=== PATIENT | male | born 1960 | race Caucasian/White ===

== ENCOUNTER → 2016-05-26 | Outpatient (CLI) | payer OTHER ==
[2016-02-05 08:12] VITALS: BP 156/89
[~2016-05-26] MED LIST: ASCO500T3 PO; AZAT50TA PO; CHOL20003 PO; FAMO20TA5 PO; FERR-26 PO; MESA800T2 PO; MULT-246 PO; OMEP20CA9 PO; PROT420P PO
== END | disposition home or self-care (01) ==
LOC: PMGWOUND 09:27
PROVIDERS: ATTEND Emergency Medicine Undersea and Hyperbaric Medicine
DX: L89.153 Pressure ulcer of sacral region, stage 3 (principal); L98.8 Other specified disorders of the skin and subcutaneous tissue; M19.90 Unspecified osteoarthritis, unspecified site; Z87.891 Personal history of nicotine dependence
CPT/HCPCS: 99214

== ENCOUNTER → 2017-09-09 | Outpatient (CLI) | payer OTHER | END | disposition home or self-care (01) | LOC: PMGWOUND 09:08 | DX: T81.31XD Disruption of external operation (surgical) wound, not elsewhere classified, subsequent encounter (principal); M19.90 Unspecified osteoarthritis, unspecified site; Z87.891 Personal history of nicotine dependence; Z85.048 Personal history of other malignant neoplasm of rectum, rectosigmoid junction, and anus; Y83.8 Other surgical procedures as the cause of abnormal reaction of the patient, or of later complication, without mention of misadventure at the time of the procedure | CPT/HCPCS: 99213 ==

== ENCOUNTER → 2017-09-16 | Outpatient (CLI) | payer OTHER ==
[2016-02-05 08:12] VITALS: BP 156/89
[~2017-09-16] MED LIST changes: -CHOL20003 PO; +CHOL20009 PO; -FERR-26 PO; +FERR325T14 PO; +GADOBUTROL 10 MMOL/10 ML VIAL IV ONE
--- NOTE | 2017-09-16 12:25 | RAD ---
Examination: MRI of the pelvis without and with IV contrast HISTORY: History of sacral pain, history of osteomyelitis, history of open ulcer, history of bowel resection COMPARISON: None available TECHNIQUE: Multiplanar, sequence MR imaging of the pelvis were performed without and with IV contrast. IV contrast used was 10 mL of gadavist FINDINGS: There is a sacral decubitus ulcer in the lower back distal to the sacrum best visualized on series 10 image #15 with focal fluid collection measuring 2.2 x 1.3 cm could be secondary to decubitus ulcer with probable abscess or phlegmon or fluid in the fistulous tract. The tract appears to extend into the posterior perineum along the right medial buttock possibly to the anal region, however examination is limited due to significant motion artifact. The ulcer extends appears to extend inferior to the distal sacral coccygeal region however the distal portion the coccygeus demonstrates a decreased T1 and T2 signal could be osteomyelitis or due to prior surgical changes. IMPRESSION: 1. Sacral ulcer identified in the low back with 2.2 cm fluid collection could be abscess or phlegmon or fluid in the fistulous tract. The tract from the ulcer extends into the posterior peritoneum along the right medial buttock possibly to the anal region suggesting possible fistula. 2. There is decreased T1, T2 signal identified in the distal coccygeal region could be osteomyelitis or prior surgical changes. Recommend clinical correlation. Also consider bone scan and bony CT pelvis for further evaluation. Electronically signed by: Rad Sawyer MD (09/16/2017 12:21 PM) [facility]
[2017-09-17 10:09] LABS: CALCIUM 9.8 mg/dL (8.5-10.1); CREATININE 1.3 mg/dL (0.7-1.3); GFR 56.5; POTASSIUM 3.9 mmol/L (3.5-5.1)
[2017-09-17 10:10] LABS: PHOSPHORUS 2.9 mg/dL (2.6-4.7)
[2017-09-17 10:11] LABS: BASO % 1 % (0-3); EOS % 1 % (0-3); HEMATOCRIT 48.4 % (39.0-53.0); HEMOGLOBIN 16.9 g/dL (13.0-17.5); LYMPH % 21 % (24-48); MEAN CORPUSCULAR HEMOGLOBIN 33 pg (25-35); MEAN CORPUSCULAR HGB CONC 35 g/dL (31-37); MEAN CORPUSCULAR VOLUME 95 fL (79-100); MONO % 10 % (0-9); NEUT % 68 % (31-73); PLATELET COUNT 197 x10^3/uL (140-400); RED BLOOD COUNT 5.11 x10^6/uL (4.30-5.70); RED CELL DISTRIBUTION WIDTH 13.7 % (11.5-14.5); WHITE BLOOD COUNT 9.1 x10^3/uL (4.0-11.0)
[2017-09-17 10:12] LABS: EOS # 0.1 x10^3/uL (0.0-0.7); LYMPH # 1.9 x10^3/uL (1.0-4.8); MONO # 0.9 x10^3/uL (0.0-1.1); NEUT # 6.1 x10^3uL (1.8-7.7)
== END | disposition home or self-care (01) ==
LOC: MRI 08:57
PROVIDERS: ATTEND Emergency Medicine Undersea and Hyperbaric Medicine
DX: T81.31XD Disruption of external operation (surgical) wound, not elsewhere classified, subsequent encounter (principal); L89.159 Pressure ulcer of sacral region, unspecified stage; Z85.048 Personal history of other malignant neoplasm of rectum, rectosigmoid junction, and anus; Z87.891 Personal history of nicotine dependence
CPT/HCPCS: 36415; 72197; 80069; 85025; 85651; A9585

== ENCOUNTER → 2017-09-30 | Outpatient (CLI) | payer OTHER ==
[2016-02-05 08:12] VITALS: BP 156/89
[~2017-09-30] MED LIST changes: -GADOBUTROL 10 MMOL/10 ML VIAL IV ONE
== END | disposition home or self-care (01) ==
LOC: PMGWOUND 08:56
PROVIDERS: ATTEND Emergency Medicine Undersea and Hyperbaric Medicine
DX: T81.31XS Disruption of external operation (surgical) wound, not elsewhere classified, sequela (principal); M46.28 Osteomyelitis of vertebra, sacral and sacrococcygeal region; M19.90 Unspecified osteoarthritis, unspecified site; Z87.891 Personal history of nicotine dependence; Z85.048 Personal history of other malignant neoplasm of rectum, rectosigmoid junction, and anus; Y83.8 Other surgical procedures as the cause of abnormal reaction of the patient, or of later complication, without mention of misadventure at the time of the procedure
CPT/HCPCS: 36415; 80069; 85025; 85651; 99213

== ENCOUNTER 2017-10-19 06:23 | Observation (INO) | payer OTHER ==
[~2017-10-19] VITALS: Ht 170.2 cm; Wt 99.8 kg
[~2017-10-19 06:23] MED LIST changes: +ASCO-78 PO; +ERGO500027 PO
[2017-10-19] MEDS ORDERED: HYDROmorphone 2 MG/ML VIAL IV PRN (07:00)
[2017-10-19] MEDS ORDERED: fentaNYL PF VIAL 100 MCG/2 ML VIAL IV PRN ×2 (07:00)
[2017-10-19] MEDS ORDERED: MORPHINE SULFATE 2 MG/ML VIAL. IV PRN (07:00)
[2017-10-19] MEDS ORDERED: LIDOCAINE 1% PF 2 ML VIAL. ID PRN (07:00)
[2017-10-19] MEDS ORDERED: ONDANSETRON PF 4 MG/2 ML VIAL. IV PRN ×2 (07:00→09:15)
[2017-10-19] MEDS ORDERED: PROCHLORPERAZINE 10 MG/2 ML VIAL. IV PRN (07:00)
[2017-10-19] MEDS: IV RINGERS,LACTATED 1000ML 1,000 ML IV SCH ×4 (07:05→19:05)
[2017-10-19] MEDS ORDERED: ONDANSETRON PF 4 MG/2 ML VIAL. ONE (07:44)
[2017-10-19] MEDS ORDERED: ROCURONIUM 50 MG/5 ML VIAL. ONE (07:44)
[2017-10-19] MEDS ORDERED: PROPOFOL 20 ML IV ONE (07:44)
[2017-10-19] MEDS ORDERED: DEXAMETHASONE SOD PHOS 20 MG/5 ML VIAL. ONE (07:44)
[2017-10-19] MEDS ORDERED: MIDAZOLAM HCL/PF 2 MG/2 ML VIAL. ONE (07:45)
[2017-10-19] MEDS ORDERED: MINERAL OIL/PETROLATUM,WHITE OPHTH OINT 3.5GM TUBE. ONE (07:45)
[2017-10-19] MEDS ORDERED: fentaNYL PF VIAL 100 MCG/2 ML VIAL ONE (07:45)
--- NOTE | 2017-10-19 08:03 | PDOC ---
SURGICAL PROGRESS NOTE Subjective 57 yo M with perineal ulcers TO OR for debridement, possible closure R/R/B/A d/w pt. Risks, including, but not limited to: bleeding, infection, damage to surrounding structures, risk of anesthesia, may need wound vac Pt appears to understand, his questions are answered and he elects to proceed. Office note H&P reviewed and unchanged. Pt reexamined. Vital Signs Vital Signs Date Time Temp Pulse Resp B/P (MAP) Pulse Ox O2 Delivery O2 Flow Rate FiO2 10/19/17 06:59 97.3 82 154/83 94 97.3 10/19/17 06:53 20 CLINTON AMIN MD Oct 19, 2017 08:03
[2017-10-19] MEDS ORDERED: DESFLURANE 31 TO 60 MINUTES IH ONE (08:20)
[2017-10-19] MEDS ORDERED: NEOSTIGMINE METHYLSULFATE 5 MG/5 ML SYRINGE. ONE (08:47)
[2017-10-19] MEDS ORDERED: GLYCOPYRROLATE 1 MG/5 ML VIAL. ONE (08:48)
[2017-10-19] MEDS ORDERED: SEVOFLURANE UP TO 15 MINUTES. IH ONE ×2 (08:52)
[2017-10-19] MEDS ORDERED: 0.9 % SODIUM CHLORIDE 10 ML DISP.SYRIN. IV PRN (09:15)
--- NOTE | 2017-10-19 09:19 | PDOC4 ---
OPERATIVE NOTE Date: Date: Oct 19, 2017 Pre-Op Diagnosis: Perineal ulcer Post-Op Diagnosis: same Procedure Performed: Excisional debridement of skin, subcutaneous tissue and muscle, no bony involvement Surgeon: Jose Amin Anesthesia Type: GETA Blood Loss: 50 Specimans Obtained: abscess cavity Findings: Abscess cavity involving skin, subcutaneous tissue and muscle, at the level of the coccyx, but infection not involving bone Complications: none Operative Note: After obtaining informed consent, patient was taken to OR, induced under GETA and prepped over the perineal area. Abscess cavity over coccyx excised in an ellitical fashion using cautery. Dissection continued down through skin, subcutaneous tissue and some muscle. Abscess cavity appeared to extend down inferiorly to the coccyx. Did not appear to involve bone. Necrotic tissue excised and sent to pathology for evaluation. Hemostasis obtained with cautery. Areas of granulation tissue inferiorly ablated with cautery. Wound packed with iodoform gauze. Sterile dressing placed. Given size of wound and depth of infection, favor wound care over layered closure. Patient tolerated procedure well and sent to PACU in stable condition. All counts correct. Wound class 4, dirty. CLINTON AMIN MD Oct 19, 2017 09:19
[2017-10-19 11:00] VITALS: BP 129/74
--- NOTE | 2017-10-19 13:02 | PDOC ---
Infectious Disease Note Vital Sign Vital Signs Vital Signs Date Time Temp Pulse Resp B/P (MAP) Pulse Ox O2 Delivery O2 Flow Rate FiO2 10/19/17 10:18 98.1 78 20 138/75 93 Room Air 98.1 10/19/17 09:33 10 Objective Assessment Sacrococcygeal wound, ? fistula ? sacral osteomyelitis, op report noted, as well my exam does not indicate wound to bone Crohns disease Plan Plan of Care get ct sacrum sed rate DIANA CAVANAUGH MD Oct 19, 2017 13:02
[2017-10-19 15:00] VITALS: BP 91/41
--- NOTE | 2017-10-19 15:02 | PDOC2 ---
CONSULT Date of Consult Date of Consult DATE: 10/19/17 TIME: 14:43 Reason for Consult Reason for Consult: Negative pressure wound therapy placement and concern for chronic refractory osteomyelitis of the sacrum Referring Physician Referring Physician: Dr. Gonzalez Identification/Chief Complaint Chief Complaint Nonhealing sacral wound with concern for tracking to infectious site Source Source: Chart review, Patient History of Present Illness Reason for Visit: This is a very pleasant 57-year-old patient known to the wound care center for nonhealing perineal wound sits site of perineal resection. Concern has been raised on MRI for chronic sacral osteomyelitis. Patient has a remote history of sacral osteomyelitis and it is believed he underwent appropriate prolonged IV antibiotic therapy. Today Dr. Gonzalez performed debridement on the wound to identify any infectious tracking. At surgery bony involvement was not apparent. He is examined today for placement negative pressure wound therapy and follow- up of MRI sacral osteomyelitis concern. Patient is examined in the bed. He is comfortable with postsurgical dressing in place. Patient has had multiple surgical procedures including ileostomy and history of total colectomy and proctectomy. Past Medical History Past Medical History Negative except as reported below GI: GERD, Other (past medical history of Crohn's) Psych: Depression Endocrine: Other (chronic nonhealing wounds that site of perineal resection.) Past Surgical History Past Surgical History: Colon Resection, Other (proctectomy) Social History No ALCOHOL: none Lives: Alone Domestic Violence: Neg Current Problem List Problem List Nonhealing sacral wound Current Medications Current Medications Current Medications Ondansetron HCl (Zofran) 4 mg PRN Q6HRS PRN IV NAUSEA/VOMITING; Start 10/19/17 at 07:00; Stop 10/20/17 at 06:59 Fentanyl Citrate (Fentanyl 2ml Vial) 25 mcg PRN Q5MIN PRN IV MILD PAIN; Start 10/19/17 at 07:00; Stop 10/20/17 at 06:59 Fentanyl Citrate (Fentanyl 2ml Vial) 50 mcg PRN Q5MIN PRN IV MODERATE TO SEVERE PAIN; Start 10/19/17 at 07:00; Stop 10/20/17 at 06:59 Morphine Sulfate (Morphine Sulfate) 1 mg PRN Q10MIN PRN IV SEVERE PAIN; Start 10/19/17 at 07:00; Stop 10/20/17 at 06:59 Ringer's Solution 1,000 ml @ 30 mls/hr Q24H IV Last administered on 10/19/17at 09:32; Start 10/19/17 at 07:00; Stop 10/19/17 at 18:59 Lidocaine HCl (Xylocaine-Mpf 1% 2ml Vial) 2 ml PRN 1X PRN ID PRIOR TO IV START ; Start 10/19/17 at 07:00; Stop 10/20/17 at 06:59 Hydromorphone HCl (Dilaudid) 0.5 mg PRN Q10MIN PRN IV SEV PAIN, Second choice; Start 10/19/17 at 07:00; Stop 10/20/17 at 06:59 Prochlorperazine Edisylate (Compazine) 5 mg PACU PRN PRN IV NAUSEA, MRX1; Start 10/19/17 at 07:00; Stop 10/20/17 at 06:59 Propofol 20 ml @ As Directed STK-MED ONCE IV ; Start 10/19/17 at 07:44; Stop 12/26 at 07:45; Status DC Dexamethasone Sodium Phosphate (Decadron) 20 mg STK-MED ONCE .ROUTE ; Start 12/26 at 07:44; Stop 10/19/17 at 07:45; Status DC Ondansetron HCl (Zofran) 4 mg STK-MED ONCE .ROUTE ; Start 10/19/17 at 07:44; Stop 10/19/17 at 07:45; Status DC Rocuronium Locke (Zemuron) 50 mg STK-MED ONCE .ROUTE ; Start 10/19/17 at 07:44 ; Stop 10/19/17 at 07:45; Status DC Fentanyl Citrate (Fentanyl 2ml Vial) 100 mcg STK-MED ONCE .ROUTE ; Start at 07:45; Stop 10/19/17 at 07:46; Status DC Midazolam HCl (Versed) 2 mg STK-MED ONCE .ROUTE ; Start 10/19/17 at 07:45; Stop 10/19/17 at 07:46; Status DC Multi-Ingred Cream/Lotion/Oil/ Oint (Artificial Tears Eye Ointment) 7 louis STK- MED ONCE .ROUTE ; Start 10/19/17 at 07:45; Stop 10/19/17 at 07:46; Status DC Cefazolin Sodium/ Dextrose 50 ml @ 100 mls/hr 1X ONCE IV Last administered on 10/19/17at 08:05; Start 10/19/17 at 08:00; Stop 10/19/17 at 08:29; Status DC Desflurane (Suprane) 30 ml STK-MED ONCE IH ; Start 10/19/17 at 08:20; Stop 10/19 at 08:21; Status DC Neostigmine Methylsulfate (Neostigmine Methylsulfate) 5 mg STK-MED ONCE .ROUTE ; Start 10/19/17 at 08:47; Stop 10/19/17 at 08:48; Status DC Glycopyrrolate (Robinul) 1 mg STK-MED ONCE .ROUTE ; Start 10/19/17 at 08:48; Stop 10/19/17 at 08:49; Status DC Sevoflurane (Ultane) 8 ml STK-MED ONCE IH ; Start 10/19/17 at 08:52; Stop at 08:53; Status DC Sevoflurane (Ultane) 8 ml STK-MED ONCE IH ; Start 10/19/17 at 08:52; Stop at 08:53; Status DC Enoxaparin Sodium (Lovenox 40mg Syringe) 40 mg Q24H SQ ; Start 10/19/17 at 21:00 Sodium Chloride (Normal Saline Flush) 3 ml QSHIFT PRN IV AFTER MEDS AND BLOOD DRAWS; Start 10/19/17 at 09:15 Ringer's Solution 1,000 ml @ 100 mls/hr Q10H IV ; Start 10/19/17 at 09:11 Acetaminophen/ Hydrocodone Bitart (Lortab 5/325) 1 tab PRN Q4HRS PRN PO MILD PAIN; Start 10/19/17 at 09:15 Docusate Sodium (Colace) 100 mg BID PO ; Start 10/19/17 at 21:00 Ondansetron HCl (Zofran) 4 mg PRN Q6HRS PRN IV NAUESA, 1ST CHOICE; Start at 09:15 Active Scripts Active Reported Vitamin D2 (Ergocalciferol (Vitamin D2)) 50,000 Unit Capsule 1 Cap PO QMONTH Vitamin C (Ascorbate Calcium) 500 Mg Tablet 500 Mg PO BID Nutritional Drink Mix (Protein Supplement) 420 Gm Powder 420 Gm PO DAILY Multi-Vitamin Daily (Multivitamin) 1 Each Tablet 1 Each PO Famotidine 20 Mg Tablet 20 Mg PO HS Asacol Hd (Mesalamine) 800 Mg Tablet. 1,600 Mg PO TID Allergies Allergies: Coded Allergies: No Known Drug Allergies (Unverified , 10/19/17) ROS Review of System Negative except as reported below Gastrointestinal: Yes Other (ileostomy) Skin: Yes Other (nonhealing sacral wounds with history of prior sacral osteomyelitis.) Physical Exam General: Alert, Oriented X3, Cooperative, No acute distress HEENT: Atraumatic, PERRLA, EOMI Lungs: Clear to auscultation, Normal air movement Heart: Regular rate Abdomen: Soft, No tenderness Extremities: No clubbing, No cyanosis Skin: Other (large sacral area postoperative wound.) Neuro: Normal gait, Normal speech Psych/Mental Status: Mental status NL, Mood NL MUSCULOSKELETAL: Not examined Vitals VITALS Vital Signs Date Time Temp Pulse Resp B/P (MAP) Pulse Ox O2 Delivery O2 Flow Rate FiO2 10/19/17 12:49 Room Air 10/19/17 10:18 98.1 78 20 138/75 93 98.1 10/19/17 09:33 10 Images Images There is decreased T1, T2 signal identified in the distal coccygeal region could be osteomyelitis or prior surgical changes. Recommend clinical correlation. Also consider bone scan and bony CT pelvis for further evaluation. MRI 09/16/17 Assessment/Plan Assessment/Plan Stage IV pressure ulcer now status post wide surgical debridement with no evidence of abscess formation. We'll ask infectious disease to consult regarding any persisting concern for sacral osteomyelitis. Efforts to place wound VAC today when successful due to postsurgical tissue friability and tendency to bleed. We'll reassess tomorrow with likely placement at that time. Appreciate surgical debridement efforts of general surgery. LYDIA BONILLA DO Oct 19, 2017 15:02
[2017-10-19] MEDS: HYDROcodone/APAP 5/325MG 1 TAB TABLET PO PRN (16:40)
--- NOTE | 2017-10-19 17:03 | RAD ---
PQRS Compliance statement: One or more of the following individualized dose reduction techniques were utilized for this examination: 1. Automated exposure control. 2. Adjustment of the mA and/or kV according to patient size. 3. Use of iterative reconstruction technique. INDICATION: Sacral ulcer. Evaluate for Sacral osteomyelitis. TECHNIQUE: Noncontrast CT pelvis with multiplanar reformats COMPARISON: MRI of the pelvis from 09/16/2017 FINDINGS: Limited exam due to lack of IV contrast. Deep posterior ulcer is seen inferior to the sacrum. Coccyx is absent there is no extension of the ulcer into the presacral space. This extends to the inferior sacral spine. There is thickening of the sacral pelvic fascia. Presacral inflammatory changes are seen. No free pelvic fluid. No loculated fluid collection to suggest abscess. Right lower quadrant ostomy with herniation of the small bowel loops. Fat-containing left lateral abdominal wall hernia with neck measuring 4.7 cm and hernia sac measuring 7.1 x 3.6 cm. The urinary bladder demonstrates no radiopaque stones. Prostate and seminal vesicles show no obvious mass lesion. No inguinal, pelvic or retroperitoneal adenopathy. No periosteal reaction or cortical erosion seen. Mild bilateral hip joint osteoarthritis. No suspicious bony lesion. Status post total colectomy. IMPRESSION: Limited exam due to lack of IV contrast. 1. Deep soft tissue ulcer at the level of coccyx extending to the inferior aspect of the sacrum with no obvious extension into the presacral fat. No fluid collection to suggest abscess. No cortical erosion of the inferior sacral vertebrae or periosteal reaction to suggest advanced acute osteomyelitis. However, it is not entirely ruled out given the proximity of the ulcer to the inferior sacral spine. 2. Right lower quadrant ostomy with parastomal herniation of the small bowel loops. 3. Presacral soft tissue inflammatory changes. Electronically signed by: John Johns DO (10/19/2017 5:00 PM) [facility]
[2017-10-19 19:00] VITALS: BP 115/64
[2017-10-19] MEDS: DOCUSATE SODIUM 100 MG CAPSULE. PO SCH (20:54)
[2017-10-19] MEDS: ENOXAPARIN 40 MG/0.4 ML SYRINGE. SQ SCH (20:55)
--- NOTE | 2017-10-19 21:46 | CONS ---
DATE OF CONSULTATION: 10/19/2017 REQUESTING PHYSICIAN: Dr. Gonzalez. REASON FOR CONSULTATION: Questionable sacral osteomyelitis. HISTORY OF PRESENT ILLNESS: This is a 57-year-old gentleman with Crohn's disease who has had fistula and problem with the wounds in the perianal area for a long time. The patient was evaluated by wound care. The patient has had MRI done on 09/16/2017 which showed a sacral ulcer with 2.2 cm fluid collection, which was abscess versus phlegmon or fluid in the fistulous tract. Tract from the ulcer extends into the posterior peritoneum along the right medial buttock, possibly into the anal region. There was also decreased T1-T2 signal identified in the distal coccygeal region, could be osteomyelitis or prior surgical changes. The patient was taken to the OR by Dr. Gonzalez and had I and D done, which included excisional debridement of the skin, subcutaneous tissue and muscle. No bone involvement clearly documented by Dr. Gonzalez, because of this MRI consult has been requested. The patient denies any fever, chills, nausea, vomiting, diarrhea. The patient unfortunately says this wound has been off and on for years and he has been told that he has had fistula, that it would get better and then get worse, etc. PAST MEDICAL HISTORY: Positive for Crohn's disease. He has had colon surgery done with colostomy. In fact, he had a temporary colostomy or ileostomy and now he has permanent one. The patient also has had cataract removal done. He has had fistula repair done x 6 in the past. SOCIAL HISTORY: Negative for smoking. Occasional alcohol use and occasional cigarette or he smokes. REVIEW OF SYSTEMS: As per HPI, all other systems reviewed are negative. CURRENT MEDICATIONS: The patient is not on any antibiotics. He did receive Ancef before surgery. PHYSICAL EXAMINATION: GENERAL: Alert and oriented gentleman, not in distress. VITAL SIGNS: Stable, afebrile. HEENT: NAD. NECK: Supple, no JVP, no lymphadenopathy. LUNGS: Clear. HEART: S1, S2 regular. ABDOMEN: Benign. EXTREMITIES: No edema, cyanosis. SKIN: Unremarkable. He has a postsurgical wound, which was examined, very healthy red granulation tissue without any necrosis, without any discharge and I do not feel there is any fistulous tract to the bone or exposed bone. LABORATORY DATA: His sed rate is at 10. White count is normal. BUN and creatinine is normal. MRI as I mentioned earlier. IMPRESSION AND PLAN: 1. Sacrococcygeal wound, status post excisional debridement of the skin, subcutaneous tissue, and muscle. No bony involvement per surgery as well as to my examination. 2. Crohn's disease with history of multiple surgeries in that area with even fistula repair done in the past. 3. MRI report with questionable infection in the bone, clinically does not appear to have infection in the bone as well as his sed rate is 10. As suggested by Radiology, CAT scan of the sacrococcyx can be done to evaluate and I do not see the need for any antibiotics at this stage. Thank you very much, Dr. Gonzalez, for giving me the opportunity to participate in this patient's care. DIANA CAVANAUGH MD DR: DENZEL/nts JOB#: [id number] / [id number]
[2017-10-19 23:00] VITALS: BP 96/51
[2017-10-20 03:00] VITALS: BP 105/49
[2017-10-20] MEDS: IV RINGERS,LACTATED 1000ML 1,000 ML IV SCH ×2 (04:57→15:11)
[2017-10-20 07:00] VITALS: BP 132/73
[2017-10-20] MEDS: DOCUSATE SODIUM 100 MG CAPSULE. PO SCH ×2 (08:08→20:39)
--- NOTE | 2017-10-20 09:58 | PDOC ---
Infectious Disease Note Subjective Subjective feeling good ROS ROS no n/v/d/sob Vital Sign Vital Signs Vital Signs Date Time Temp Pulse Resp B/P (MAP) Pulse Ox O2 Delivery O2 Flow Rate FiO2 10/20/17 08:15 Room Air 10.0 10/20/17 07:00 96.8 77 20 132/73 (92) 96 96.8 Physical Exam PHYSICAL EXAM GENERAL: Alert and oriented gentleman, not in distress. VITAL SIGNS: Stable, afebrile. HEENT: NAD. NECK: Supple, no JVP, no lymphadenopathy. LUNGS: Clear. HEART: S1, S2 regular. ABDOMEN: Benign. EXTREMITIES: No edema, cyanosis. SKIN: Unremarkable. He has a postsurgical wound, which was examined, very healthy red granulation tissue without any necrosis, without any discharge and I do not feel there is any fistulous tract to the bone or exposed bone. Labs Micro CT noted Objective Assessment 1. Sacrococcygeal wound, status post excisional debridement of the skin, subcutaneous tissue, and muscle. No bony involvement per surgery as well as to my examination. 2. Crohn's disease with history of multiple surgeries in that area with even fistula repair done in the past. 3. MRI report with questionable infection in the bone, clinically does not appear to have infection in the bone as well as his sed rate is 10. Also clearly reported by Dr Jones, As suggested by Radiology, CAT scan of the sacrococcyx can be done to evaluate and I do not see the need for any antibiotics at this stage. Plan Plan of Care wound vac no need for antibiotics ok to d/c DIANA CAVANAUGH MD Oct 20, 2017 09:58
[2017-10-20 11:00] VITALS: BP 128/73
[2017-10-20] MEDS: HYDROcodone/APAP 5/325MG 1 TAB TABLET PO PRN ×2 (13:10→20:39)
[2017-10-20 15:00] VITALS: BP 112/48
[2017-10-20] MEDS ORDERED: NORMAL SALINE TOP SCH (17:00)
[2017-10-20 19:00] VITALS: BP 135/54
--- NOTE | 2017-10-20 19:37 | PDOC ---
SURGICAL PROGRESS NOTE Subjective Pt without new c/o, just got wound vac Vital Signs Vital Signs Date Time Temp Pulse Resp B/P (MAP) Pulse Ox O2 Delivery O2 Flow Rate FiO2 10/20/17 15:00 97.7 69 20 112/48 (69) 95 Room Air 97.7 10/20/17 14:07 10.0 I&O Intake and Output 10/20/17 07:00 Intake Total 2740 ml Output Total 2100 ml Balance 640 ml Intake Oral 1440 ml IV Total 1300 ml Output Urine Total 1800 ml Stool Total 300 ml # Voids 3 General: Alert, Oriented X3, Cooperative, No acute distress Abdomen: Soft Problem List s/p perineal debridement doing well plan d/c home once wound vac arrangements made CLINTON AMIN MD Oct 20, 2017 19:37
[2017-10-20] MEDS: ENOXAPARIN 40 MG/0.4 ML SYRINGE. SQ SCH (20:39)
[2017-10-20 23:00] VITALS: BP 121/67
[2017-10-21] MEDS: IV RINGERS,LACTATED 1000ML 1,000 ML IV SCH (00:46)
[2017-10-21 03:00] VITALS: BP 117/64
[2017-10-21 07:00] VITALS: BP 118/63
--- NOTE | 2017-10-21 08:46 | PDOC3 ---
Discharge Summary Visit Information Date of Admission: Oct 19, 2017 Date of Discharge: Oct 21, 2017 Admitting Diagnosis: Decub ulcer stage 3 Brief Hospital Course Allergies Allergies Coded Allergies Type Severity Reaction Last Updated Verified No Known Drug Allergies 10/19/17 No Vital Signs Vital Signs Date Time Temp Pulse Resp B/P (MAP) Pulse Ox O2 Delivery O2 Flow Rate FiO2 10/21/17 07:00 97.5 64 20 118/63 (81) 95 Room Air 97.5 10/20/17 21:39 10.0 Brief Hospital Course Mr. Lilly is a 57 old m with perineal ulceration. He underwent debridement in OR. Wound vac placed on 10/20. Doing well on day of d/c pending arrangements for wound vac at home. Pt having minimal pain. Discharge Information Condition at Discharge: Improved Follow Up: Weeks (1) Disposition/Orders: D/C to Home w/ HH Scheduled Ascorbate Calcium (Vitamin C) 500 Mg Tablet, 500 MG PO BID, (Reported) Entered as Reported by: DASIA MA on 10/18/171439 Last Taken: Unknown Dose on 10/18/171899 Last Action: Last Taken Edited on 10/19/17650 by Maria Eugenia Hagen Ergocalciferol (Vitamin D2) (Vitamin D2) 50,000 Unit Capsule, 1 CAP PO QMONTH, # 4 Ref 5 (Reported) Entered as Reported by: DASIA MA on 10/18/17 144 Last Action: New Order on 10/18/171441 by DASIA MA Famotidine (Famotidine) 20 Mg Tablet, 20 MG PO HS, (Reported) Entered as Reported by: GRZEGORZ PICKETT on 01/09/16 0936 Last Taken: Unknown Dose on 10/18/171899 Last Action: Last Taken Edited on 10/19/17650 by Maria Eugenia Hagen Mesalamine (Asacol Hd) 800 Mg Tablet.dr, 1,600 MG PO TID, (Reported) Entered as Reported by: GRZEGORZ PICKETT on 01/08/16 1604 Last Taken: Unknown Dose on 10/19/17 0400 Last Action: Last Taken Edited on 10/19/1751 by Maria Eugenia Hagen Protein Supplement (Nutritional Drink Mix) 420 Gm Powder, 420 GM PO DAILY, ( Reported) Entered as Reported by: GRZEGORZ PICKETT on 01/09/16935 Last Action: Reviewed on 10/18/171438 by DASIA MA Miscellaneous Medications Multivitamin (Multi-Vitamin Daily) 1 Each Tablet, 1 EACH PO, (Reported) Entered as Reported by: GRZEGORZ PICKETT on 01/09/16935 Last Action: Reviewed on 10/18/171438 by CLINTON GARCIA MD Oct 21, 2017 08:46
[2017-10-21] MEDS: DOCUSATE SODIUM 100 MG CAPSULE. PO SCH (09:00)
--- NOTE | 2017-10-21 09:42 | PDOC ---
Infectious Disease Note Subjective Subjective feeling good ROS ROS no n/v/d/sob Vital Sign Vital Signs Vital Signs Date Time Temp Pulse Resp B/P (MAP) Pulse Ox O2 Delivery O2 Flow Rate FiO2 10/21/17 07:00 97.5 64 20 118/63 (81) 95 Room Air 97.5 10/20/17 21:39 10.0 Physical Exam PHYSICAL EXAM GENERAL: Alert and oriented gentleman, not in distress. VITAL SIGNS: Stable, afebrile. HEENT: NAD. NECK: Supple, no JVP, no lymphadenopathy. LUNGS: Clear. HEART: S1, S2 regular. ABDOMEN: Benign. EXTREMITIES: No edema, cyanosis. SKIN: Unremarkable. He has a postsurgical wound, which was examined, very healthy red granulation tissue without any necrosis, without any discharge and I do not feel there is any fistulous tract to the bone or exposed bone. Labs Micro CT noted Objective Assessment 1. Sacrococcygeal wound, status post excisional debridement of the skin, subcutaneous tissue, and muscle. No bony involvement per surgery as well as to my examination. 2. Crohn's disease with history of multiple surgeries in that area with even fistula repair done in the past. 3. MRI report with questionable infection in the bone, clinically does not appear to have infection in the bone as well as his sed rate is 10. Also clearly reported by Dr Jones, As suggested by Radiology, CAT scan of the sacrococcyx can be done to evaluate and I do not see the need for any antibiotics at this stage. Plan Plan of Care wound vac no need for antibiotics ok to lela/c DIANA CAVANAUGH MD Oct 21, 2017 09:42
[2017-10-21 11:00] VITALS: BP 111/50
--- NOTE | 2017-10-21 12:42 | DISCH ---
DISCHARGE WITH HOME HEALTH DISCHARGE INFORMATION: Condition on Discharge: Stable CODE STATUS: Code Status: Full HOME HEALTH: Face to Face: I certify this patient is under my care and that I, or a nurse practitioner or physician's reference assistant working with me, had a face to face encounter that meets the physician face to face encounter requirements with this patient on []. Medical Complications: Other (Perineal ulcer) Half-Way For: Wound Care, Wound Vac POST DISCHARGE ORDERS: Activity Instructions for Disc: Activity as tolerated Bathing Instructions: Shower-keep dressing dry (wound vac precautions) DIET AFTER DISCHARGE: Regular Wound/Incision Care: Other, see below (wound vac dressings per home health) FOLLOW-UP: Follow up with: Dr Gonzalez [phone] Follow Up With: F/U at wound care center as directed by them CERTIFICATION STATEMENT: Certification Statement: Certification Statement: Based on the above finding, I certify that this patient is confined to the home and needs intermittent fci care, physical therapy and/or speech therapy, or continues to need occupational therapy.~ This patient is under my care, and I have initiated the establishment of the plan of care.~ This patient will be followed by myself or a community physician who will periodically review the plan of care. Home Meds Reported Medications Ergocalciferol (Vitamin D2) (VITAMIN D2) 50,000 Unit Capsule, 1 CAP PO QMONTH, # 4 CAP 5 Refills 10/18/17 Ascorbate Calcium (VITAMIN C) 500 Mg Tablet, 500 MG PO BID, TAB 10/18/17 Protein Supplement (Nutritional Drink Mix) 420 Gm Powder, 420 GM PO DAILY 01/09/16 Multivitamin (MULTI-VITAMIN DAILY) 1 Each Tablet, 1 EACH PO 01/09/16 Famotidine (FAMOTIDINE) 20 Mg Tablet, 20 MG PO HS, TAB 01/09/16 Mesalamine (ASACOL HD) 800 Mg Tablet., 1600 MG PO TID 01/08/16 REINA LOVELACE APRN Oct 21, 2017 12:42
--- NOTE | 2017-10-21 13:52 | DISCH ---
DISCHARGE WITH HOME HEALTH DISCHARGE INFORMATION: Final Diagnosis: Problems Medical Problems: (1) Stage III pressure ulcer of sacral region Status: Acute Condition on Discharge: Stable CODE STATUS: Code Status: Full HOME HEALTH: Face to Face: I certify this patient is under my care and that I, or a nurse practitioner or physician's bacteriology research assistant working with me, had a face to face encounter that meets the physician face to face encounter requirements with this patient on []. Medical Complications: Other (Perineal ulcer) Half-Way For: Wound Care, Wound Vac Physical Therapy For: Evalulation/Treatment Occupational Therapy For: Evaluation/Treatment POST DISCHARGE ORDERS: Activity Instructions for Disc: Activity as tolerated Bathing Instructions: Shower-keep dressing dry (wound vac precautions) DIET AFTER DISCHARGE: Regular Wound/Incision Care: Other, see below (wound vac dressings per home health) FOLLOW-UP: Follow up with: Dr Gonzalez [phone] Follow Up With: F/U at wound care center as directed by them CERTIFICATION STATEMENT: Certification Statement: Certification Statement: Based on the above finding, I certify that this patient is confined to the home and needs intermittent penitentiary care, physical therapy and/or speech therapy, or continues to need occupational therapy.~ This patient is under my care, and I have initiated the establishment of the plan of care.~ This patient will be followed by myself or a community physician who will periodically review the plan of care. Home Meds Reported Medications Ergocalciferol (Vitamin D2) (VITAMIN D2) 50,000 Unit Capsule, 1 CAP PO QMONTH, # 4 CAP 5 Refills 10/18/17 Ascorbate Calcium (VITAMIN C) 500 Mg Tablet, 500 MG PO BID, TAB 10/18/17 Protein Supplement (Nutritional Drink Mix) 420 Gm Powder, 420 GM PO DAILY 01/09/16 Multivitamin (MULTI-VITAMIN DAILY) 1 Each Tablet, 1 EACH PO 01/09/16 Famotidine (FAMOTIDINE) 20 Mg Tablet, 20 MG PO HS, TAB 01/09/16 Mesalamine (ASACOL HD) 800 Mg Tablet., 1600 MG PO TID 01/08/16 REINA LOVELACE APRN Oct 21, 2017 13:52
--- NOTE | 2017-10-22 16:09 | PATHOLOGY ---
[facility] Accession Number: [id number] . 01 Material submitted: . SACRAL WOUND . 01 Clinical history: . Perineal abscess . 02 Diagnosis: Skin and subcutaneous tissue "sacral wound", removal: - Squamous epithelium with ulceration and associated acute and chronically inflamed granulation tissue. (SKM:[facility] 10/21/2017) P/10/21/2017 . 02 Electronically signed: . Andrey Chopra MD, Pathologist NPI- [id number] . 01 Gross description: . The specimen is received in formalin, labeled "Zach Lilly, sacral wound". Received is a segment of yellow-stover fibroadipose tissue with a slight amount of attached pale stover skin measuring 3.4 x 2.7 x 1.7 cm in greatest dimensions. Sectioning reveals pale stover to slightly necrotic cut surfaces. The specimen is submitted representatively in cassette A1. (CAA; 10/20/2017) QAC/QAC . 02 Pathologist provided ICD-10: L89.159 . 02 CPT . 003886 Specimen Comment: A courtesy copy of this report has been sent to Specimen Comment: [phone], . Specimen Comment: Report sent to / DR SHARMA Performed at: 01 [facility] [address], [place], [place] [id number] MD Jarvis Haque MD Phone: [phone] Performed at: 02 [facility] [address], [place] [id number] MD Jeevan Benson MD Phone: [phone]
== END 2017-10-21 17:09 | disposition home health service (06) ==
LOC: SURG 06:23 → 5 NORTH 11:43
PROVIDERS: ADMIT Surgery; ATTEND Surgery
DX: L89.153 Pressure ulcer of sacral region, stage 3 (principal); F17.210 Nicotine dependence, cigarettes, uncomplicated; M46.28 Osteomyelitis of vertebra, sacral and sacrococcygeal region; K21.9 Gastro-esophageal reflux disease without esophagitis; Z93.3 Colostomy status; K50.90 Crohn's disease, unspecified, without complications; Z90.49 Acquired absence of other specified parts of digestive tract
CPT/HCPCS: 15931; 72192; 88304; 96372; 97161; 97166; G0378; G0379; J0690; J1100; J1650; J2250; J2405; J2704; J2710; J3010; J3490; J7030; J7120; A7015

== ENCOUNTER → 2017-10-28 | Outpatient (CLI) | payer OTHER ==
[2017-10-21 11:00] VITALS: BP 111/50
== END | disposition home or self-care (01) ==
LOC: PMGWOUND 10:55
PROVIDERS: ATTEND Emergency Medicine Undersea and Hyperbaric Medicine
DX: T81.31XD Disruption of external operation (surgical) wound, not elsewhere classified, subsequent encounter (principal); K21.9 Gastro-esophageal reflux disease without esophagitis; M19.90 Unspecified osteoarthritis, unspecified site; Z90.49 Acquired absence of other specified parts of digestive tract; Z87.891 Personal history of nicotine dependence; Y83.8 Other surgical procedures as the cause of abnormal reaction of the patient, or of later complication, without mention of misadventure at the time of the procedure
CPT/HCPCS: 99214; G0463

== ENCOUNTER → 2017-11-04 | Outpatient (CLI) | payer OTHER ==
[2017-10-21 11:00] VITALS: BP 111/50
== END | disposition home or self-care (01) ==
LOC: PMGWOUND 08:42
PROVIDERS: ATTEND Emergency Medicine Undersea and Hyperbaric Medicine
DX: T81.31XD Disruption of external operation (surgical) wound, not elsewhere classified, subsequent encounter (principal); M46.28 Osteomyelitis of vertebra, sacral and sacrococcygeal region; M19.90 Unspecified osteoarthritis, unspecified site; K21.9 Gastro-esophageal reflux disease without esophagitis; Z90.49 Acquired absence of other specified parts of digestive tract; Z85.048 Personal history of other malignant neoplasm of rectum, rectosigmoid junction, and anus; Z87.891 Personal history of nicotine dependence; Y83.8 Other surgical procedures as the cause of abnormal reaction of the patient, or of later complication, without mention of misadventure at the time of the procedure
CPT/HCPCS: 11042

== ENCOUNTER → 2017-11-10 | Outpatient (CLI) | payer OTHER ==
[2017-10-21 11:00] VITALS: BP 111/50
== END | disposition home or self-care (01) ==
LOC: PMGWOUND 09:33
PROVIDERS: ATTEND Emergency Medicine Undersea and Hyperbaric Medicine
DX: T81.31XD Disruption of external operation (surgical) wound, not elsewhere classified, subsequent encounter (principal); M46.22 Osteomyelitis of vertebra, cervical region; M19.90 Unspecified osteoarthritis, unspecified site; K21.9 Gastro-esophageal reflux disease without esophagitis; Z90.49 Acquired absence of other specified parts of digestive tract; Z87.891 Personal history of nicotine dependence; Z85.048 Personal history of other malignant neoplasm of rectum, rectosigmoid junction, and anus; Y83.8 Other surgical procedures as the cause of abnormal reaction of the patient, or of later complication, without mention of misadventure at the time of the procedure
CPT/HCPCS: 99214; G0463

== ENCOUNTER → 2017-11-18 | Outpatient (CLI) | payer OTHER ==
[2017-10-21 11:00] VITALS: BP 111/50
== END | disposition home or self-care (01) ==
LOC: PMGWOUND 08:41
PROVIDERS: ATTEND Emergency Medicine Undersea and Hyperbaric Medicine
DX: T81.31XD Disruption of external operation (surgical) wound, not elsewhere classified, subsequent encounter (principal); M46.22 Osteomyelitis of vertebra, cervical region; M19.90 Unspecified osteoarthritis, unspecified site; K21.9 Gastro-esophageal reflux disease without esophagitis; Z90.49 Acquired absence of other specified parts of digestive tract; Z87.891 Personal history of nicotine dependence; Z85.048 Personal history of other malignant neoplasm of rectum, rectosigmoid junction, and anus; Y83.8 Other surgical procedures as the cause of abnormal reaction of the patient, or of later complication, without mention of misadventure at the time of the procedure
CPT/HCPCS: 99214; G0463

== ENCOUNTER → 2017-11-25 | Outpatient (CLI) | payer OTHER | END | disposition home or self-care (01) | LOC: PMGWOUND 09:24 | PROVIDERS: ATTEND Emergency Medicine Undersea and Hyperbaric Medicine | DX: T81.31XD Disruption of external operation (surgical) wound, not elsewhere classified, subsequent encounter (principal); M19.90 Unspecified osteoarthritis, unspecified site; K21.9 Gastro-esophageal reflux disease without esophagitis; M46.22 Osteomyelitis of vertebra, cervical region; M46.28 Osteomyelitis of vertebra, sacral and sacrococcygeal region; Z90.49 Acquired absence of other specified parts of digestive tract; Z87.891 Personal history of nicotine dependence; Z85.048 Personal history of other malignant neoplasm of rectum, rectosigmoid junction, and anus; Y83.8 Other surgical procedures as the cause of abnormal reaction of the patient, or of later complication, without mention of misadventure at the time of the procedure | CPT/HCPCS: 99214; G0463 ==

== ENCOUNTER → 2017-12-02 | Outpatient (CLI) | payer OTHER | END | disposition home or self-care (01) | LOC: PMGWOUND 08:57 | PROVIDERS: ATTEND Emergency Medicine Undersea and Hyperbaric Medicine | DX: T81.31XD Disruption of external operation (surgical) wound, not elsewhere classified, subsequent encounter (principal); K21.9 Gastro-esophageal reflux disease without esophagitis; M46.28 Osteomyelitis of vertebra, sacral and sacrococcygeal region; M19.90 Unspecified osteoarthritis, unspecified site; Z85.048 Personal history of other malignant neoplasm of rectum, rectosigmoid junction, and anus; Z87.891 Personal history of nicotine dependence; Z90.49 Acquired absence of other specified parts of digestive tract; Y83.8 Other surgical procedures as the cause of abnormal reaction of the patient, or of later complication, without mention of misadventure at the time of the procedure | CPT/HCPCS: 99215 ==

== ENCOUNTER → 2017-12-09 | Outpatient (CLI) | payer OTHER | END | disposition home or self-care (01) | LOC: PMGWOUND 08:48 | PROVIDERS: ATTEND Emergency Medicine Undersea and Hyperbaric Medicine | DX: T81.31XD Disruption of external operation (surgical) wound, not elsewhere classified, subsequent encounter (principal); M19.90 Unspecified osteoarthritis, unspecified site; K74.60 Unspecified cirrhosis of liver; M46.28 Osteomyelitis of vertebra, sacral and sacrococcygeal region; K21.9 Gastro-esophageal reflux disease without esophagitis; Z85.048 Personal history of other malignant neoplasm of rectum, rectosigmoid junction, and anus; Z87.891 Personal history of nicotine dependence; Z90.49 Acquired absence of other specified parts of digestive tract; Y83.8 Other surgical procedures as the cause of abnormal reaction of the patient, or of later complication, without mention of misadventure at the time of the procedure | CPT/HCPCS: 99214; G0463 ==

== ENCOUNTER → 2017-12-16 | Outpatient (CLI) | payer OTHER | END | disposition home or self-care (01) | LOC: PMGWOUND 08:54 | PROVIDERS: ATTEND Emergency Medicine Undersea and Hyperbaric Medicine | DX: T81.31XD Disruption of external operation (surgical) wound, not elsewhere classified, subsequent encounter (principal); K21.9 Gastro-esophageal reflux disease without esophagitis; M46.28 Osteomyelitis of vertebra, sacral and sacrococcygeal region; M46.22 Osteomyelitis of vertebra, cervical region; M19.90 Unspecified osteoarthritis, unspecified site; K74.60 Unspecified cirrhosis of liver; Z85.048 Personal history of other malignant neoplasm of rectum, rectosigmoid junction, and anus; Z87.891 Personal history of nicotine dependence; Z90.49 Acquired absence of other specified parts of digestive tract; Y83.8 Other surgical procedures as the cause of abnormal reaction of the patient, or of later complication, without mention of misadventure at the time of the procedure | CPT/HCPCS: 99214; G0463 ==

== ENCOUNTER → 2017-12-23 | Outpatient (CLI) | payer OTHER | END | disposition home or self-care (01) | LOC: PMGWOUND 09:05 | PROVIDERS: ATTEND Emergency Medicine Undersea and Hyperbaric Medicine | DX: T81.31XD Disruption of external operation (surgical) wound, not elsewhere classified, subsequent encounter (principal); K21.9 Gastro-esophageal reflux disease without esophagitis; K74.60 Unspecified cirrhosis of liver; M19.90 Unspecified osteoarthritis, unspecified site; M46.22 Osteomyelitis of vertebra, cervical region; M46.28 Osteomyelitis of vertebra, sacral and sacrococcygeal region; Z87.891 Personal history of nicotine dependence; Z90.49 Acquired absence of other specified parts of digestive tract; Z85.048 Personal history of other malignant neoplasm of rectum, rectosigmoid junction, and anus; Y83.8 Other surgical procedures as the cause of abnormal reaction of the patient, or of later complication, without mention of misadventure at the time of the procedure | CPT/HCPCS: 99214; G0463 ==

== ENCOUNTER → 2018-01-06 | Outpatient (CLI) | payer OTHER | END | disposition home or self-care (01) | LOC: PMGWOUND 09:14 | PROVIDERS: ATTEND Preventive Medicine Undersea and Hyperbaric Medicine | DX: T81.31XD Disruption of external operation (surgical) wound, not elsewhere classified, subsequent encounter (principal); M46.22 Osteomyelitis of vertebra, cervical region; M46.28 Osteomyelitis of vertebra, sacral and sacrococcygeal region; M19.90 Unspecified osteoarthritis, unspecified site; K74.60 Unspecified cirrhosis of liver; K21.9 Gastro-esophageal reflux disease without esophagitis; Z87.891 Personal history of nicotine dependence; Z90.49 Acquired absence of other specified parts of digestive tract; Z85.048 Personal history of other malignant neoplasm of rectum, rectosigmoid junction, and anus; Y83.8 Other surgical procedures as the cause of abnormal reaction of the patient, or of later complication, without mention of misadventure at the time of the procedure | CPT/HCPCS: 99214; G0463 ==

== ENCOUNTER → 2018-01-20 | Outpatient (CLI) | payer OTHER | END | disposition home or self-care (01) | LOC: PMGWOUND 09:07 | PROVIDERS: ATTEND Emergency Medicine Undersea and Hyperbaric Medicine | DX: T81.31XD Disruption of external operation (surgical) wound, not elsewhere classified, subsequent encounter (principal); M19.90 Unspecified osteoarthritis, unspecified site; M46.28 Osteomyelitis of vertebra, sacral and sacrococcygeal region; M46.22 Osteomyelitis of vertebra, cervical region; K21.9 Gastro-esophageal reflux disease without esophagitis; Z87.891 Personal history of nicotine dependence; Z90.49 Acquired absence of other specified parts of digestive tract; Z85.048 Personal history of other malignant neoplasm of rectum, rectosigmoid junction, and anus; Y83.8 Other surgical procedures as the cause of abnormal reaction of the patient, or of later complication, without mention of misadventure at the time of the procedure | CPT/HCPCS: 99214; G0463 ==

== ENCOUNTER → 2018-02-03 | Outpatient (CLI) | payer OTHER | END | disposition home or self-care (01) | LOC: PMGWOUND 08:54 | PROVIDERS: ATTEND Emergency Medicine Undersea and Hyperbaric Medicine | DX: T81.31XD Disruption of external operation (surgical) wound, not elsewhere classified, subsequent encounter (principal); M19.90 Unspecified osteoarthritis, unspecified site; M46.22 Osteomyelitis of vertebra, cervical region; M46.28 Osteomyelitis of vertebra, sacral and sacrococcygeal region; Z87.891 Personal history of nicotine dependence; Z85.048 Personal history of other malignant neoplasm of rectum, rectosigmoid junction, and anus; Z90.49 Acquired absence of other specified parts of digestive tract; Y83.8 Other surgical procedures as the cause of abnormal reaction of the patient, or of later complication, without mention of misadventure at the time of the procedure | CPT/HCPCS: 99215 ==

== ENCOUNTER → 2018-02-17 | Outpatient (CLI) | payer OTHER | END | disposition home or self-care (01) | LOC: PMGWOUND 09:01 | PROVIDERS: ATTEND Emergency Medicine Undersea and Hyperbaric Medicine | DX: T81.31XD Disruption of external operation (surgical) wound, not elsewhere classified, subsequent encounter (principal); E11.36 Type 2 diabetes mellitus with diabetic cataract; M19.90 Unspecified osteoarthritis, unspecified site; M46.22 Osteomyelitis of vertebra, cervical region; M46.28 Osteomyelitis of vertebra, sacral and sacrococcygeal region; K21.9 Gastro-esophageal reflux disease without esophagitis; Z87.891 Personal history of nicotine dependence; Z90.49 Acquired absence of other specified parts of digestive tract; Z85.048 Personal history of other malignant neoplasm of rectum, rectosigmoid junction, and anus; Y83.8 Other surgical procedures as the cause of abnormal reaction of the patient, or of later complication, without mention of misadventure at the time of the procedure | CPT/HCPCS: 99214; G0463 ==

== ENCOUNTER → 2018-03-03 | Outpatient (CLI) | payer OTHER | END | disposition home or self-care (01) | LOC: PMGWOUND 09:09 | PROVIDERS: ATTEND Emergency Medicine Undersea and Hyperbaric Medicine | DX: T81.31XD Disruption of external operation (surgical) wound, not elsewhere classified, subsequent encounter (principal); E11.36 Type 2 diabetes mellitus with diabetic cataract; M46.22 Osteomyelitis of vertebra, cervical region; M46.28 Osteomyelitis of vertebra, sacral and sacrococcygeal region; M19.90 Unspecified osteoarthritis, unspecified site; K21.9 Gastro-esophageal reflux disease without esophagitis; Z90.49 Acquired absence of other specified parts of digestive tract; Z87.891 Personal history of nicotine dependence; Z85.048 Personal history of other malignant neoplasm of rectum, rectosigmoid junction, and anus; Y83.8 Other surgical procedures as the cause of abnormal reaction of the patient, or of later complication, without mention of misadventure at the time of the procedure | CPT/HCPCS: 99214; G0463 ==

== ENCOUNTER → 2018-03-10 | Outpatient (CLI) | payer OTHER | END | disposition home or self-care (01) | LOC: PMGWOUND 09:15 | PROVIDERS: ATTEND Preventive Medicine Undersea and Hyperbaric Medicine | DX: T81.31XD Disruption of external operation (surgical) wound, not elsewhere classified, subsequent encounter (principal); E11.36 Type 2 diabetes mellitus with diabetic cataract; E11.69 Type 2 diabetes mellitus with other specified complication; M46.22 Osteomyelitis of vertebra, cervical region; M46.28 Osteomyelitis of vertebra, sacral and sacrococcygeal region; K21.9 Gastro-esophageal reflux disease without esophagitis; Z87.891 Personal history of nicotine dependence; Z90.49 Acquired absence of other specified parts of digestive tract; Z85.048 Personal history of other malignant neoplasm of rectum, rectosigmoid junction, and anus; Y83.8 Other surgical procedures as the cause of abnormal reaction of the patient, or of later complication, without mention of misadventure at the time of the procedure | CPT/HCPCS: 99214; G0463 ==

== ENCOUNTER → 2018-03-24 | Outpatient (CLI) | payer OTHER | END | disposition home or self-care (01) | LOC: PMGWOUND 09:20 | PROVIDERS: ATTEND Emergency Medicine Undersea and Hyperbaric Medicine | DX: T81.31XD Disruption of external operation (surgical) wound, not elsewhere classified, subsequent encounter (principal); E11.36 Type 2 diabetes mellitus with diabetic cataract; M46.22 Osteomyelitis of vertebra, cervical region; M46.28 Osteomyelitis of vertebra, sacral and sacrococcygeal region; M19.90 Unspecified osteoarthritis, unspecified site; K21.9 Gastro-esophageal reflux disease without esophagitis; Z87.891 Personal history of nicotine dependence; Z90.49 Acquired absence of other specified parts of digestive tract; Z85.048 Personal history of other malignant neoplasm of rectum, rectosigmoid junction, and anus; Y83.8 Other surgical procedures as the cause of abnormal reaction of the patient, or of later complication, without mention of misadventure at the time of the procedure | CPT/HCPCS: 99214; G0463 ==

== ENCOUNTER → 2018-04-07 | Outpatient (CLI) | payer OTHER ==
[~2018-04-07] MED LIST changes: +OMEP20CA10 PO; -OMEP20CA9 PO
== END | disposition home or self-care (01) ==
LOC: PMGWOUND 09:18
PROVIDERS: ATTEND Emergency Medicine Undersea and Hyperbaric Medicine
DX: T81.31XD Disruption of external operation (surgical) wound, not elsewhere classified, subsequent encounter (principal); E11.36 Type 2 diabetes mellitus with diabetic cataract; M19.90 Unspecified osteoarthritis, unspecified site; M46.22 Osteomyelitis of vertebra, cervical region; M46.28 Osteomyelitis of vertebra, sacral and sacrococcygeal region; K21.9 Gastro-esophageal reflux disease without esophagitis; Z87.891 Personal history of nicotine dependence; Z90.49 Acquired absence of other specified parts of digestive tract; Z85.048 Personal history of other malignant neoplasm of rectum, rectosigmoid junction, and anus; Y83.8 Other surgical procedures as the cause of abnormal reaction of the patient, or of later complication, without mention of misadventure at the time of the procedure
CPT/HCPCS: 99214; G0463

== ENCOUNTER → 2018-04-14 | Outpatient (CLI) | payer OTHER | END | disposition home or self-care (01) | LOC: PMGWOUND 09:17 | PROVIDERS: ATTEND Emergency Medicine Undersea and Hyperbaric Medicine | DX: T81.31XD Disruption of external operation (surgical) wound, not elsewhere classified, subsequent encounter (principal); E11.36 Type 2 diabetes mellitus with diabetic cataract; M46.22 Osteomyelitis of vertebra, cervical region; M46.28 Osteomyelitis of vertebra, sacral and sacrococcygeal region; M19.90 Unspecified osteoarthritis, unspecified site; K21.9 Gastro-esophageal reflux disease without esophagitis; Z87.891 Personal history of nicotine dependence; Z90.49 Acquired absence of other specified parts of digestive tract; Z85.048 Personal history of other malignant neoplasm of rectum, rectosigmoid junction, and anus; Y83.8 Other surgical procedures as the cause of abnormal reaction of the patient, or of later complication, without mention of misadventure at the time of the procedure | CPT/HCPCS: 99214; G0463 ==

== ENCOUNTER → 2018-04-28 | Outpatient (CLI) | payer OTHER | END | disposition home or self-care (01) | LOC: PMGWOUND 09:10 | PROVIDERS: ATTEND Emergency Medicine Undersea and Hyperbaric Medicine | DX: T81.31XD Disruption of external operation (surgical) wound, not elsewhere classified, subsequent encounter (principal); E11.36 Type 2 diabetes mellitus with diabetic cataract; M46.22 Osteomyelitis of vertebra, cervical region; M46.28 Osteomyelitis of vertebra, sacral and sacrococcygeal region; M19.90 Unspecified osteoarthritis, unspecified site; Z87.891 Personal history of nicotine dependence; K21.9 Gastro-esophageal reflux disease without esophagitis; Z90.49 Acquired absence of other specified parts of digestive tract; Z85.048 Personal history of other malignant neoplasm of rectum, rectosigmoid junction, and anus; Y83.8 Other surgical procedures as the cause of abnormal reaction of the patient, or of later complication, without mention of misadventure at the time of the procedure | CPT/HCPCS: 17250 ==

== ENCOUNTER 2019-01-30 11:17 | Inpatient (IN) | payer OTHER ==
[~2019-01-30] VITALS: Ht 177.8 cm; Wt 88.9 kg
[~2019-01-30 11:17] MED LIST changes: -OMEP20CA10 PO; +OMEP20CA16 PO
[2019-01-30] MEDS ORDERED: MAGN2400 PO (11:55)
[2019-01-30] MEDS ORDERED: CLIN300C8 PO (11:55)
[2019-01-30] MEDS ORDERED: HYDR-2761 PO (11:55)
[2019-01-30] MEDS ORDERED: GUAI118S36 PO (11:55)
[2019-01-30] MEDS ORDERED: ACET325T9 PO (11:55)
[2019-01-30 12:00] VITALS: BP 136/86
--- NOTE | 2019-01-30 12:40 | NUR ---
Wound Care: Pt direct admitted from Wound Clinic to room 562. During routine clinic visit, pt wounds began to bleed profusely during examination. Additionally, a new open area with 7cm of tunnelling was discovered, probing to bone in several areas. Pt states he has been having chills at home. Wound culture obtained, Dr. Olson [facility] to direct admit for uncontrolled bleeding from wound under Dr. Chow. Recommending a consult to ID, and a CT of his sacral area to rule out osteomyelitis. Bleeding controlled prior to transport to admitting, wounds packed with 1/2" iodoform gauze and covered with ABDs. Dr. Olson consulted with Dr. Gonzalez by phone, who plans to follow up with patient later this week. Will follow up wound care on 02/03/19
[2019-01-30] MEDS ORDERED: guaiFENesin DM 200MG/20MG 10 ML SYRUP PO PRN (14:00)
[2019-01-30] MEDS ORDERED: ACETAMINOPHEN 325 MG TABLET. PO PRN (14:00)
[2019-01-30] MEDS ORDERED: MAGNESIUM HYDROXIDE 2,400 MG/30 ML ORAL.SUSP. PO PRN (14:00)
--- NOTE | 2019-01-30 14:11 | HP ---
ADMIT DATE: 01/30/2019 CHIEF COMPLAINT: Coccygeal wound secondary to Crohn's. HISTORY OF PRESENT ILLNESS: The patient is a pleasant middle-aged male who has severe Crohn's. He has an ostomy in the right lower quadrant. He also has multiple wounds on his abdomen. He has history of flares with flare of his Crohn's with fistulas. He now has a wound on his coccyx. He was seen in the Wound Care Clinic. He was sent here today for continued IV antibiotics and consultation with Infectious Disease. I am also going to consult his surgeon, Dr. Gonzalez. PAST MEDICAL HISTORY: Advanced Crohn's with multiple surgeries, ostomy, multiple fissures, chronic pain, hyperlipidemia, hypertension, GERD. ALLERGIES: None. FAMILY HISTORY: Coronary artery disease. SOCIAL HISTORY: Does not drink, smoke or take drugs. MEDICATIONS: Reviewed, please refer to the MRAD. REVIEW OF SYSTEMS: REVIEW OF SYSTEMS: GENERAL: No history of weight change, weakness or fevers. SKIN: He complains of Crohn's of fistulas on his coccyx. EYES: No blurred, double or loss of vision. NOSE AND THROAT: No history of nosebleeds, hoarseness or sore throat. HEART: No history of palpitations, chest pain or shortness of breath on exertion. LUNGS: Denies cough, hemoptysis, wheezing or shortness of breath. GASTROINTESTINAL: Denies changes in appetite, nausea, vomiting, diarrhea or constipation. GENITOURINARY: No history of frequency, urgency, hesitancy or nocturia. NEUROLOGIC: Denies history of numbness, tingling, tremor or weakness. PSYCHIATRIC: No history of panic, anxiety or depression. ENDOCRINE: No history of heat or cold intolerance, polyuria or polydipsia. EXTREMITIES: Denies muscle weakness, joint pain, pain on walking or stiffness. PHYSICAL EXAMINATION: VITALS: Within normal limits and are stable. GENERAL: No apparent distress. Alert and oriented. HEENT: Normal cephalic atraumatic, external auditory canals are patent EYES: Extraocular muscles are intact, pupils are equally round and reactive to light and accommodation MUSCULOSKELETAL: Well developed, well nourished, good range of motion ENDOCRINE: No thyromegaly was palpated LYMPHATICS: No cervical chain or axillary nodes were noted HEMATOPOIETIC: No bruising NECK: Supple, no JVD, no thyromegaly was noted. LUNGS: Clear to auscultation in all lung serrato without rhonchi or wheezing. HEART: RRR, S1, S2 present. Peripheral pulses intact, no obvious murmurs were noted. ABDOMEN: He has got multiple old incisions on his abdomen. He has had right lower quadrant ostomy. EXTREMITIES: Without any cyanosis, clubbing, or edema. Pedal pulses intact, Homans sign is negative. NEUROLOGIC: Normal speech, normal tone. A & O x3, moves all extremities, no obvious focal deficits. PSYCHIATRIC: Normal affect, normal mood. Stable. SKIN: Please see the pictures of the coccyx. He has got fistulas. VASCULAR: Good capillary refill, neurovascular bundle appears to be intact. LABORATORY DATA: Pending. ASSESSMENT AND PLAN: Progression of Crohn's with fistulas. The patient will be admitted. We will start IV antibiotics. Consult ID, consult General Surgery, consult wound care, home meds, DVT prophylaxis. Full code. P.r.n. pain medicine. FRANK KNIGHT DO DR: KD/jessa JOB#: [id number] / [id number]
[2019-01-30] MEDS: MESALAMINE 400 MG CAP.DRTAB. PO SCH ×2 (14:28→21:20)
[2019-01-30] MEDS: CLINDAMYCIN HCL 150 MG CAPSULE. PO SCH ×2 (14:28→21:20)
[2019-01-30 15:08] VITALS: BP 113/69
--- NOTE | 2019-01-30 16:05 | PDOC ---
Provider Note Provider Note SURG Claude for Dr Gonzalez full not to follow pt with long hx of Crohn's with intermittent fistulae seen last week by Dr Gonzalez in the office was having some bleeding from perianal area earlier today when seen in the C dressing now dry and intact no acute surgical recs will follow Thanks for consult MIGUEL BLACKWELL MD Jan 30, 2019 16:05
[2019-01-30 19:00] VITALS: BP 119/66
[2019-01-30] MEDS: FAMOTIDINE 20 MG TABLET. PO SCH (21:20)
[2019-01-30] MEDS: ASCORBIC ACID 500 MG TABLET PO SCH (21:20)
[2019-01-30 23:00] VITALS: BP 113/65
[2019-01-31 03:00] VITALS: BP 122/71
[2019-01-31 04:55] LABS: BASO % 0 % (0-3); EOS # 0.2 x10^3/uL (0.0-0.7); EOS % 3 % (0-3); HEMATOCRIT 39.5 % (39.0-53.0); HEMOGLOBIN 13.2 g/dL (13.0-17.5); LYMPH # 0.8 x10^3/uL (1.0-4.8); LYMPH % 14 % (24-48); MEAN CORPUSCULAR HEMOGLOBIN 30 pg (25-35); MEAN CORPUSCULAR HGB CONC 34 g/dL (31-37); MEAN CORPUSCULAR VOLUME 90 fL (79-100); MONO # 0.7 x10^3/uL (0.0-1.1); MONO % 13 % (0-9); NEUT # 4.1 x10^3/uL (1.8-7.7); NEUT % 71 % (31-73); PLATELET COUNT 163 x10^3/uL (140-400); RED BLOOD COUNT 4.37 x10^6/uL (4.30-5.70); RED CELL DISTRIBUTION WIDTH 13.5 % (11.5-14.5); WHITE BLOOD COUNT 5.8 x10^3/uL (4.0-11.0)
[2019-01-31 05:08] LABS: CREATININE 1.1 mg/dL (0.7-1.3); GFR 68.3; POTASSIUM 4.2 mmol/L (3.5-5.1)
[2019-01-31 07:00] VITALS: BP 101/70
--- NOTE | 2019-01-31 07:22 | PDOC ---
PROGRESS NOTES Chief Complaint Chief Complaint Perianal wound - with bleeding Severe Crohn's with multiple surgeries s/p ostomy (multiple fissures and abdominal wounds) Chronic pain Hyperlipidemia Hypertension GERD History of Present Illness History of Present Illness Mr Lilly is a 58yo M w/ PMHx severe Crohn's with multiple surgeries s/p ostomy (multiple fissures and abdominal wounds), chronic pain, hyperlipidemia, hypertension, GERD with a wound on his coccyx who was sent from wound care clinic on 01/30/19 for bleeding from perianal area. Started on IV antibiotics and consulted General surgery and Infectious Disease. ESR and CRP elevated. He is having some bloody drainage. He states he is pretty comfortable, has been through this before. No fever or chills. No increase in ostomy output. No CP or SOB Vitals Vitals Vital Signs Date Time Temp Pulse Resp B/P (MAP) Pulse Ox O2 Delivery O2 Flow Rate FiO2 01/31/19 03:00 98.3 74 18 122/71 (88) 96 Room Air 98.3 Physical Exam General: Alert, Oriented X3, Cooperative Heart: Regular rate, Normal S1, Normal S2 Lungs: Clear Extremities: No clubbing, No cyanosis Skin: No rashes, No breakdown Labs LABS Laboratory Tests Test 01/31/19 04:35 White Blood Count 5.8 x10^3/uL (4.0-11.0) Red Blood Count 4.37 x10^6/uL (4.30-5.70) Hemoglobin 13.2 g/dL (13.0-17.5) Hematocrit 39.5 % (39.0-53.0) Mean Corpuscular Volume 90 fL (79-100) Mean Corpuscular Hemoglobin 30 pg (25-35) Mean Corpuscular Hemoglobin Concent 34 g/dL (31-37) Red Cell Distribution Width 13.5 % (11.5-14.5) Platelet Count 163 x10^3/uL (140-400) Neutrophils (%) (Auto) 71 % (31-73) Lymphocytes (%) (Auto) 14 % (24-48) Monocytes (%) (Auto) 13 % (0-9) Eosinophils (%) (Auto) 3 % (0-3) Basophils (%) (Auto) 0 % (0-3) Neutrophils # (Auto) 4.1 x10^3/uL (1.8-7.7) Lymphocytes # (Auto) 0.8 x10^3/uL (1.0-4.8) Monocytes # (Auto) 0.7 x10^3/uL (0.0-1.1) Eosinophils # (Auto) 0.2 x10^3/uL (0.0-0.7) Basophils # (Auto) 0.0 x10^3/uL (0.0-0.2) Sodium Level 141 mmol/L (136-145) Potassium Level 4.2 mmol/L (3.5-5.1) Chloride Level 106 mmol/L (98-107) Carbon Dioxide Level 27 mmol/L (21-32) Anion Gap 8 (6-14) Blood Urea Nitrogen 11 mg/dL (8-26) Creatinine 1.1 mg/dL (0.7-1.3) Estimated GFR (Cockcroft-Gault) 68.3 Glucose Level 114 mg/dL (70-99) Calcium Level 9.0 mg/dL (8.5-10.1) Comment Review of Relevant I have reviewed the following items hermes (where applicable) has been applied. Labs Laboratory Tests Test 01/31/19 04:35 White Blood Count 5.8 x10^3/uL (4.0-11.0) Red Blood Count 4.37 x10^6/uL (4.30-5.70) Hemoglobin 13.2 g/dL (13.0-17.5) Hematocrit 39.5 % (39.0-53.0) Mean Corpuscular Volume 90 fL (79-100) Mean Corpuscular Hemoglobin 30 pg (25-35) Mean Corpuscular Hemoglobin Concent 34 g/dL (31-37) Red Cell Distribution Width 13.5 % (11.5-14.5) Platelet Count 163 x10^3/uL (140-400) Neutrophils (%) (Auto) 71 % (31-73) Lymphocytes (%) (Auto) 14 % (24-48) Monocytes (%) (Auto) 13 % (0-9) Eosinophils (%) (Auto) 3 % (0-3) Basophils (%) (Auto) 0 % (0-3) Neutrophils # (Auto) 4.1 x10^3/uL (1.8-7.7) Lymphocytes # (Auto) 0.8 x10^3/uL (1.0-4.8) Monocytes # (Auto) 0.7 x10^3/uL (0.0-1.1) Eosinophils # (Auto) 0.2 x10^3/uL (0.0-0.7) Basophils # (Auto) 0.0 x10^3/uL (0.0-0.2) Sodium Level 141 mmol/L (136-145) Potassium Level 4.2 mmol/L (3.5-5.1) Chloride Level 106 mmol/L (98-107) Carbon Dioxide Level 27 mmol/L (21-32) Anion Gap 8 (6-14) Blood Urea Nitrogen 11 mg/dL (8-26) Creatinine 1.1 mg/dL (0.7-1.3) Estimated GFR (Cockcroft-Gault) 68.3 Glucose Level 114 mg/dL (70-99) Calcium Level 9.0 mg/dL (8.5-10.1) Laboratory Tests Test 01/31/19 04:35 White Blood Count 5.8 x10^3/uL (4.0-11.0) Red Blood Count 4.37 x10^6/uL (4.30-5.70) Hemoglobin 13.2 g/dL (13.0-17.5) Hematocrit 39.5 % (39.0-53.0) Mean Corpuscular Volume 90 fL (79-100) Mean Corpuscular Hemoglobin 30 pg (25-35) Mean Corpuscular Hemoglobin Concent 34 g/dL (31-37) Red Cell Distribution Width 13.5 % (11.5-14.5) Platelet Count 163 x10^3/uL (140-400) Neutrophils (%) (Auto) 71 % (31-73) Lymphocytes (%) (Auto) 14 % (24-48) Monocytes (%) (Auto) 13 % (0-9) Eosinophils (%) (Auto) 3 % (0-3) Basophils (%) (Auto) 0 % (0-3) Neutrophils # (Auto) 4.1 x10^3/uL (1.8-7.7) Lymphocytes # (Auto) 0.8 x10^3/uL (1.0-4.8) Monocytes # (Auto) 0.7 x10^3/uL (0.0-1.1) Eosinophils # (Auto) 0.2 x10^3/uL (0.0-0.7) Basophils # (Auto) 0.0 x10^3/uL (0.0-0.2) Sodium Level 141 mmol/L (136-145) Potassium Level 4.2 mmol/L (3.5-5.1) Chloride Level 106 mmol/L (98-107) Carbon Dioxide Level 27 mmol/L (21-32) Anion Gap 8 (6-14) Blood Urea Nitrogen 11 mg/dL (8-26) Creatinine 1.1 mg/dL (0.7-1.3) Estimated GFR (Cockcroft-Gault) 68.3 Glucose Level 114 mg/dL (70-99) Calcium Level 9.0 mg/dL (8.5-10.1) Medications Current Medications Acetaminophen (Tylenol) 650 mg PRN Q4HRS PRN PO PAIN; Start 01/30/19 at 14:00 Ergocalciferol (Vitamin D2) 50,000 unit QMONTH PO ; Start 03/01/19 at 09:00 Famotidine (Pepcid) 20 mg HS PO Last administered on 01/30/19at 21:20; Start 01/30/19 at 21:00 Guaifenesin (Robitussin Dm) 5 ml PRN QID PRN PO COUGH; Start 01/30/19 at 14:00 Ascorbic Acid (Vitamin C) 500 mg BID PO Last administered on 01/30/19at 21:20; Start 01/30/19 at 21:00 Clindamycin HCl (Cleocin) 300 mg TID PO Last administered on 01/30/19at 21:20; Start 01/30/19 at 14:00 Magnesium Hydroxide (Milk Of Magnesia) 2,400 mg PRN DAILY PRN PO CONSTIPATION; Start 01/30/19 at 14:00 Mesalamine (Delzicol) 800 mg TID PO Last administered on 01/30/19at 21:20; Start 01/30/19 at 15:00 Non-Formulary Medication (Protein Supplement (Nutritional Drink Mix)) 420 gm DAILY PO ; Start 01/31/19 at 09:00; Status UNV Active Scripts Active Reported Hydrocodone-Apap 5-325 (Hydrocodone Bit/Acetaminophen) 1 Tab Tablet 1-2 Tab PO PRN Q4HRS PRN [place]ussin Dm Cough & Chest Syrup (Guaifenesin/Dextromethorphan) 118 Ml Syrup 5 Ml PO PRN QID PRN 12 Days Milk Of Magnesia (Magnesium Hydroxide) 2,400 Mg/10 Ml Oral.susp 2,400 Mg PO PRN DAILY PRN Tylenol (Acetaminophen) 325 Mg Tablet 650 Mg PO PRN Q4HRS PRN Clindamycin Hcl 300 Mg Capsule 300 Mg PO TID Vitamin D2 (Ergocalciferol (Vitamin D2)) 50,000 Unit Capsule 1 Cap PO QMONTH Vitamin C (Ascorbate Calcium) 500 Mg Tablet 500 Mg PO BID Nutritional Drink Mix (Protein Supplement) 420 Gm Powder 420 Gm PO DAILY Multi-Vitamin Daily (Multivitamin) 1 Each Tablet 1 Each PO Famotidine 20 Mg Tablet 20 Mg PO HS Asacol Hd (Mesalamine) 800 Mg Tablet.dr 1,600 Mg PO TID Vitals/I & O Vital Sign - Last 24 Hours 01/30/19 01/30/19 01/30/19 01/30/19 12:00 12:16 15:08 19:00 Temp 97.8 97.9 98.9 97.8 97.9 98.9 Pulse 91 82 82 Resp 18 18 18 B/P (MAP) 136/86 (103) 113/69 (84) 119/66 (83) Pulse Ox 97 95 96 O2 Delivery Room Air Room Air Room Air Room Air 01/30/19 01/30/19 01/31/19 20:00 23:00 03:00 Temp 98.8 98.3 98.8 98.3 Pulse 59 74 Resp 18 18 B/P (MAP) 113/65 (81) 122/71 (88) Pulse Ox 97 96 O2 Delivery Room Air Room Air Room Air Intake and Output 01/30/19 01/30/19 01/31/19 15:00 23:00 07:00 Intake Total 300 ml 300 ml Balance 300 ml 300 ml PARIS LALA MD Jan 31, 2019 07:22
[2019-01-31] MEDS ORDERED: IOHEXOL 300 MG/ML 100ML VIAL. IV ONE (08:00)
[2019-01-31] MEDS: CLINDAMYCIN HCL 150 MG CAPSULE. PO SCH (08:39)
[2019-01-31] MEDS: ASCORBIC ACID 500 MG TABLET PO SCH ×2 (08:39→21:01)
[2019-01-31] MEDS: MESALAMINE 400 MG CAP.DRTAB. PO SCH ×3 (08:39→21:01)
[2019-01-31] MEDS ORDERED: PROTEIN SUPPLEMENT PO SCH (09:00)
--- NOTE | 2019-01-31 09:30 | PDOC ---
Infectious Disease Note Vital Sign Vital Signs Vital Signs Date Time Temp Pulse Resp B/P (MAP) Pulse Ox O2 Delivery O2 Flow Rate FiO2 01/31/19 07:00 98.4 78 16 101/70 (80) 94 Room Air 98.4 Labs Lab Laboratory Tests Test 01/31/19 04:35 White Blood Count 5.8 x10^3/uL (4.0-11.0) Red Blood Count 4.37 x10^6/uL (4.30-5.70) Hemoglobin 13.2 g/dL (13.0-17.5) Hematocrit 39.5 % (39.0-53.0) Mean Corpuscular Volume 90 fL (79-100) Mean Corpuscular Hemoglobin 30 pg (25-35) Mean Corpuscular Hemoglobin Concent 34 g/dL (31-37) Red Cell Distribution Width 13.5 % (11.5-14.5) Platelet Count 163 x10^3/uL (140-400) Neutrophils (%) (Auto) 71 % (31-73) Lymphocytes (%) (Auto) 14 % (24-48) Monocytes (%) (Auto) 13 % (0-9) Eosinophils (%) (Auto) 3 % (0-3) Basophils (%) (Auto) 0 % (0-3) Neutrophils # (Auto) 4.1 x10^3/uL (1.8-7.7) Lymphocytes # (Auto) 0.8 x10^3/uL (1.0-4.8) Monocytes # (Auto) 0.7 x10^3/uL (0.0-1.1) Eosinophils # (Auto) 0.2 x10^3/uL (0.0-0.7) Basophils # (Auto) 0.0 x10^3/uL (0.0-0.2) Erythrocyte Sedimentation Rate 35 (0-15) Sodium Level 141 mmol/L (136-145) Potassium Level 4.2 mmol/L (3.5-5.1) Chloride Level 106 mmol/L (98-107) Carbon Dioxide Level 27 mmol/L (21-32) Anion Gap 8 (6-14) Blood Urea Nitrogen 11 mg/dL (8-26) Creatinine 1.1 mg/dL (0.7-1.3) Estimated GFR (Cockcroft-Gault) 68.3 Glucose Level 114 mg/dL (70-99) Calcium Level 9.0 mg/dL (8.5-10.1) C-Reactive Protein, Quantitative 42.8 mg/L (0-3.3) Procalcitonin < 0.10 ng/mL (0.00-0.10) Objective Assessment Multiple sacrococcygeal fistulas, bleeding, no overt signs of infection Crohn's disease with h/o ostomy and multiple fistula repairs GERD Obesity Plan Plan of Care D/c clindamycin CT abd/pelvis pending No surgical plans at this time Thank you [id number] Attending Co-Sign The patient was seen and interviewed as well as examined at the bedside. The chart was reviewed. The case was discussed. Agree with the plan of care. F/U CT abdomen and pelvis results MELISSA RODRIGUEZ APRN Jan 31, 2019 09:30 JENNIFER CAVANAUGH MD Jan 31, 2019 11:00
--- NOTE | 2019-01-31 09:58 | PDOC2 ---
REINA LOVELACE Shasha CORRECTIONAL SUPERVISOR 01/31/19 0958: CONSULT Date of Consult Date of Consult DATE: 01/31/19 TIME: 09:54 Reason for Consult Reason for Consult: crohns, fistula Referring Physician Referring Physician: Dr Chow Identification/Chief Complaint Chief Complaint rectal bleeding Source Source: Chart review, Patient History of Present Illness Reason for Visit: Chronic wounds, follows in wound clinic, Dr Gonzalez seen in clinic last week, in 2018 Dr Gonzalez did an excisional debridement of coccyx for abscess He follows in wound care With rectal bleeding Past Medical History GI: GERD, Other Psych: Depression Endocrine: Other Past Surgical History Past Surgical History: Colon Resection, Other Social History ALCOHOL: none Lives: Alone Domestic Violence: Neg Current Medications Current Medications Current Medications Acetaminophen (Tylenol) 650 mg PRN Q4HRS PRN PO PAIN; Start 01/30/19 at 14:00 Ergocalciferol (Vitamin D2) 50,000 unit QMONTH PO ; Start 03/01/19 at 09:00 Famotidine (Pepcid) 20 mg HS PO Last administered on 01/30/19at 21:20; Start 01/30/19 at 21:00 Guaifenesin (Robitussin Dm) 5 ml PRN QID PRN PO COUGH; Start 01/30/19 at 14:00 Ascorbic Acid (Vitamin C) 500 mg BID PO Last administered on 01/31/19at 08:39; Start 01/30/19 at 21:00 Clindamycin HCl (Cleocin) 300 mg TID PO Last administered on 01/31/19at 08:39; Start 01/30/19 at 14:00; Stop 01/31/19 at 09:30; Status DC Magnesium Hydroxide (Milk Of Magnesia) 2,400 mg PRN DAILY PRN PO CONSTIPATION; Start 01/30/19 at 14:00 Mesalamine (Delzicol) 800 mg TID PO Last administered on 01/31/19at 08:39; Start 01/30/19 at 15:00 Non-Formulary Medication (Protein Supplement (Nutritional Drink Mix)) 420 gm DAILY PO ; Start 01/31/19 at 09:00; Status UNV Iohexol (Omnipaque 300 Mg/ml) 75 ml 1X ONCE IV Last administered on 01/31/19at 08:29; Start 01/31/19 at 08:00; Stop 01/31/19 at 08:01; Status DC Active Scripts Active Reported Hydrocodone-Apap 5-325 (Hydrocodone Bit/Acetaminophen) 1 Tab Tablet 1-2 Tab PO PRN Q4HRS PRN [place] Dm Cough & Chest Syrup (Guaifenesin/Dextromethorphan) 118 Ml Syrup 5 Ml PO PRN QID PRN 12 Days Milk Of Magnesia (Magnesium Hydroxide) 2,400 Mg/10 Ml Oral.susp 2,400 Mg PO PRN DAILY PRN Tylenol (Acetaminophen) 325 Mg Tablet 650 Mg PO PRN Q4HRS PRN Clindamycin Hcl 300 Mg Capsule 300 Mg PO TID Vitamin D2 (Ergocalciferol (Vitamin D2)) 50,000 Unit Capsule 1 Cap PO QMONTH Vitamin C (Ascorbate Calcium) 500 Mg Tablet 500 Mg PO BID Nutritional Drink Mix (Protein Supplement) 420 Gm Powder 420 Gm PO DAILY Multi-Vitamin Daily (Multivitamin) 1 Each Tablet 1 Each PO Famotidine 20 Mg Tablet 20 Mg PO HS Asacol Hd (Mesalamine) 800 Mg Tablet.dr 1,600 Mg PO TID Allergies Allergies: Coded Allergies: No Known Drug Allergies (Unverified , 10/19/17) ROS General: No: Chills, Other (fevers ) PSYCHOLOGICAL ROS: No: Anxiety, Depression Eyes: No Blurry vision, No Double vision HEENT: No: Heacaches, Sore Throat Hematological and Lymphatic: YES: Bleeding Problems; No: Blood Clots Respiratory: No: Cough, Shortness of breath Cardiovascular: No Chest Pain, No Palpitations Gastrointestinal: No Nausea, No Vomiting Genitourinary: No Dysuria, No Hematuria Musculoskeletal: No Joint Pain, No Muscle Pain Neurological: No Confusion, No Impaired Coord/balance Skin: Yes Other (see hpi) Physical Exam General: Alert, Oriented X3, Cooperative HEENT: Atraumatic, PERRLA Lungs: Clear to auscultation, Normal air movement Heart: Regular rate, Normal S1, Normal S2 Abdomen: Soft, No tenderness Extremities: No clubbing, No cyanosis Skin: Other (wounds to coccyx, drainage, bleeding on dressings, packing in place) Neuro: Normal gait, Normal speech Psych/Mental Status: Mental status NL, Mood NL Vitals VITALS Vital Signs Date Time Temp Pulse Resp B/P (MAP) Pulse Ox O2 Delivery O2 Flow Rate FiO2 01/31/19 07:00 98.4 78 16 101/70 (80) 94 Room Air 98.4 Labs Labs Laboratory Tests Test 01/31/19 04:35 White Blood Count 5.8 x10^3/uL (4.0-11.0) Red Blood Count 4.37 x10^6/uL (4.30-5.70) Hemoglobin 13.2 g/dL (13.0-17.5) Hematocrit 39.5 % (39.0-53.0) Mean Corpuscular Volume 90 fL (79-100) Mean Corpuscular Hemoglobin 30 pg (25-35) Mean Corpuscular Hemoglobin Concent 34 g/dL (31-37) Red Cell Distribution Width 13.5 % (11.5-14.5) Platelet Count 163 x10^3/uL (140-400) Neutrophils (%) (Auto) 71 % (31-73) Lymphocytes (%) (Auto) 14 % (24-48) Monocytes (%) (Auto) 13 % (0-9) Eosinophils (%) (Auto) 3 % (0-3) Basophils (%) (Auto) 0 % (0-3) Neutrophils # (Auto) 4.1 x10^3/uL (1.8-7.7) Lymphocytes # (Auto) 0.8 x10^3/uL (1.0-4.8) Monocytes # (Auto) 0.7 x10^3/uL (0.0-1.1) Eosinophils # (Auto) 0.2 x10^3/uL (0.0-0.7) Basophils # (Auto) 0.0 x10^3/uL (0.0-0.2) Erythrocyte Sedimentation Rate 35 (0-15) Sodium Level 141 mmol/L (136-145) Potassium Level 4.2 mmol/L (3.5-5.1) Chloride Level 106 mmol/L (98-107) Carbon Dioxide Level 27 mmol/L (21-32) Anion Gap 8 (6-14) Blood Urea Nitrogen 11 mg/dL (8-26) Creatinine 1.1 mg/dL (0.7-1.3) Estimated GFR (Cockcroft-Gault) 68.3 Glucose Level 114 mg/dL (70-99) Calcium Level 9.0 mg/dL (8.5-10.1) C-Reactive Protein, Quantitative 42.8 mg/L (0-3.3) Procalcitonin < 0.10 ng/mL (0.00-0.10) Laboratory Tests Test 01/31/19 04:35 White Blood Count 5.8 x10^3/uL (4.0-11.0) Red Blood Count 4.37 x10^6/uL (4.30-5.70) Hemoglobin 13.2 g/dL (13.0-17.5) Hematocrit 39.5 % (39.0-53.0) Mean Corpuscular Volume 90 fL (79-100) Mean Corpuscular Hemoglobin 30 pg (25-35) Mean Corpuscular Hemoglobin Concent 34 g/dL (31-37) Red Cell Distribution Width 13.5 % (11.5-14.5) Platelet Count 163 x10^3/uL (140-400) Neutrophils (%) (Auto) 71 % (31-73) Lymphocytes (%) (Auto) 14 % (24-48) Monocytes (%) (Auto) 13 % (0-9) Eosinophils (%) (Auto) 3 % (0-3) Basophils (%) (Auto) 0 % (0-3) Neutrophils # (Auto) 4.1 x10^3/uL (1.8-7.7) Lymphocytes # (Auto) 0.8 x10^3/uL (1.0-4.8) Monocytes # (Auto) 0.7 x10^3/uL (0.0-1.1) Eosinophils # (Auto) 0.2 x10^3/uL (0.0-0.7) Basophils # (Auto) 0.0 x10^3/uL (0.0-0.2) Erythrocyte Sedimentation Rate 35 (0-15) Sodium Level 141 mmol/L (136-145) Potassium Level 4.2 mmol/L (3.5-5.1) Chloride Level 106 mmol/L (98-107) Carbon Dioxide Level 27 mmol/L (21-32) Anion Gap 8 (6-14) Blood Urea Nitrogen 11 mg/dL (8-26) Creatinine 1.1 mg/dL (0.7-1.3) Estimated GFR (Cockcroft-Gault) 68.3 Glucose Level 114 mg/dL (70-99) Calcium Level 9.0 mg/dL (8.5-10.1) C-Reactive Protein, Quantitative 42.8 mg/L (0-3.3) Procalcitonin < 0.10 ng/mL (0.00-0.10) Assessment/Plan Assessment/Plan rectal fistula/crohns awaiting ct MIGUEL BLACKWELL MD 01/31/19 1126: CONSULT Assessment/Plan Assessment/Plan CT reviewed d/w Zach findings consistent with hx of debridement of coccyx/sacrum previously no acute surg recs Dr Mclean available tomorrow if needed Dr Gonzalez returns Thanks for consult REINA LOVELACE APRN Jan 31, 2019 09:58 MIGUEL BLACKWELL MD Jan 31, 2019 11:26
--- NOTE | 2019-01-31 10:32 | RAD ---
EXAM: CT ABDOMEN/PELVIS WITH CONTRAST. HISTORY: Sacral wound second fistulous. TECHNIQUE: Computed tomography of the abdomen and pelvis was performed after the intravenous administration of iodinated contrast. COMPARISON: 09/16/2017, 10/19/2017. FINDINGS: Lung windows through the visualized portions of the bases reveal mild atelectasis. There is a calcified granuloma in the left lower lobe. Soft tissue defects along the distal sacrum and midline buttocks are consistent with ulcers. Granulation tissue lined tracts extend deep into the right ischiorectal fat, and to the former location of the coccyx. The coccyx and most distal aspect of the sacrum have been completely eroded consistent with acute osteomyelitis. There is chronic osteomyelitis within the remaining distal sacrum. The cavity at the former site of coccyx measures 3.7 x 3.0 cm. Additional granulation tissue and stranding extends into the presacral space. There is no drainable collection at this site. The liver, gallbladder, pancreatic and adrenal glands are unremarkable. Foci of mild hypoattenuation within the spleen measure up to 13 mm. These are likely benign lesions such as hemangiomas. Right renal calculi measure up to 5 mm. The left kidney is unremarkable. There are no pathologically enlarged lymph nodes. The colon appears to be surgically absent. There is a right lower quadrant ileostomy. A large right lower quadrant parastomal hernia contains multiple loops of nonobstructed small bowel. Another moderate to large left sided hernia is likely at the site of an old ostomy and contains only fat. There is no small bowel obstruction. The prostate is enlarged measuring 4.3 x 3.8 cm. The bladder is partially decompressed but demonstrates diffuse wall thickening. IMPRESSION: 1. Multiple deep ulcers along the distal sacrum and buttocks extend into the right ischiorectal fat and to the former site of the coccyx. The coccyx and distal sacrum have been completely eroded. There is some debris within the tracts, but no drainable collection. 2. 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 3. A moderate hernia at a prior stoma site on the left contains only fat. 4. Right renal calculi measure up to 5 mm. 5. Diffuse bladder wall thickening indicates chronic outlet obstruction or inflammation. *One or more of the following individualized dose reduction techniques were utilized for this examination: 1. Automated exposure control. 2. Adjustment of the mA and/or kV according to patient size. 3. Use of iterative reconstruction technique. Electronically signed by: Derrek Evans MD (01/31/2019 10:30 AM) [facility]
[2019-01-31 11:00] VITALS: BP 111/61
--- NOTE | 2019-01-31 11:16 | CONS ---
DATE OF CONSULTATION: 01/31/2019 REFERRING PHYSICIAN: Dr. Chow. REASON FOR CONSULTATION: Antibiotic management. HISTORY OF PRESENT ILLNESS: This patient is a 58-year-old male with a history of severe Crohn's disease, status post ostomy and multiple fistula repairs. [facility] bleeding from a coccyx wound. He was evaluated by General Surgery with no surgical plans at this time. A CT abdomen/pelvis scan is pending. Anaerobic-aerobic culture with Gram stain was obtained. He is currently on clindamycin. The patient says he has had wounds off and on for years. Over the last 6 months or so, he has had several rounds of antibiotics for odor. A previous culture in December grew mixed site se. The patient denies fevers, chills, sweats or body aches. Denies nausea, vomiting or increased ostomy output. Denies rash or itching. PAST MEDICAL HISTORY: Severe Crohn's disease with multiple fistulas, GERD, hyperlipidemia. PAST SURGICAL HISTORY: Multiple abdominal surgeries, ostomy, multiple fistula repairs, GERD, depression, cataract extractions. FAMILY HISTORY: Distant cousin with Crohn's. SOCIAL HISTORY: The patient lives in assisted living facility. He smokes cigars occasionally. No pets. ALLERGIES: No known drug allergies. MEDICATIONS: Clindamycin, mesalamine, guaifenesin, Pepcid, vitamin D2, vitamin C, Tylenol, milk of magnesia. REVIEW OF SYSTEMS: Per HPI, otherwise all other review of systems is negative. PHYSICAL EXAMINATION: VITAL SIGNS: Temperature is 98.4, blood pressure 101/70, heart rate 78, respiratory rate 16, pulse oximetry 94% on room air. GENERAL: The patient is propped up in bed, alert, in no apparent distress. HEENT: Pupils equally round. Oropharynx pink and moist. NECK: Supple, no lymphadenopathy. LUNGS: Clear to auscultation. HEART: S1, S2. ABDOMEN: Obese, soft, nontender with bowel sounds present. Multiple scars and right-sided ostomy. EXTREMITIES: No gross edema or cyanosis. SKIN: Warm to touch without signs of rash. He has several sacrococcygeal fistulas bleeding and packed with Nu Gauze. No overt signs of infection. NEUROLOGIC: Alert. Answering questions appropriately. LABORATORY DATA: Today's WBC 5.8, hemoglobin 13.2, platelets 163,000. Sed rate 35. Electrolytes are unremarkable. Creatinine 1.1, BUN 11, glucose 114. CRP 42.8. Procalcitonin less than 0.10. CT abdomen/pelvis pending. Anaerobic-aerobic culture with Gram stain pending. IMPRESSION: 1. 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 2. Crohn's disease with history of ostomy and multiple fistula repairs. 3. Gastroesophageal reflux disease. 4. Obesity. PLAN: 1. Discontinue the clindamycin. 2. CT abdomen/pelvis scan pending. 3. The patient was evaluated by Dr. Arce with no surgical plans at this time. 4. Local wound care. Thank you, Dr. Chow, for asking us to participate in this patient's care. Should you have further questions or concerns, please call. JENNIFER CAVANAUGH MD DR: ADRIANA/jessa JOB#: [id number] / [id number] P[place]SC[place]
[2019-01-31 15:00] VITALS: BP 112/61
[2019-01-31 19:00] VITALS: BP 113/66
[2019-01-31] MEDS: FAMOTIDINE 20 MG TABLET. PO SCH (21:01)
[2019-01-31 23:00] VITALS: BP 97/49
[2019-02-01 03:00] VITALS: BP 116/57
[2019-02-01 05:25] LABS: BASO # 0.1 x10^3/uL (0.0-0.2); BASO % 1 % (0-3); EOS # 0.2 x10^3/uL (0.0-0.7); EOS % 4 % (0-3); HEMATOCRIT 38.7 % (39.0-53.0); HEMOGLOBIN 13.1 g/dL (13.0-17.5); LYMPH % 18 % (24-48); MEAN CORPUSCULAR HEMOGLOBIN 31 pg (25-35); MEAN CORPUSCULAR HGB CONC 34 g/dL (31-37); MEAN CORPUSCULAR VOLUME 90 fL (79-100); MONO # 0.8 x10^3/uL (0.0-1.1); MONO % 14 % (0-9); NEUT # 3.4 x10^3/uL (1.8-7.7); NEUT % 63 % (31-73); PLATELET COUNT 164 x10^3/uL (140-400); RED BLOOD COUNT 4.29 x10^6/uL (4.30-5.70); RED CELL DISTRIBUTION WIDTH 13.6 % (11.5-14.5); WHITE BLOOD COUNT 5.5 x10^3/uL (4.0-11.0)
[2019-02-01 05:45] LABS: CALCIUM 9.1 mg/dL (8.5-10.1); GFR 76.2; POTASSIUM 3.8 mmol/L (3.5-5.1)
[2019-02-01 07:00] VITALS: BP 113/68
[2019-02-01] MEDS ORDERED: MORPHINE SULFATE 2 MG/ML VIAL. IV PRN (08:30)
[2019-02-01] MEDS ORDERED: ACETAMINOPHEN/CODEINE 300/30MG TABLET. PO PRN (08:30)
[2019-02-01] MEDS ORDERED: ACETAMINOPHEN 500 MG TABLET PO PRN (08:30)
[2019-02-01] MEDS: ASCORBIC ACID 500 MG TABLET PO SCH ×2 (08:36→20:49)
[2019-02-01] MEDS: MESALAMINE 400 MG CAP.DRTAB. PO SCH ×3 (08:36→20:49)
--- NOTE | 2019-02-01 09:26 | PDOC ---
SURGICAL PROGRESS NOTE Subjective Patient resting comfortably no acute changes Vital Signs Vital Signs Date Time Temp Pulse Resp B/P (MAP) Pulse Ox O2 Delivery O2 Flow Rate FiO2 02/01/19 07:00 97.5 62 18 113/68 (83) 95 Room Air 97.5 I&O Intake and Output 02/01/19 07:00 Intake Total 500 ml Output Total 300 ml Balance 200 ml Intake Oral 500 ml Output Stool Total 300 ml # Voids 2 PATIENT HAS A DOYLE: No General: Alert, Oriented X3, Cooperative, mild distress Labs Laboratory Tests Test 01/31/19 04:35 02/01/19 05:00 White Blood Count 5.8 x10^3/uL (4.0-11.0) 5.5 x10^3/uL (4.0-11.0) Red Blood Count 4.37 x10^6/uL (4.30-5.70) 4.29 x10^6/uL (4.30-5.70) Hemoglobin 13.2 g/dL (13.0-17.5) 13.1 g/dL (13.0-17.5) Hematocrit 39.5 % (39.0-53.0) 38.7 % (39.0-53.0) Mean Corpuscular Volume 90 fL (79-100) 90 fL (79-100) Mean Corpuscular Hemoglobin 30 pg (25-35) 31 pg (25-35) Mean Corpuscular Hemoglobin Concent 34 g/dL (31-37) 34 g/dL (31-37) Red Cell Distribution Width 13.5 % (11.5-14.5) 13.6 % (11.5-14.5) Platelet Count 163 x10^3/uL (140-400) 164 x10^3/uL (140-400) Neutrophils (%) (Auto) 71 % (31-73) 63 % (31-73) Lymphocytes (%) (Auto) 14 % (24-48) 18 % (24-48) Monocytes (%) (Auto) 13 % (0-9) 14 % (0-9) Eosinophils (%) (Auto) 3 % (0-3) 4 % (0-3) Basophils (%) (Auto) 0 % (0-3) 1 % (0-3) Neutrophils # (Auto) 4.1 x10^3/uL (1.8-7.7) 3.4 x10^3/uL (1.8-7.7) Lymphocytes # (Auto) 0.8 x10^3/uL (1.0-4.8) 1.0 x10^3/uL (1.0-4.8) Monocytes # (Auto) 0.7 x10^3/uL (0.0-1.1) 0.8 x10^3/uL (0.0-1.1) Eosinophils # (Auto) 0.2 x10^3/uL (0.0-0.7) 0.2 x10^3/uL (0.0-0.7) Basophils # (Auto) 0.0 x10^3/uL (0.0-0.2) 0.1 x10^3/uL (0.0-0.2) Erythrocyte Sedimentation Rate 35 (0-15) Sodium Level 141 mmol/L (136-145) 142 mmol/L (136-145) Potassium Level 4.2 mmol/L (3.5-5.1) 3.8 mmol/L (3.5-5.1) Chloride Level 106 mmol/L (98-107) 106 mmol/L (98-107) Carbon Dioxide Level 27 mmol/L (21-32) 27 mmol/L (21-32) Anion Gap 8 (6-14) 9 (6-14) Blood Urea Nitrogen 11 mg/dL (8-26) 13 mg/dL (8-26) Creatinine 1.1 mg/dL (0.7-1.3) 1.0 mg/dL (0.7-1.3) Estimated GFR (Cockcroft-Gault) 68.3 76.2 Glucose Level 114 mg/dL (70-99) 110 mg/dL (70-99) Calcium Level 9.0 mg/dL (8.5-10.1) 9.1 mg/dL (8.5-10.1) C-Reactive Protein, Quantitative 42.8 mg/L (0-3.3) Procalcitonin < 0.10 ng/mL (0.00-0.10) Laboratory Tests Test 02/01/19 05:00 White Blood Count 5.5 x10^3/uL (4.0-11.0) Red Blood Count 4.29 x10^6/uL (4.30-5.70) Hemoglobin 13.1 g/dL (13.0-17.5) Hematocrit 38.7 % (39.0-53.0) Mean Corpuscular Volume 90 fL (79-100) Mean Corpuscular Hemoglobin 31 pg (25-35) Mean Corpuscular Hemoglobin Concent 34 g/dL (31-37) Red Cell Distribution Width 13.6 % (11.5-14.5) Platelet Count 164 x10^3/uL (140-400) Neutrophils (%) (Auto) 63 % (31-73) Lymphocytes (%) (Auto) 18 % (24-48) Monocytes (%) (Auto) 14 % (0-9) Eosinophils (%) (Auto) 4 % (0-3) Basophils (%) (Auto) 1 % (0-3) Neutrophils # (Auto) 3.4 x10^3/uL (1.8-7.7) Lymphocytes # (Auto) 1.0 x10^3/uL (1.0-4.8) Monocytes # (Auto) 0.8 x10^3/uL (0.0-1.1) Eosinophils # (Auto) 0.2 x10^3/uL (0.0-0.7) Basophils # (Auto) 0.1 x10^3/uL (0.0-0.2) Sodium Level 142 mmol/L (136-145) Potassium Level 3.8 mmol/L (3.5-5.1) Chloride Level 106 mmol/L (98-107) Carbon Dioxide Level 27 mmol/L (21-32) Anion Gap 9 (6-14) Blood Urea Nitrogen 13 mg/dL (8-26) Creatinine 1.0 mg/dL (0.7-1.3) Estimated GFR (Cockcroft-Gault) 76.2 Glucose Level 110 mg/dL (70-99) Calcium Level 9.1 mg/dL (8.5-10.1) Assessment/Plan Crohn's perianal fistulas continue local wound care No new surgical recommendations DIANNA PAREKH MD Feb 01, 2019 09:25
--- NOTE | 2019-02-01 10:12 | PDOC ---
Infectious Disease Note Subjective: Subjective pt doing ok Vital Signs: Vital Signs Vital Signs Date Time Temp Pulse Resp B/P (MAP) Pulse Ox O2 Delivery O2 Flow Rate FiO2 02/01/19 08:00 Room Air 02/01/19 07:00 97.5 62 18 113/68 (83) 95 97.5 Physical Exam: PHYSICAL EXAM GENERAL: The patient is propped up in bed, alert, in no apparent distress. HEENT: Pupils equally round. Oropharynx pink and moist. NECK: Supple, no lymphadenopathy. LUNGS: Clear to auscultation. HEART: S1, S2. ABDOMEN: Obese, soft, nontender with bowel sounds present. Multiple scars and right-sided ostomy. EXTREMITIES: No gross edema or cyanosis. SKIN: Warm to touch without signs of rash. He has several sacrococcygeal fistulas bleeding and packed with Nu Gauze. No overt signs of infection. NEUROLOGIC: Alert. Answering questions appropriately. Medications: Inpatient Meds: Current Medications Medications (Trade) Dose Ordered Sig/Charlee Start Time Stop Time Status Last Admin Dose Admin Acetaminophen (Tylenol) 500 mg PRN Q6HRS PRN 02/01/19 08:30 Acetaminophen/ Codeine Phosphate (Tylenol #3) 1 tab PRN Q6HRS PRN 02/01/19 08:30 Ascorbic Acid (Vitamin C) 500 mg BID 01/30/19 21:00 02/01/19 08:36 500 MG Clindamycin HCl (Cleocin) 300 mg TID 01/30/19 14:00 01/31/19 09:30 DC 01/31/19 08:39 300 MG Ergocalciferol (Vitamin D2) 50,000 unit QMONTH 03/01/19 09:00 Famotidine (Pepcid) 20 mg HS 01/30/19 21:00 01/31/19 21:01 20 MG Guaifenesin (Robitussin Dm) 5 ml PRN QID PRN 01/30/19 14:00 Iohexol (Omnipaque 300 Mg/ml) 75 ml 1X ONCE 01/31/19 08:00 01/31/19 08:01 DC 01/31/19 08:29 75 ML Magnesium Hydroxide (Milk Of Magnesia) 2,400 mg PRN DAILY PRN 01/30/19 14:00 Mesalamine (Delzicol) 800 mg TID 01/30/19 15:00 02/01/19 08:36 800 MG Morphine Sulfate (Morphine Sulfate) 2 mg PRN Q2HR PRN 02/01/19 08:30 Non-Formulary Medication (Protein Supplement (Nutritional Drink Mix)) 420 gm DAILY 01/31/19 09:00 UNV Oxycodone/ Acetaminophen (Percocet 5/325) 1 tab PRN Q4HRS PRN 02/01/19 08:30 Labs: Lab Laboratory Tests Test 02/01/19 05:00 White Blood Count 5.5 x10^3/uL (4.0-11.0) Red Blood Count 4.29 x10^6/uL (4.30-5.70) Hemoglobin 13.1 g/dL (13.0-17.5) Hematocrit 38.7 % (39.0-53.0) Mean Corpuscular Volume 90 fL (79-100) Mean Corpuscular Hemoglobin 31 pg (25-35) Mean Corpuscular Hemoglobin Concent 34 g/dL (31-37) Red Cell Distribution Width 13.6 % (11.5-14.5) Platelet Count 164 x10^3/uL (140-400) Neutrophils (%) (Auto) 63 % (31-73) Lymphocytes (%) (Auto) 18 % (24-48) Monocytes (%) (Auto) 14 % (0-9) Eosinophils (%) (Auto) 4 % (0-3) Basophils (%) (Auto) 1 % (0-3) Neutrophils # (Auto) 3.4 x10^3/uL (1.8-7.7) Lymphocytes # (Auto) 1.0 x10^3/uL (1.0-4.8) Monocytes # (Auto) 0.8 x10^3/uL (0.0-1.1) Eosinophils # (Auto) 0.2 x10^3/uL (0.0-0.7) Basophils # (Auto) 0.1 x10^3/uL (0.0-0.2) Sodium Level 142 mmol/L (136-145) Potassium Level 3.8 mmol/L (3.5-5.1) Chloride Level 106 mmol/L (98-107) Carbon Dioxide Level 27 mmol/L (21-32) Anion Gap 9 (6-14) Blood Urea Nitrogen 13 mg/dL (8-26) Creatinine 1.0 mg/dL (0.7-1.3) Estimated GFR (Cockcroft-Gault) 76.2 Glucose Level 110 mg/dL (70-99) Calcium Level 9.1 mg/dL (8.5-10.1) Objective: Assessment: 1. 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 2. Crohn's disease with history of ostomy and multiple fistula repairs. 3. Gastroesophageal reflux disease. 4. Obesity. 5. Kidney stone on CT Abdomen Plan: Plan of Care monitor off antibiotics encourage fluid intake local wound care as directed JENNIFER CAVANAUGH MD Feb 01, 2019 10:12
--- NOTE | 2019-02-01 10:12 | PDOC ---
PROGRESS NOTES Chief Complaint Chief Complaint Perianal wound - with bleeding NON SURGICAL /MED mx Severe Crohn's with multiple surgeries s/p ostomy (multiple fissures and abdominal wounds) Chronic pain Hyperlipidemia Hypertension GERD Incidenatl 5 mm rt kidney stone HIatal hernia with small bowel loops - known to him History of Present Illness History of Present Illness RECtal wounds inspected, erythema round but no induration, 3 deep thin drains/gauze in place NO fevers ID on board Ambulatory,. non toxic appearing HX crohns for yrs now Lives in [place] and has HH wound care Incidental 5 mm RT kidney stone, no pains PLAN: CPM NO surgical plans so far Dw him and left his CT results Vitals Vitals Vital Signs Date Time Temp Pulse Resp B/P (MAP) Pulse Ox O2 Delivery O2 Flow Rate FiO2 02/01/19 08:00 Room Air 02/01/19 07:00 97.5 62 18 113/68 (83) 95 97.5 Physical Exam General: Alert, Oriented X3, Cooperative, mild distress Heart: Regular rate, Normal S1, Normal S2 Lungs: Clear Abdomen: Soft, No tenderness Extremities: No clubbing, No cyanosis Skin: Other (wounds to coccyx, drainage, bleeding on dressings, packing in place) Labs LABS Laboratory Tests Test 02/01/19 05:00 White Blood Count 5.5 x10^3/uL (4.0-11.0) Red Blood Count 4.29 x10^6/uL (4.30-5.70) Hemoglobin 13.1 g/dL (13.0-17.5) Hematocrit 38.7 % (39.0-53.0) Mean Corpuscular Volume 90 fL (79-100) Mean Corpuscular Hemoglobin 31 pg (25-35) Mean Corpuscular Hemoglobin Concent 34 g/dL (31-37) Red Cell Distribution Width 13.6 % (11.5-14.5) Platelet Count 164 x10^3/uL (140-400) Neutrophils (%) (Auto) 63 % (31-73) Lymphocytes (%) (Auto) 18 % (24-48) Monocytes (%) (Auto) 14 % (0-9) Eosinophils (%) (Auto) 4 % (0-3) Basophils (%) (Auto) 1 % (0-3) Neutrophils # (Auto) 3.4 x10^3/uL (1.8-7.7) Lymphocytes # (Auto) 1.0 x10^3/uL (1.0-4.8) Monocytes # (Auto) 0.8 x10^3/uL (0.0-1.1) Eosinophils # (Auto) 0.2 x10^3/uL (0.0-0.7) Basophils # (Auto) 0.1 x10^3/uL (0.0-0.2) Sodium Level 142 mmol/L (136-145) Potassium Level 3.8 mmol/L (3.5-5.1) Chloride Level 106 mmol/L (98-107) Carbon Dioxide Level 27 mmol/L (21-32) Anion Gap 9 (6-14) Blood Urea Nitrogen 13 mg/dL (8-26) Creatinine 1.0 mg/dL (0.7-1.3) Estimated GFR (Cockcroft-Gault) 76.2 Glucose Level 110 mg/dL (70-99) Calcium Level 9.1 mg/dL (8.5-10.1) Review of Systems Review of Systems neg 14 pt system reviewed with him Comment Review of Relevant I have reviewed the following items hermes (where applicable) has been applied. Labs Laboratory Tests Test 01/31/19 04:35 02/01/19 05:00 White Blood Count 5.8 x10^3/uL (4.0-11.0) 5.5 x10^3/uL (4.0-11.0) Red Blood Count 4.37 x10^6/uL (4.30-5.70) 4.29 x10^6/uL (4.30-5.70) Hemoglobin 13.2 g/dL (13.0-17.5) 13.1 g/dL (13.0-17.5) Hematocrit 39.5 % (39.0-53.0) 38.7 % (39.0-53.0) Mean Corpuscular Volume 90 fL (79-100) 90 fL (79-100) Mean Corpuscular Hemoglobin 30 pg (25-35) 31 pg (25-35) Mean Corpuscular Hemoglobin Concent 34 g/dL (31-37) 34 g/dL (31-37) Red Cell Distribution Width 13.5 % (11.5-14.5) 13.6 % (11.5-14.5) Platelet Count 163 x10^3/uL (140-400) 164 x10^3/uL (140-400) Neutrophils (%) (Auto) 71 % (31-73) 63 % (31-73) Lymphocytes (%) (Auto) 14 % (24-48) 18 % (24-48) Monocytes (%) (Auto) 13 % (0-9) 14 % (0-9) Eosinophils (%) (Auto) 3 % (0-3) 4 % (0-3) Basophils (%) (Auto) 0 % (0-3) 1 % (0-3) Neutrophils # (Auto) 4.1 x10^3/uL (1.8-7.7) 3.4 x10^3/uL (1.8-7.7) Lymphocytes # (Auto) 0.8 x10^3/uL (1.0-4.8) 1.0 x10^3/uL (1.0-4.8) Monocytes # (Auto) 0.7 x10^3/uL (0.0-1.1) 0.8 x10^3/uL (0.0-1.1) Eosinophils # (Auto) 0.2 x10^3/uL (0.0-0.7) 0.2 x10^3/uL (0.0-0.7) Basophils # (Auto) 0.0 x10^3/uL (0.0-0.2) 0.1 x10^3/uL (0.0-0.2) Erythrocyte Sedimentation Rate 35 (0-15) Sodium Level 141 mmol/L (136-145) 142 mmol/L (136-145) Potassium Level 4.2 mmol/L (3.5-5.1) 3.8 mmol/L (3.5-5.1) Chloride Level 106 mmol/L (98-107) 106 mmol/L (98-107) Carbon Dioxide Level 27 mmol/L (21-32) 27 mmol/L (21-32) Anion Gap 8 (6-14) 9 (6-14) Blood Urea Nitrogen 11 mg/dL (8-26) 13 mg/dL (8-26) Creatinine 1.1 mg/dL (0.7-1.3) 1.0 mg/dL (0.7-1.3) Estimated GFR (Cockcroft-Gault) 68.3 76.2 Glucose Level 114 mg/dL (70-99) 110 mg/dL (70-99) Calcium Level 9.0 mg/dL (8.5-10.1) 9.1 mg/dL (8.5-10.1) C-Reactive Protein, Quantitative 42.8 mg/L (0-3.3) Procalcitonin < 0.10 ng/mL (0.00-0.10) Laboratory Tests Test 02/01/19 05:00 White Blood Count 5.5 x10^3/uL (4.0-11.0) Red Blood Count 4.29 x10^6/uL (4.30-5.70) Hemoglobin 13.1 g/dL (13.0-17.5) Hematocrit 38.7 % (39.0-53.0) Mean Corpuscular Volume 90 fL (79-100) Mean Corpuscular Hemoglobin 31 pg (25-35) Mean Corpuscular Hemoglobin Concent 34 g/dL (31-37) Red Cell Distribution Width 13.6 % (11.5-14.5) Platelet Count 164 x10^3/uL (140-400) Neutrophils (%) (Auto) 63 % (31-73) Lymphocytes (%) (Auto) 18 % (24-48) Monocytes (%) (Auto) 14 % (0-9) Eosinophils (%) (Auto) 4 % (0-3) Basophils (%) (Auto) 1 % (0-3) Neutrophils # (Auto) 3.4 x10^3/uL (1.8-7.7) Lymphocytes # (Auto) 1.0 x10^3/uL (1.0-4.8) Monocytes # (Auto) 0.8 x10^3/uL (0.0-1.1) Eosinophils # (Auto) 0.2 x10^3/uL (0.0-0.7) Basophils # (Auto) 0.1 x10^3/uL (0.0-0.2) Sodium Level 142 mmol/L (136-145) Potassium Level 3.8 mmol/L (3.5-5.1) Chloride Level 106 mmol/L (98-107) Carbon Dioxide Level 27 mmol/L (21-32) Anion Gap 9 (6-14) Blood Urea Nitrogen 13 mg/dL (8-26) Creatinine 1.0 mg/dL (0.7-1.3) Estimated GFR (Cockcroft-Gault) 76.2 Glucose Level 110 mg/dL (70-99) Calcium Level 9.1 mg/dL (8.5-10.1) Microbiology 01/30/19 Anaerobic/Aerobic Culture, Resulted Pending 01/30/19 Anaerobic Culture Result 1 (BERKLEY), Resulted Pending 01/30/19 Aerobic Culture, Resulted Pending 01/30/19 Aerobic Culture Result 1 (BERKLEY), Resulted Pending 01/30/19 Gram Stain - Final, Resulted 01/30/19 Gram Stain Result 1 (BERKLEY) - Final, Resulted 01/30/19 Gram Stain Result 2 (BERKLEY) - Final, Resulted Medications Current Medications Acetaminophen (Tylenol) 650 mg PRN Q4HRS PRN PO PAIN; Start 01/30/19 at 14:00; Stop 02/01/19 at 08:20; Status DC Ergocalciferol (Vitamin D2) 50,000 unit QMONTH PO ; Start 03/01/19 at 09:00 Famotidine (Pepcid) 20 mg HS PO Last administered on 01/31/19at 21:01; Start 01/30/19 at 21:00 Guaifenesin (Robitussin Dm) 5 ml PRN QID PRN PO COUGH; Start 01/30/19 at 14:00 Ascorbic Acid (Vitamin C) 500 mg BID PO Last administered on 02/01/19at 08:36; Start 01/30/19 at 21:00 Clindamycin HCl (Cleocin) 300 mg TID PO Last administered on 01/31/19at 08:39; Start 01/30/19 at 14:00; Stop 01/31/19 at 09:30; Status DC Magnesium Hydroxide (Milk Of Magnesia) 2,400 mg PRN DAILY PRN PO CONSTIPATION; Start 01/30/19 at 14:00 Mesalamine (Delzicol) 800 mg TID PO Last administered on 02/01/19at 08:36; Start 01/30/19 at 15:00 Non-Formulary Medication (Protein Supplement (Nutritional Drink Mix)) 420 gm DAILY PO ; Start 01/31/19 at 09:00; Status UNV Iohexol (Omnipaque 300 Mg/ml) 75 ml 1X ONCE IV Last administered on 01/31/19at 08:29; Start 01/31/19 at 08:00; Stop 01/31/19 at 08:01; Status DC Acetaminophen (Tylenol) 500 mg PRN Q6HRS PRN PO MILD PAIN / TEMP; Start 02/01/19 at 08:30 Acetaminophen/ Codeine Phosphate (Tylenol #3) 1 tab PRN Q6HRS PRN PO MODERATE PAIN; Start 02/01/19 at 08:30 Oxycodone/ Acetaminophen (Percocet 5/325) 1 tab PRN Q4HRS PRN PO SEVERE PAIN; Start 02/01/19 at 08:30 Morphine Sulfate (Morphine Sulfate) 2 mg PRN Q2HR PRN IV PAIN; Start 02/01/19 at 08:30 Active Scripts Active Reported Hydrocodone-Apap 5-325 (Hydrocodone Bit/Acetaminophen) 1 Tab Tablet 1-2 Tab PO PRN Q4HRS PRN [place]m Cough & Chest Syrup (Guaifenesin/Dextromethorphan) 118 Ml Syrup 5 Ml PO PRN QID PRN 12 Days Milk Of Magnesia (Magnesium Hydroxide) 2,400 Mg/10 Ml Oral.susp 2,400 Mg PO PRN DAILY PRN Tylenol (Acetaminophen) 325 Mg Tablet 650 Mg PO PRN Q4HRS PRN Clindamycin Hcl 300 Mg Capsule 300 Mg PO TID Vitamin D2 (Ergocalciferol (Vitamin D2)) 50,000 Unit Capsule 1 Cap PO QMONTH Vitamin C (Ascorbate Calcium) 500 Mg Tablet 500 Mg PO BID Nutritional Drink Mix (Protein Supplement) 420 Gm Powder 420 Gm PO DAILY Multi-Vitamin Daily (Multivitamin) 1 Each Tablet 1 Each PO Famotidine 20 Mg Tablet 20 Mg PO HS Asacol Hd (Mesalamine) 800 Mg Tablet. 1,600 Mg PO TID Vitals/I & O Vital Sign - Last 24 Hours 01/31/19 01/31/19 01/31/19 01/31/19 11:00 15:00 19:00 20:00 Temp 97.2 97.9 98.2 97.2 97.9 98.2 Pulse 70 77 67 Resp 16 16 18 B/P (MAP) 111/61 (78) 112/61 (78) 113/66 (82) Pulse Ox 96 96 96 O2 Delivery Room Air Room Air Room Air Room Air 01/31/19 02/01/19 02/01/19 02/01/19 23:00 03:00 07:00 08:00 Temp 98.8 98.0 97.5 98.8 98.0 97.5 Pulse 74 62 62 Resp 18 18 18 B/P (MAP) 97/49 (65) 116/57 (76) 113/68 (83) Pulse Ox 97 95 95 O2 Delivery Room Air Room Air Room Air Room Air Intake and Output 01/31/19 01/31/19 02/01/19 15:00 23:00 07:00 Intake Total 500 ml Output Total 300 ml Balance -300 ml 500 ml DEMARCO POWELL MD Feb 01, 2019 10:11
[2019-02-01 11:05] VITALS: BP 118/63
[2019-02-01 15:00] VITALS: BP 123/57
[2019-02-01] MEDS: oxyCODONE/APAP 5/325 1 TAB TABLET PO PRN (15:32)
[2019-02-01 19:00] VITALS: BP 116/61
[2019-02-01] MEDS: FAMOTIDINE 20 MG TABLET. PO SCH (20:49)
[2019-02-01 23:00] VITALS: BP 118/62
[2019-02-02 03:00] VITALS: BP 118/68
[2019-02-02 05:18] LABS: BASO % 1 % (0-3); EOS # 0.2 x10^3/uL (0.0-0.7); EOS % 3 % (0-3); HEMATOCRIT 38.2 % (39.0-53.0); HEMOGLOBIN 12.9 g/dL (13.0-17.5); LYMPH # 1.1 x10^3/uL (1.0-4.8); LYMPH % 21 % (24-48); MEAN CORPUSCULAR HEMOGLOBIN 31 pg (25-35); MEAN CORPUSCULAR HGB CONC 34 g/dL (31-37); MEAN CORPUSCULAR VOLUME 90 fL (79-100); MONO # 0.6 x10^3/uL (0.0-1.1); MONO % 13 % (0-9); NEUT # 3.2 x10^3/uL (1.8-7.7); NEUT % 62 % (31-73); PLATELET COUNT 164 x10^3/uL (140-400); RED BLOOD COUNT 4.23 x10^6/uL (4.30-5.70); RED CELL DISTRIBUTION WIDTH 13.5 % (11.5-14.5); WHITE BLOOD COUNT 5.1 x10^3/uL (4.0-11.0)
[2019-02-02 06:12] LABS: CALCIUM 8.4 mg/dL (8.5-10.1); GFR 76.2
[2019-02-02 07:00] VITALS: BP 149/78
[2019-02-02] MEDS: ASCORBIC ACID 500 MG TABLET PO SCH ×2 (08:06→20:42)
[2019-02-02] MEDS: MESALAMINE 400 MG CAP.DRTAB. PO SCH ×3 (08:07→20:42)
--- NOTE | 2019-02-02 09:24 | PDOC ---
REINA LOVELACE FIXING CARPENTER 02/02/19 0924: SURGICAL PROGRESS NOTE Subjective resting currently no complaints Vital Signs Vital Signs Date Time Temp Pulse Resp B/P (MAP) Pulse Ox O2 Delivery O2 Flow Rate FiO2 02/02/19 08:00 Room Air 02/02/19 07:00 98.3 77 18 149/78 (101) 95 98.3 I&O Intake and Output 02/02/19 07:00 Intake Total 1460 ml Balance 1460 ml Intake Oral 1460 ml # Voids 4 # Bowel Movements 1 General: Alert, Oriented X3, Cooperative Skin: Other (dressing dry, in place) Labs Laboratory Tests Test 02/01/19 05:00 02/02/19 03:42 White Blood Count 5.5 x10^3/uL (4.0-11.0) 5.1 x10^3/uL (4.0-11.0) Red Blood Count 4.29 x10^6/uL (4.30-5.70) 4.23 x10^6/uL (4.30-5.70) Hemoglobin 13.1 g/dL (13.0-17.5) 12.9 g/dL (13.0-17.5) Hematocrit 38.7 % (39.0-53.0) 38.2 % (39.0-53.0) Mean Corpuscular Volume 90 fL (79-100) 90 fL (79-100) Mean Corpuscular Hemoglobin 31 pg (25-35) 31 pg (25-35) Mean Corpuscular Hemoglobin Concent 34 g/dL (31-37) 34 g/dL (31-37) Red Cell Distribution Width 13.6 % (11.5-14.5) 13.5 % (11.5-14.5) Platelet Count 164 x10^3/uL (140-400) 164 x10^3/uL (140-400) Neutrophils (%) (Auto) 63 % (31-73) 62 % (31-73) Lymphocytes (%) (Auto) 18 % (24-48) 21 % (24-48) Monocytes (%) (Auto) 14 % (0-9) 13 % (0-9) Eosinophils (%) (Auto) 4 % (0-3) 3 % (0-3) Basophils (%) (Auto) 1 % (0-3) 1 % (0-3) Neutrophils # (Auto) 3.4 x10^3/uL (1.8-7.7) 3.2 x10^3/uL (1.8-7.7) Lymphocytes # (Auto) 1.0 x10^3/uL (1.0-4.8) 1.1 x10^3/uL (1.0-4.8) Monocytes # (Auto) 0.8 x10^3/uL (0.0-1.1) 0.6 x10^3/uL (0.0-1.1) Eosinophils # (Auto) 0.2 x10^3/uL (0.0-0.7) 0.2 x10^3/uL (0.0-0.7) Basophils # (Auto) 0.1 x10^3/uL (0.0-0.2) 0.0 x10^3/uL (0.0-0.2) Sodium Level 142 mmol/L (136-145) 142 mmol/L (136-145) Potassium Level 3.8 mmol/L (3.5-5.1) 4.0 mmol/L (3.5-5.1) Chloride Level 106 mmol/L (98-107) 105 mmol/L (98-107) Carbon Dioxide Level 27 mmol/L (21-32) 27 mmol/L (21-32) Anion Gap 9 (6-14) 10 (6-14) Blood Urea Nitrogen 13 mg/dL (8-26) 18 mg/dL (8-26) Creatinine 1.0 mg/dL (0.7-1.3) 1.0 mg/dL (0.7-1.3) Estimated GFR (Cockcroft-Gault) 76.2 76.2 Glucose Level 110 mg/dL (70-99) 102 mg/dL (70-99) Calcium Level 9.1 mg/dL (8.5-10.1) 8.4 mg/dL (8.5-10.1) Laboratory Tests Test 02/02/19 03:42 White Blood Count 5.1 x10^3/uL (4.0-11.0) Red Blood Count 4.23 x10^6/uL (4.30-5.70) Hemoglobin 12.9 g/dL (13.0-17.5) Hematocrit 38.2 % (39.0-53.0) Mean Corpuscular Volume 90 fL (79-100) Mean Corpuscular Hemoglobin 31 pg (25-35) Mean Corpuscular Hemoglobin Concent 34 g/dL (31-37) Red Cell Distribution Width 13.5 % (11.5-14.5) Platelet Count 164 x10^3/uL (140-400) Neutrophils (%) (Auto) 62 % (31-73) Lymphocytes (%) (Auto) 21 % (24-48) Monocytes (%) (Auto) 13 % (0-9) Eosinophils (%) (Auto) 3 % (0-3) Basophils (%) (Auto) 1 % (0-3) Neutrophils # (Auto) 3.2 x10^3/uL (1.8-7.7) Lymphocytes # (Auto) 1.1 x10^3/uL (1.0-4.8) Monocytes # (Auto) 0.6 x10^3/uL (0.0-1.1) Eosinophils # (Auto) 0.2 x10^3/uL (0.0-0.7) Basophils # (Auto) 0.0 x10^3/uL (0.0-0.2) Sodium Level 142 mmol/L (136-145) Potassium Level 4.0 mmol/L (3.5-5.1) Chloride Level 105 mmol/L (98-107) Carbon Dioxide Level 27 mmol/L (21-32) Anion Gap 10 (6-14) Blood Urea Nitrogen 18 mg/dL (8-26) Creatinine 1.0 mg/dL (0.7-1.3) Estimated GFR (Cockcroft-Gault) 76.2 Glucose Level 102 mg/dL (70-99) Calcium Level 8.4 mg/dL (8.5-10.1) Assessment/Plan wounds, continue wound care will review with Dr Carlos AMIN,CLINTON Stahl MD 02/02/19 7108: SURGICAL PROGRESS NOTE Assessment/Plan Pt seen and examined. Agree with Ms. Lovelace's note Pt without new c/o, no active bleeding d/w pt wound care and abx versus surgical intervention. Pt has had multiple previous debridement given osteo by CT, may best be served by several month IV abx prior to consideration of revision surgery. Pt not currently interested in surgery, which is reasonable REINA LOVELACE APRN Feb 02, 2019 09:24 CLINTON AMIN MD Feb 02, 2019 09:45
--- NOTE | 2019-02-02 10:31 | PDOC ---
Infectious Disease Note Subjective: Subjective pt doing ok no f/c/n/v/d/abdo pain Vital Signs: Vital Signs Vital Signs Date Time Temp Pulse Resp B/P (MAP) Pulse Ox O2 Delivery O2 Flow Rate FiO2 02/02/19 08:00 Room Air 02/02/19 07:00 98.3 77 18 149/78 (101) 95 98.3 Physical Exam: PHYSICAL EXAM GENERAL: The patient is propped up in bed, alert, in no apparent distress. HEENT: Pupils equally round. Oropharynx pink and moist. NECK: Supple, no lymphadenopathy. LUNGS: Clear to auscultation. HEART: S1, S2. ABDOMEN: Obese, soft, nontender with bowel sounds present. Multiple scars and right-sided ostomy. EXTREMITIES: No gross edema or cyanosis. SKIN: Warm to touch without signs of rash. He has several sacrococcygeal fistulas bleeding and packed with Nu Gauze. No overt signs of infection. NEUROLOGIC: Alert. Answering questions appropriately. Medications: Inpatient Meds: Current Medications Medications (Trade) Dose Ordered Sig/Charlee Start Time Stop Time Status Last Admin Dose Admin Acetaminophen (Tylenol) 500 mg PRN Q6HRS PRN 02/01/19 08:30 Acetaminophen/ Codeine Phosphate (Tylenol #3) 1 tab PRN Q6HRS PRN 02/01/19 08:30 Ascorbic Acid (Vitamin C) 500 mg BID 01/30/19 21:00 02/02/19 08:06 500 MG Clindamycin HCl (Cleocin) 300 mg TID 01/30/19 14:00 01/31/19 09:30 DC 01/31/19 08:39 300 MG Ergocalciferol (Vitamin D2) 50,000 unit QMONTH 03/01/19 09:00 Famotidine (Pepcid) 20 mg HS 01/30/19 21:00 02/01/19 20:49 20 MG Guaifenesin (Robitussin Dm) 5 ml PRN QID PRN 01/30/19 14:00 Iohexol (Omnipaque 300 Mg/ml) 75 ml 1X ONCE 01/31/19 08:00 01/31/19 08:01 DC 01/31/19 08:29 75 ML Magnesium Hydroxide (Milk Of Magnesia) 2,400 mg PRN DAILY PRN 01/30/19 14:00 Mesalamine (Delzicol) 800 mg TID 01/30/19 15:00 02/02/19 08:07 800 MG Morphine Sulfate (Morphine Sulfate) 2 mg PRN Q2HR PRN 02/01/19 08:30 Non-Formulary Medication (Protein Supplement (Nutritional Drink Mix)) 420 gm DAILY 01/31/19 09:00 UNV Oxycodone/ Acetaminophen (Percocet 5/325) 1 tab PRN Q4HRS PRN 02/01/19 08:30 02/01/19 15:32 1 TAB Labs: Lab Laboratory Tests Test 02/02/19 03:42 White Blood Count 5.1 x10^3/uL (4.0-11.0) Red Blood Count 4.23 x10^6/uL (4.30-5.70) Hemoglobin 12.9 g/dL (13.0-17.5) Hematocrit 38.2 % (39.0-53.0) Mean Corpuscular Volume 90 fL (79-100) Mean Corpuscular Hemoglobin 31 pg (25-35) Mean Corpuscular Hemoglobin Concent 34 g/dL (31-37) Red Cell Distribution Width 13.5 % (11.5-14.5) Platelet Count 164 x10^3/uL (140-400) Neutrophils (%) (Auto) 62 % (31-73) Lymphocytes (%) (Auto) 21 % (24-48) Monocytes (%) (Auto) 13 % (0-9) Eosinophils (%) (Auto) 3 % (0-3) Basophils (%) (Auto) 1 % (0-3) Neutrophils # (Auto) 3.2 x10^3/uL (1.8-7.7) Lymphocytes # (Auto) 1.1 x10^3/uL (1.0-4.8) Monocytes # (Auto) 0.6 x10^3/uL (0.0-1.1) Eosinophils # (Auto) 0.2 x10^3/uL (0.0-0.7) Basophils # (Auto) 0.0 x10^3/uL (0.0-0.2) Sodium Level 142 mmol/L (136-145) Potassium Level 4.0 mmol/L (3.5-5.1) Chloride Level 105 mmol/L (98-107) Carbon Dioxide Level 27 mmol/L (21-32) Anion Gap 10 (6-14) Blood Urea Nitrogen 18 mg/dL (8-26) Creatinine 1.0 mg/dL (0.7-1.3) Estimated GFR (Cockcroft-Gault) 76.2 Glucose Level 102 mg/dL (70-99) Calcium Level 8.4 mg/dL (8.5-10.1) Micro RUN DATE: 02/01/19 [facility] LAB *LIVE* PAGE 1 RUN TIME: 1511 Specimen Inquiry PATIENT: GRAHAM FOSTER Vaibhav ACCT: [id number] LOC: [address] [place] [address] U: [id number] AGE/SX: 58/M ROOM: 562 RE01/30/[address]: FRANK KNIGHT III DO : 1960 BED: 1 DIS: STATUS: ADM IN TLOC: SPEC #: [id number] JOEL: 01/30/19-1030 STATUS: RES REQ #: [id number] RECD: 01/30/19-[address]: FRANK KNIGHT III, DO SOURCE: SACRUM ENTR: 01/30/19-[address]: LYDIA BONILLA DO [facility]: WOUND ORDERED: ANAER/AEROB/GS COMMENTS: SACRAL WOUND Procedure Result ANAEROBIC-AEROBIC CULTURE PENDING ANAEROBIC RES 1 PENDING AEROBIC CULT Preliminary Preliminary report AEROBIC RES 1 Preliminary Mixed site se. 2+ GRAM STAIN Final Final report GRAM STAIN RES 1 Final Comment No white blood cells seen. GRAM STAIN RES 2 Final No organisms seen Performed at: [facility] [address], [place], [place] [id number] Principal Research Economist: EBEN Foster MD, Phone: [phone] END OF REPORT Objective: Assessment: 1. 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 2. Crohn's disease with history of ostomy and multiple fistula repairs. 3. Acute and chronic OM changes on CT abdomen and pelvis ,Pt has been treated with previous OM at [facility] in the past . Chronic OM could be from the same ESR 35 4. Gastroesophageal reflux disease. 4. Obesity. 5. Kidney stone on CT Abdomen Plan: Plan of Care Observe off antibiotics for now Gen surgery plans no surgical intervention IR consult for bone biopsy send tissue for cults D/W JENNIFER CALDERON MD Feb 02, 2019 10:31
--- NOTE | 2019-02-02 10:50 | PDOC ---
PROGRESS NOTES Chief Complaint Chief Complaint Perianal wound - with bleeding NON SURGICAL /MED mx Severe Crohn's with multiple surgeries s/p ostomy (multiple fissures and abdominal wounds) Chronic pain Hyperlipidemia Hypertension GERD Incidenatl 5 mm rt kidney stone HIatal hernia with small bowel loops - known to him History of Present Illness History of Present Illness RECtal wounds inspected, erythema round but no induration, 5 coccygeal wounds, wound care on board Pt asks me about PICC and IV abx RN asks me about plan ID note says observe off abx GS note mentions IV PICC abx etc possible option in prep for GS I reached out to ID NO fevers ID on board Ambulatory,. non toxic appearing HX crohns for yrs now Lives in [place] and has HH wound care Incidental 5 mm RT kidney stone, no pains PLAN: Off abx vs PICC line with IV abx - informed ID NO surgical plans so far THIS ADMISSOn Dw him and left his CT results dw RN Vitals Vitals Vital Signs Date Time Temp Pulse Resp B/P (MAP) Pulse Ox O2 Delivery O2 Flow Rate FiO2 02/02/19 08:00 Room Air 02/02/19 07:00 98.3 77 18 149/78 (101) 95 98.3 Physical Exam Physical Exam GENERAL: The patient is propped up in bed, alert, in no apparent distress. HEENT: Pupils equally round. Oropharynx pink and moist. NECK: Supple, no lymphadenopathy. LUNGS: Clear to auscultation. HEART: S1, S2. ABDOMEN: Obese, soft, nontender with bowel sounds present. Multiple scars and right-sided ostomy. EXTREMITIES: No gross edema or cyanosis. SKIN: Warm to touch without signs of rash. He has several sacrococcygeal fistulas bleeding and packed with Nu Gauze. No overt signs of infection. NEUROLOGIC: Alert. Answering questions appropriately. General: Alert, Oriented X3, Cooperative Heart: Regular rate, Normal S1, Normal S2 Lungs: Clear Abdomen: Soft, No tenderness Extremities: No clubbing, No cyanosis Skin: Other (dressing dry, in place) Labs LABS Laboratory Tests Test 02/02/19 03:42 White Blood Count 5.1 x10^3/uL (4.0-11.0) Red Blood Count 4.23 x10^6/uL (4.30-5.70) Hemoglobin 12.9 g/dL (13.0-17.5) Hematocrit 38.2 % (39.0-53.0) Mean Corpuscular Volume 90 fL (79-100) Mean Corpuscular Hemoglobin 31 pg (25-35) Mean Corpuscular Hemoglobin Concent 34 g/dL (31-37) Red Cell Distribution Width 13.5 % (11.5-14.5) Platelet Count 164 x10^3/uL (140-400) Neutrophils (%) (Auto) 62 % (31-73) Lymphocytes (%) (Auto) 21 % (24-48) Monocytes (%) (Auto) 13 % (0-9) Eosinophils (%) (Auto) 3 % (0-3) Basophils (%) (Auto) 1 % (0-3) Neutrophils # (Auto) 3.2 x10^3/uL (1.8-7.7) Lymphocytes # (Auto) 1.1 x10^3/uL (1.0-4.8) Monocytes # (Auto) 0.6 x10^3/uL (0.0-1.1) Eosinophils # (Auto) 0.2 x10^3/uL (0.0-0.7) Basophils # (Auto) 0.0 x10^3/uL (0.0-0.2) Sodium Level 142 mmol/L (136-145) Potassium Level 4.0 mmol/L (3.5-5.1) Chloride Level 105 mmol/L (98-107) Carbon Dioxide Level 27 mmol/L (21-32) Anion Gap 10 (6-14) Blood Urea Nitrogen 18 mg/dL (8-26) Creatinine 1.0 mg/dL (0.7-1.3) Estimated GFR (Cockcroft-Gault) 76.2 Glucose Level 102 mg/dL (70-99) Calcium Level 8.4 mg/dL (8.5-10.1) Review of Systems Review of Systems no complaints, neg 14 pt Comment Review of Relevant I have reviewed the following items hermes (where applicable) has been applied. Labs Laboratory Tests Test 02/01/19 05:00 02/02/19 03:42 White Blood Count 5.5 x10^3/uL (4.0-11.0) 5.1 x10^3/uL (4.0-11.0) Red Blood Count 4.29 x10^6/uL (4.30-5.70) 4.23 x10^6/uL (4.30-5.70) Hemoglobin 13.1 g/dL (13.0-17.5) 12.9 g/dL (13.0-17.5) Hematocrit 38.7 % (39.0-53.0) 38.2 % (39.0-53.0) Mean Corpuscular Volume 90 fL (79-100) 90 fL (79-100) Mean Corpuscular Hemoglobin 31 pg (25-35) 31 pg (25-35) Mean Corpuscular Hemoglobin Concent 34 g/dL (31-37) 34 g/dL (31-37) Red Cell Distribution Width 13.6 % (11.5-14.5) 13.5 % (11.5-14.5) Platelet Count 164 x10^3/uL (140-400) 164 x10^3/uL (140-400) Neutrophils (%) (Auto) 63 % (31-73) 62 % (31-73) Lymphocytes (%) (Auto) 18 % (24-48) 21 % (24-48) Monocytes (%) (Auto) 14 % (0-9) 13 % (0-9) Eosinophils (%) (Auto) 4 % (0-3) 3 % (0-3) Basophils (%) (Auto) 1 % (0-3) 1 % (0-3) Neutrophils # (Auto) 3.4 x10^3/uL (1.8-7.7) 3.2 x10^3/uL (1.8-7.7) Lymphocytes # (Auto) 1.0 x10^3/uL (1.0-4.8) 1.1 x10^3/uL (1.0-4.8) Monocytes # (Auto) 0.8 x10^3/uL (0.0-1.1) 0.6 x10^3/uL (0.0-1.1) Eosinophils # (Auto) 0.2 x10^3/uL (0.0-0.7) 0.2 x10^3/uL (0.0-0.7) Basophils # (Auto) 0.1 x10^3/uL (0.0-0.2) 0.0 x10^3/uL (0.0-0.2) Sodium Level 142 mmol/L (136-145) 142 mmol/L (136-145) Potassium Level 3.8 mmol/L (3.5-5.1) 4.0 mmol/L (3.5-5.1) Chloride Level 106 mmol/L (98-107) 105 mmol/L (98-107) Carbon Dioxide Level 27 mmol/L (21-32) 27 mmol/L (21-32) Anion Gap 9 (6-14) 10 (6-14) Blood Urea Nitrogen 13 mg/dL (8-26) 18 mg/dL (8-26) Creatinine 1.0 mg/dL (0.7-1.3) 1.0 mg/dL (0.7-1.3) Estimated GFR (Cockcroft-Gault) 76.2 76.2 Glucose Level 110 mg/dL (70-99) 102 mg/dL (70-99) Calcium Level 9.1 mg/dL (8.5-10.1) 8.4 mg/dL (8.5-10.1) Laboratory Tests Test 02/02/19 03:42 White Blood Count 5.1 x10^3/uL (4.0-11.0) Red Blood Count 4.23 x10^6/uL (4.30-5.70) Hemoglobin 12.9 g/dL (13.0-17.5) Hematocrit 38.2 % (39.0-53.0) Mean Corpuscular Volume 90 fL (79-100) Mean Corpuscular Hemoglobin 31 pg (25-35) Mean Corpuscular Hemoglobin Concent 34 g/dL (31-37) Red Cell Distribution Width 13.5 % (11.5-14.5) Platelet Count 164 x10^3/uL (140-400) Neutrophils (%) (Auto) 62 % (31-73) Lymphocytes (%) (Auto) 21 % (24-48) Monocytes (%) (Auto) 13 % (0-9) Eosinophils (%) (Auto) 3 % (0-3) Basophils (%) (Auto) 1 % (0-3) Neutrophils # (Auto) 3.2 x10^3/uL (1.8-7.7) Lymphocytes # (Auto) 1.1 x10^3/uL (1.0-4.8) Monocytes # (Auto) 0.6 x10^3/uL (0.0-1.1) Eosinophils # (Auto) 0.2 x10^3/uL (0.0-0.7) Basophils # (Auto) 0.0 x10^3/uL (0.0-0.2) Sodium Level 142 mmol/L (136-145) Potassium Level 4.0 mmol/L (3.5-5.1) Chloride Level 105 mmol/L (98-107) Carbon Dioxide Level 27 mmol/L (21-32) Anion Gap 10 (6-14) Blood Urea Nitrogen 18 mg/dL (8-26) Creatinine 1.0 mg/dL (0.7-1.3) Estimated GFR (Cockcroft-Gault) 76.2 Glucose Level 102 mg/dL (70-99) Calcium Level 8.4 mg/dL (8.5-10.1) Microbiology 01/30/19 Anaerobic/Aerobic Culture, Resulted Pending 01/30/19 Anaerobic Culture Result 1 (BERKLEY), Resulted Pending 01/30/19 Aerobic Culture - Preliminary, Resulted 01/30/19 Aerobic Culture Result 1 (BERKLEY) - Preliminary, Resulted 01/30/19 Gram Stain - Final, Resulted 01/30/19 Gram Stain Result 1 (BERKLEY) - Final, Resulted 01/30/19 Gram Stain Result 2 (BERKLEY) - Final, Resulted Medications Current Medications Acetaminophen (Tylenol) 650 mg PRN Q4HRS PRN PO PAIN; Start 01/30/19 at 14:00; Stop 02/01/19 at 08:20; Status DC Ergocalciferol (Vitamin D2) 50,000 unit QMONTH PO ; Start 03/01/19 at 09:00 Famotidine (Pepcid) 20 mg HS PO Last administered on 02/01/19at 20:49; Start 01/30/19 at 21:00 Guaifenesin (Robitussin Dm) 5 ml PRN QID PRN PO COUGH; Start 01/30/19 at 14:00 Ascorbic Acid (Vitamin C) 500 mg BID PO Last administered on 02/02/19at 08:06; Start 01/30/19 at 21:00 Clindamycin HCl (Cleocin) 300 mg TID PO Last administered on 01/31/19at 08:39; Start 01/30/19 at 14:00; Stop 01/31/19 at 09:30; Status DC Magnesium Hydroxide (Milk Of Magnesia) 2,400 mg PRN DAILY PRN PO CONSTIPATION; Start 01/30/19 at 14:00 Mesalamine (Delzicol) 800 mg TID PO Last administered on 02/02/19at 08:07; Start 01/30/19 at 15:00 Non-Formulary Medication (Protein Supplement (Nutritional Drink Mix)) 420 gm DAILY PO ; Start 01/31/19 at 09:00; Status UNV Iohexol (Omnipaque 300 Mg/ml) 75 ml 1X ONCE IV Last administered on 01/31/19at 08:29; Start 01/31/19 at 08:00; Stop 01/31/19 at 08:01; Status DC Acetaminophen (Tylenol) 500 mg PRN Q6HRS PRN PO MILD PAIN / TEMP; Start 02/01/19 at 08:30 Acetaminophen/ Codeine Phosphate (Tylenol #3) 1 tab PRN Q6HRS PRN PO MODERATE PAIN; Start 02/01/19 at 08:30 Oxycodone/ Acetaminophen (Percocet 5/325) 1 tab PRN Q4HRS PRN PO SEVERE PAIN Last administered on 02/01/19at 15:32; Start 02/01/19 at 08:30 Morphine Sulfate (Morphine Sulfate) 2 mg PRN Q2HR PRN IV PAIN; Start 02/01/19 at 08:30 Active Scripts Active Reported Hydrocodone-Apap 5-325 (Hydrocodone Bit/Acetaminophen) 1 Tab Tablet 1-2 Tab PO PRN Q4HRS PRN Tussin Dm Cough & Chest Syrup (Guaifenesin/Dextromethorphan) 118 Ml Syrup 5 Ml PO PRN QID PRN 12 Days Milk Of Magnesia (Magnesium Hydroxide) 2,400 Mg/10 Ml Oral.susp 2,400 Mg PO PRN DAILY PRN Tylenol (Acetaminophen) 325 Mg Tablet 650 Mg PO PRN Q4HRS PRN Clindamycin Hcl 300 Mg Capsule 300 Mg PO TID Vitamin D2 (Ergocalciferol (Vitamin D2)) 50,000 Unit Capsule 1 Cap PO QMONTH Vitamin C (Ascorbate Calcium) 500 Mg Tablet 500 Mg PO BID Nutritional Drink Mix (Protein Supplement) 420 Gm Powder 420 Gm PO DAILY Multi-Vitamin Daily (Multivitamin) 1 Each Tablet 1 Each PO Famotidine 20 Mg Tablet 20 Mg PO HS Asacol Hd (Mesalamine) 800 Mg Tablet. 1,600 Mg PO TID Vitals/I & O Vital Sign - Last 24 Hours 02/01/19 02/01/19 02/01/19 02/01/19 11:05 15:00 15:32 16:37 Temp 97.6 98.5 97.6 98.5 Pulse 64 60 Resp 18 18 B/P (MAP) 118/63 (81) 123/57 (79) Pulse Ox 95 96 O2 Delivery Room Air Room Air Room Air Room Air 02/01/19 02/01/19 02/02/19 02/02/19 19:00 23:00 03:00 07:00 Temp 98.0 98.1 98.2 98.3 98.0 98.1 98.2 98.3 Pulse 73 60 58 77 Resp 16 18 16 18 B/P (MAP) 116/61 (79) 118/62 (80) 118/68 (85) 149/78 (101) Pulse Ox 96 93 95 95 O2 Delivery Room Air 02/02/19 08:00 O2 Delivery Room Air Intake and Output 02/01/19 02/01/19 02/02/19 15:00 23:00 07:00 Intake Total 960 ml 500 ml Balance 960 ml 500 ml DEMARCO POWELL MD Feb 02, 2019 10:50
[2019-02-02 11:00] VITALS: BP 110/64
[2019-02-02 15:00] VITALS: BP 114/71
--- NOTE | 2019-02-02 15:27 | NUR ---
SW following. Chart reviewed, discussed with RN. Pt is from [facility] (ph: [phone]). Per RN, pt has home health for wound care. Per RN, pt is not ready for discharge today. SW will continue to follow for discharge planning needs.
[2019-02-02] MEDS: oxyCODONE/APAP 5/325 1 TAB TABLET PO PRN (16:37)
[2019-02-02 19:00] VITALS: BP 120/74
[2019-02-02] MEDS: FAMOTIDINE 20 MG TABLET. PO SCH (20:42)
[2019-02-02 23:00] VITALS: BP 114/63
[2019-02-03] VITALS (9 sets, daily range): BP systolic 96–135; BP diastolic 45–90
[2019-02-03 05:41] LABS: PROTHROMBIN TIME PATIENT 13.8 SEC (11.7-14.0)
[2019-02-03 06:30] LABS: BASO % 1 % (0-3); EOS # 0.1 x10^3/uL (0.0-0.7); EOS % 3 % (0-3); HEMATOCRIT 38.6 % (39.0-53.0); HEMOGLOBIN 13.1 g/dL (13.0-17.5); LYMPH % 21 % (24-48); MEAN CORPUSCULAR HEMOGLOBIN 31 pg (25-35); MEAN CORPUSCULAR HGB CONC 34 g/dL (31-37); MEAN CORPUSCULAR VOLUME 90 fL (79-100); MONO # 0.5 x10^3/uL (0.0-1.1); MONO % 10 % (0-9); NEUT # 3.2 x10^3/uL (1.8-7.7); NEUT % 66 % (31-73); PLATELET COUNT 172 x10^3/uL (140-400); RED BLOOD COUNT 4.28 x10^6/uL (4.30-5.70); RED CELL DISTRIBUTION WIDTH 13.6 % (11.5-14.5); WHITE BLOOD COUNT 4.8 x10^3/uL (4.0-11.0)
[2019-02-03 06:40] LABS: GFR 76.2; POTASSIUM 3.9 mmol/L (3.5-5.1)
--- NOTE | 2019-02-03 08:38 | PDOC ---
SURGICAL PROGRESS NOTE Subjective Pt slept well, no obvious pain Vital Signs Vital Signs Date Time Temp Pulse Resp B/P (MAP) Pulse Ox O2 Delivery O2 Flow Rate FiO2 02/03/19 03:00 97.9 60 18 120/70 (87) 96 97.9 02/02/19 20:00 Room Air I&O Intake and Output 02/03/19 07:00 Intake Total 500 ml Balance 500 ml Intake Oral 500 ml # Voids 6 # Bowel Movements 1 General: Alert, Oriented X3, Cooperative, No acute distress Skin: Other (dressing intact) Labs Laboratory Tests Test 02/02/19 03:42 02/03/19 04:55 White Blood Count 5.1 x10^3/uL (4.0-11.0) 4.8 x10^3/uL (4.0-11.0) Red Blood Count 4.23 x10^6/uL (4.30-5.70) 4.28 x10^6/uL (4.30-5.70) Hemoglobin 12.9 g/dL (13.0-17.5) 13.1 g/dL (13.0-17.5) Hematocrit 38.2 % (39.0-53.0) 38.6 % (39.0-53.0) Mean Corpuscular Volume 90 fL (79-100) 90 fL (79-100) Mean Corpuscular Hemoglobin 31 pg (25-35) 31 pg (25-35) Mean Corpuscular Hemoglobin Concent 34 g/dL (31-37) 34 g/dL (31-37) Red Cell Distribution Width 13.5 % (11.5-14.5) 13.6 % (11.5-14.5) Platelet Count 164 x10^3/uL (140-400) 172 x10^3/uL (140-400) Neutrophils (%) (Auto) 62 % (31-73) 66 % (31-73) Lymphocytes (%) (Auto) 21 % (24-48) 21 % (24-48) Monocytes (%) (Auto) 13 % (0-9) 10 % (0-9) Eosinophils (%) (Auto) 3 % (0-3) 3 % (0-3) Basophils (%) (Auto) 1 % (0-3) 1 % (0-3) Neutrophils # (Auto) 3.2 x10^3/uL (1.8-7.7) 3.2 x10^3/uL (1.8-7.7) Lymphocytes # (Auto) 1.1 x10^3/uL (1.0-4.8) 1.0 x10^3/uL (1.0-4.8) Monocytes # (Auto) 0.6 x10^3/uL (0.0-1.1) 0.5 x10^3/uL (0.0-1.1) Eosinophils # (Auto) 0.2 x10^3/uL (0.0-0.7) 0.1 x10^3/uL (0.0-0.7) Basophils # (Auto) 0.0 x10^3/uL (0.0-0.2) 0.0 x10^3/uL (0.0-0.2) Sodium Level 142 mmol/L (136-145) 140 mmol/L (136-145) Potassium Level 4.0 mmol/L (3.5-5.1) 3.9 mmol/L (3.5-5.1) Chloride Level 105 mmol/L (98-107) 106 mmol/L (98-107) Carbon Dioxide Level 27 mmol/L (21-32) 28 mmol/L (21-32) Anion Gap 10 (6-14) 6 (6-14) Blood Urea Nitrogen 18 mg/dL (8-26) 14 mg/dL (8-26) Creatinine 1.0 mg/dL (0.7-1.3) 1.0 mg/dL (0.7-1.3) Estimated GFR (Cockcroft-Gault) 76.2 76.2 Glucose Level 102 mg/dL (70-99) 104 mg/dL (70-99) Calcium Level 8.4 mg/dL (8.5-10.1) 9.0 mg/dL (8.5-10.1) Prothrombin Time 13.8 SEC (11.7-14.0) Prothromb Time International Ratio 1.1 (0.8-1.1) Laboratory Tests Test 02/03/19 04:55 White Blood Count 4.8 x10^3/uL (4.0-11.0) Red Blood Count 4.28 x10^6/uL (4.30-5.70) Hemoglobin 13.1 g/dL (13.0-17.5) Hematocrit 38.6 % (39.0-53.0) Mean Corpuscular Volume 90 fL (79-100) Mean Corpuscular Hemoglobin 31 pg (25-35) Mean Corpuscular Hemoglobin Concent 34 g/dL (31-37) Red Cell Distribution Width 13.6 % (11.5-14.5) Platelet Count 172 x10^3/uL (140-400) Neutrophils (%) (Auto) 66 % (31-73) Lymphocytes (%) (Auto) 21 % (24-48) Monocytes (%) (Auto) 10 % (0-9) Eosinophils (%) (Auto) 3 % (0-3) Basophils (%) (Auto) 1 % (0-3) Neutrophils # (Auto) 3.2 x10^3/uL (1.8-7.7) Lymphocytes # (Auto) 1.0 x10^3/uL (1.0-4.8) Monocytes # (Auto) 0.5 x10^3/uL (0.0-1.1) Eosinophils # (Auto) 0.1 x10^3/uL (0.0-0.7) Basophils # (Auto) 0.0 x10^3/uL (0.0-0.2) Prothrombin Time 13.8 SEC (11.7-14.0) Prothromb Time International Ratio 1.1 (0.8-1.1) Sodium Level 140 mmol/L (136-145) Potassium Level 3.9 mmol/L (3.5-5.1) Chloride Level 106 mmol/L (98-107) Carbon Dioxide Level 28 mmol/L (21-32) Anion Gap 6 (6-14) Blood Urea Nitrogen 14 mg/dL (8-26) Creatinine 1.0 mg/dL (0.7-1.3) Estimated GFR (Cockcroft-Gault) 76.2 Glucose Level 104 mg/dL (70-99) Calcium Level 9.0 mg/dL (8.5-10.1) Problem List perineal ulcer with osteomyelitis d/w wound care yesterday, osteo 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
[2019-02-03] MEDS: MESALAMINE 400 MG CAP.DRTAB. PO SCH ×3 (09:00→20:53)
[2019-02-03] MEDS: ASCORBIC ACID 500 MG TABLET PO SCH ×2 (09:00→20:53)
[2019-02-03] MEDS ORDERED: ONDANSETRON PF 4 MG/2 ML VIAL. IVP PRN (09:30)
[2019-02-03] MEDS ORDERED: diphenhydrAMINE HCL 25 MG CAPSULE PO PRN (09:30)
[2019-02-03] MEDS ORDERED: LIDOCAINE WITH 8.4% SOD BICARB 3 ML DISP.SYRIN. ONE (10:01)
[2019-02-03] MEDS ORDERED: MIDAZOLAM HCL/PF 2 MG/2 ML VIAL. ONE (10:20)
[2019-02-03] MEDS ORDERED: fentaNYL PF VIAL 100 MCG/2 ML VIAL ONE (10:20)
--- NOTE | 2019-02-03 10:48 | PDOC ---
MODERATE SEDATION ASSESSMENT RISKS/ALTERNATIVES Risks/Alternatives Risks and alternatives of this type of sedation and procedure discussed with: RISK/ALTERNATIVES: Patient H & P ON CHART H & P H & P on chart and reviewed for co-morbid conditions and appropriate labs. H&P ON CHART: Yes STATUS PREG STATUS ASSESSED: Yes MEDS/ALLERGIES REVIEWED Meds/Allergies Reviewed Medications and Allergies including time and route of recently administered narcotics and sedatives. MEDS/ALLERGIES REVIEWED: Yes ASA RATING ASA RATING: II AIRWAY ASSESSMENT Airway Assessment Airway patency, oral function limitations, presence of caps, crowns, dentures, partials, and ability to extend neck assessed. AIRWAY ASSESSMENT: Yes MALLAMPATI SCORE MALLAMPATI SCORE: II PRE-SEDATION ASSESSMENT PRE-SEDATION ASSESSMENT: Yes CLEMENCIA SAUNDERS MD Feb 03, 2019 10:48
--- NOTE | 2019-02-03 10:49 | PDOC ---
BRIEF OPERATIVE NOTE Pre-Op Diagnosis decubitus ulcers Post-Op Diagnosis same Procedure Performed CT sacral biopsy Surgeon Solo Anesthesia Type: Conscious Sedation Specimens Obtained 2 x 10g cores of distal sacrum near soft tissue infection Findings CT sacral biopsy Complications No immediate CLEMENCIA SAUNDERS MD Feb 03, 2019 10:49
--- NOTE | 2019-02-03 10:55 | RAD ---
Procedure: CT-guided biopsy of the sacrum Clinical Indication: Adult male with severe decubitus ulcers, sacral ostial lysis, suspected osteomyelitis. Sedation: Conscious sedation was administered with a total intraprocedural [id number] time of 12 minutes. The patient was monitored by a qualified independent observer throughout the time of sedation. Please refer to the medical record for exact doses of medications utilized to achieve moderate sedation. Antibiotics: None Sterility: The procedure was performed in its entirety using appropriate elements of sterile technique. Consent: The procedure was explained in its entirety to the patient or the patients designated insurance representative by a member of the treatment team, including a discussion of the risks, benefits and commonly accepted alternatives to the procedure, as well as the expected consequences of no therapy whatsoever. Discussion of the risks included, but was not limited to, those that are most frequent and those that are rare but possibly severe or life-threatening, as well as the possibility of unforeseen complications. Technique and Findings: Following informed consent, the patient was prepped and draped in usual sterile fashion. Preliminary CT scan of the area of interest was performed. 1% lidocaine was used to achieve local anesthesia. A small dermatotomy was made. Under periodic CT surveillance, a 10-gauge automated bone biopsy needle was advanced into the distal sacrum. The needle was removed and the specimen was preserved in formalin. A second pass through the sacrum was then performed, with a second specimen preserved in a sterile container for microbiologic analysis. Hemostasis was readily achieved with manual compression. Complications: No immediate Impression: 1. CT-guided biopsy of the sacrum as described. PQRS Compliance Statement: One or more of the following individualized dose reduction techniques were utilized for this examination: 1. Automated exposure control 2. Adjustment of the mA and/or kV according to patient size 3. Use of iterative reconstruction technique
[2019-02-03] MEDS ORDERED: MIDAZOLAM HCL/PF 2 MG/2 ML VIAL. IV ONE (11:00)
[2019-02-03] MEDS ORDERED: LIDOCAINE WITH 8.4% SOD BICARB 3 ML DISP.SYRIN. IJ ONE (11:00)
[2019-02-03] MEDS ORDERED: fentaNYL PF VIAL 100 MCG/2 ML VIAL IV ONE (11:00)
--- NOTE | 2019-02-03 11:40 | PDOC ---
Infectious Disease Note Subjective: Subjective pt doing ok no f/c/n/v/d/abdo pain Vital Signs: Vital Signs Vital Signs Date Time Temp Pulse Resp B/P (MAP) Pulse Ox O2 Delivery O2 Flow Rate FiO2 02/03/19 10:57 18 98 Nasal Cannula 2.0 02/03/19 10:52 78 02/03/19 07:00 97.5 111/63 (79) 97.5 Physical Exam: PHYSICAL EXAM GENERAL: The patient is propped up in bed, alert, in no apparent distress. HEENT: Pupils equally round. Oropharynx pink and moist. NECK: Supple, no lymphadenopathy. LUNGS: Clear to auscultation. HEART: S1, S2. ABDOMEN: Obese, soft, nontender with bowel sounds present. Multiple scars and right-sided ostomy. EXTREMITIES: No gross edema or cyanosis. SKIN: Warm to touch without signs of rash. He has several sacrococcygeal fistulas bleeding and packed with Nu Gauze. No overt signs of infection. NEUROLOGIC: Alert. Answering questions appropriately. Medications: Inpatient Meds: Current Medications Medications (Trade) Dose Ordered Sig/Charlee Start Time Stop Time Status Last Admin Dose Admin Acetaminophen (Tylenol) 500 mg PRN Q6HRS PRN 02/01/19 08:30 Acetaminophen/ Codeine Phosphate (Tylenol #3) 1 tab PRN Q6HRS PRN 02/01/19 08:30 Ascorbic Acid (Vitamin C) 500 mg BID 01/30/19 21:00 02/02/19 20:42 500 MG Clindamycin HCl (Cleocin) 300 mg TID 01/30/19 14:00 01/31/19 09:30 DC 01/31/19 08:39 300 MG Diphenhydramine HCl (Benadryl) 25 mg PRN QHS PRN 02/03/19 09:30 Ergocalciferol (Vitamin D2) 50,000 unit QMONTH 03/01/19 09:00 Famotidine (Pepcid) 20 mg HS 01/30/19 21:00 02/02/19 20:42 20 MG Fentanyl Citrate (Fentanyl 2ml Vial) 100 mcg 1X ONCE 02/03/19 11:00 02/03/19 11:01 DC 02/03/19 10:57 50 MCG Guaifenesin (Robitussin Dm) 5 ml PRN QID PRN 01/30/19 14:00 Iohexol (Omnipaque 300 Mg/ml) 75 ml 1X ONCE 01/31/19 08:00 01/31/19 08:01 DC 01/31/19 08:29 75 ML Lidocaine HCl (Buffered Lidocaine 1%) 3 ml 1X ONCE 02/03/19 11:00 02/03/19 11:01 DC 02/03/19 10:58 4.5 ML Magnesium Hydroxide (Milk Of Magnesia) 2,400 mg PRN DAILY PRN 01/30/19 14:00 Mesalamine (Delzicol) 800 mg TID 01/30/19 15:00 02/02/19 20:42 800 MG Midazolam HCl (Versed) 2 mg 1X ONCE 02/03/19 11:00 02/03/19 11:01 DC 02/03/19 10:57 1 MG Morphine Sulfate (Morphine Sulfate) 2 mg PRN Q2HR PRN 02/01/19 08:30 Non-Formulary Medication (Protein Supplement (Nutritional Drink Mix)) 420 gm DAILY 01/31/19 09:00 UNV Ondansetron HCl (Zofran) 4 mg PRN Q6HRS PRN 02/03/19 09:30 Oxycodone/ Acetaminophen (Percocet 5/325) 1 tab PRN Q4HRS PRN 02/01/19 08:30 02/02/19 16:37 1 TAB Labs: Lab Laboratory Tests Test 02/03/19 04:55 White Blood Count 4.8 x10^3/uL (4.0-11.0) Red Blood Count 4.28 x10^6/uL (4.30-5.70) Hemoglobin 13.1 g/dL (13.0-17.5) Hematocrit 38.6 % (39.0-53.0) Mean Corpuscular Volume 90 fL (79-100) Mean Corpuscular Hemoglobin 31 pg (25-35) Mean Corpuscular Hemoglobin Concent 34 g/dL (31-37) Red Cell Distribution Width 13.6 % (11.5-14.5) Platelet Count 172 x10^3/uL (140-400) Neutrophils (%) (Auto) 66 % (31-73) Lymphocytes (%) (Auto) 21 % (24-48) Monocytes (%) (Auto) 10 % (0-9) Eosinophils (%) (Auto) 3 % (0-3) Basophils (%) (Auto) 1 % (0-3) Neutrophils # (Auto) 3.2 x10^3/uL (1.8-7.7) Lymphocytes # (Auto) 1.0 x10^3/uL (1.0-4.8) Monocytes # (Auto) 0.5 x10^3/uL (0.0-1.1) Eosinophils # (Auto) 0.1 x10^3/uL (0.0-0.7) Basophils # (Auto) 0.0 x10^3/uL (0.0-0.2) Prothrombin Time 13.8 SEC (11.7-14.0) Prothromb Time International Ratio 1.1 (0.8-1.1) Sodium Level 140 mmol/L (136-145) Potassium Level 3.9 mmol/L (3.5-5.1) Chloride Level 106 mmol/L (98-107) Carbon Dioxide Level 28 mmol/L (21-32) Anion Gap 6 (6-14) Blood Urea Nitrogen 14 mg/dL (8-26) Creatinine 1.0 mg/dL (0.7-1.3) Estimated GFR (Cockcroft-Gault) 76.2 Glucose Level 104 mg/dL (70-99) Calcium Level 9.0 mg/dL (8.5-10.1) Micro RUN DATE: 02/01/19 [facility] LAB *LIVE* PAGE 1 RUN TIME: 2987 Specimen Inquiry -- PATIENT: GRAHAM FOSTER ACCT: [id number] LOC: [address] [place] [address] U: [id number] AGE/SX: 58/M ROOM: [facility] 01/30/[address]: FRANK KNIGHT III, DO : 1960 BED: 1 DIS: STATUS: ADM IN TLOC: SPEC #: [id number] JOEL: 01/30/19 STATUS: RES REQ #: [id number] RECD: 01/30/19-[address]: FRANK KNIGHT III, DO SOURCE: [facility]CRUM ENTR: 01/30/19-[address]: LYDIA BONILLA DO SPDESC: WOUND ORDERED: ANAER/AEROB/TRISTAN COMMENTS: SACRAL WOUND Procedure Result ANAEROBIC-AEROBIC CULTURE PENDING ANAEROBIC RES 1 PENDING AEROBIC CULT Preliminary Preliminary report AEROBIC RES 1 Preliminary Mixed site se. 2+ GRAM STAIN Final Final report GRAM STAIN RES 1 Final Comment No white blood cells seen. GRAM STAIN RES 2 Final No organisms seen Performed at: - [facility] [id number], [place], [place] [id number] Scrap Iron Cutter: EBEN Foster MD, Phone: [phone] END OF REPORT Objective: Assessment: 1. 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 2. Crohn's disease with history of ostomy and multiple fistula repairs. 3. Acute and chronic OM changes on CT abdomen and pelvis ,Pt has been treated with previous OM at [facility] in the past . Chronic OM could be from the same ESR 35 S/P IR biopsy 02/03 4. Gastroesophageal reflux disease. 4. Obesity. 5. Kidney stone on CT Abdomen Plan: Plan of Care start zosyn and vanco monitor renal functions closely f/u ID cultures will need I and D of acute om, antibiotics alone will not be optimal transfer to [facility] DR Sosa for I and D, ostectomy and possible flap if eligible Detailed discussion done with pt ,he is agreeable D/W Dr Serna Gen surgery plans noted JENNIFER CAVANAUGH MD Feb 03, 2019 11:40
--- NOTE | 2019-02-03 12:04 | PDOC ---
PROGRESS NOTES Chief Complaint Chief Complaint Perianal wound - with bleeding NON SURGICAL /MED mx Severe Crohn's with multiple surgeries s/p ostomy (multiple fissures and abdominal wounds) Chronic pain Hyperlipidemia Hypertension GERD Incidenatl 5 mm rt kidney stone HIatal hernia with small bowel loops - known to him History of Present Illness History of Present Illness RECtal wounds inspected, erythema round but no induration, TRial off abx per ID GS recs IV abx prior to sx - which we are unsure if plastic sx is needed (flap etc) I have read multiple times GS and ID notes Pt has a rt peripheral line ID recs [facility] transfer - i m coordinating with SW 5 coccygeal wounds, wound care on board Pt asks me about PICC and IV abx Pt does not want sx currently INterested in HH in current living situations SW on case NO fevers Ambulatory,. non toxic appearing HX crohns for yrs now Lives in [place] and has HH wound care Incidental 5 mm RT kidney stone, no pains PLAN: Attempting [facility] transfer GS mentions poor surgical candidate MIght need plastics for flap sx? WIll see what [facility] has to offer Dw ID and reached out to mid level Pt can go either way, transfer or no transfer, he is aware of plan signif time with this pt Vitals Vitals Vital Signs Date Time Temp Pulse Resp B/P (MAP) Pulse Ox O2 Delivery O2 Flow Rate FiO2 02/03/19 10:57 18 98 Nasal Cannula 2.0 02/03/19 10:52 78 02/03/19 07:00 97.5 111/63 (79) 97.5 Physical Exam Physical Exam GENERAL: The patient is propped up in bed, alert, in no apparent distress. HEENT: Pupils equally round. Oropharynx pink and moist. NECK: Supple, no lymphadenopathy. LUNGS: Clear to auscultation. HEART: S1, S2. ABDOMEN: Obese, soft, nontender with bowel sounds present. Multiple scars and right-sided ostomy. EXTREMITIES: No gross edema or cyanosis. SKIN: Warm to touch without signs of rash. He has several sacrococcygeal fistulas bleeding and packed with Nu Gauze. No overt signs of infection. NEUROLOGIC: Alert. Answering questions appropriately. General: Alert, Oriented X3, Cooperative, No acute distress Heart: Regular rate, Normal S1, Normal S2 Lungs: Clear Abdomen: Soft, No tenderness Extremities: No clubbing, No cyanosis Skin: Other (dressing intact) Labs LABS Laboratory Tests Test 02/03/19 04:55 White Blood Count 4.8 x10^3/uL (4.0-11.0) Red Blood Count 4.28 x10^6/uL (4.30-5.70) Hemoglobin 13.1 g/dL (13.0-17.5) Hematocrit 38.6 % (39.0-53.0) Mean Corpuscular Volume 90 fL (79-100) Mean Corpuscular Hemoglobin 31 pg (25-35) Mean Corpuscular Hemoglobin Concent 34 g/dL (31-37) Red Cell Distribution Width 13.6 % (11.5-14.5) Platelet Count 172 x10^3/uL (140-400) Neutrophils (%) (Auto) 66 % (31-73) Lymphocytes (%) (Auto) 21 % (24-48) Monocytes (%) (Auto) 10 % (0-9) Eosinophils (%) (Auto) 3 % (0-3) Basophils (%) (Auto) 1 % (0-3) Neutrophils # (Auto) 3.2 x10^3/uL (1.8-7.7) Lymphocytes # (Auto) 1.0 x10^3/uL (1.0-4.8) Monocytes # (Auto) 0.5 x10^3/uL (0.0-1.1) Eosinophils # (Auto) 0.1 x10^3/uL (0.0-0.7) Basophils # (Auto) 0.0 x10^3/uL (0.0-0.2) Prothrombin Time 13.8 SEC (11.7-14.0) Prothromb Time International Ratio 1.1 (0.8-1.1) Sodium Level 140 mmol/L (136-145) Potassium Level 3.9 mmol/L (3.5-5.1) Chloride Level 106 mmol/L (98-107) Carbon Dioxide Level 28 mmol/L (21-32) Anion Gap 6 (6-14) Blood Urea Nitrogen 14 mg/dL (8-26) Creatinine 1.0 mg/dL (0.7-1.3) Estimated GFR (Cockcroft-Gault) 76.2 Glucose Level 104 mg/dL (70-99) Calcium Level 9.0 mg/dL (8.5-10.1) Review of Systems Review of Systems no complaints Comment Review of Relevant I have reviewed the following items hermes (where applicable) has been applied. Labs Laboratory Tests Test 02/02/19 03:42 02/03/19 04:55 White Blood Count 5.1 x10^3/uL (4.0-11.0) 4.8 x10^3/uL (4.0-11.0) Red Blood Count 4.23 x10^6/uL (4.30-5.70) 4.28 x10^6/uL (4.30-5.70) Hemoglobin 12.9 g/dL (13.0-17.5) 13.1 g/dL (13.0-17.5) Hematocrit 38.2 % (39.0-53.0) 38.6 % (39.0-53.0) Mean Corpuscular Volume 90 fL (79-100) 90 fL (79-100) Mean Corpuscular Hemoglobin 31 pg (25-35) 31 pg (25-35) Mean Corpuscular Hemoglobin Concent 34 g/dL (31-37) 34 g/dL (31-37) Red Cell Distribution Width 13.5 % (11.5-14.5) 13.6 % (11.5-14.5) Platelet Count 164 x10^3/uL (140-400) 172 x10^3/uL (140-400) Neutrophils (%) (Auto) 62 % (31-73) 66 % (31-73) Lymphocytes (%) (Auto) 21 % (24-48) 21 % (24-48) Monocytes (%) (Auto) 13 % (0-9) 10 % (0-9) Eosinophils (%) (Auto) 3 % (0-3) 3 % (0-3) Basophils (%) (Auto) 1 % (0-3) 1 % (0-3) Neutrophils # (Auto) 3.2 x10^3/uL (1.8-7.7) 3.2 x10^3/uL (1.8-7.7) Lymphocytes # (Auto) 1.1 x10^3/uL (1.0-4.8) 1.0 x10^3/uL (1.0-4.8) Monocytes # (Auto) 0.6 x10^3/uL (0.0-1.1) 0.5 x10^3/uL (0.0-1.1) Eosinophils # (Auto) 0.2 x10^3/uL (0.0-0.7) 0.1 x10^3/uL (0.0-0.7) Basophils # (Auto) 0.0 x10^3/uL (0.0-0.2) 0.0 x10^3/uL (0.0-0.2) Sodium Level 142 mmol/L (136-145) 140 mmol/L (136-145) Potassium Level 4.0 mmol/L (3.5-5.1) 3.9 mmol/L (3.5-5.1) Chloride Level 105 mmol/L (98-107) 106 mmol/L (98-107) Carbon Dioxide Level 27 mmol/L (21-32) 28 mmol/L (21-32) Anion Gap 10 (6-14) 6 (6-14) Blood Urea Nitrogen 18 mg/dL (8-26) 14 mg/dL (8-26) Creatinine 1.0 mg/dL (0.7-1.3) 1.0 mg/dL (0.7-1.3) Estimated GFR (Cockcroft-Gault) 76.2 76.2 Glucose Level 102 mg/dL (70-99) 104 mg/dL (70-99) Calcium Level 8.4 mg/dL (8.5-10.1) 9.0 mg/dL (8.5-10.1) Prothrombin Time 13.8 SEC (11.7-14.0) Prothromb Time International Ratio 1.1 (0.8-1.1) Laboratory Tests Test 02/03/19 04:55 White Blood Count 4.8 x10^3/uL (4.0-11.0) Red Blood Count 4.28 x10^6/uL (4.30-5.70) Hemoglobin 13.1 g/dL (13.0-17.5) Hematocrit 38.6 % (39.0-53.0) Mean Corpuscular Volume 90 fL (79-100) Mean Corpuscular Hemoglobin 31 pg (25-35) Mean Corpuscular Hemoglobin Concent 34 g/dL (31-37) Red Cell Distribution Width 13.6 % (11.5-14.5) Platelet Count 172 x10^3/uL (140-400) Neutrophils (%) (Auto) 66 % (31-73) Lymphocytes (%) (Auto) 21 % (24-48) Monocytes (%) (Auto) 10 % (0-9) Eosinophils (%) (Auto) 3 % (0-3) Basophils (%) (Auto) 1 % (0-3) Neutrophils # (Auto) 3.2 x10^3/uL (1.8-7.7) Lymphocytes # (Auto) 1.0 x10^3/uL (1.0-4.8) Monocytes # (Auto) 0.5 x10^3/uL (0.0-1.1) Eosinophils # (Auto) 0.1 x10^3/uL (0.0-0.7) Basophils # (Auto) 0.0 x10^3/uL (0.0-0.2) Prothrombin Time 13.8 SEC (11.7-14.0) Prothromb Time International Ratio 1.1 (0.8-1.1) Sodium Level 140 mmol/L (136-145) Potassium Level 3.9 mmol/L (3.5-5.1) Chloride Level 106 mmol/L (98-107) Carbon Dioxide Level 28 mmol/L (21-32) Anion Gap 6 (6-14) Blood Urea Nitrogen 14 mg/dL (8-26) Creatinine 1.0 mg/dL (0.7-1.3) Estimated GFR (Cockcroft-Gault) 76.2 Glucose Level 104 mg/dL (70-99) Calcium Level 9.0 mg/dL (8.5-10.1) Microbiology 01/30/19 Anaerobic/Aerobic Culture, Resulted Pending 01/30/19 Anaerobic Culture Result 1 (BERKLEY), Resulted Pending 01/30/19 Aerobic Culture - Final, Resulted 01/30/19 Aerobic Culture Result 1 (BERKLEY) - Final, Resulted 01/30/19 Gram Stain - Final, Resulted 01/30/19 Gram Stain Result 1 (BERKLEY) - Final, Resulted 01/30/19 Gram Stain Result 2 (BERKLEY) - Final, Resulted Medications Current Medications Acetaminophen (Tylenol) 650 mg PRN Q4HRS PRN PO PAIN; Start 01/30/19 at 14:00; Stop 02/01/19 at 08:20; Status DC Ergocalciferol (Vitamin D2) 50,000 unit QMONTH PO ; Start 03/01/19 at 09:00 Famotidine (Pepcid) 20 mg HS PO Last administered on 02/02/19at 20:42; Start 01/30/19 at 21:00 Guaifenesin (Robitussin Dm) 5 ml PRN QID PRN PO COUGH; Start 01/30/19 at 14:00 Ascorbic Acid (Vitamin C) 500 mg BID PO Last administered on 02/02/19at 20:42; Start 01/30/19 at 21:00 Clindamycin HCl (Cleocin) 300 mg TID PO Last administered on 01/31/19at 08:39; Start 01/30/19 at 14:00; Stop 01/31/19 at 09:30; Status DC Magnesium Hydroxide (Milk Of Magnesia) 2,400 mg PRN DAILY PRN PO CONSTIPATION; Start 01/30/19 at 14:00 Mesalamine (Delzicol) 800 mg TID PO Last administered on 02/02/19at 20:42; Start 01/30/19 at 15:00 Non-Formulary Medication (Protein Supplement (Nutritional Drink Mix)) 420 gm DAILY PO ; Start 01/31/19 at 09:00; Status UNV Iohexol (Omnipaque 300 Mg/ml) 75 ml 1X ONCE IV Last administered on 01/31/19at 08:29; Start 01/31/19 at 08:00; Stop 01/31/19 at 08:01; Status DC Acetaminophen (Tylenol) 500 mg PRN Q6HRS PRN PO MILD PAIN / TEMP; Start 02/01/19 at 08:30 Acetaminophen/ Codeine Phosphate (Tylenol #3) 1 tab PRN Q6HRS PRN PO MODERATE PAIN; Start 02/01/19 at 08:30 Oxycodone/ Acetaminophen (Percocet 5/325) 1 tab PRN Q4HRS PRN PO SEVERE PAIN Last administered on 02/02/19at 16:37; Start 02/01/19 at 08:30 Morphine Sulfate (Morphine Sulfate) 2 mg PRN Q2HR PRN IV PAIN; Start 02/01/19 at 08:30 Ondansetron HCl (Zofran) 4 mg PRN Q6HRS PRN IVP NAUSEA/VOMITING; Start 02/03/19 at 09:30 Diphenhydramine HCl (Benadryl) 25 mg PRN QHS PRN PO INSOMNIA; Start 02/03/19 at 09:30 Lidocaine HCl (Buffered Lidocaine 1%) 3 ml STK-MED ONCE .ROUTE ; Start 02/03/19 at 10:01; Stop 02/03/19 at 10:02; Status DC Midazolam HCl (Versed) 2 mg STK-MED ONCE .ROUTE ; Start 02/03/19 at 10:20; Stop 02/03/19 at 10:21; Status DC Fentanyl Citrate (Fentanyl 2ml Vial) 100 mcg STK-MED ONCE .ROUTE ; Start 02/03/19 at 10:20; Stop 02/03/19 at 10:21; Status DC Lidocaine HCl (Buffered Lidocaine 1%) 3 ml 1X ONCE IJ Last administered on 02/03/19at 10:58; Start 02/03/19 at 11:00; Stop 02/03/19 at 11:01; Status DC Midazolam HCl (Versed) 2 mg 1X ONCE IV Last administered on 02/03/19at 10:57; Start 02/03/19 at 11:00; Stop 02/03/19 at 11:01; Status DC Fentanyl Citrate (Fentanyl 2ml Vial) 100 mcg 1X ONCE IV Last administered on 02/03/19at 10:57; Start 02/03/19 at 11:00; Stop 02/03/19 at 11:01; Status DC Active Scripts Active Reported Hydrocodone-Apap 5-325 (Hydrocodone Bit/Acetaminophen) 1 Tab Tablet 1-2 Tab PO PRN Q4HRS PRN Tussin Dm Cough & Chest Syrup (Guaifenesin/Dextromethorphan) 118 Ml Syrup 5 Ml PO PRN QID PRN 12 Days Milk Of Magnesia (Magnesium Hydroxide) 2,400 Mg/10 Ml Oral.susp 2,400 Mg PO PRN DAILY PRN Tylenol (Acetaminophen) 325 Mg Tablet 650 Mg PO PRN Q4HRS PRN Clindamycin Hcl 300 Mg Capsule 300 Mg PO TID Vitamin D2 (Ergocalciferol (Vitamin D2)) 50,000 Unit Capsule 1 Cap PO QMONTH Vitamin C (Ascorbate Calcium) 500 Mg Tablet 500 Mg PO BID Nutritional Drink Mix (Protein Supplement) 420 Gm Powder 420 Gm PO DAILY Multi-Vitamin Daily (Multivitamin) 1 Each Tablet 1 Each PO Famotidine 20 Mg Tablet 20 Mg PO HS Asacol Hd (Mesalamine) 800 Mg Tablet.dr 1,600 Mg PO TID Vitals/I & O Vital Sign - Last 24 Hours 02/02/19 02/02/19 02/02/19 02/02/19 15:00 16:37 17:45 19:00 Temp 97.9 98.0 97.9 98.0 Pulse 73 68 Resp 18 20 B/P (MAP) 114/71 (85) 120/74 (89) Pulse Ox 95 97 O2 Delivery Room Air Room Air Room Air 02/02/19 02/02/19 02/03/19 02/03/19 20:00 23:00 03:00 07:00 Temp 98.0 97.9 97.5 98.0 97.9 97.5 Pulse 58 60 65 Resp 16 18 17 B/P (MAP) 114/63 (80) 120/70 (87) 111/63 (79) Pulse Ox 96 96 95 O2 Delivery Room Air Room Air 02/03/19 02/03/19 02/03/19 02/03/19 10:32 10:40 10:52 10:57 Pulse 76 73 78 Resp 16 14 18 18 Pulse Ox 98 98 O2 Delivery Nasal Cannula Nasal Cannula Nasal Cannula O2 Flow Rate 2.0 2.0 2.0 2.0 Intake and Output 02/02/19 02/02/19 02/03/19 15:00 23:00 07:00 Intake Total 500 ml Balance 500 ml DEMARCO POWELL MD Feb 03, 2019 12:04
--- NOTE | 2019-02-03 12:42 | PDOC ---
Provider Note Provider Note Talked to [facility]< DOes not meet inpt criteria for transfer. Updated ID and SW DEMARCO POWELL MD Feb 03, 2019 12:42
[2019-02-03] MEDS ORDERED: PIP/TAZO PER PHARMACY MC PRN (13:00)
[2019-02-03] MEDS: PIPERACILLIN/TAZOBACTAM 3.375 GM in IV NORMAL SALINE 50ML 50 ML IV SCH ×3 (13:50→23:39)
[2019-02-03] MEDS ORDERED: VANCOMYCIN 2 GM in IV NORMAL SALINE 500ML BAG 500 ML IV ONE (14:00)
--- NOTE | 2019-02-03 15:17 | NUR ---
SW initiated [facility] transfer per Physician request but pt is declined. [facility] reported pt will need f/u as OP.
[2019-02-03] MEDS: VANCOMYCIN PER PHARMACY MC PRN (16:04)
[2019-02-03] MEDS: FAMOTIDINE 20 MG TABLET. PO SCH (20:53)
[2019-02-04] MEDS: VANCOMYCIN 1.5 GM in IV NORMAL SALINE 500ML BAG 500 ML IV SCH ×2 (02:31→15:03)
[2019-02-04 03:00] VITALS: BP 111/57
[2019-02-04] MEDS: PIPERACILLIN/TAZOBACTAM 3.375 GM in IV NORMAL SALINE 50ML 50 ML IV SCH ×3 (05:31→17:33)
[2019-02-04 05:48] LABS: CALCIUM 8.2 mg/dL (8.5-10.1); GFR 76.2; POTASSIUM 3.9 mmol/L (3.5-5.1)
[2019-02-04 07:00] VITALS: BP 132/71
[2019-02-04 07:04] LABS: BASO % 1 % (0-3); EOS # 0.1 x10^3/uL (0.0-0.7); EOS % 2 % (0-3); HEMATOCRIT 38.9 % (39.0-53.0); HEMOGLOBIN 12.9 g/dL (13.0-17.5); LYMPH # 1.1 x10^3/uL (1.0-4.8); LYMPH % 20 % (24-48); MEAN CORPUSCULAR HEMOGLOBIN 30 pg (25-35); MEAN CORPUSCULAR HGB CONC 33 g/dL (31-37); MEAN CORPUSCULAR VOLUME 91 fL (79-100); MONO # 0.6 x10^3/uL (0.0-1.1); MONO % 11 % (0-9); NEUT # 3.7 x10^3/uL (1.8-7.7); NEUT % 66 % (31-73); PLATELET COUNT 166 x10^3/uL (140-400); RED BLOOD COUNT 4.29 x10^6/uL (4.30-5.70); RED CELL DISTRIBUTION WIDTH 13.5 % (11.5-14.5); WHITE BLOOD COUNT 5.6 x10^3/uL (4.0-11.0)
--- NOTE | 2019-02-04 09:00 | PDOC ---
PROGRESS NOTES Chief Complaint Chief Complaint Perianal wound - with bleeding NON SURGICAL /MED mx Severe Crohn's with multiple surgeries s/p ostomy (multiple fissures and abdominal wounds) Chronic pain Hyperlipidemia Hypertension GERD Incidental 5 mm rt kidney stone HIatal hernia with small bowel loops - known to him History of Present Illness History of Present Illness Ambulatory,. non toxic appearing HX crohns for yrs now Lives in [place] and has HH wound care NO fevers, he is comfortable. Cultures with NGTD, but CT with osteomyelitis of sacrum concerning. No CP or SOB PLAN: Attempting [facility] transfer [facility] mentions poor surgical candidate D/w ID - will need I and D of acute om, antibiotics alone will not be optimal Rec transfer to [facility] DR Sosa for I and D, ostectomy and possible flap if figueroa hermosillo - [facility] has denied transfer, requests outpatient. He is known to their service Vitals Vitals Vital Signs Date Time Temp Pulse Resp B/P (MAP) Pulse Ox O2 Delivery O2 Flow Rate FiO2 02/04/19 03:00 98.0 63 17 111/57 (75) 96 Room Air 98.0 02/03/19 10:57 2.0 Physical Exam Physical Exam GENERAL: The patient is propped up in bed, alert, in no apparent distress. HEENT: Pupils equally round. Oropharynx pink and moist. NECK: Supple, no lymphadenopathy. LUNGS: Clear to auscultation. HEART: S1, S2. ABDOMEN: Obese, soft, nontender with bowel sounds present. Multiple scars and right-sided ostomy. EXTREMITIES: No gross edema or cyanosis. SKIN: Warm to touch without signs of rash. He has several sacrococcygeal fistulas bleeding and packed with Nu Gauze. No overt signs of infection. NEUROLOGIC: Alert. Answering questions appropriately. General: Alert, Oriented X3, Cooperative, No acute distress Heart: Regular rate, Normal S1, Normal S2 Lungs: Clear Abdomen: Soft, No tenderness Extremities: No clubbing, No cyanosis Skin: Other (dressing intact) Labs LABS Laboratory Tests Test 02/04/19 05:00 02/04/19 06:30 Sodium Level 142 mmol/L (136-145) Potassium Level 3.9 mmol/L (3.5-5.1) Chloride Level 106 mmol/L (98-107) Carbon Dioxide Level 23 mmol/L (21-32) Anion Gap 13 (6-14) Blood Urea Nitrogen 12 mg/dL (8-26) Creatinine 1.0 mg/dL (0.7-1.3) Estimated GFR (Cockcroft-Gault) 76.2 Glucose Level 108 mg/dL (70-99) Calcium Level 8.2 mg/dL (8.5-10.1) White Blood Count 5.6 x10^3/uL (4.0-11.0) Red Blood Count 4.29 x10^6/uL (4.30-5.70) Hemoglobin 12.9 g/dL (13.0-17.5) Hematocrit 38.9 % (39.0-53.0) Mean Corpuscular Volume 91 fL (79-100) Mean Corpuscular Hemoglobin 30 pg (25-35) Mean Corpuscular Hemoglobin Concent 33 g/dL (31-37) Red Cell Distribution Width 13.5 % (11.5-14.5) Platelet Count 166 x10^3/uL (140-400) Neutrophils (%) (Auto) 66 % (31-73) Lymphocytes (%) (Auto) 20 % (24-48) Monocytes (%) (Auto) 11 % (0-9) Eosinophils (%) (Auto) 2 % (0-3) Basophils (%) (Auto) 1 % (0-3) Neutrophils # (Auto) 3.7 x10^3/uL (1.8-7.7) Lymphocytes # (Auto) 1.1 x10^3/uL (1.0-4.8) Monocytes # (Auto) 0.6 x10^3/uL (0.0-1.1) Eosinophils # (Auto) 0.1 x10^3/uL (0.0-0.7) Basophils # (Auto) 0.0 x10^3/uL (0.0-0.2) Comment Review of Relevant I have reviewed the following items hermes (where applicable) has been applied. Labs Laboratory Tests Test 02/03/19 04:55 02/04/19 05:00 02/04/19 06:30 White Blood Count 4.8 x10^3/uL (4.0-11.0) 5.6 x10^3/uL (4.0-11.0) Red Blood Count 4.28 x10^6/uL (4.30-5.70) 4.29 x10^6/uL (4.30-5.70) Hemoglobin 13.1 g/dL (13.0-17.5) 12.9 g/dL (13.0-17.5) Hematocrit 38.6 % (39.0-53.0) 38.9 % (39.0-53.0) Mean Corpuscular Volume 90 fL (79-100) 91 fL (79-100) Mean Corpuscular Hemoglobin 31 pg (25-35) 30 pg (25-35) Mean Corpuscular Hemoglobin Concent 34 g/dL (31-37) 33 g/dL (31-37) Red Cell Distribution Width 13.6 % (11.5-14.5) 13.5 % (11.5-14.5) Platelet Count 172 x10^3/uL (140-400) 166 x10^3/uL (140-400) Neutrophils (%) (Auto) 66 % (31-73) 66 % (31-73) Lymphocytes (%) (Auto) 21 % (24-48) 20 % (24-48) Monocytes (%) (Auto) 10 % (0-9) 11 % (0-9) Eosinophils (%) (Auto) 3 % (0-3) 2 % (0-3) Basophils (%) (Auto) 1 % (0-3) 1 % (0-3) Neutrophils # (Auto) 3.2 x10^3/uL (1.8-7.7) 3.7 x10^3/uL (1.8-7.7) Lymphocytes # (Auto) 1.0 x10^3/uL (1.0-4.8) 1.1 x10^3/uL (1.0-4.8) Monocytes # (Auto) 0.5 x10^3/uL (0.0-1.1) 0.6 x10^3/uL (0.0-1.1) Eosinophils # (Auto) 0.1 x10^3/uL (0.0-0.7) 0.1 x10^3/uL (0.0-0.7) Basophils # (Auto) 0.0 x10^3/uL (0.0-0.2) 0.0 x10^3/uL (0.0-0.2) Prothrombin Time 13.8 SEC (11.7-14.0) Prothromb Time International Ratio 1.1 (0.8-1.1) Sodium Level 140 mmol/L (136-145) 142 mmol/L (136-145) Potassium Level 3.9 mmol/L (3.5-5.1) 3.9 mmol/L (3.5-5.1) Chloride Level 106 mmol/L (98-107) 106 mmol/L (98-107) Carbon Dioxide Level 28 mmol/L (21-32) 23 mmol/L (21-32) Anion Gap 6 (6-14) 13 (6-14) Blood Urea Nitrogen 14 mg/dL (8-26) 12 mg/dL (8-26) Creatinine 1.0 mg/dL (0.7-1.3) 1.0 mg/dL (0.7-1.3) Estimated GFR (Cockcroft-Gault) 76.2 76.2 Glucose Level 104 mg/dL (70-99) 108 mg/dL (70-99) Calcium Level 9.0 mg/dL (8.5-10.1) 8.2 mg/dL (8.5-10.1) Laboratory Tests Test 02/04/19 05:00 02/04/19 06:30 Sodium Level 142 mmol/L (136-145) Potassium Level 3.9 mmol/L (3.5-5.1) Chloride Level 106 mmol/L (98-107) Carbon Dioxide Level 23 mmol/L (21-32) Anion Gap 13 (6-14) Blood Urea Nitrogen 12 mg/dL (8-26) Creatinine 1.0 mg/dL (0.7-1.3) Estimated GFR (Cockcroft-Gault) 76.2 Glucose Level 108 mg/dL (70-99) Calcium Level 8.2 mg/dL (8.5-10.1) White Blood Count 5.6 x10^3/uL (4.0-11.0) Red Blood Count 4.29 x10^6/uL (4.30-5.70) Hemoglobin 12.9 g/dL (13.0-17.5) Hematocrit 38.9 % (39.0-53.0) Mean Corpuscular Volume 91 fL (79-100) Mean Corpuscular Hemoglobin 30 pg (25-35) Mean Corpuscular Hemoglobin Concent 33 g/dL (31-37) Red Cell Distribution Width 13.5 % (11.5-14.5) Platelet Count 166 x10^3/uL (140-400) Neutrophils (%) (Auto) 66 % (31-73) Lymphocytes (%) (Auto) 20 % (24-48) Monocytes (%) (Auto) 11 % (0-9) Eosinophils (%) (Auto) 2 % (0-3) Basophils (%) (Auto) 1 % (0-3) Neutrophils # (Auto) 3.7 x10^3/uL (1.8-7.7) Lymphocytes # (Auto) 1.1 x10^3/uL (1.0-4.8) Monocytes # (Auto) 0.6 x10^3/uL (0.0-1.1) Eosinophils # (Auto) 0.1 x10^3/uL (0.0-0.7) Basophils # (Auto) 0.0 x10^3/uL (0.0-0.2) Microbiology 01/30/19 Anaerobic/Aerobic Culture - Final, Complete 01/30/19 Anaerobic Culture Result 1 (BERKLEY) - Final, Complete 01/30/19 Aerobic Culture - Final, Complete 01/30/19 Aerobic Culture Result 1 (BERKLEY) - Final, Complete 01/30/19 Gram Stain - Final, Complete 01/30/19 Gram Stain Result 1 (BERKLEY) - Final, Complete 01/30/19 Gram Stain Result 2 (BERKLEY) - Final, Complete Medications Current Medications Acetaminophen (Tylenol) 650 mg PRN Q4HRS PRN PO PAIN; Start 01/30/19 at 14:00; Stop 02/01/19 at 08:20; Status DC Ergocalciferol (Vitamin D2) 50,000 unit QMONTH PO ; Start 03/01/19 at 09:00 Famotidine (Pepcid) 20 mg HS PO Last administered on 02/03/19at 20:53; Start 01/30/19 at 21:00 Guaifenesin (Robitussin Dm) 5 ml PRN QID PRN PO COUGH; Start 01/30/19 at 14:00 Ascorbic Acid (Vitamin C) 500 mg BID PO Last administered on 02/03/19at 20:53; Start 01/30/19 at 21:00 Clindamycin HCl (Cleocin) 300 mg TID PO Last administered on 01/31/19at 08:39; Start 01/30/19 at 14:00; Stop 01/31/19 at 09:30; Status DC Magnesium Hydroxide (Milk Of Magnesia) 2,400 mg PRN DAILY PRN PO CONSTIPATION; Start 01/30/19 at 14:00 Mesalamine (Delzicol) 800 mg TID PO Last administered on 02/03/19at 20:53; Start 01/30/19 at 15:00 Non-Formulary Medication (Protein Supplement (Nutritional Drink Mix)) 420 gm DA JOSE PO ; Start 01/31/19 at 09:00; Status UNV Iohexol (Omnipaque 300 Mg/ml) 75 ml 1X ONCE IV Last administered on 01/31/19at 08:29; Start 01/31/19 at 08:00; Stop 01/31/19 at 08:01; Status DC Acetaminophen (Tylenol) 500 mg PRN Q6HRS PRN PO MILD PAIN / TEMP; Start 02/01/19 at 08:30 Acetaminophen/ Codeine Phosphate (Tylenol #3) 1 tab PRN Q6HRS PRN PO MODERATE PAIN Last administered on 02/03/19at 20:57; Start 02/01/19 at 08:30 Oxycodone/ Acetaminophen (Percocet 5/325) 1 tab PRN Q4HRS PRN PO SEVERE PAIN Last administered on 02/02/19at 16:37; Start 02/01/19 at 08:30 Morphine Sulfate (Morphine Sulfate) 2 mg PRN Q2HR PRN IV PAIN; Start 02/01/19 at 08:30 Ondansetron HCl (Zofran) 4 mg PRN Q6HRS PRN IVP NAUSEA/VOMITING; Start 02/03/19 at 09:30 Diphenhydramine HCl (Benadryl) 25 mg PRN QHS PRN PO INSOMNIA; Start 02/03/19 at 09:30 Lidocaine HCl (Buffered Lidocaine 1%) 3 ml STK-MED ONCE .ROUTE ; Start 02/03/19 at 10:01; Stop 02/03/19 at 10:02; Status DC Midazolam HCl (Versed) 2 mg STK-MED ONCE .ROUTE ; Start 02/03/19 at 10:20; Stop 02/03/19 at 10:21; Status DC Fentanyl Citrate (Fentanyl 2ml Vial) 100 mcg STK-MED ONCE .ROUTE ; Start 02/03/19 at 10:20; Stop 02/03/19 at 10:21; Status DC Lidocaine HCl (Buffered Lidocaine 1%) 3 ml 1X ONCE IJ Last administered on 02/03/19at 10:58; Start 02/03/19 at 11:00; Stop 02/03/19 at 11:01; Status DC Midazolam HCl (Versed) 2 mg 1X ONCE IV Last administered on 02/03/19at 10:57; Start 02/03/19 at 11:00; Stop 02/03/19 at 11:01; Status DC Fentanyl Citrate (Fentanyl 2ml Vial) 100 mcg 1X ONCE IV Last administered on 02/03/19at 10:57; Start 02/03/19 at 11:00; Stop 02/03/19 at 11:01; Status DC Vancomycin HCl (Vanco Per Pharmacy) 1 each PRN DAILY PRN MC SEE COMMENTS Last administered on 02/03/19at 16:04; Start 02/03/19 at 13:00 Piperacillin Sod/ Tazobactam Sod (Zosyn Per Pharmacy) 1 each PRN DAILY PRN MC SEE COMMENTS; Start 02/03/19 at 13:00 Vancomycin HCl 2 gm/Sodium Chloride 500 ml @ 250 mls/hr 1X ONCE IV Last administered on 02/03/19at 15:01; Start 02/03/19 at 14:00; Stop 02/03/19 at 15:59; Status DC Piperacillin Sod/ Tazobactam Sod 3.375 gm/Sodium Chloride 50 ml @ 100 mls/hr Q6HRS IV Last administered on 02/04/19at 05:31; Start 02/03/19 at 13:15 Vancomycin HCl 1.5 gm/Sodium Chloride 500 ml @ 250 mls/hr Q12H IV Last administered on 02/04/19at 02:31; Start 02/04/19 at 03:00 Vancomycin HCl (Vancomycin Trough Level) 1 each 1X ONCE MC ; Start 02/05/19 at 02:30; Stop 02/05/19 at 02:31 Active Scripts Active Reported Hydrocodone-Apap 5-325 (Hydrocodone Bit/Acetaminophen) 1 Tab Tablet 1-2 Tab PO PRN Q4HRS PRN [place] Cough & Chest Syrup (Guaifenesin/Dextromethorphan) 118 Ml Syrup 5 Ml PO PRN QID PRN 12 Days Milk Of Magnesia (Magnesium Hydroxide) 2,400 Mg/10 Ml Oral.susp 2,400 Mg PO PRN DAILY PRN Tylenol (Acetaminophen) 325 Mg Tablet 650 Mg PO PRN Q4HRS PRN Clindamycin Hcl 300 Mg Capsule 300 Mg PO TID Vitamin D2 (Ergocalciferol (Vitamin D2)) 50,000 Unit Capsule 1 Cap PO QMONTH Vitamin C (Ascorbate Calcium) 500 Mg Tablet 500 Mg PO BID Nutritional Drink Mix (Protein Supplement) 420 Gm Powder 420 Gm PO DAILY Multi-Vitamin Daily (Multivitamin) 1 Each Tablet 1 Each PO Famotidine 20 Mg Tablet 20 Mg PO HS Asacol Hd (Mesalamine) 800 Mg Tablet.dr 1,600 Mg PO TID Vitals/I & O Vital Sign - Last 24 Hours 02/03/19 02/03/19 02/03/19 02/03/19 10:32 10:40 10:52 10:57 Pulse 76 73 78 Resp 16 14 18 18 Pulse Ox 98 98 O2 Delivery Nasal Cannula Nasal Cannula Nasal Cannula O2 Flow Rate 2.0 2.0 2.0 2.0 02/03/19 02/03/19 02/03/19 02/03/19 11:00 11:27 15:00 19:00 Temp 97.9 97.9 Pulse 68 65 70 Resp 17 17 B/P (MAP) 126/69 (88) 96/51 (66) 100/45 (63) Pulse Ox 96 97 95 O2 Delivery Room Air Room Air Room Air Room Air 02/03/19 02/03/19 02/03/19 02/03/19 20:00 20:57 21:57 23:00 Temp 98.1 98.1 Pulse 57 Resp 17 B/P (MAP) 102/58 (73) Pulse Ox 95 O2 Delivery Room Air Room Air Room Air Room Air 02/04/19 03:00 Temp 98.0 98.0 Pulse 63 Resp 17 B/P (MAP) 111/57 (75) Pulse Ox 96 O2 Delivery Room Air Intake and Output 02/03/19 02/03/19 02/04/19 15:00 23:00 07:00 Intake Total 300 ml 100 ml Balance 300 ml 100 ml APRIS LALA MD Feb 04, 2019 09:00
[2019-02-04] MEDS: ASCORBIC ACID 500 MG TABLET PO SCH ×2 (09:02→21:13)
[2019-02-04] MEDS: MESALAMINE 400 MG CAP.DRTAB. PO SCH ×3 (09:02→21:13)
[2019-02-04] MEDS: VANCOMYCIN PER PHARMACY MC PRN ×2 (10:37→22:01)
[2019-02-04 11:00] VITALS: BP 93/54
--- NOTE | 2019-02-04 12:19 | PDOC ---
Infectious Disease Note Subjective Subjective Comfortable Eating No F/C/N/V/or increase ostomy output ROS ROS per HPI Vital Sign Vital Signs Vital Signs Date Time Temp Pulse Resp B/P (MAP) Pulse Ox O2 Delivery O2 Flow Rate FiO2 02/04/19 07:00 97.1 69 16 132/71 (91) 97 Room Air 97.1 02/03/19 10:57 2.0 Physical Exam PHYSICAL EXAM GENERAL: Propped up in bed, alert, in no apparent distress. HEENT: Pupils equally round. Oropharynx pink and moist. NECK: Supple, no lymphadenopathy. LUNGS: Clear to auscultation. HEART: S1, S2. ABDOMEN: Obese, soft, nontender, bowel sounds present. Multiple scars and right-sided ostomy. EXTREMITIES: No gross edema or cyanosis. SKIN: Warm to touch without signs of rash. Several sacrococcygeal fistulas . NEUROLOGIC: Alert and answering questions appropriately. PIV Labs Lab Laboratory Tests Test 02/04/19 05:00 02/04/19 06:30 Sodium Level 142 mmol/L (136-145) Potassium Level 3.9 mmol/L (3.5-5.1) Chloride Level 106 mmol/L (98-107) Carbon Dioxide Level 23 mmol/L (21-32) Anion Gap 13 (6-14) Blood Urea Nitrogen 12 mg/dL (8-26) Creatinine 1.0 mg/dL (0.7-1.3) Estimated GFR (Cockcroft-Gault) 76.2 Glucose Level 108 mg/dL (70-99) Calcium Level 8.2 mg/dL (8.5-10.1) White Blood Count 5.6 x10^3/uL (4.0-11.0) Red Blood Count 4.29 x10^6/uL (4.30-5.70) Hemoglobin 12.9 g/dL (13.0-17.5) Hematocrit 38.9 % (39.0-53.0) Mean Corpuscular Volume 91 fL (79-100) Mean Corpuscular Hemoglobin 30 pg (25-35) Mean Corpuscular Hemoglobin Concent 33 g/dL (31-37) Red Cell Distribution Width 13.5 % (11.5-14.5) Platelet Count 166 x10^3/uL (140-400) Neutrophils (%) (Auto) 66 % (31-73) Lymphocytes (%) (Auto) 20 % (24-48) Monocytes (%) (Auto) 11 % (0-9) Eosinophils (%) (Auto) 2 % (0-3) Basophils (%) (Auto) 1 % (0-3) Neutrophils # (Auto) 3.7 x10^3/uL (1.8-7.7) Lymphocytes # (Auto) 1.1 x10^3/uL (1.0-4.8) Monocytes # (Auto) 0.6 x10^3/uL (0.0-1.1) Eosinophils # (Auto) 0.1 x10^3/uL (0.0-0.7) Basophils # (Auto) 0.0 x10^3/uL (0.0-0.2) Micro Microbiology 01/30/19 Anaerobic/Aerobic Culture - Final, Complete 01/30/19 Anaerobic Culture Result 1 (BERKLEY) - Final, Complete 01/30/19 Aerobic Culture - Final, Complete 01/30/19 Aerobic Culture Result 1 (BERKLEY) - Final, Complete 01/30/19 Gram Stain - Final, Complete 01/30/19 Gram Stain Result 1 (BERKLEY) - Final, Complete 01/30/19 Gram Stain Result 2 (BERKLEY) - Final, Complete Objective Assessment Multiple sacrococcygeal fistulas without overt signs of infection. culture neg Crohn's disease with history of ostomy and multiple fistula repairs. Acute and chronic OM changes on CT abdomen and pelvis ,Pt has been treated with previous OM at [facility] in the past . Chronic OM could be from the same - ESR 35 - s/p IR biopsy 02/03 Gastroesophageal reflux disease. Obesity. Kidney stone on CT Abdomen Plan Plan of Care Vanc and Zosyn monitor renal functions closely Probiotics Bedrest P500 bed will need I and D of acute om, antibiotics alone will not be optimal Rec transfer to [facility] DR Sosa for I and D, ostectomy and possible flap if eligible D/w nursing D/w Dr. Luis MANCERA denied transfer 3 visable packings. clean F/u cults Attending Co-Sign Attending Co-Sign The patient was seen and interviewed as well as examined at the bedside. The chart was reviewed. The case was discussed. Agree with the plan of care. MELISSA RODRIGUEZ APRN Feb 04, 2019 12:19 LUIS DANIEL LOMELI MD Feb 04, 2019 17:02
[2019-02-04 15:00] VITALS: BP 100/46
[2019-02-04 19:00] VITALS: BP 91/39
[2019-02-04] MEDS: LACTOBACILLUS RHAMNOSUS GG 1 CAPSULE. PO SCH (21:13)
[2019-02-04] MEDS: FAMOTIDINE 20 MG TABLET. PO SCH (21:31)
[2019-02-04 23:00] VITALS: BP 107/54
[2019-02-05] MEDS: PIPERACILLIN/TAZOBACTAM 3.375 GM in IV NORMAL SALINE 50ML 50 ML IV SCH ×4 (00:11→19:26)
[2019-02-05 03:18] VITALS: BP 107/65
[2019-02-05 03:54] LABS: VANC TR 12.1 mcg/mL (10.0-20.0)
[2019-02-05] MEDS: VANCOMYCIN 1.5 GM in IV NORMAL SALINE 500ML BAG 500 ML IV SCH (04:08)
[2019-02-05 04:16] LABS: BASO % 1 % (0-3); EOS # 0.1 x10^3/uL (0.0-0.7); EOS % 3 % (0-3); HEMATOCRIT 36.9 % (39.0-53.0); HEMOGLOBIN 12.4 g/dL (13.0-17.5); LYMPH # 1.1 x10^3/uL (1.0-4.8); LYMPH % 22 % (24-48); MEAN CORPUSCULAR HEMOGLOBIN 30 pg (25-35); MEAN CORPUSCULAR HGB CONC 34 g/dL (31-37); MEAN CORPUSCULAR VOLUME 91 fL (79-100); MONO # 0.5 x10^3/uL (0.0-1.1); MONO % 9 % (0-9); NEUT # 3.5 x10^3/uL (1.8-7.7); NEUT % 66 % (31-73); PLATELET COUNT 174 x10^3/uL (140-400); RED BLOOD COUNT 4.08 x10^6/uL (4.30-5.70); RED CELL DISTRIBUTION WIDTH 13.7 % (11.5-14.5); WHITE BLOOD COUNT 5.3 x10^3/uL (4.0-11.0)
[2019-02-05] MEDS: VANCOMYCIN PER PHARMACY MC PRN ×2 (04:30→07:39)
--- NOTE | 2019-02-05 04:31 | NUR ---
Pharmacy Vancomycin Dosing Note S: Consulted to monitor and dose vancomycin started 02/03/19. O: GRAHAM FOSTER is a 58 year old M with Osteomyelitis, . Other Antibiotics: ZOSYN LABS: Last BUN: 12 Last Creatinine: 1.0 Creatinine Clearance: 88 mL/min Last WBC: 5.6 Last Procalcitonin: Tmax (past 24 hours): AFEBRILE Microbiology: I/O: 400/- 3 VOIDS Drug Levels: Last Trough level: 12.1 on 02/05/19 at 0330 Last dose given 02/04/19 at 1500 Vancomycin Dosing: Dosing Weight: Actual Target Trough: 15-20 A: Based on: Trough, Actual Wt and CrCl P: 1. 02/05/19 1200 Increase Vancomycin 1500 mg IV q8h 2. Follow up Trough level on 02/06/19 at 1130 3. Pharmacy will continue to monitor, follow and adjust therapy as needed. KRISTYN VILLAGOMEZ RPH, 02/05/19 0431 Signed: 02/05/19 at 0432 by KRISTYN VILLAGOMEZ RPH PHA
[2019-02-05 04:56] LABS: CALCIUM 8.2 mg/dL (8.5-10.1); CREATININE 1.1 mg/dL (0.7-1.3); GFR 68.3
[2019-02-05 07:00] VITALS: BP 93/35
--- NOTE | 2019-02-05 08:47 | PDOC ---
PROGRESS NOTES Chief Complaint Chief Complaint Perianal wound - with bleeding NON SURGICAL /MED mx Severe Crohn's with multiple surgeries s/p ostomy (multiple fissures and abdominal wounds) Chronic pain Hyperlipidemia Hypertension GERD Incidental 5 mm rt kidney stone HIatal hernia with small bowel loops - known to him History of Present Illness History of Present Illness Ambulatory, non toxic appearing HX crohns for yrs now Lives in [place] and has HH wound care No fevers, he is comfortable. Cultures with NGTD, but CT with osteomyelitis of sacrum concerning. No CP or SOB PLAN: Attempted [facility] transfer [facility] mentions poor surgical candidate D/w ID - will need I and D of acute om, antibiotics alone will not be optimal Rec transfer to [facility] DR Sosa for I and D, ostectomy and possible flap if eligible - [facility] has denied transfer, requests outpatient. He is known to their service Vitals Vitals Vital Signs Date Time Temp Pulse Resp B/P (MAP) Pulse Ox O2 Delivery O2 Flow Rate FiO2 02/05/19 03:18 97.5 61 20 107/65 (79) 96 Room Air 97.5 Physical Exam Physical Exam GENERAL: Propped up in bed, alert, in no apparent distress. HEENT: Pupils equally round. Oropharynx pink and moist. NECK: Supple, no lymphadenopathy. LUNGS: Clear to auscultation. HEART: S1, S2. ABDOMEN: Obese, soft, nontender, bowel sounds present. Multiple scars and right-sided ostomy. EXTREMITIES: No gross edema or cyanosis. SKIN: Warm to touch without signs of rash. Several sacrococcygeal fistulas . NEUROLOGIC: Alert and answering questions appropriately. PIV General: Alert, Oriented X3, Cooperative, No acute distress Heart: Regular rate, Normal S1, Normal S2 Lungs: Clear Abdomen: Soft, No tenderness Extremities: No clubbing, No cyanosis Skin: Other (dressing intact) Labs LABS Laboratory Tests Test 02/05/19 03:25 White Blood Count 5.3 x10^3/uL (4.0-11.0) Red Blood Count 4.08 x10^6/uL (4.30-5.70) Hemoglobin 12.4 g/dL (13.0-17.5) Hematocrit 36.9 % (39.0-53.0) Mean Corpuscular Volume 91 fL (79-100) Mean Corpuscular Hemoglobin 30 pg (25-35) Mean Corpuscular Hemoglobin Concent 34 g/dL (31-37) Red Cell Distribution Width 13.7 % (11.5-14.5) Platelet Count 174 x10^3/uL (140-400) Neutrophils (%) (Auto) 66 % (31-73) Lymphocytes (%) (Auto) 22 % (24-48) Monocytes (%) (Auto) 9 % (0-9) Eosinophils (%) (Auto) 3 % (0-3) Basophils (%) (Auto) 1 % (0-3) Neutrophils # (Auto) 3.5 x10^3/uL (1.8-7.7) Lymphocytes # (Auto) 1.1 x10^3/uL (1.0-4.8) Monocytes # (Auto) 0.5 x10^3/uL (0.0-1.1) Eosinophils # (Auto) 0.1 x10^3/uL (0.0-0.7) Basophils # (Auto) 0.0 x10^3/uL (0.0-0.2) Sodium Level 143 mmol/L (136-145) Potassium Level 4.0 mmol/L (3.5-5.1) Chloride Level 108 mmol/L (98-107) Carbon Dioxide Level 26 mmol/L (21-32) Anion Gap 9 (6-14) Blood Urea Nitrogen 11 mg/dL (8-26) Creatinine 1.1 mg/dL (0.7-1.3) Estimated GFR (Cockcroft-Gault) 68.3 Glucose Level 135 mg/dL (70-99) Calcium Level 8.2 mg/dL (8.5-10.1) Vancomycin Level Trough 12.1 mcg/mL (10.0-20.0) Vancomycin Last Dose Date Vancomycin Last Dose Time Comment Review of Relevant I have reviewed the following items hermes (where applicable) has been applied. Labs Laboratory Tests Test 02/04/19 05:00 02/04/19 06:30 02/05/19 03:25 Sodium Level 142 mmol/L (136-145) 143 mmol/L (136-145) Potassium Level 3.9 mmol/L (3.5-5.1) 4.0 mmol/L (3.5-5.1) Chloride Level 106 mmol/L (98-107) 108 mmol/L (98-107) Carbon Dioxide Level 23 mmol/L (21-32) 26 mmol/L (21-32) Anion Gap 13 (6-14) 9 (6-14) Blood Urea Nitrogen 12 mg/dL (8-26) 11 mg/dL (8-26) Creatinine 1.0 mg/dL (0.7-1.3) 1.1 mg/dL (0.7-1.3) Estimated GFR (Cockcroft-Gault) 76.2 68.3 Glucose Level 108 mg/dL (70-99) 135 mg/dL (70-99) Calcium Level 8.2 mg/dL (8.5-10.1) 8.2 mg/dL (8.5-10.1) White Blood Count 5.6 x10^3/uL (4.0-11.0) 5.3 x10^3/uL (4.0-11.0) Red Blood Count 4.29 x10^6/uL (4.30-5.70) 4.08 x10^6/uL (4.30-5.70) Hemoglobin 12.9 g/dL (13.0-17.5) 12.4 g/dL (13.0-17.5) Hematocrit 38.9 % (39.0-53.0) 36.9 % (39.0-53.0) Mean Corpuscular Volume 91 fL (79-100) 91 fL (79-100) Mean Corpuscular Hemoglobin 30 pg (25-35) 30 pg (25-35) Mean Corpuscular Hemoglobin Concent 33 g/dL (31-37) 34 g/dL (31-37) Red Cell Distribution Width 13.5 % (11.5-14.5) 13.7 % (11.5-14.5) Platelet Count 166 x10^3/uL (140-400) 174 x10^3/uL (140-400) Neutrophils (%) (Auto) 66 % (31-73) 66 % (31-73) Lymphocytes (%) (Auto) 20 % (24-48) 22 % (24-48) Monocytes (%) (Auto) 11 % (0-9) 9 % (0-9) Eosinophils (%) (Auto) 2 % (0-3) 3 % (0-3) Basophils (%) (Auto) 1 % (0-3) 1 % (0-3) Neutrophils # (Auto) 3.7 x10^3/uL (1.8-7.7) 3.5 x10^3/uL (1.8-7.7) Lymphocytes # (Auto) 1.1 x10^3/uL (1.0-4.8) 1.1 x10^3/uL (1.0-4.8) Monocytes # (Auto) 0.6 x10^3/uL (0.0-1.1) 0.5 x10^3/uL (0.0-1.1) Eosinophils # (Auto) 0.1 x10^3/uL (0.0-0.7) 0.1 x10^3/uL (0.0-0.7) Basophils # (Auto) 0.0 x10^3/uL (0.0-0.2) 0.0 x10^3/uL (0.0-0.2) Vancomycin Level Trough 12.1 mcg/mL (10.0-20.0) Vancomycin Last Dose Date Vancomycin Last Dose Time Laboratory Tests Test 02/05/19 03:25 White Blood Count 5.3 x10^3/uL (4.0-11.0) Red Blood Count 4.08 x10^6/uL (4.30-5.70) Hemoglobin 12.4 g/dL (13.0-17.5) Hematocrit 36.9 % (39.0-53.0) Mean Corpuscular Volume 91 fL (79-100) Mean Corpuscular Hemoglobin 30 pg (25-35) Mean Corpuscular Hemoglobin Concent 34 g/dL (31-37) Red Cell Distribution Width 13.7 % (11.5-14.5) Platelet Count 174 x10^3/uL (140-400) Neutrophils (%) (Auto) 66 % (31-73) Lymphocytes (%) (Auto) 22 % (24-48) Monocytes (%) (Auto) 9 % (0-9) Eosinophils (%) (Auto) 3 % (0-3) Basophils (%) (Auto) 1 % (0-3) Neutrophils # (Auto) 3.5 x10^3/uL (1.8-7.7) Lymphocytes # (Auto) 1.1 x10^3/uL (1.0-4.8) Monocytes # (Auto) 0.5 x10^3/uL (0.0-1.1) Eosinophils # (Auto) 0.1 x10^3/uL (0.0-0.7) Basophils # (Auto) 0.0 x10^3/uL (0.0-0.2) Sodium Level 143 mmol/L (136-145) Potassium Level 4.0 mmol/L (3.5-5.1) Chloride Level 108 mmol/L (98-107) Carbon Dioxide Level 26 mmol/L (21-32) Anion Gap 9 (6-14) Blood Urea Nitrogen 11 mg/dL (8-26) Creatinine 1.1 mg/dL (0.7-1.3) Estimated GFR (Cockcroft-Gault) 68.3 Glucose Level 135 mg/dL (70-99) Calcium Level 8.2 mg/dL (8.5-10.1) Vancomycin Level Trough 12.1 mcg/mL (10.0-20.0) Vancomycin Last Dose Date Vancomycin Last Dose Time Microbiology 02/03/19 Anaerobic/Aerobic Culture, Resulted Pending 02/03/19 Anaerobic Culture Result 1 (BERKLEY), Resulted Pending 02/03/19 Aerobic Culture, Resulted Pending 02/03/19 Aerobic Culture Result 1 (BERKLEY), Resulted Pending 02/03/19 Gram Stain - Final, Resulted 02/03/19 Gram Stain Result 1 (BERKLEY) - Final, Resulted 02/03/19 Gram Stain Result 2 (BERKLEY) - Final, Resulted Medications Current Medications Acetaminophen (Tylenol) 650 mg PRN Q4HRS PRN PO PAIN; Start 01/30/19 at 14:00; Stop 02/01/19 at 08:20; Status DC Ergocalciferol (Vitamin D2) 50,000 unit QMONTH PO ; Start 03/01/19 at 09:00 Famotidine (Pepcid) 20 mg HS PO Last administered on 02/04/19at 21:31; Start 01/30/19 at 21:00 Guaifenesin (Robitussin Dm) 5 ml PRN QID PRN PO COUGH; Start 01/30/19 at 14:00 Ascorbic Acid (Vitamin C) 500 mg BID PO Last administered on 02/04/19at 21:13; Start 01/30/19 at 21:00 Clindamycin HCl (Cleocin) 300 mg TID PO Last administered on 01/31/19at 08:39; Start 01/30/19 at 14:00; Stop 01/31/19 at 09:30; Status DC Magnesium Hydroxide (Milk Of Magnesia) 2,400 mg PRN DAILY PRN PO CONSTIPATION; Start 01/30/19 at 14:00 Mesalamine (Delzicol) 800 mg TID PO Last administered on 02/04/19at 21:13; Start 01/30/19 at 15:00 Non-Formulary Medication (Protein Supplement (Nutritional Drink Mix)) 420 gm DAILY PO ; Start 01/31/19 at 09:00; Status UNV Iohexol (Omnipaque 300 Mg/ml) 75 ml 1X ONCE IV Last administered on 01/31/19at 08:29; Start 01/31/19 at 08:00; Stop 01/31/19 at 08:01; Status DC Acetaminophen (Tylenol) 500 mg PRN Q6HRS PRN PO MILD PAIN / TEMP; Start 02/01/19 at 08:30 Acetaminophen/ Codeine Phosphate (Tylenol #3) 1 tab PRN Q6HRS PRN PO MODERATE PAIN Last administered on 02/03/19at 20:57; Start 02/01/19 at 08:30 Oxycodone/ Acetaminophen (Percocet 5/325) 1 tab PRN Q4HRS PRN PO SEVERE PAIN Last administered on 02/02/19at 16:37; Start 02/01/19 at 08:30 Morphine Sulfate (Morphine Sulfate) 2 mg PRN Q2HR PRN IV PAIN; Start 02/01/19 at 08:30 Ondansetron HCl (Zofran) 4 mg PRN Q6HRS PRN IVP NAUSEA/VOMITING; Start 02/03/19 at 09:30 Diphenhydramine HCl (Benadryl) 25 mg PRN QHS PRN PO INSOMNIA; Start 02/03/19 at 09:30 Lidocaine HCl (Buffered Lidocaine 1%) 3 ml STK-MED ONCE .ROUTE ; Start 02/03/19 at 10:01; Stop 02/03/19 at 10:02; Status DC Midazolam HCl (Versed) 2 mg STK-MED ONCE .ROUTE ; Start 02/03/19 at 10:20; Stop 02/03/19 at 10:21; Status DC Fentanyl Citrate (Fentanyl 2ml Vial) 100 mcg STK-MED ONCE .ROUTE ; Start at 10:20; Stop 02/03/19 at 10:21; Status DC Lidocaine HCl (Buffered Lidocaine 1%) 3 ml 1X ONCE IJ Last administered on 02/03/19at 10:58; Start 02/03/19 at 11:00; Stop 02/03/19 at 11:01; Status DC Midazolam HCl (Versed) 2 mg 1X ONCE IV Last administered on 02/03/19at 10:57; Start 02/03/19 at 11:00; Stop 02/03/19 at 11:01; Status DC Fentanyl Citrate (Fentanyl 2ml Vial) 100 mcg 1X ONCE IV Last administered on 02/03/19at 10:57; Start 02/03/19 at 11:00; Stop 02/03/19 at 11:01; Status DC Vancomycin HCl (Vanco Per Pharmacy) 1 each PRN DAILY PRN MC SEE COMMENTS Last administered on 02/05/19at 07:39; Start 02/03/19 at 13:00 Piperacillin Sod/ Tazobactam Sod (Zosyn Per Pharmacy) 1 each PRN DAILY PRN MC SEE COMMENTS; Start 02/03/19 at 13:00 Vancomycin HCl 2 gm/Sodium Chloride 500 ml @ 250 mls/hr 1X ONCE IV Last administered on 02/03/19at 15:01; Start 02/03/19 at 14:00; Stop 02/03/19 at 15:59; Status DC Piperacillin Sod/ Tazobactam Sod 3.375 gm/Sodium Chloride 50 ml @ 100 mls/hr Q6HRS IV Last administered on 02/05/19at 06:18; Start 02/03/19 at 13:15 Vancomycin HCl 1.5 gm/Sodium Chloride 500 ml @ 250 mls/hr Q12H IV Last administered on 02/05/19at 04:08; Start 02/04/19 at 03:00; Stop 02/05/19 at 06:00; Status DC Vancomycin HCl (Vancomycin Trough Level) 1 each 1X ONCE MC Last administered on 02/05/19at 03:00; Start 02/05/19 at 02:30; Stop 02/05/19 at 02:31; Status DC Lactobacillus Rhamnosus (Culturelle) 1 cap BID PO Last administered on 02/04/19at 21:13; Start 02/04/19 at 21:00 Vancomycin HCl 1.5 gm/Sodium Chloride 500 ml @ 250 mls/hr Q8H IV ; Start 02/05/19 at 12:00; Stop 02/05/19 at 07:31; Status DC Vancomycin HCl (Vancomycin Trough Level) 1 each 1X ONCE MC ; Start 02/06/19 at 11:30; Stop 02/05/19 at 07:31; Status DC Vancomycin HCl 2 gm/Sodium Chloride 500 ml @ 250 mls/hr Q12H IV ; Start 02/05/19 at 16:00 Vancomycin HCl (Vancomycin Trough Level) 1 each 1X ONCE MC ; Start 02/06/19 at 15:30; Stop 02/06/19 at 15:31 Active Scripts Active Reported Hydrocodone-Apap 5-325 (Hydrocodone Bit/Acetaminophen) 1 Tab Tablet 1-2 Tab PO PRN Q4HRS PRN [place] Cough & Chest Syrup (Guaifenesin/Dextromethorphan) 118 Ml Syrup 5 Ml PO PRN QID PRN 12 Days Milk Of Magnesia (Magnesium Hydroxide) 2,400 Mg/10 Ml Oral.susp 2,400 Mg PO PRN DAILY PRN Tylenol (Acetaminophen) 325 Mg Tablet 650 Mg PO PRN Q4HRS PRN Clindamycin Hcl 300 Mg Capsule 300 Mg PO TID Vitamin D2 (Ergocalciferol (Vitamin D2)) 50,000 Unit Capsule 1 Cap PO QMONTH Vitamin C (Ascorbate Calcium) 500 Mg Tablet 500 Mg PO BID Nutritional Drink Mix (Protein Supplement) 420 Gm Powder 420 Gm PO DAILY Multi-Vitamin Daily (Multivitamin) 1 Each Tablet 1 Each PO Famotidine 20 Mg Tablet 20 Mg PO HS Asacol Hd (Mesalamine) 800 Mg Tablet.dr 1,600 Mg PO TID Vitals/I & O Vital Sign - Last 24 Hours 02/04/19 02/04/19 02/04/19 02/04/19 11:00 15:00 19:00 20:00 Temp 97.4 97.9 97.8 97.4 97.9 97.8 Pulse 67 57 64 Resp 16 16 20 B/P (MAP) 93/54 (67) 100/46 (64) 91/39 (56) Pulse Ox 99 97 95 O2 Delivery Room Air Room Air Room Air Room Air 02/04/19 02/05/19 23:00 03:18 Temp 97.8 97.5 97.8 97.5 Pulse 62 61 Resp 18 20 B/P (MAP) 107/54 (71) 107/65 (79) Pulse Ox 94 96 O2 Delivery Room Air Room Air PARIS LALA MD Feb 05, 2019 08:47
[2019-02-05] MEDS: MESALAMINE 400 MG CAP.DRTAB. PO SCH ×3 (09:00→21:07)
[2019-02-05] MEDS: ASCORBIC ACID 500 MG TABLET PO SCH ×2 (09:02→21:06)
[2019-02-05] MEDS: LACTOBACILLUS RHAMNOSUS GG 1 CAPSULE. PO SCH ×2 (09:02→21:06)
[2019-02-05 11:00] VITALS: BP 112/51
[2019-02-05] MEDS ORDERED: VANCOMYCIN 1.5 GM in IV NORMAL SALINE 500ML BAG 500 ML IV SCH (12:00)
--- NOTE | 2019-02-05 12:41 | PDOC ---
Infectious Disease Note Subjective Subjective Comfortable No F/C/N/V/or increase ostomy output ROS ROS per HPI Vital Sign Vital Signs Vital Signs Date Time Temp Pulse Resp B/P (MAP) Pulse Ox O2 Delivery O2 Flow Rate FiO2 02/05/19 07:00 97.3 67 16 93/35 (54) 93 Room Air 97.3 Physical Exam PHYSICAL EXAM GENERAL: Propped up in bed, alert, in no apparent distress. HEENT: Pupils equally round. Oropharynx pink and moist. NECK: Supple LUNGS: Clear to auscultation. HEART: S1, S2. ABDOMEN: Obese, soft, nontender, bowel sounds present. Multiple scars and right-sided ostomy. EXTREMITIES: No gross edema or cyanosis. SKIN: Warm to touch without signs of rash. Several sacrococcygeal fistula, 3 packed. + drainage, no surrounding redness NEUROLOGIC: Alert and answering questions appropriately. PIV Labs Lab Laboratory Tests Test 02/05/19 03:25 White Blood Count 5.3 x10^3/uL (4.0-11.0) Red Blood Count 4.08 x10^6/uL (4.30-5.70) Hemoglobin 12.4 g/dL (13.0-17.5) Hematocrit 36.9 % (39.0-53.0) Mean Corpuscular Volume 91 fL (79-100) Mean Corpuscular Hemoglobin 30 pg (25-35) Mean Corpuscular Hemoglobin Concent 34 g/dL (31-37) Red Cell Distribution Width 13.7 % (11.5-14.5) Platelet Count 174 x10^3/uL (140-400) Neutrophils (%) (Auto) 66 % (31-73) Lymphocytes (%) (Auto) 22 % (24-48) Monocytes (%) (Auto) 9 % (0-9) Eosinophils (%) (Auto) 3 % (0-3) Basophils (%) (Auto) 1 % (0-3) Neutrophils # (Auto) 3.5 x10^3/uL (1.8-7.7) Lymphocytes # (Auto) 1.1 x10^3/uL (1.0-4.8) Monocytes # (Auto) 0.5 x10^3/uL (0.0-1.1) Eosinophils # (Auto) 0.1 x10^3/uL (0.0-0.7) Basophils # (Auto) 0.0 x10^3/uL (0.0-0.2) Sodium Level 143 mmol/L (136-145) Potassium Level 4.0 mmol/L (3.5-5.1) Chloride Level 108 mmol/L (98-107) Carbon Dioxide Level 26 mmol/L (21-32) Anion Gap 9 (6-14) Blood Urea Nitrogen 11 mg/dL (8-26) Creatinine 1.1 mg/dL (0.7-1.3) Estimated GFR (Cockcroft-Gault) 68.3 Glucose Level 135 mg/dL (70-99) Calcium Level 8.2 mg/dL (8.5-10.1) Vancomycin Level Trough 12.1 mcg/mL (10.0-20.0) Vancomycin Last Dose Date Vancomycin Last Dose Time Micro Microbiology 01/30/19 Anaerobic/Aerobic Culture - Final, Complete 01/30/19 Anaerobic Culture Result 1 (BERKLEY) - Final, Complete 01/30/19 Aerobic Culture - Final, Complete 01/30/19 Aerobic Culture Result 1 (BERKLEY) - Final, Complete 01/30/19 Gram Stain - Final, Complete 01/30/19 Gram Stain Result 1 (BERKLEY) - Final, Complete 01/30/19 Gram Stain Result 2 (BERKLEY) - Final, Complete Objective Assessment Multiple sacrococcygeal fistulas without overt signs of infection. culture neg so far Crohn's disease with history of ostomy and multiple fistula repairs. Acute and chronic OM changes on CT abdomen and pelvis ,Pt has been treated with previous OM at [facility] in the past . Chronic OM could be from the same - ESR 35 - s/p IR biopsy 02/03 Gastroesophageal reflux disease. Obesity. Kidney stone on CT Abdomen Plan Plan of Care Vanc and Zosyn Trough 12.1 on 02/05 Monitor renal functions closely Probiotics Bedrest P500 bed will need I and D of acute om, antibiotics alone will not be optimal Rec transfer to [facility] DR Sosa for I and D, ostectomy and possible flap if eligible Attending Co-Sign Attending Co-Sign The patient was seen and interviewed as well as examined at the bedside. The chart was reviewed. The case was discussed. Agree with the plan of care. MELISSA ORDRIGUEZ APRN Feb 05, 2019 12:41 LUIS DANIEL LOMELI MD Feb 05, 2019 15:49
[2019-02-05 15:00] VITALS: BP 102/55
[2019-02-05] MEDS: VANCOMYCIN 2 GM in IV NORMAL SALINE 500ML BAG 500 ML IV SCH (16:53)
[2019-02-05 19:00] VITALS: BP 118/47
--- NOTE | 2019-02-05 20:50 | NUR ---
patient wounds changed. Pictures were taken, but the wounds were not well captured because they were bleeding.
[2019-02-05] MEDS: oxyCODONE/APAP 5/325 1 TAB TABLET PO PRN (21:06)
[2019-02-05] MEDS: FAMOTIDINE 20 MG TABLET. PO SCH (21:06)
[2019-02-05 23:03] VITALS: BP 107/59
[2019-02-06] MEDS: PIPERACILLIN/TAZOBACTAM 3.375 GM in IV NORMAL SALINE 50ML 50 ML IV SCH ×4 (00:12→18:05)
[2019-02-06 03:14] VITALS: BP 100/57
[2019-02-06] MEDS: VANCOMYCIN 2 GM in IV NORMAL SALINE 500ML BAG 500 ML IV SCH (04:19)
[2019-02-06 05:32] LABS: BASO % 0 % (0-3); EOS # 0.2 x10^3/uL (0.0-0.7); EOS % 3 % (0-3); HEMATOCRIT 36.6 % (39.0-53.0); HEMOGLOBIN 12.2 g/dL (13.0-17.5); LYMPH # 1.4 x10^3/uL (1.0-4.8); LYMPH % 25 % (24-48); MEAN CORPUSCULAR HEMOGLOBIN 31 pg (25-35); MEAN CORPUSCULAR HGB CONC 33 g/dL (31-37); MEAN CORPUSCULAR VOLUME 91 fL (79-100); MONO # 0.5 x10^3/uL (0.0-1.1); MONO % 8 % (0-9); NEUT # 3.7 x10^3/uL (1.8-7.7); NEUT % 64 % (31-73); PLATELET COUNT 174 x10^3/uL (140-400); RED CELL DISTRIBUTION WIDTH 13.8 % (11.5-14.5); WHITE BLOOD COUNT 5.8 x10^3/uL (4.0-11.0)
[2019-02-06 06:01] LABS: CALCIUM 8.2 mg/dL (8.5-10.1); GFR 76.2
[2019-02-06 07:00] VITALS: BP 107/58
[2019-02-06] MEDS: LACTOBACILLUS RHAMNOSUS GG 1 CAPSULE. PO SCH ×2 (08:34→21:23)
[2019-02-06] MEDS: ASCORBIC ACID 500 MG TABLET PO SCH ×2 (08:34→21:23)
[2019-02-06] MEDS: MESALAMINE 400 MG CAP.DRTAB. PO SCH ×3 (08:35→21:23)
--- NOTE | 2019-02-06 09:52 | PDOC ---
SURGICAL PROGRESS NOTE Subjective Pt without new c/o, continued wound drainage Vital Signs Vital Signs Date Time Temp Pulse Resp B/P (MAP) Pulse Ox O2 Delivery O2 Flow Rate FiO2 02/06/19 07:00 98.1 63 17 107/58 (74) 95 Room Air 98.1 02/05/19 22:06 2.0 I&O Intake and Output 02/06/19 07:00 Output Total 1050 ml Balance -1050 ml Output Urine Total 1050 ml # Voids 2 General: Alert, Oriented X3, Cooperative, No acute distress Abdomen: Soft, Other (ostomy fxn) Labs Laboratory Tests Test 02/05/19 03:25 02/06/19 03:40 02/06/19 03:46 White Blood Count 5.3 x10^3/uL (4.0-11.0) 5.8 x10^3/uL (4.0-11.0) Red Blood Count 4.08 x10^6/uL (4.30-5.70) 4.00 x10^6/uL (4.30-5.70) Hemoglobin 12.4 g/dL (13.0-17.5) 12.2 g/dL (13.0-17.5) Hematocrit 36.9 % (39.0-53.0) 36.6 % (39.0-53.0) Mean Corpuscular Volume 91 fL (79-100) 91 fL (79-100) Mean Corpuscular Hemoglobin 30 pg (25-35) 31 pg (25-35) Mean Corpuscular Hemoglobin Concent 34 g/dL (31-37) 33 g/dL (31-37) Red Cell Distribution Width 13.7 % (11.5-14.5) 13.8 % (11.5-14.5) Platelet Count 174 x10^3/uL (140-400) 174 x10^3/uL (140-400) Neutrophils (%) (Auto) 66 % (31-73) 64 % (31-73) Lymphocytes (%) (Auto) 22 % (24-48) 25 % (24-48) Monocytes (%) (Auto) 9 % (0-9) 8 % (0-9) Eosinophils (%) (Auto) 3 % (0-3) 3 % (0-3) Basophils (%) (Auto) 1 % (0-3) 0 % (0-3) Neutrophils # (Auto) 3.5 x10^3/uL (1.8-7.7) 3.7 x10^3/uL (1.8-7.7) Lymphocytes # (Auto) 1.1 x10^3/uL (1.0-4.8) 1.4 x10^3/uL (1.0-4.8) Monocytes # (Auto) 0.5 x10^3/uL (0.0-1.1) 0.5 x10^3/uL (0.0-1.1) Eosinophils # (Auto) 0.1 x10^3/uL (0.0-0.7) 0.2 x10^3/uL (0.0-0.7) Basophils # (Auto) 0.0 x10^3/uL (0.0-0.2) 0.0 x10^3/uL (0.0-0.2) Sodium Level 143 mmol/L (136-145) 143 mmol/L (136-145) Potassium Level 4.0 mmol/L (3.5-5.1) 4.0 mmol/L (3.5-5.1) Chloride Level 108 mmol/L (98-107) 108 mmol/L (98-107) Carbon Dioxide Level 26 mmol/L (21-32) 25 mmol/L (21-32) Anion Gap 9 (6-14) 10 (6-14) Blood Urea Nitrogen 11 mg/dL (8-26) 7 mg/dL (8-26) Creatinine 1.1 mg/dL (0.7-1.3) 1.0 mg/dL (0.7-1.3) Estimated GFR (Cockcroft-Gault) 68.3 76.2 Glucose Level 135 mg/dL (70-99) 88 mg/dL (70-99) Calcium Level 8.2 mg/dL (8.5-10.1) 8.2 mg/dL (8.5-10.1) Vancomycin Level Trough 12.1 mcg/mL (10.0-20.0) Vancomycin Last Dose Date Vancomycin Last Dose Time Laboratory Tests Test 02/06/19 03:40 02/06/19 03:46 Sodium Level 143 mmol/L (136-145) Potassium Level 4.0 mmol/L (3.5-5.1) Chloride Level 108 mmol/L (98-107) Carbon Dioxide Level 25 mmol/L (21-32) Anion Gap 10 (6-14) Blood Urea Nitrogen 7 mg/dL (8-26) Creatinine 1.0 mg/dL (0.7-1.3) Estimated GFR (Cockcroft-Gault) 76.2 Glucose Level 88 mg/dL (70-99) Calcium Level 8.2 mg/dL (8.5-10.1) White Blood Count 5.8 x10^3/uL (4.0-11.0) Red Blood Count 4.00 x10^6/uL (4.30-5.70) Hemoglobin 12.2 g/dL (13.0-17.5) Hematocrit 36.6 % (39.0-53.0) Mean Corpuscular Volume 91 fL (79-100) Mean Corpuscular Hemoglobin 31 pg (25-35) Mean Corpuscular Hemoglobin Concent 33 g/dL (31-37) Red Cell Distribution Width 13.8 % (11.5-14.5) Platelet Count 174 x10^3/uL (140-400) Neutrophils (%) (Auto) 64 % (31-73) Lymphocytes (%) (Auto) 25 % (24-48) Monocytes (%) (Auto) 8 % (0-9) Eosinophils (%) (Auto) 3 % (0-3) Basophils (%) (Auto) 0 % (0-3) Neutrophils # (Auto) 3.7 x10^3/uL (1.8-7.7) Lymphocytes # (Auto) 1.4 x10^3/uL (1.0-4.8) Monocytes # (Auto) 0.5 x10^3/uL (0.0-1.1) Eosinophils # (Auto) 0.2 x10^3/uL (0.0-0.7) Basophils # (Auto) 0.0 x10^3/uL (0.0-0.2) Problem List perineal wound, non healing agree with plans for d/c and outpt f/u with [facility] to consider debridement with flap. will sign off, but please call for questions. CLINTON AMIN MD 30, 2019 09:52
--- NOTE | 2019-02-06 10:37 | PDOC ---
Infectious Disease Note Subjective: Subjective Comfortable No F/C/N/V/or increase ostomy output says feels stronger Vital Signs: Vital Signs Vital Signs Date Time Temp Pulse Resp B/P (MAP) Pulse Ox O2 Delivery O2 Flow Rate FiO2 02/06/19 07:00 98.1 63 17 107/58 (74) 95 Room Air 98.1 02/05/19 22:06 2.0 Physical Exam: PHYSICAL EXAM GENERAL: Propped up in bed, alert, in no apparent distress. HEENT: Pupils equally round. Oropharynx pink and moist. NECK: Supple LUNGS: Clear to auscultation. HEART: S1, S2. ABDOMEN: Obese, soft, nontender, bowel sounds present. Multiple scars and right-sided ostomy. EXTREMITIES: No gross edema or cyanosis. SKIN: Warm to touch without signs of rash. Several sacrococcygeal fistula, 3 packed. + drainage, no surrounding redness NEUROLOGIC: Alert and answering questions appropriately. PIV Medications: Inpatient Meds: Current Medications Medications (Trade) Dose Ordered Sig/Charlee Start Time Stop Time Status Last Admin Dose Admin Acetaminophen (Tylenol) 500 mg PRN Q6HRS PRN 02/01/19 08:30 Acetaminophen/ Codeine Phosphate (Tylenol #3) 1 tab PRN Q6HRS PRN 02/01/19 08:30 02/03/19 20:57 1 TAB Ascorbic Acid (Vitamin C) 500 mg BID 01/30/19 21:00 02/06/19 08:34 500 MG Clindamycin HCl (Cleocin) 300 mg TID 01/30/19 14:00 01/31/19 09:30 DC 01/31/19 08:39 300 MG Diphenhydramine HCl (Benadryl) 25 mg PRN QHS PRN 02/03/19 09:30 Ergocalciferol (Vitamin D2) 50,000 unit QMONTH 03/01/19 09:00 Famotidine (Pepcid) 20 mg HS 01/30/19 21:00 02/05/19 21:06 20 MG Fentanyl Citrate (Fentanyl 2ml Vial) 100 mcg 1X ONCE 02/03/19 11:00 02/03/19 11:01 DC 02/03/19 10:57 50 MCG Guaifenesin (Robitussin Dm) 5 ml PRN QID PRN 01/30/19 14:00 Iohexol (Omnipaque 300 Mg/ml) 75 ml 1X ONCE 01/31/19 08:00 01/31/19 08:01 DC 01/31/19 08:29 75 ML Lactobacillus Rhamnosus (Culturelle) 1 cap BID 02/04/19 21:00 02/06/19 08:34 1 CAP Lidocaine HCl (Buffered Lidocaine 1%) 3 ml 1X ONCE 02/03/19 11:00 02/03/19 11:01 DC 02/03/19 10:58 4.5 ML Magnesium Hydroxide (Milk Of Magnesia) 2,400 mg PRN DAILY PRN 01/30/19 14:00 Mesalamine (Delzicol) 800 mg TID 01/30/19 15:00 02/06/19 08:35 800 MG Midazolam HCl (Versed) 2 mg 1X ONCE 02/03/19 11:00 02/03/19 11:01 DC 02/03/19 10:57 1 MG Morphine Sulfate (Morphine Sulfate) 2 mg PRN Q2HR PRN 02/01/19 08:30 Non-Formulary Medication (Protein Supplement (Nutritional Drink Mix)) 420 gm DAILY 01/31/19 09:00 UNV Ondansetron HCl (Zofran) 4 mg PRN Q6HRS PRN 02/03/19 09:30 Oxycodone/ Acetaminophen (Percocet 5/325) 1 tab PRN Q4HRS PRN 02/01/19 08:30 02/05/19 21:06 1 TAB Piperacillin Sod/ Tazobactam Sod (Zosyn Per Pharmacy) 1 each PRN DAILY PRN 02/03/19 13:00 Piperacillin Sod/ Tazobactam Sod 3.375 gm/Sodium Chloride 50 ml @ 100 mls/hr Q6HRS 02/03/19 13:15 02/06/19 06:41 100 MLS/HR Vancomycin HCl (Vanco Per Pharmacy) 1 each PRN DAILY PRN 02/03/19 13:00 02/05/19 07:39 1 EACH Vancomycin HCl (Vancomycin Trough Level) 1 each 1X ONCE 02/06/19 15:30 02/06/19 15:31 Vancomycin HCl 1.5 gm/Sodium Chloride 500 ml @ 250 mls/hr Q8H 02/05/19 12:00 02/05/19 07:31 DC Vancomycin HCl 2 gm/Sodium Chloride 500 ml @ 250 mls/hr Q12H 02/05/19 16:00 02/06/19 04:19 250 MLS/HR Labs: Lab Laboratory Tests Test 02/06/19 03:40 02/06/19 03:46 Sodium Level 143 mmol/L (136-145) Potassium Level 4.0 mmol/L (3.5-5.1) Chloride Level 108 mmol/L (98-107) Carbon Dioxide Level 25 mmol/L (21-32) Anion Gap 10 (6-14) Blood Urea Nitrogen 7 mg/dL (8-26) Creatinine 1.0 mg/dL (0.7-1.3) Estimated GFR (Cockcroft-Gault) 76.2 Glucose Level 88 mg/dL (70-99) Calcium Level 8.2 mg/dL (8.5-10.1) White Blood Count 5.8 x10^3/uL (4.0-11.0) Red Blood Count 4.00 x10^6/uL (4.30-5.70) Hemoglobin 12.2 g/dL (13.0-17.5) Hematocrit 36.6 % (39.0-53.0) Mean Corpuscular Volume 91 fL (79-100) Mean Corpuscular Hemoglobin 31 pg (25-35) Mean Corpuscular Hemoglobin Concent 33 g/dL (31-37) Red Cell Distribution Width 13.8 % (11.5-14.5) Platelet Count 174 x10^3/uL (140-400) Neutrophils (%) (Auto) 64 % (31-73) Lymphocytes (%) (Auto) 25 % (24-48) Monocytes (%) (Auto) 8 % (0-9) Eosinophils (%) (Auto) 3 % (0-3) Basophils (%) (Auto) 0 % (0-3) Neutrophils # (Auto) 3.7 x10^3/uL (1.8-7.7) Lymphocytes # (Auto) 1.4 x10^3/uL (1.0-4.8) Monocytes # (Auto) 0.5 x10^3/uL (0.0-1.1) Eosinophils # (Auto) 0.2 x10^3/uL (0.0-0.7) Basophils # (Auto) 0.0 x10^3/uL (0.0-0.2) Micro RUN DATE: 12/23/18 PAGE 1 RUN TIME: 1512 [facility] [address] [place] [address] Jeevan Benson M.D., Larry Operator PATIENT: GRAHAM FOSTER ACCT: [id number] LOC: PMGWOUND U: [id number] AGE/SX: 58/M ROOM: RE12/19/[address]: LYDIA BONILLA DO : 1960 BED: DIS: STATUS: REG RCR TLOC: SPEC #: [id number] JOEL: 12/19/18 STATUS: COMP REQ #: [id number] RECD: 12/19/[address]: LYDIA BONILLA DO SOURCE: BUTTOCKS ENTR: 12/19/18 [facility] DR: AYESHA SHARMA I [facility]: WOUND ORDERED: DIANN/ERVIN/TRISTAN COMMENTS: BUTTOCKS WOUND WOUND [facility]IN[facility] Procedure Result ANAEROBIC-AEROBIC CULTURE Final Preliminary report Final report ANAEROBIC RES 1 Final Comment No anaerobes recovered in 48 hours. No anaerobic growth in 72 hours. AEROBIC CULT Final Preliminary report Final report AEROBIC RES 1 Final Mixed site se. 4+ GRAM STAIN Final Final report GRAM STAIN RES 1 Final Comment Moderate amount of white blood cells. GRAM STAIN RES 2 Final Comment Rare gram negative rods. Performed at: [facility], [place], [place] [address] Clerk Typist: EBEN Foster MD, Phone: [phone] RUN DATE: 02/05/19 [facility] *LIVE* PAGE 1 RUN TIME: 1409 Specimen Inquiry PATIENT: GRAHAM FOSTER ACCT: [id number] LOC: [address] [place] [address] U: [id number] AGE/SX: 58/M ROOM: 2 RE01/30/[address]: FRANK KNIGHT III, DO : 1960 BED: 1 DIS: STATUS: ADM IN TLOC: SPEC #: [id number] JOEL: 02/03/19 STATUS: RES REQ #: [id number] RECD: 02/03/[address]: JENNIFER CAVANAUGH MD SOURCE: SACRUM ENTR: 02/03/19-[address]: FRANK KNIGHT III, DO SPDESC: BIOPSY LYDIA BONILLA STEPHEN J MD ORDERED: DIANN/ERVIN/TRISTAN COMMENTS: SACRAL BONE TISSUE Procedure Result ANAEROBIC-AEROBIC CULTURE PENDING ANAEROBIC RES 1 PENDING AEROBIC CULT Preliminary Preliminary report AEROBIC RES 1 Preliminary Comment No growth in 36 - 48 hours. GRAM STAIN Final Final report GRAM STAIN RES 1 Final Comment No white blood cells seen. GRAM STAIN RES 2 Final No organisms seen Performed at: - [facility], [place], [place] [id number] Clerk Typist: EBEN Foster MD, Phone: [phone] RUN DATE: 02/03/19 [facility] *LIVE* PAGE 1 RUN TIME: 1410 Specimen Inquiry PATIENT: GRAHAM FOSTER Vaibhav ACCT: [id number] LOC: [address] [place] [address] U: [id number] AGE/SX: 58/M ROOM: 562 RE01/30/[address]: FRANK KNIGHT III DO : 1960 BED: 1 DIS: STATUS: ADM IN TLOC: SPEC #: [id number] JOEL: 01/30/19 STATUS: IZZY REQ #: [id number] RECD: 01/30/[address]: FRANK KNIGHT III, DO SOURCE: SACRUM ENTR: 01/30/[address]: LYDIA BONILLA DO SPDESC: WOUND ORDERED: ANAER/AEROB/GS COMMENTS: SACRAL WOUND Procedure Result ANAEROBIC-AEROBIC CULTURE Final Final report ANAEROBIC RES 1 Final Comment No anaerobic growth in 72 hours. AEROBIC CULT Final Preliminary report Final report AEROBIC RES 1 Final Mixed site se. 2+ GRAM STAIN Final Final report GRAM STAIN RES 1 Final Comment No white blood cells seen. GRAM STAIN RES 2 Final No organisms seen Performed at: - [facility], [place], [place] [id number] Clerk Typist: EBEN Foster MD, Phone: [phone] - Objective: Assessment: 1. Acute and chronic OM changes on CT abdomen and pelvis ,Pt has been treated with previous OM at [facility] in the past . Chronic OM could be from the same ESR 35 S/P IR biopsy 02/03 Cult neg so far 2. Crohn's disease with history of ostomy and multiple fistula repairs. 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 Wound Cults negative from 12/2018 4. Gastroesophageal reflux disease. 4. Obesity. 5. Kidney stone on CT Abdomen Plan: Plan of Care Cont zosyn DC Vanc start daptomycin PICC line f/u cults Probiotics Bedrest P500 bed Ideally would need I and D of acute om, antibiotics alone will not be optimal Recommended transfer to [facility] Plastics for I and D, ostectomy and possible flap if eligible appears that Transfer was denied Continue antibiotics Pt will need referral as outpt JENNIFER CAVANAUGH MD Feb 06, 2019 10:37
[2019-02-06 11:00] VITALS: BP 111/66
--- NOTE | 2019-02-06 11:14 | PDOC ---
[employer] PROGRESS NOTE Chief Complaint Chief Complaint Non-surgical perianal wound - with bleeding Severe Crohn's with multiple surgeries s/p ostomy (multiple fissures and abdominal wounds) Chronic pain Hyperlipidemia Hypertension GERD Incidental 5 mm rt kidney stone Hiatal hernia with small bowel loops History of Present Illness History of Present Illness 02/06/19 Pt seen and examined Pt was sitting in chair and pleasant Pt ambulated w/out difficulty DW pt about their care DW RN Reviewed pt's chart Vitals/I&O Vitals/I&O: Vital Signs Date Time Temp Pulse Resp B/P (MAP) Pulse Ox O2 Delivery O2 Flow Rate FiO2 02/06/19 07:00 98.1 63 17 107/58 (74) 95 Room Air 98.1 02/05/19 22:06 2.0 I & O 02/05/19 02/05/19 02/06/19 15:00 23:00 07:00 Output Total 550 ml 500 ml Balance -550 ml -500 ml Physical Exam Physical Exam: General: Alert, Oriented X3, Cooperative, No acute distress Heart: Regular rate, Normal S1, Normal S2 Lungs: Clear Abdomen: Normal bowel sounds, Soft, Other (Multiple scars and right-sided ostomy.) Extremities: No clubbing, No cyanosis Skin: No rashes, Other ( Several sacrococcygeal fistula, 3 packed. + drainage, no surrounding redness ) Labs Labs: Laboratory Tests Test 02/06/19 03:40 02/06/19 03:46 Sodium Level 143 mmol/L (136-145) Potassium Level 4.0 mmol/L (3.5-5.1) Chloride Level 108 mmol/L (98-107) Carbon Dioxide Level 25 mmol/L (21-32) Anion Gap 10 (6-14) Blood Urea Nitrogen 7 mg/dL (8-26) Creatinine 1.0 mg/dL (0.7-1.3) Estimated GFR (Cockcroft-Gault) 76.2 Glucose Level 88 mg/dL (70-99) Calcium Level 8.2 mg/dL (8.5-10.1) White Blood Count 5.8 x10^3/uL (4.0-11.0) Red Blood Count 4.00 x10^6/uL (4.30-5.70) Hemoglobin 12.2 g/dL (13.0-17.5) Hematocrit 36.6 % (39.0-53.0) Mean Corpuscular Volume 91 fL (79-100) Mean Corpuscular Hemoglobin 31 pg (25-35) Mean Corpuscular Hemoglobin Concent 33 g/dL (31-37) Red Cell Distribution Width 13.8 % (11.5-14.5) Platelet Count 174 x10^3/uL (140-400) Neutrophils (%) (Auto) 64 % (31-73) Lymphocytes (%) (Auto) 25 % (24-48) Monocytes (%) (Auto) 8 % (0-9) Eosinophils (%) (Auto) 3 % (0-3) Basophils (%) (Auto) 0 % (0-3) Neutrophils # (Auto) 3.7 x10^3/uL (1.8-7.7) Lymphocytes # (Auto) 1.4 x10^3/uL (1.0-4.8) Monocytes # (Auto) 0.5 x10^3/uL (0.0-1.1) Eosinophils # (Auto) 0.2 x10^3/uL (0.0-0.7) Basophils # (Auto) 0.0 x10^3/uL (0.0-0.2) Review of Systems Review of Systems: No c/o headache No c/o CP Assessment and Plan Assessmemt and Plan Assessment Non-surgical perianal wound - with bleeding Severe Crohn's with multiple surgeries s/p ostomy (multiple fissures and abdominal wounds) Chronic pain Hyperlipidemia Hypertension GERD Incidental 5 mm rt kidney stone Hiatal hernia with small bowel loops Plan Continue Abx Wound care Await cultures Hopeful for I&D at [facility] Labs DVT Prophylaxis PT/OT Home meds Full code Appreciate subspecialist input Comment Review of Relevant I have reviewed the following items hermes (where applicable) has been applied. Medications: Current Medications Medications (Trade) Dose Ordered Sig/Charlee Route PRN Reason Start Time Stop Time Status Last Admin Dose Admin Vancomycin HCl 2 gm/Sodium Chloride 500 ml @ 250 mls/hr Q12H IV 02/05/19 16:00 02/06/19 04:19 FRANK KNIGHT III DO Feb 06, 2019 11:14
[2019-02-06] MEDS: DAPTOmycin (GENERIC) IVPB 530 MG in IV NORMAL SALINE 50ML 50 ML IV SCH (13:25)
[2019-02-06 15:00] VITALS: BP 115/57
--- NOTE | 2019-02-06 17:15 | NUR ---
Wound Care Wound care follow up for coccyx fistulas. Cleansed area and repacked with betadine soaked gauze strips and covered with ABD's and tape. No other wounds noted. Pt will follow up with wound center for plastic surgeon consult. WC will continue to follow until he is able to get in.
[2019-02-06 19:00] VITALS: BP 104/55
[2019-02-06] MEDS: FAMOTIDINE 20 MG TABLET. PO SCH (21:23)
[2019-02-06 23:00] VITALS: BP 106/60
[2019-02-07 03:00] VITALS: BP 105/65
[2019-02-07] MEDS: PIPERACILLIN/TAZOBACTAM 3.375 GM in IV NORMAL SALINE 50ML 50 ML IV SCH ×6 (05:58→23:55)
[2019-02-07 07:00] VITALS: BP 114/57
[2019-02-07 08:13] LABS: CALCIUM 8.8 mg/dL (8.5-10.1); CREATININE 1.2 mg/dL (0.7-1.3); GFR 61.8; POTASSIUM 4.1 mmol/L (3.5-5.1)
[2019-02-07] MEDS: ASCORBIC ACID 500 MG TABLET PO SCH ×2 (09:04→21:17)
[2019-02-07] MEDS: MESALAMINE 400 MG CAP.DRTAB. PO SCH ×3 (09:04→21:17)
[2019-02-07] MEDS: LACTOBACILLUS RHAMNOSUS GG 1 CAPSULE. PO SCH ×2 (09:04→21:18)
[2019-02-07 11:00] VITALS: BP 110/55
--- NOTE | 2019-02-07 11:13 | PDOC ---
Infectious Disease Note Subjective: Subjective Pt doing well No F/C/N/V/or increase ostomy output says feels stronger has been having dry skin on legs Vital Signs: Vital Signs Vital Signs Date Time Temp Pulse Resp B/P (MAP) Pulse Ox O2 Delivery O2 Flow Rate FiO2 02/07/19 08:00 Room Air 2.0 02/07/19 07:00 98.1 67 18 114/57 (76) 92 98.1 Physical Exam: PHYSICAL EXAM GENERAL: Propped up in bed, alert, in no apparent distress. HEENT: Pupils equally round. Oropharynx pink and moist. NECK: Supple, no lymphadenopathy. LUNGS: Clear to auscultation. HEART: S1, S2. ABDOMEN: Obese, soft, nontender, bowel sounds present. Multiple scars and right-sided ostomy. EXTREMITIES: No gross edema or cyanosis. SKIN: Warm to touch without signs of rash. Several sacrococcygeal fistulas . NEUROLOGIC: Alert and answering questions appropriately. PIV Medications: Inpatient Meds: Current Medications Medications (Trade) Dose Ordered Sig/Charlee Start Time Stop Time Status Last Admin Dose Admin Acetaminophen (Tylenol) 500 mg PRN Q6HRS PRN 02/01/19 08:30 Acetaminophen/ Codeine Phosphate (Tylenol #3) 1 tab PRN Q6HRS PRN 02/01/19 08:30 02/03/19 20:57 1 TAB Ascorbic Acid (Vitamin C) 500 mg BID 01/30/19 21:00 02/07/19 09:04 500 MG Clindamycin HCl (Cleocin) 300 mg TID 01/30/19 14:00 01/31/19 09:30 DC 01/31/19 08:39 300 MG Daptomycin 530 mg/ Sodium Chloride 50 ml @ 100 mls/hr Q24H 02/06/19 12:30 02/06/19 13:25 100 MLS/HR Diphenhydramine HCl (Benadryl) 25 mg PRN QHS PRN 02/03/19 09:30 Ergocalciferol (Vitamin D2) 50,000 unit QMONTH 03/01/19 09:00 Famotidine (Pepcid) 20 mg HS 01/30/19 21:00 02/06/19 21:23 20 MG Fentanyl Citrate (Fentanyl 2ml Vial) 100 mcg 1X ONCE 02/03/19 11:00 02/03/19 11:01 DC 02/03/19 10:57 50 MCG Guaifenesin (Robitussin Dm) 5 ml PRN QID PRN 01/30/19 14:00 Iohexol (Omnipaque 300 Mg/ml) 75 ml 1X ONCE 01/31/19 08:00 01/31/19 08:01 DC 01/31/19 08:29 75 ML Lactobacillus Rhamnosus (Culturelle) 1 cap BID 02/04/19 21:00 02/07/19 09:04 1 CAP Lidocaine HCl (Buffered Lidocaine 1%) 3 ml 1X ONCE 02/03/19 11:00 02/03/19 11:01 DC 02/03/19 10:58 4.5 ML Magnesium Hydroxide (Milk Of Magnesia) 2,400 mg PRN DAILY PRN 01/30/19 14:00 Mesalamine (Delzicol) 800 mg TID 01/30/19 15:00 02/07/19 09:04 800 MG Midazolam HCl (Versed) 2 mg 1X ONCE 02/03/19 11:00 02/03/19 11:01 DC 02/03/19 10:57 1 MG Morphine Sulfate (Morphine Sulfate) 2 mg PRN Q2HR PRN 02/01/19 08:30 02/06/19 16:07 2 MG Non-Formulary Medication (Protein Supplement (Nutritional Drink Mix)) 420 gm DAILY 01/31/19 09:00 UNV Ondansetron HCl (Zofran) 4 mg PRN Q6HRS PRN 02/03/19 09:30 Oxycodone/ Acetaminophen (Percocet 5/325) 1 tab PRN Q4HRS PRN 02/01/19 08:30 02/05/19 21:06 1 TAB Piperacillin Sod/ Tazobactam Sod (Zosyn Per Pharmacy) 1 each PRN DAILY PRN 02/03/19 13:00 Piperacillin Sod/ Tazobactam Sod 3.375 gm/Sodium Chloride 50 ml @ 100 mls/hr Q6HRS 02/03/19 13:15 02/07/19 05:58 100 MLS/HR Vancomycin HCl (Vanco Per Pharmacy) 1 each PRN DAILY PRN 02/03/19 13:00 02/06/19 11:36 DC 02/05/19 07:39 1 EACH Vancomycin HCl (Vancomycin Trough Level) 1 each 1X ONCE 02/06/19 15:30 02/06/19 11:36 DC Vancomycin HCl 1.5 gm/Sodium Chloride 500 ml @ 250 mls/hr Q8H 02/05/19 12:00 02/05/19 07:31 DC Vancomycin HCl 2 gm/Sodium Chloride 500 ml @ 250 mls/hr Q12H 02/05/19 16:00 02/06/19 11:36 DC 02/06/19 04:19 250 MLS/HR Labs: Lab Laboratory Tests Test 02/07/19 07:19 Sodium Level 143 mmol/L (136-145) Potassium Level 4.1 mmol/L (3.5-5.1) Chloride Level 108 mmol/L (98-107) Carbon Dioxide Level 25 mmol/L (21-32) Anion Gap 10 (6-14) Blood Urea Nitrogen 8 mg/dL (8-26) Creatinine 1.2 mg/dL (0.7-1.3) Estimated GFR (Cockcroft-Gault) 61.8 Glucose Level 96 mg/dL (70-99) Calcium Level 8.8 mg/dL (8.5-10.1) Micro ----- ------- RUN DATE: 02/06/19 [facility] *LIVE* PAGE 1 RUN TIME: 1210 Specimen Inquiry PATIENT: GRAHAM FOSTER ACCT: [id number] LOC: [address] [place] [address] U: [id number] AGE/SX: 58/M ROOM: 562 RE01/30/[address]: FRANK KNIGHT III, DO : 1960 BED: 1 DIS: STATUS: ADM IN TLOC: SPEC #: [id number] JOEL: 02/03/19 STATUS: RES REQ #: [id number] RECD: 02/03/[address]: JENNIFER CAVANAUGH MD SOURCE: SACRUM ENTR: 02/03/[address]: FRANK KNIGHT III, DO SPDESC: BIOPSY LYDIA BONILLA STEPHEN J MD ORDERED: ANAER/AEROB/TRISTAN COMMENTS: SACRAL BONE TISSUE ---- -------- Procedure Result ANAEROBIC-AEROBIC CULTURE PENDING ANAEROBIC RES 1 PENDING AEROBIC CULT Final Preliminary report Final report AEROBIC RES 1 Final Comment No growth in 36 - 48 hours. No growth in 56 - 72 hours. GRAM STAIN Final Final report GRAM STAIN RES 1 Final Comment No white blood cells seen. GRAM STAIN RES 2 Final No organisms seen Performed at: [facility] [address], [place], [place] [address] Pin Maker: EBEN Foster MD, Phone: [phone] RUN DATE: 02/03/19 [facility] *LIVE* PAGE 1 RUN TIME: 1410 Specimen Inquiry PATIENT: GRAHAM FOSTER ACCT: [id number] LOC: [address] [place] [address] U: [id number] AGE/SX: 58/M ROOM: 562 RE01/30/[address]: FRANK KNIGHT III, DO : 1960 BED: 1 DIS: STATUS: ADM IN TLOC: SPEC #: [id number] JOEL: 01/30/19 STATUS: IZZY REQ #: [id number] RECD: 01/30/19-[address]: FRANK KNIGHT III, DO SOURCE: SACRUM ENTR: 01/30/19-[address]: LYDIA BONILLA DO [facility]: WOUND ORDERED: ANAER/AEROB/GS COMMENTS: SACRAL WOUND Procedure Result ANAEROBIC-AEROBIC CULTURE Final Final report ANAEROBIC RES 1 Final Comment No anaerobic growth in 72 hours. AEROBIC CULT Final Preliminary report Final report AEROBIC RES 1 Final Mixed site se. 2+ GRAM STAIN Final Final report GRAM STAIN RES 1 Final Comment No white blood cells seen. GRAM STAIN RES 2 Final No organisms seen Performed at: - [facility], [place], [place] [address] Pin Maker: EBEN Foster MD, Phone: [phone] Objective: Assessment: 1. Acute and chronic OM changes on CT abdomen and pelvis ,Pt has been treated with previous OM at [facility] in the past . Chronic OM could be from the same ESR 35 S/P IR biopsy 02/03 Cult neg so far 2. Crohn's disease with history of ostomy and multiple fistula repairs. 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 Wound Cults negative from 12/2018 4. Gastroesophageal reflux disease. 4. Obesity. 5. Kidney stone on CT Abdomen Plan: Plan of Care Cont zosyn/ daptomycin PICC line social service to assist with discharge antibiotics script in chart weekly labs CBCD/BUN/CREAT/CPK/ESR/LFT WOUND CARE per wound team f/u cults Probiotics Bedrest P500 bed Ideally would need I and D of acute om, antibiotics alone will not be optimal Recommended transfer to [facility] Plastics for I and D, ostectomy and possible flap if eligible appears that Transfer was denied f/u cult till final D/W JENNIFER CALDERON MD Feb 07, 2019 11:13
[2019-02-07] MEDS: DAPTOmycin (GENERIC) IVPB 530 MG in IV NORMAL SALINE 50ML 50 ML IV SCH (12:13)
--- NOTE | 2019-02-07 13:45 | NUR ---
REMY phoned and faxed IV abx orders to [facility]. Awaiting to hear back on benefits. Pt will need PICC line placement too. Discussed with RN.
--- NOTE | 2019-02-07 13:55 | PDOC ---
[employer] PROGRESS NOTE Chief Complaint Chief Complaint Non-surgical perianal wound - with bleeding Severe Crohn's with multiple surgeries s/p ostomy (multiple fissures and abdominal wounds) Chronic pain Hyperlipidemia Hypertension GERD Incidental 5 mm rt kidney stone Hiatal hernia with small bowel loops History of Present Illness History of Present Illness 02/06/19 Pt seen and examined Pt was sitting in chair and pleasant Pt ambulated w/out difficulty DW pt about their care DW RN Reviewed pt's chart 02/07/19 Patient seen and examined Chart reviewed Discussed with RN Vitals/I&O Vitals/I&O: Vital Signs Date Time Temp Pulse Resp B/P (MAP) Pulse Ox O2 Delivery O2 Flow Rate FiO2 02/07/19 11:00 64 18 110/55 (73) 98 Room Air 02/07/19 08:00 2.0 02/07/19 07:00 98.1 98.1 I & O 02/06/19 02/06/19 02/07/19 15:00 23:00 07:00 Intake Total 350 ml 580 ml Output Total 250 ml Balance -250 ml 350 ml 580 ml Physical Exam Physical Exam: GENERAL: Propped up in bed, alert, in no apparent distress. HEENT: Pupils equally round. Oropharynx pink and moist. NECK: Supple, no lymphadenopathy. LUNGS: Clear to auscultation. HEART: S1, S2. ABDOMEN: Obese, soft, nontender, bowel sounds present. Multiple scars and right-sided ostomy. EXTREMITIES: No gross edema or cyanosis. SKIN: Warm to touch without signs of rash. Several sacrococcygeal fistulas . NEUROLOGIC: Alert and answering questions appropriately. PIV General: Alert, Oriented X3, Cooperative, No acute distress Heart: Regular rate, Normal S1, Normal S2 Lungs: Clear Abdomen: Normal bowel sounds, Soft, Other (Multiple scars and right-sided ostomy.) Extremities: No clubbing, No cyanosis Skin: No rashes, Other ( Several sacrococcygeal fistula, 3 packed. + drainage, no surrounding redness ) Labs Labs: Laboratory Tests Test 02/07/19 07:19 Sodium Level 143 mmol/L (136-145) Potassium Level 4.1 mmol/L (3.5-5.1) Chloride Level 108 mmol/L (98-107) Carbon Dioxide Level 25 mmol/L (21-32) Anion Gap 10 (6-14) Blood Urea Nitrogen 8 mg/dL (8-26) Creatinine 1.2 mg/dL (0.7-1.3) Estimated GFR (Cockcroft-Gault) 61.8 Glucose Level 96 mg/dL (70-99) Calcium Level 8.8 mg/dL (8.5-10.1) Assessment and Plan Assessmemt and Plan Non-surgical perianal wound - with bleeding Severe Crohn's with multiple surgeries s/p ostomy (multiple fissures and abdominal wounds) Chronic pain Hyperlipidemia Hypertension GERD Incidental 5 mm rt kidney stone Hiatal hernia with small bowel loops Plan IV antibiotics Wound [facility] meds PT OT DVT prophylaxis Discharge when okay with subspecialist Comment Review of Relevant I have reviewed the following items hermes (where applicable) has been applied. FRANK KNIGHT III DO Feb 07, 2019 13:55
[2019-02-07] MEDS ORDERED: LIDOCAINE WITH 8.4% SOD BICARB 3 ML DISP.SYRIN. ONE (14:11)
[2019-02-07] MEDS ORDERED: LIDOCAINE WITH 8.4% SOD BICARB 3 ML DISP.SYRIN. INJ ONE (14:30)
[2019-02-07 15:00] VITALS: BP 116/67
[2019-02-07 19:00] VITALS: BP 118/62
[2019-02-07] MEDS: FAMOTIDINE 20 MG TABLET. PO SCH (21:17)
[2019-02-07 23:00] VITALS: BP 103/55
[2019-02-08 03:00] VITALS: BP 95/57
[2019-02-08] MEDS: PIPERACILLIN/TAZOBACTAM 3.375 GM in IV NORMAL SALINE 50ML 50 ML IV SCH ×4 (05:43→23:54)
[2019-02-08 06:20] LABS: CALCIUM 8.8 mg/dL (8.5-10.1); CREATININE 1.1 mg/dL (0.7-1.3); GFR 68.3
[2019-02-08 07:00] VITALS: BP 101/55
[2019-02-08] MEDS: LACTOBACILLUS RHAMNOSUS GG 1 CAPSULE. PO SCH ×2 (08:52→20:43)
[2019-02-08] MEDS: ASCORBIC ACID 500 MG TABLET PO SCH ×2 (08:52→20:43)
[2019-02-08] MEDS: MESALAMINE 400 MG CAP.DRTAB. PO SCH ×3 (08:52→20:43)
[2019-02-08] MEDS: oxyCODONE/APAP 5/325 1 TAB TABLET PO PRN ×2 (08:53→16:44)
--- NOTE | 2019-02-08 10:17 | PDOC ---
PROGRESS NOTES Chief Complaint Chief Complaint IMPRESSION Non-surgical perianal wound - with bleeding Severe Crohn's with multiple surgeries s/p ostomy (multiple fissures and abdominal wounds) Multiple deep ulcers along the distal sacrum and buttocks extend into the right ischiorectal fat and to the former site of the coccyx. The coccyx and distal sacrum have been completely eroded. There is some debris within the tracts, but no drainable collection. 2. 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 Chronic pain Hyperlipidemia Hypertension GERD Incidental 5 mm rt kidney stone Hiatal hernia with small bowel loops Cont trial with empiric zosyn/ daptomycin CT-guided biopsy of the sacrum PLAN transfer to [facility]/// Plastics for I and D, ostectomy and possible flap if eligible [facility] did not accept pt for transfer PICC line social service to assist with discharge antibiotics 37 MIN PT EXAM, CHART REVIEW, > 50% OF TIME SPENT WITH EXAM, CHART REVIEW, PT CARE COORDINATION History of Present Illness History of Present Illness 02/08/19 Pt seen and examined pleasant Pt ambulated w/out difficulty DW pt about their care DW RN Reviewed pt's chart 02/07/19 Patient seen and examined Chart reviewed Discussed with RN Vitals Vitals Vital Signs Date Time Temp Pulse Resp B/P (MAP) Pulse Ox O2 Delivery O2 Flow Rate FiO2 02/08/19 09:53 16 Room Air 02/08/19 07:00 98.3 67 101/55 (70) 96 98.3 02/07/19 08:00 2.0 Physical Exam Physical Exam GENERAL: Propped up in bed, alert, in no apparent distress. HEENT: Pupils equally round. Oropharynx pink and moist. NECK: Supple, no lymphadenopathy. LUNGS: Clear to auscultation. HEART: S1, S2. ABDOMEN: Obese, soft, nontender, bowel sounds present. Multiple scars and right-sided ostomy. EXTREMITIES: No gross edema or cyanosis. SKIN: Warm to touch without signs of rash. Several sacrococcygeal fistulas . NEUROLOGIC: Alert and answering questions appropriately. PIV General: Alert, Oriented X3, Cooperative, No acute distress Heart: Regular rate, Normal S1, Normal S2 Lungs: Clear Abdomen: Normal bowel sounds, Soft, Other (Multiple scars and right-sided ostomy.) Extremities: No clubbing, No cyanosis Skin: No rashes, Other ( Several sacrococcygeal fistula, 3 packed. + drainage, no surrounding redness ) Labs LABS SEX: M EXAM STATUS: ADM IN ORD. PHYSICIAN: SALOME ROBERTS MD REASON: Multiple tunnels or fistulas of sacral area PROCEDURE: CT ABD PELV W/ IV CONTRST ONLY EXAM: CT ABDOMEN/PELVIS WITH CONTRAST. HISTORY: Sacral wound second fistulous. TECHNIQUE: Computed tomography of the abdomen and pelvis was performed after the intravenous administration of iodinated contrast. COMPARISON: 09/16/2017, 10/19/2017. FINDINGS: Lung windows through the visualized portions of the bases reveal mild atelectasis. There is a calcified granuloma in the left lower lobe. Soft tissue defects along the distal sacrum and midline buttocks are consistent with ulcers. Granulation tissue lined tracts extend deep into the right ischiorectal fat, and to the former location of the coccyx. The coccyx and most distal aspect of the sacrum have been completely eroded consistent with acute osteomyelitis. There is chronic osteomyelitis within the remaining distal sacrum. The cavity at the former site of coccyx measures 3.7 x 3.0 cm. Additional granulation tissue and stranding extends into the presacral space. There is no drainable collection at this site. The liver, gallbladder, pancreatic and adrenal glands are unremarkable. Foci of mild hypoattenuation within the spleen measure up to 13 mm. These are likely benign lesions such as hemangiomas. Right renal calculi measure up to 5 mm. The left kidney is unremarkable. There are no pathologically enlarged lymph nodes. The colon appears to be surgically absent. There is a right lower quadrant ileostomy. A large right lower quadrant parastomal hernia contains multiple loops of nonobstructed small bowel. Another moderate to large left sided hernia is likely at the site of an old ostomy and contains only fat. There is no small bowel obstruction. The prostate is enlarged measuring 4.3 x 3.8 cm. The bladder is partially decompressed but demonstrates diffuse wall thickening. IMPRESSION: 1. Multiple deep ulcers along the distal sacrum and buttocks extend into the right ischiorectal fat and to the former site of the coccyx. The coccyx and distal sacrum have been completely eroded. There is some debris within the tracts, but no drainable collection. 2. 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 3. A moderate hernia at a prior stoma site on the left contains only fat. 4. Right renal calculi measure up to 5 mm. 5. Diffuse bladder wall thickening indicates chronic outlet obstruction or inflammation. *One or more of the following individualized dose reduction techniques were utilized for this examination: 1. Automated exposure control. 2. Adjustment of the mA and/or kV according to patient size. 3. Use of iterative reconstruction technique. Electronically signed by: Derrek Evans MD (01/31/2019 10:30 AM) [facility] DICTATED and SIGNED BY: CURTIS EVANS MD DATE: 01/31/19 103 Procedure: CT-guided biopsy of the sacrum Clinical Indication: Adult male with severe decubitus ulcers, sacral ostial lysis, suspected osteomyelitis. Sedation: Conscious sedation was administered with a total intraprocedural [id number] time of 12 minutes. The patient was monitored by a qualified independent observer throughout the time of sedation. Please refer to the medical record for exact doses of medications utilized to achieve moderate sedation. Antibiotics: None Sterility: The procedure was performed in its entirety using appropriate elements of sterile technique. Consent: The procedure was explained in its entirety to the patient or the patients designated arborist representative by a member of the treatment team, including a discussion of the risks, benefits and commonly accepted alternatives to the procedure, as well as the expected consequences of no therapy whatsoever. Discussion of the risks included, but was not limited to, those that are most frequent and those that are rare but possibly severe or life-threatening, as well as the possibility of unforeseen complications. Technique and Findings: Following informed consent, the patient was prepped and draped in usual sterile fashion. Preliminary CT scan of the area of interest was performed. 1% lidocaine was used to achieve local anesthesia. A small dermatotomy was made. Under periodic CT surveillance, a 10-gauge automated bone biopsy needle was advanced into the distal sacrum. The needle was removed and the specimen was preserved in formalin. A second pass through the sacrum was then performed, with a second specimen preserved in a sterile container for microbiologic analysis. Hemostasis was readily achieved with manual compression. Complications: No immediate Impression: 1. CT-guided biopsy of the sacrum as described. SPDESC: BIOPSY LYDIA BONILLA STEPHEN J MD ORDERED: DIANN/ERVIN/TRISTAN COMMENTS: SACRAL BONE TISSUE Procedure Result ANAEROBIC-AEROBIC CULTURE Final Final report ANAEROBIC RES 1 Final Comment No anaerobic growth in 72 hours. AEROBIC CULT Final Preliminary report Final report AEROBIC RES 1 Final Comment No growth in 36 - 48 hours. No growth in 56 - 72 hours. GRAM STAIN Final Final report GRAM STAIN RES 1 Final Comment No white blood cells seen. GRAM STAIN RES 2 Final No organisms seen Performed at: - [address], [place], [place] [id number] Safety Lamp Keeper: EBEN Foster MD, Phone: [phone] Laboratory Tests Test 02/08/19 05:35 Sodium Level 141 mmol/L (136-145) Potassium Level 4.0 mmol/L (3.5-5.1) Chloride Level 106 mmol/L (98-107) Carbon Dioxide Level 26 mmol/L (21-32) Anion Gap 9 (6-14) Blood Urea Nitrogen 15 mg/dL (8-26) Creatinine 1.1 mg/dL (0.7-1.3) Estimated GFR (Cockcroft-Gault) 68.3 Glucose Level 104 mg/dL (70-99) Calcium Level 8.8 mg/dL (8.5-10.1) Comment Review of Relevant I have reviewed the following items hermes (where applicable) has been applied. Labs Laboratory Tests Test 02/07/19 07:19 02/08/19 05:35 Sodium Level 143 mmol/L (136-145) 141 mmol/L (136-145) Potassium Level 4.1 mmol/L (3.5-5.1) 4.0 mmol/L (3.5-5.1) Chloride Level 108 mmol/L (98-107) 106 mmol/L (98-107) Carbon Dioxide Level 25 mmol/L (21-32) 26 mmol/L (21-32) Anion Gap 10 (6-14) 9 (6-14) Blood Urea Nitrogen 8 mg/dL (8-26) 15 mg/dL (8-26) Creatinine 1.2 mg/dL (0.7-1.3) 1.1 mg/dL (0.7-1.3) Estimated GFR (Cockcroft-Gault) 61.8 68.3 Glucose Level 96 mg/dL (70-99) 104 mg/dL (70-99) Calcium Level 8.8 mg/dL (8.5-10.1) 8.8 mg/dL (8.5-10.1) Laboratory Tests Test 02/08/19 05:35 Sodium Level 141 mmol/L (136-145) Potassium Level 4.0 mmol/L (3.5-5.1) Chloride Level 106 mmol/L (98-107) Carbon Dioxide Level 26 mmol/L (21-32) Anion Gap 9 (6-14) Blood Urea Nitrogen 15 mg/dL (8-26) Creatinine 1.1 mg/dL (0.7-1.3) Estimated GFR (Cockcroft-Gault) 68.3 Glucose Level 104 mg/dL (70-99) Calcium Level 8.8 mg/dL (8.5-10.1) Microbiology 02/03/19 Anaerobic/Aerobic Culture - Final, Complete 02/03/19 Anaerobic Culture Result 1 (BERKLEY) - Final, Complete 02/03/19 Aerobic Culture - Final, Complete 02/03/19 Aerobic Culture Result 1 (BERKLEY) - Final, Complete 02/03/19 Gram Stain - Final, Complete 02/03/19 Gram Stain Result 1 (BERKLEY) - Final, Complete 02/03/19 Gram Stain Result 2 (BERKLEY) - Final, Complete Medications Current Medications Acetaminophen (Tylenol) 650 mg PRN Q4HRS PRN PO PAIN; Start 01/30/19 at 14:00; Stop 02/01/19 at 08:20; Status DC Ergocalciferol (Vitamin D2) 50,000 unit QMONTH PO ; Start 03/01/19 at 09:00 Famotidine (Pepcid) 20 mg HS PO Last administered on 02/07/19at 21:17; Start 01/30/19 at 21:00 Guaifenesin (Robitussin Dm) 5 ml PRN QID PRN PO COUGH; Start 01/30/19 at 14:00 Ascorbic Acid (Vitamin C) 500 mg BID PO Last administered on 02/08/19at 08:52; Start 01/30/19 at 21:00 Clindamycin HCl (Cleocin) 300 mg TID PO Last administered on 01/31/19at 08:39; Start 01/30/19 at 14:00; Stop 01/31/19 at 09:30; Status DC Magnesium Hydroxide (Milk Of Magnesia) 2,400 mg PRN DAILY PRN PO CONSTIPATION; Start 01/30/19 at 14:00 Mesalamine (Delzicol) 800 mg TID PO Last administered on 02/08/19at 08:52; Start 01/30/19 at 15:00 Non-Formulary Medication (Protein Supplement (Nutritional Drink Mix)) 420 gm DAILY PO ; Start 01/31/19 at 09:00; Status UNV Iohexol (Omnipaque 300 Mg/ml) 75 ml 1X ONCE IV Last administered on 01/31/19at 08:29; Start 01/31/19 at 08:00; Stop 01/31/19 at 08:01; Status DC Acetaminophen (Tylenol) 500 mg PRN Q6HRS PRN PO MILD PAIN / TEMP; Start 02/01/19 at 08:30 Acetaminophen/ Codeine Phosphate (Tylenol #3) 1 tab PRN Q6HRS PRN PO MODERATE PAIN Last administered on 02/03/19at 20:57; Start 02/01/19 at 08:30 Oxycodone/ Acetaminophen (Percocet 5/325) 1 tab PRN Q4HRS PRN PO SEVERE PAIN Last administered on 02/08/19at 08:53; Start 02/01/19 at 08:30 Morphine Sulfate (Morphine Sulfate) 2 mg PRN Q2HR PRN IV PAIN Last administered on 02/06/19at 16:07; Start 02/01/19 at 08:30 Ondansetron HCl (Zofran) 4 mg PRN Q6HRS PRN IVP NAUSEA/VOMITING; Start 02/03/19 at 09:30 Diphenhydramine HCl (Benadryl) 25 mg PRN QHS PRN PO INSOMNIA; Start 02/03/19 at 09:30 Lidocaine HCl (Buffered Lidocaine 1%) 3 ml STK-MED ONCE .ROUTE ; Start 02/03/19 at 10:01; Stop 02/03/19 at 10:02; Status DC Midazolam HCl (Versed) 2 mg STK-MED ONCE .ROUTE ; Start 02/03/19 at 10:20; Stop 02/03/19 at 10:21; Status DC Fentanyl Citrate (Fentanyl 2ml Vial) 100 mcg STK-MED ONCE .ROUTE ; Start 02/03/19 at 10:20; Stop 02/03/19 at 10:21; Status DC Lidocaine HCl (Buffered Lidocaine 1%) 3 ml 1X ONCE IJ Last administered on 02/03/19at 10:58; Start 02/03/19 at 11:00; Stop 02/03/19 at 11:01; Status DC Midazolam HCl (Versed) 2 mg 1X ONCE IV Last administered on 02/03/19at 10:57; Start 02/03/19 at 11:00; Stop 02/03/19 at 11:01; Status DC Fentanyl Citrate (Fentanyl 2ml Vial) 100 mcg 1X ONCE IV Last administered on 02/03/19at 10:57; Start 02/03/19 at 11:00; Stop 02/03/19 at 11:01; Status DC Vancomycin HCl (Vanco Per Pharmacy) 1 each PRN DAILY PRN MC SEE COMMENTS Last a dministered on 02/05/19at 07:39; Start 02/03/19 at 13:00; Stop 02/06/19 at 11:36; Status DC Piperacillin Sod/ Tazobactam Sod (Zosyn Per Pharmacy) 1 each PRN DAILY PRN MC SEE COMMENTS; Start 02/03/19 at 13:00 Vancomycin HCl 2 gm/Sodium Chloride 500 ml @ 250 mls/hr 1X ONCE IV Last administered on 02/03/19at 15:01; Start 02/03/19 at 14:00; Stop 02/03/19 at 15:59; Status DC Piperacillin Sod/ Tazobactam Sod 3.375 gm/Sodium Chloride 50 ml @ 100 mls/hr Q6HRS IV Last administered on 02/08/19at 05:43; Start 02/03/19 at 13:15 Vancomycin HCl 1.5 gm/Sodium Chloride 500 ml @ 250 mls/hr Q12H IV Last administered on 02/05/19at 04:08; Start 02/04/19 at 03:00; Stop 02/05/19 at 06:00; Status DC Vancomycin HCl (Vancomycin Trough Level) 1 each 1X ONCE MC Last administered on 02/05/19at 03:00; Start 02/05/19 at 02:30; Stop 02/05/19 at 02:31; Status DC Lactobacillus Rhamnosus (Culturelle) 1 cap BID PO Last administered on 02/08/19at 08:52; Start 02/04/19 at 21:00 Vancomycin HCl 1.5 gm/Sodium Chloride 500 ml @ 250 mls/hr Q8H IV ; Start 02/05/19 at 12:00; Stop 02/05/19 at 07:31; Status DC Vancomycin HCl (Vancomycin Trough Level) 1 each 1X ONCE MC ; Start 02/06/19 at 11:30; Stop 02/05/19 at 07:31; Status DC Vancomycin HCl 2 gm/Sodium Chloride 500 ml @ 250 mls/hr Q12H IV Last administered on 02/06/19at 04:19; Start 02/05/19 at 16:00; Stop 02/06/19 at 11:36; Status DC Vancomycin HCl (Vancomycin Trough Level) 1 each 1X ONCE MC ; Start 02/06/19 at 15:30; Stop 02/06/19 at 11:36; Status DC Daptomycin 530 mg/ Sodium Chloride 50 ml @ 100 mls/hr Q24H IV Last administered on 02/07/19at 12:13; Start 02/06/19 at 12:30 Lidocaine HCl (Buffered Lidocaine 1%) 3 ml STK-MED ONCE .ROUTE ; Start 02/07/19 at 14:11; Stop 02/07/19 at 14:11; Status DC Lidocaine HCl (Buffered Lidocaine 1%) 6 ml 1X ONCE INJ ; Start 02/07/19 at 14:30; Stop 02/07/19 at 14:31; Status DC Active Scripts Active Reported Hydrocodone-Apap 5-325 (Hydrocodone Bit/Acetaminophen) 1 Tab Tablet 1-2 Tab PO PRN Q4HRS PRN [place] Cough & Chest Syrup (Guaifenesin/Dextromethorphan) 118 Ml Syrup 5 Ml PO PRN QID PRN 12 Days Milk Of Magnesia (Magnesium Hydroxide) 2,400 Mg/10 Ml Oral.susp 2,400 Mg PO PRN DAILY PRN Tylenol (Acetaminophen) 325 Mg Tablet 650 Mg PO PRN Q4HRS PRN Clindamycin Hcl 300 Mg Capsule 300 Mg PO TID Vitamin D2 (Ergocalciferol (Vitamin D2)) 50,000 Unit Capsule 1 Cap PO QMONTH Vitamin C (Ascorbate Calcium) 500 Mg Tablet 500 Mg PO BID Nutritional Drink Mix (Protein Supplement) 420 Gm Powder 420 Gm PO DAILY Multi-Vitamin Daily (Multivitamin) 1 Each Tablet 1 Each PO Famotidine 20 Mg Tablet 20 Mg PO HS Asacol Hd (Mesalamine) 800 Mg Tablet.dr 1,600 Mg PO TID Vitals/I & O Vital Sign - Last 24 Hours 02/07/19 02/07/19 02/07/19 02/07/19 11:00 15:00 19:00 19:30 Temp 97.4 98.0 97.4 98.0 Pulse 64 78 67 Resp 18 18 20 B/P (MAP) 110/55 (73) 116/67 (83) 118/62 (80) Pulse Ox 98 98 97 O2 Delivery Room Air Room Air Room Air 02/07/19 02/08/19 02/08/19 02/08/19 23:00 03:00 07:00 08:53 Temp 98.0 97.9 98.3 98.0 97.9 98.3 Pulse 67 60 67 Resp 16 16 16 16 B/P (MAP) 103/55 (71) 95/57 (70) 101/55 (70) Pulse Ox 95 96 96 O2 Delivery Room Air Room Air 02/08/19 09:53 Resp 16 O2 Delivery Room Air Intake and Output 02/07/19 02/07/19 02/08/19 15:00 23:00 07:00 Intake Total 240 ml 120 ml Balance 240 ml 120 ml DIANNA RHOADES MD Feb 08, 2019 10:17
[2019-02-08 11:00] VITALS: BP 114/66
--- NOTE | 2019-02-08 12:18 | PDOC ---
Infectious Disease Note Subjective: Subjective Pt without complaints feels stronger No F/C/N/V/or increase ostomy output says feels stronger has been having dry skin on legs Vital Signs: Vital Signs Vital Signs Date Time Temp Pulse Resp B/P (MAP) Pulse Ox O2 Delivery O2 Flow Rate FiO2 02/08/19 11:00 97.5 67 16 114/66 (82) 96 Room Air 97.5 02/07/19 08:00 2.0 Physical Exam: PHYSICAL EXAM GENERAL: Propped up in bed, alert, in no apparent distress. HEENT: Pupils equally round. Oropharynx pink and moist. NECK: Supple, no lymphadenopathy. LUNGS: Clear to auscultation. HEART: S1, S2. ABDOMEN: Obese, soft, nontender, bowel sounds present. Multiple scars and right-sided ostomy. EXTREMITIES: No gross edema or cyanosis. SKIN: Warm to touch without signs of rash. Several sacrococcygeal fistulas . NEUROLOGIC: Alert and answering questions appropriately. PIV Medications: Inpatient Meds: Current Medications Medications (Trade) Dose Ordered Sig/Charlee Start Time Stop Time Status Last Admin Dose Admin Acetaminophen (Tylenol) 500 mg PRN Q6HRS PRN 02/01/19 08:30 Acetaminophen/ Codeine Phosphate (Tylenol #3) 1 tab PRN Q6HRS PRN 02/01/19 08:30 02/03/19 20:57 Ascorbic Acid (Vitamin C) 500 mg BID 01/30/19 21:00 02/08/19 08:52 Clindamycin HCl (Cleocin) 300 mg TID 01/30/19 14:00 01/31/19 09:30 DC 01/31/19 08:39 Daptomycin 530 mg/ Sodium Chloride 50 ml @ 100 mls/hr Q24H 02/06/19 12:30 02/07/19 12:13 Diphenhydramine HCl (Benadryl) 25 mg PRN QHS PRN 02/03/19 09:30 Ergocalciferol (Vitamin D2) 50,000 unit QMONTH 03/01/19 09:00 Famotidine (Pepcid) 20 mg HS 01/30/19 21:00 02/07/19 21:17 Fentanyl Citrate (Fentanyl 2ml Vial) 100 mcg 1X ONCE 02/03/19 11:00 02/03/19 11:01 DC 02/03/19 10:57 Guaifenesin (Robitussin Dm) 5 ml PRN QID PRN 01/30/19 14:00 Iohexol (Omnipaque 300 Mg/ml) 75 ml 1X ONCE 01/31/19 08:00 01/31/19 08:01 DC 01/31/19 08:29 Lactobacillus Rhamnosus (Culturelle) 1 cap BID 02/04/19 21:00 02/08/19 08:52 Lidocaine HCl (Buffered Lidocaine 1%) 6 ml 1X ONCE 02/07/19 14:30 02/07/19 14:31 DC Magnesium Hydroxide (Milk Of Magnesia) 2,400 mg PRN DAILY PRN 01/30/19 14:00 Mesalamine (Delzicol) 800 mg TID 01/30/19 15:00 02/08/19 08:52 Midazolam HCl (Versed) 2 mg 1X ONCE 02/03/19 11:00 02/03/19 11:01 DC 02/03/19 10:57 Morphine Sulfate (Morphine Sulfate) 2 mg PRN Q2HR PRN 02/01/19 08:30 02/06/19 16:07 Non-Formulary Medication (Protein Supplement (Nutritional Drink Mix)) 420 gm DAILY 01/31/19 09:00 UNV Ondansetron HCl (Zofran) 4 mg PRN Q6HRS PRN 02/03/19 09:30 Oxycodone/ Acetaminophen (Percocet 5/325) 1 tab PRN Q4HRS PRN 02/01/19 08:30 02/08/19 08:53 Piperacillin Sod/ Tazobactam Sod (Zosyn Per Pharmacy) 1 each PRN DAILY PRN 02/03/19 13:00 Piperacillin Sod/ Tazobactam Sod 3.375 gm/Sodium Chloride 50 ml @ 100 mls/hr Q6HRS 02/03/19 13:15 02/08/19 05:43 Vancomycin HCl (Vanco Per Pharmacy) 1 each PRN DAILY PRN 02/03/19 13:00 02/06/19 11:36 DC 02/05/19 07:39 Vancomycin HCl (Vancomycin Trough Level) 1 each 1X ONCE 02/06/19 15:30 02/06/19 11:36 DC Vancomycin HCl 1.5 gm/Sodium Chloride 500 ml @ 250 mls/hr Q8H 02/05/19 12:00 02/05/19 07:31 DC Vancomycin HCl 2 gm/Sodium Chloride 500 ml @ 250 mls/hr Q12H 02/05/19 16:00 02/06/19 11:36 DC 02/06/19 04:19 Labs: Lab Laboratory Tests Test 02/08/19 05:35 Sodium Level 141 mmol/L (136-145) Potassium Level 4.0 mmol/L (3.5-5.1) Chloride Level 106 mmol/L (98-107) Carbon Dioxide Level 26 mmol/L (21-32) Anion Gap 9 (6-14) Blood Urea Nitrogen 15 mg/dL (8-26) Creatinine 1.1 mg/dL (0.7-1.3) Estimated GFR (Cockcroft-Gault) 68.3 Glucose Level 104 mg/dL (70-99) Calcium Level 8.8 mg/dL (8.5-10.1) Micro RUN DATE: 02/07/19 [facility] LAB *LIVE* PAGE 1 RUN TIME: 1610 Specimen Inquiry PATIENT: KRISTINGRAHAM Esposito ACCT: [id number] LOC: [address] [place] [address] U: [id number] AGE/SX: 58/M ROOM: [facility] RE01/30/[address]: FRANK KNIGHT III DO : 1960 BED: 1 DIS: STATUS: ADM IN TLOC: SPEC #: [id number] JOEL: 02/03/19 STATUS: COMP REQ #: [id number] RECD: 02/03/19 [facility] DR: JENNIFER CAVANAUGH MD SOURCE: [facility] ENTR: 02/03/[address]: FRANK KNIGHT III, DO [facility]: LYDIA PROCTOR STEPHEN J MD ORDERED: DIANN/ERVIN/TRISTAN COMMENTS: SACRAL BONE TISSUE Procedure Result ANAEROBIC-AEROBIC CULTURE Final Final report ANAEROBIC RES 1 Final Comment No anaerobic growth in 72 hours. AEROBIC CULT Final Preliminary report Final report AEROBIC RES 1 Final Comment No growth in 36 - 48 hours. No growth in 56 - 72 hours. GRAM STAIN Final Final report GRAM STAIN RES 1 Final Comment No white blood cells seen. GRAM STAIN RES 2 Final No organisms seen Performed at: - [facility], [place], [place] [id number] Desk Editor: EBEN Foster MD, Phone: [phone] RUN DATE: 02/03/19 [facility] LAB *LIVE* PAGE 1 RUN TIME: 1409 Specimen Inquiry PATIENT: GRAHAM FOSTER Vaibhav ACCT: [id number] LOC: [address] [place] [address] U: [id number] AGE/SX: 58/M ROOM: 562 RE01/30/[address]: FRANK KNIGHT III, DO : 1960 BED: 1 DIS: STATUS: ADM IN TLOC: SPEC #: [id number] JOEL: 01/30/19-1029 STATUS: COMP REQ #: [id number] RECD: 01/30/19-[address]: FRANK KNIGHT III, DO SOURCE: [facility] ENTR: 01/30/19-[address]: LYDIA BONILLA DO [facility]: WOUND ORDERED: ANAER/AEROB/GS COMMENTS: SACRAL WOUND Procedure Result ANAEROBIC-AEROBIC CULTURE Final Final report ANAEROBIC RES 1 Final Comment No anaerobic growth in 72 hours. AEROBIC CULT Final Preliminary report Final report AEROBIC RES 1 Final Mixed site se. 2+ GRAM STAIN Final Final report GRAM STAIN RES 1 Final Comment No white blood cells seen. GRAM STAIN RES 2 Final No organisms seen Performed at: - [facility] [address], [place], [place] [id number] Desk Editor: EBEN Foster MD, Phone: [phone] END OF REPORT Objective: Assessment: 1. Acute and chronic OM changes on CT abdomen and pelvis ,Pt has been treated with previous OM at [facility] in the past . Chronic OM could be from the same ESR 35 S/P IR biopsy 02/03 Cult negative 2. Crohn's disease with history of ostomy and multiple fistula repairs. 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 Wound Cults negative from 12/2018 4. Gastroesophageal reflux disease. 4. Obesity. 5. Kidney stone on CT Abdomen Plan: Plan of Care Cont trial with empiric zosyn/ daptomycin Ideally would need I and D of acute om, antibiotics alone will not be optimal Recommended transfer to [facility] Plastics for I and D, ostectomy and possible flap if eligible Per staff [facility] did not accept pt for transfer PICC line social service to assist with discharge antibiotics script in chart weekly labs CBCD/BUN/CREAT/CPK/ESR/LFT d/w pt about rationale with antibiotic treatment, adverse events and risk of failure Probiotics Off load WOUND CARE per wound team D/W JENNIFER CALDERON MD Feb 08, 2019 12:18
[2019-02-08] MEDS: DAPTOmycin (GENERIC) IVPB 530 MG in IV NORMAL SALINE 50ML 50 ML IV SCH (12:51)
[2019-02-08 15:00] VITALS: BP 123/86
[2019-02-08 19:00] VITALS: BP 118/66
[2019-02-08] MEDS: FAMOTIDINE 20 MG TABLET. PO SCH (20:43)
[2019-02-08 23:00] VITALS: BP 107/63
[2019-02-09 03:00] VITALS: BP 117/64
[2019-02-09] MEDS: PIPERACILLIN/TAZOBACTAM 3.375 GM in IV NORMAL SALINE 50ML 50 ML IV SCH ×3 (05:45→18:32)
[2019-02-09 06:10] LABS: BASO # 0.1 x10^3/uL (0.0-0.2); BASO % 1 % (0-3); EOS # 0.2 x10^3/uL (0.0-0.7); EOS % 3 % (0-3); HEMATOCRIT 39.3 % (39.0-53.0); HEMOGLOBIN 13.1 g/dL (13.0-17.5); LYMPH % 16 % (24-48); MEAN CORPUSCULAR HEMOGLOBIN 30 pg (25-35); MEAN CORPUSCULAR HGB CONC 33 g/dL (31-37); MEAN CORPUSCULAR VOLUME 90 fL (79-100); MONO # 0.6 x10^3/uL (0.0-1.1); MONO % 10 % (0-9); NEUT # 4.8 x10^3/uL (1.8-7.7); NEUT % 71 % (31-73); PLATELET COUNT 153 x10^3/uL (140-400); RED BLOOD COUNT 4.35 x10^6/uL (4.30-5.70); RED CELL DISTRIBUTION WIDTH 13.9 % (11.5-14.5); WHITE BLOOD COUNT 6.7 x10^3/uL (4.0-11.0)
[2019-02-09 06:32] LABS: ALBUMIN 2.9 g/dL (3.4-5.0); ALBUMIN/GLOBULIN RATIO 0.6 (1.0-1.7); CALCIUM 8.6 mg/dL (8.5-10.1); CREATININE 1.1 mg/dL (0.7-1.3); GFR 68.3; POTASSIUM 4.1 mmol/L (3.5-5.1); TOTAL BILIRUBIN 0.3 mg/dL (0.2-1.0); TOTAL PROTEIN 7.5 g/dL (6.4-8.2)
[2019-02-09 07:00] VITALS: BP 114/61
--- NOTE | 2019-02-09 09:01 | RAD ---
Exam: Fluoroscopic and ultrasound guided right percutaneous inserted central venous catheter placement 02/09/2019 6:55 AM .Indication: CUSTODIAL ENGINEER ANTIBIOTICS Technique: Informed oral and written consent were obtained. The right upper extremity was prepped and draped using sterile barrier technique. All elements of maximal sterile barrier technique including the use of a cap, mask, sterile gown, sterile gloves, large sterile sheet, appropriate hand hygiene, and 2% chlorhexidine for cutaneous antisepsis (or acceptable alternative antiseptic per current guidelines) were followed for this procedure.. Real-time ultrasound demonstrated a patent right basilic vein which was prepped and draped in usual sterile fashion. 1% lidocaine used for local anesthesia. Using real-time ultrasound guidance the access needle percutaneously punctured the selected right basilic vein. Reference ultrasound images were saved to the medical record. A guidewire was advanced through the needle to the cavoatrial junction, and a peel-away sheath placed. The catheter was cut to length and inserted through the peel-away sheath such that its tip is at the cavoatrial junction. The wire and sheath were removed, and the catheter secured in place, and a sterile dressing was applied. Catheter was found to flush and aspirate normally. No immediate complications are identified. FLUORO TIME: 0.6 min DOSE AREA PRODUCT: 1 Gycm2 Impression: Ultrasound and fluoroscopically guided placement of a right upper extremity PICC line.
--- NOTE | 2019-02-09 09:21 | PDOC ---
PROGRESS NOTES Chief Complaint Chief Complaint IMPRESSION Non-surgical perianal wound - with bleeding Severe Crohn's with multiple surgeries s/p ostomy (multiple fissures and abdominal wounds) Multiple deep ulcers along the distal sacrum and buttocks extend into the right ischiorectal fat and to the former site of the coccyx. The coccyx and distal sacrum have been completely eroded. There is some debris within the tracts, but no drainable collection. 2. 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 Chronic pain Hyperlipidemia Hypertension GERD Incidental 5 mm rt kidney stone Hiatal hernia with small bowel loops Cont trial with empiric zosyn/ daptomycin CT-guided biopsy of the sacrum PLAN transfer to [facility]/// Plastics for I and D, ostectomy and possible flap if eligible [facility] did not accept pt for transfer PICC line social service to assist with discharge antibiotics 39 MIN PT EXAM, CHART REVIEW, > 50% OF TIME SPENT WITH EXAM, CHART REVIEW, PT CARE COORDINATION History of Present Illness History of Present Illness 02/08/19 Pt seen and examined pleasant Pt ambulated w/out difficulty DW pt about their care DW RN Reviewed pt's chart 02/07/19 Patient seen and examined Chart reviewed Discussed with RN Vitals Vitals Vital Signs Date Time Temp Pulse Resp B/P (MAP) Pulse Ox O2 Delivery O2 Flow Rate FiO2 02/09/19 07:00 97.8 77 17 114/61 (78) 96 Room Air 97.8 Physical Exam Physical Exam GENERAL: Propped up in bed, alert, in no apparent distress. HEENT: Pupils equally round. Oropharynx pink and moist. NECK: Supple, no lymphadenopathy. LUNGS: Clear to auscultation. HEART: S1, S2. ABDOMEN: Obese, soft, nontender, bowel sounds present. Multiple scars and right-sided ostomy. EXTREMITIES: No gross edema or cyanosis. SKIN: Warm to touch without signs of rash. Several sacrococcygeal fistulas . NEUROLOGIC: Alert and answering questions appropriately. PIV General: Alert, Oriented X3, Cooperative, No acute distress Heart: Regular rate, Normal S1, Normal S2 Lungs: Clear Abdomen: Normal bowel sounds, Soft, Other (Multiple scars and right-sided ostomy.) Extremities: No clubbing, No cyanosis Skin: No rashes, Other ( Several sacrococcygeal fistula, 3 packed. + drainage, no surrounding redness ) Labs LABS Laboratory Tests Test 02/09/19 05:55 White Blood Count 6.7 x10^3/uL (4.0-11.0) Red Blood Count 4.35 x10^6/uL (4.30-5.70) Hemoglobin 13.1 g/dL (13.0-17.5) Hematocrit 39.3 % (39.0-53.0) Mean Corpuscular Volume 90 fL (79-100) Mean Corpuscular Hemoglobin 30 pg (25-35) Mean Corpuscular Hemoglobin Concent 33 g/dL (31-37) Red Cell Distribution Width 13.9 % (11.5-14.5) Platelet Count 153 x10^3/uL (140-400) Neutrophils (%) (Auto) 71 % (31-73) Lymphocytes (%) (Auto) 16 % (24-48) Monocytes (%) (Auto) 10 % (0-9) Eosinophils (%) (Auto) 3 % (0-3) Basophils (%) (Auto) 1 % (0-3) Neutrophils # (Auto) 4.8 x10^3/uL (1.8-7.7) Lymphocytes # (Auto) 1.0 x10^3/uL (1.0-4.8) Monocytes # (Auto) 0.6 x10^3/uL (0.0-1.1) Eosinophils # (Auto) 0.2 x10^3/uL (0.0-0.7) Basophils # (Auto) 0.1 x10^3/uL (0.0-0.2) Sodium Level 140 mmol/L (136-145) Potassium Level 4.1 mmol/L (3.5-5.1) Chloride Level 105 mmol/L (98-107) Carbon Dioxide Level 27 mmol/L (21-32) Anion Gap 8 (6-14) Blood Urea Nitrogen 13 mg/dL (8-26) Creatinine 1.1 mg/dL (0.7-1.3) Estimated GFR (Cockcroft-Gault) 68.3 BUN/Creatinine Ratio 12 (6-20) Glucose Level 98 mg/dL (70-99) Calcium Level 8.6 mg/dL (8.5-10.1) Total Bilirubin 0.3 mg/dL (0.2-1.0) Aspartate Amino Transf (AST/SGOT) 17 U/L (15-37) Alanine Aminotransferase (ALT/SGPT) 26 U/L (16-63) Alkaline Phosphatase 85 U/L (46-116) Total Protein 7.5 g/dL (6.4-8.2) Albumin 2.9 g/dL (3.4-5.0) Albumin/Globulin Ratio 0.6 (1.0-1.7) Thyroid Stimulating Hormone (TSH) 1.357 uIU/mL (0.358-3.74) Comment Review of Relevant I have reviewed the following items hermes (where applicable) has been applied. Labs Laboratory Tests Test 02/08/19 05:35 02/09/19 05:55 Sodium Level 141 mmol/L (136-145) 140 mmol/L (136-145) Potassium Level 4.0 mmol/L (3.5-5.1) 4.1 mmol/L (3.5-5.1) Chloride Level 106 mmol/L (98-107) 105 mmol/L (98-107) Carbon Dioxide Level 26 mmol/L (21-32) 27 mmol/L (21-32) Anion Gap 9 (6-14) 8 (6-14) Blood Urea Nitrogen 15 mg/dL (8-26) 13 mg/dL (8-26) Creatinine 1.1 mg/dL (0.7-1.3) 1.1 mg/dL (0.7-1.3) Estimated GFR (Cockcroft-Gault) 68.3 68.3 Glucose Level 104 mg/dL (70-99) 98 mg/dL (70-99) Calcium Level 8.8 mg/dL (8.5-10.1) 8.6 mg/dL (8.5-10.1) White Blood Count 6.7 x10^3/uL (4.0-11.0) Red Blood Count 4.35 x10^6/uL (4.30-5.70) Hemoglobin 13.1 g/dL (13.0-17.5) Hematocrit 39.3 % (39.0-53.0) Mean Corpuscular Volume 90 fL (79-100) Mean Corpuscular Hemoglobin 30 pg (25-35) Mean Corpuscular Hemoglobin Concent 33 g/dL (31-37) Red Cell Distribution Width 13.9 % (11.5-14.5) Platelet Count 153 x10^3/uL (140-400) Neutrophils (%) (Auto) 71 % (31-73) Lymphocytes (%) (Auto) 16 % (24-48) Monocytes (%) (Auto) 10 % (0-9) Eosinophils (%) (Auto) 3 % (0-3) Basophils (%) (Auto) 1 % (0-3) Neutrophils # (Auto) 4.8 x10^3/uL (1.8-7.7) Lymphocytes # (Auto) 1.0 x10^3/uL (1.0-4.8) Monocytes # (Auto) 0.6 x10^3/uL (0.0-1.1) Eosinophils # (Auto) 0.2 x10^3/uL (0.0-0.7) Basophils # (Auto) 0.1 x10^3/uL (0.0-0.2) BUN/Creatinine Ratio 12 (6-20) Total Bilirubin 0.3 mg/dL (0.2-1.0) Aspartate Amino Transf (AST/SGOT) 17 U/L (15-37) Alanine Aminotransferase (ALT/SGPT) 26 U/L (16-63) Alkaline Phosphatase 85 U/L (46-116) Total Protein 7.5 g/dL (6.4-8.2) Albumin 2.9 g/dL (3.4-5.0) Albumin/Globulin Ratio 0.6 (1.0-1.7) Thyroid Stimulating Hormone (TSH) 1.357 uIU/mL (0.358-3.74) Laboratory Tests Test 02/09/19 05:55 White Blood Count 6.7 x10^3/uL (4.0-11.0) Red Blood Count 4.35 x10^6/uL (4.30-5.70) Hemoglobin 13.1 g/dL (13.0-17.5) Hematocrit 39.3 % (39.0-53.0) Mean Corpuscular Volume 90 fL (79-100) Mean Corpuscular Hemoglobin 30 pg (25-35) Mean Corpuscular Hemoglobin Concent 33 g/dL (31-37) Red Cell Distribution Width 13.9 % (11.5-14.5) Platelet Count 153 x10^3/uL (140-400) Neutrophils (%) (Auto) 71 % (31-73) Lymphocytes (%) (Auto) 16 % (24-48) Monocytes (%) (Auto) 10 % (0-9) Eosinophils (%) (Auto) 3 % (0-3) Basophils (%) (Auto) 1 % (0-3) Neutrophils # (Auto) 4.8 x10^3/uL (1.8-7.7) Lymphocytes # (Auto) 1.0 x10^3/uL (1.0-4.8) Monocytes # (Auto) 0.6 x10^3/uL (0.0-1.1) Eosinophils # (Auto) 0.2 x10^3/uL (0.0-0.7) Basophils # (Auto) 0.1 x10^3/uL (0.0-0.2) Sodium Level 140 mmol/L (136-145) Potassium Level 4.1 mmol/L (3.5-5.1) Chloride Level 105 mmol/L (98-107) Carbon Dioxide Level 27 mmol/L (21-32) Anion Gap 8 (6-14) Blood Urea Nitrogen 13 mg/dL (8-26) Creatinine 1.1 mg/dL (0.7-1.3) Estimated GFR (Cockcroft-Gault) 68.3 BUN/Creatinine Ratio 12 (6-20) Glucose Level 98 mg/dL (70-99) Calcium Level 8.6 mg/dL (8.5-10.1) Total Bilirubin 0.3 mg/dL (0.2-1.0) Aspartate Amino Transf (AST/SGOT) 17 U/L (15-37) Alanine Aminotransferase (ALT/SGPT) 26 U/L (16-63) Alkaline Phosphatase 85 U/L (46-116) Total Protein 7.5 g/dL (6.4-8.2) Albumin 2.9 g/dL (3.4-5.0) Albumin/Globulin Ratio 0.6 (1.0-1.7) Thyroid Stimulating Hormone (TSH) 1.357 uIU/mL (0.358-3.74) Microbiology 02/03/19 Anaerobic/Aerobic Culture - Final, Complete 02/03/19 Anaerobic Culture Result 1 (BERKLEY) - Final, Complete 02/03/19 Aerobic Culture - Final, Complete 02/03/19 Aerobic Culture Result 1 (BERKLEY) - Final, Complete 02/03/19 Gram Stain - Final, Complete 02/03/19 Gram Stain Result 1 (BERKLEY) - Final, Complete 02/03/19 Gram Stain Result 2 (BERKLEY) - Final, Complete Medications Current Medications Acetaminophen (Tylenol) 650 mg PRN Q4HRS PRN PO PAIN; Start 01/30/19 at 14:00; Stop 02/01/19 at 08:20; Status DC Ergocalciferol (Vitamin D2) 50,000 unit QMONTH PO ; Start 03/01/19 at 09:00 Famotidine (Pepcid) 20 mg HS PO Last administered on 02/08/19at 20:43; Start 01/30/19 at 21:00 Guaifenesin (Robitussin Dm) 5 ml PRN QID PRN PO COUGH; Start 01/30/19 at 14:00 Ascorbic Acid (Vitamin C) 500 mg BID PO Last administered on 02/08/19at 20:43; Start 01/30/19 at 21:00 Clindamycin HCl (Cleocin) 300 mg TID PO Last administered on 01/31/19at 08:39; Start 01/30/19 at 14:00; Stop 01/31/19 at 09:30; Status DC Magnesium Hydroxide (Milk Of Magnesia) 2,400 mg PRN DAILY PRN PO CONSTIPATION; Start 01/30/19 at 14:00 Mesalamine (Delzicol) 800 mg TID PO Last administered on 02/08/19at 20:43; Start 01/30/19 at 15:00 Non-Formulary Medication (Protein Supplement (Nutritional Drink Mix)) 420 gm DAILY PO ; Start 01/31/19 at 09:00; Status UNV Iohexol (Omnipaque 300 Mg/ml) 75 ml 1X ONCE IV Last administered on 01/31/19at 08:29; Start 01/31/19 at 08:00; Stop 01/31/19 at 08:01; Status DC Acetaminophen (Tylenol) 500 mg PRN Q6HRS PRN PO MILD PAIN / TEMP; Start 02/01/19 at 08:30 Acetaminophen/ Codeine Phosphate (Tylenol #3) 1 tab PRN Q6HRS PRN PO MODERATE PAIN Last administered on 02/03/19at 20:57; Start 02/01/19 at 08:30 Oxycodone/ Acetaminophen (Percocet 5/325) 1 tab PRN Q4HRS PRN PO SEVERE PAIN Last administered on 02/08/19at 16:44; Start 02/01/19 at 08:30 Morphine Sulfate (Morphine Sulfate) 2 mg PRN Q2HR PRN IV PAIN Last administered on 02/06/19at 16:07; Start 02/01/19 at 08:30 Ondansetron HCl (Zofran) 4 mg PRN Q6HRS PRN IVP NAUSEA/VOMITING; Start 02/03/19 at 09:30 Diphenhydramine HCl (Benadryl) 25 mg PRN QHS PRN PO INSOMNIA; Start 02/03/19 at 09:30 Lidocaine HCl (Buffered Lidocaine 1%) 3 ml STK-MED ONCE .ROUTE ; Start 02/03/19 at 10:01; Stop 02/03/19 at 10:02; Status DC Midazolam HCl (Versed) 2 mg STK-MED ONCE .ROUTE ; Start 02/03/19 at 10:20; Stop 02/03/19 at 10:21; Status DC Fentanyl Citrate (Fentanyl 2ml Vial) 100 mcg STK-MED ONCE .ROUTE ; Start 02/03/19 at 10:20; Stop 02/03/19 at 10:21; Status DC Lidocaine HCl (Buffered Lidocaine 1%) 3 ml 1X ONCE IJ Last administered on 02/03/19at 10:58; Start 02/03/19 at 11:00; Stop 02/03/19 at 11:01; Status DC Midazolam HCl (Versed) 2 mg 1X ONCE IV Last administered on 02/03/19 10:57; Start 02/03/19 at 11:00; Stop 02/03/19 at 11:01; Status DC Fentanyl Citrate (Fentanyl 2ml Vial) 100 mcg 1X ONCE IV Last administered on 02/03/19 10:57; Start 02/03/19 at 11:00; Stop 02/03/19 at 11:01; Status DC Vancomycin HCl (Vanco Per Pharmacy) 1 each PRN DAILY PRN MC SEE COMMENTS Last administered on 02/05/19at 07:39; Start 02/03/19 at 13:00; Stop 02/06/19 at 11:36; Status DC Piperacillin Sod/ Tazobactam Sod (Zosyn Per Pharmacy) 1 each PRN DAILY PRN MC SEE COMMENTS; Start 02/03/19 at 13:00 Vancomycin HCl 2 gm/Sodium Chloride 500 ml @ 250 mls/hr 1X ONCE IV Last administered on 02/03/19at 15:01; Start 02/03/19 at 14:00; Stop 02/03/19 at 15:59; Status DC Piperacillin Sod/ Tazobactam Sod 3.375 gm/Sodium Chloride 50 ml @ 100 mls/hr Q6HRS IV Last administered on 02/09/19at 05:45; Start 02/03/19 at 13:15 Vancomycin HCl 1.5 gm/Sodium Chloride 500 ml @ 250 mls/hr Q12H IV Last admini stered on 02/05/19at 04:08; Start 02/04/19 at 03:00; Stop 02/05/19 at 06:00; Status DC Vancomycin HCl (Vancomycin Trough Level) 1 each 1X ONCE MC Last administered on 02/05/19at 03:00; Start 02/05/19 at 02:30; Stop 02/05/19 at 02:31; Status DC Lactobacillus Rhamnosus (Culturelle) 1 cap BID PO Last administered on 02/08/19at 20:43; Start 02/04/19 at 21:00 Vancomycin HCl 1.5 gm/Sodium Chloride 500 ml @ 250 mls/hr Q8H IV ; Start 02/05/19 at 12:00; Stop 02/05/19 at 07:31; Status DC Vancomycin HCl (Vancomycin Trough Level) 1 each 1X ONCE MC ; Start 02/06/19 at 11:30; Stop 02/05/19 at 07:31; Status DC Vancomycin HCl 2 gm/Sodium Chloride 500 ml @ 250 mls/hr Q12H IV Last administered on 02/06/19at 04:19; Start 02/05/19 at 16:00; Stop 02/06/19 at 11:36; Status DC Vancomycin HCl (Vancomycin Trough Level) 1 each 1X ONCE MC ; Start 02/06/19 at 15:30; Stop 02/06/19 at 11:36; Status DC Daptomycin 530 mg/ Sodium Chloride 50 ml @ 100 mls/hr Q24H IV Last administered on 02/08/19at 12:51; Start 02/06/19 at 12:30 Lidocaine HCl (Buffered Lidocaine 1%) 3 ml STK-MED ONCE .ROUTE ; Start 02/07/19 at 14:11; Stop 02/07/19 at 14:11; Status DC Lidocaine HCl (Buffered Lidocaine 1%) 6 ml 1X ONCE INJ ; Start 02/07/19 at 14:30; Stop 02/07/19 at 14:31; Status DC Active Scripts Active Reported Hydrocodone-Apap 5-325 (Hydrocodone Bit/Acetaminophen) 1 Tab Tablet 1-2 Tab PO PRN Q4HRS PRN Tussin Dm Cough & Chest Syrup (Guaifenesin/Dextromethorphan) 118 Ml Syrup 5 Ml PO PRN QID PRN 12 Days Milk Of Magnesia (Magnesium Hydroxide) 2,400 Mg/10 Ml Oral.susp 2,400 Mg PO PRN DAILY PRN Tylenol (Acetaminophen) 325 Mg Tablet 650 Mg PO PRN Q4HRS PRN Clindamycin Hcl 300 Mg Capsule 300 Mg PO TID Vitamin D2 (Ergocalciferol (Vitamin D2)) 50,000 Unit Capsule 1 Cap PO QMONTH Vitamin C (Ascorbate Calcium) 500 Mg Tablet 500 Mg PO BID Nutritional Drink Mix (Protein Supplement) 420 Gm Powder 420 Gm PO DAILY Multi-Vitamin Daily (Multivitamin) 1 Each Tablet 1 Each PO Famotidine 20 Mg Tablet 20 Mg PO HS Asacol Hd (Mesalamine) 800 Mg Tablet.dr 1,600 Mg PO TID Vitals/I & O Vital Sign - Last 24 Hours 02/08/19 02/08/19 02/08/19 02/08/19 09:53 11:00 15:00 16:44 Temp 97.5 97.7 97.5 97.7 Pulse 67 74 Resp 16 16 16 16 B/P (MAP) 114/66 (82) 123/86 (98) Pulse Ox 96 96 O2 Delivery Room Air Room Air Room Air Room Air 02/08/19 02/08/19 02/08/19 02/08/19 17:44 19:00 20:00 23:00 Temp 97.6 98.0 97.6 98.0 Pulse 70 62 Resp 16 20 20 B/P (MAP) 118/66 (83) 107/63 (78) Pulse Ox 95 95 O2 Delivery Room Air Room Air Room Air 02/09/19 02/09/19 03:00 07:00 Temp 97.7 97.8 97.7 97.8 Pulse 61 77 Resp 20 17 B/P (MAP) 117/64 (81) 114/61 (78) Pulse Ox 94 96 O2 Delivery Room Air Room Air Intake and Output 02/08/19 02/08/19 02/09/19 15:00 23:00 07:00 Intake Total 300 ml 600 ml Output Total 200 ml Balance 100 ml 600 ml DIANNA RHOADES MD Feb 09, 2019 09:21
[2019-02-09] MEDS: LACTOBACILLUS RHAMNOSUS GG 1 CAPSULE. PO SCH ×2 (09:34→20:42)
[2019-02-09] MEDS: ASCORBIC ACID 500 MG TABLET PO SCH ×2 (09:34→20:42)
[2019-02-09] MEDS: MESALAMINE 400 MG CAP.DRTAB. PO SCH ×3 (09:35→20:42)
--- NOTE | 2019-02-09 10:06 | PATHOLOGY ---
[facility] Accession Number: [id number] . 01 Material submitted: . sacrum - SACRAL BONE BIOPSY . 01 Clinical history: . Osteomyelitis. . 02 Diagnosis: Segment of bone and skeletal muscle and fibrous tissue, sacral bone needle biopsy: - Focal marrow fibrosis and mild chronic inflammation. LBQ 02/07/2019 1645 Local . 02 Comment: Sections of the sacral bone biopsy reveal bone and focal skeletal muscle and fibrous tissue. The segment of bone shows focal marrow fibrosis and mild chronic inflammation. The bony trabeculae appear viable and focally thickened. The histologic findings are non-specific but are consistent with chronic osteomyelitis. There is no evidence of an acute osteomyelitis. There is no evidence of malignancy. (JPM/db; 02/07/2019) . 02 Electronically signed: . Jeevan Benson MD, Pathologist NPI- [id number] . 01 Gross description: . Received in formalin labeled "Lilly, Zach, sacral bone tissue" is a cylindrical core of stover-white bone measuring 1.0 cm in length and 0.3 cm in diameter. The specimen is slightly soft, and is submitted without decalcification in cassette A1. ([facility] [place] [place]; 02/05/2019) SY/[facility] 02/05/2019 1116 Local . 02 Pathologist provided ICD-10: M89.9 . 02 CPT . 509588 Specimen Comment: A courtesy copy of this report has been sent to [phone], [phone] Specimen Comment: [phone], , Specimen Comment: Report sent to ,DR CAVANAUGH,DR BONILLA / DR KNIGHT Performed at: [address], [place], [place] [id number] MD Jarvis Haque MD Phone: [phone] Performed at: [address] [id number] MD Jeevan Benson MD Phone: [phone]
--- NOTE | 2019-02-09 10:29 | PDOC ---
Infectious Disease Note Subjective: Subjective Pt without complaints feels stronger No F/C/N/V/or increase ostomy output says feels stronger has been having dry skin on legs Vital Signs: Vital Signs Vital Signs Date Time Temp Pulse Resp B/P (MAP) Pulse Ox O2 Delivery O2 Flow Rate FiO2 02/09/19 07:00 97.8 77 17 114/61 (78) 96 Room Air 97.8 Physical Exam: PHYSICAL EXAM GENERAL: Propped up in bed, alert, in no apparent distress. HEENT: Pupils equally round. Oropharynx pink and moist. NECK: Supple, no lymphadenopathy. LUNGS: Clear to auscultation. HEART: S1, S2. ABDOMEN: Obese, soft, nontender, bowel sounds present. Multiple scars and right-sided ostomy. EXTREMITIES: No gross edema or cyanosis. SKIN: Warm to touch without signs of rash. Several sacrococcygeal fistulas . NEUROLOGIC: Alert and answering questions appropriately. PIV Medications: Inpatient Meds: Current Medications Medications (Trade) Dose Ordered Sig/Charlee Start Time Stop Time Status Last Admin Dose Admin Acetaminophen (Tylenol) 500 mg PRN Q6HRS PRN 02/01/19 08:30 Acetaminophen/ Codeine Phosphate (Tylenol #3) 1 tab PRN Q6HRS PRN 02/01/19 08:30 02/03/19 20:57 1 TAB Ascorbic Acid (Vitamin C) 500 mg BID 01/30/19 21:00 02/09/19 09:34 500 MG Clindamycin HCl (Cleocin) 300 mg TID 01/30/19 14:00 01/31/19 09:30 DC 01/31/19 08:39 300 MG Daptomycin 530 mg/ Sodium Chloride 50 ml @ 100 mls/hr Q24H 02/06/19 12:30 02/08/19 12:51 100 MLS/HR Diphenhydramine HCl (Benadryl) 25 mg PRN QHS PRN 02/03/19 09:30 Ergocalciferol (Vitamin D2) 50,000 unit QMONTH 03/01/19 09:00 Famotidine (Pepcid) 20 mg HS 01/30/19 21:00 02/08/19 20:43 20 MG Fentanyl Citrate (Fentanyl 2ml Vial) 100 mcg 1X ONCE 02/03/19 11:00 02/03/19 11:01 DC 02/03/19 10:57 50 MCG Guaifenesin (Robitussin Dm) 5 ml PRN QID PRN 01/30/19 14:00 Iohexol (Omnipaque 300 Mg/ml) 75 ml 1X ONCE 01/31/19 08:00 01/31/19 08:01 DC 01/31/19 08:29 75 ML Lactobacillus Rhamnosus (Culturelle) 1 cap BID 02/04/19 21:00 02/09/19 09:34 1 CAP Lidocaine HCl (Buffered Lidocaine 1%) 6 ml 1X ONCE 02/07/19 14:30 02/07/19 14:31 DC Magnesium Hydroxide (Milk Of Magnesia) 2,400 mg PRN DAILY PRN 01/30/19 14:00 Mesalamine (Delzicol) 800 mg TID 01/30/19 15:00 02/09/19 09:35 800 MG Midazolam HCl (Versed) 2 mg 1X ONCE 02/03/19 11:00 02/03/19 11:01 DC 02/03/19 10:57 1 MG Morphine Sulfate (Morphine Sulfate) 2 mg PRN Q2HR PRN 02/01/19 08:30 02/06/19 16:07 2 MG Non-Formulary Medication (Protein Supplement (Nutritional Drink Mix)) 420 gm DAILY 01/31/19 09:00 UNV Ondansetron HCl (Zofran) 4 mg PRN Q6HRS PRN 02/03/19 09:30 Oxycodone/ Acetaminophen (Percocet 5/325) 1 tab PRN Q4HRS PRN 02/01/19 08:30 02/08/19 16:44 1 TAB Piperacillin Sod/ Tazobactam Sod (Zosyn Per Pharmacy) 1 each PRN DAILY PRN 02/03/19 13:00 Piperacillin Sod/ Tazobactam Sod 3.375 gm/Sodium Chloride 50 ml @ 100 mls/hr Q6HRS 02/03/19 13:15 02/09/19 05:45 100 MLS/HR Vancomycin HCl (Vanco Per Pharmacy) 1 each PRN DAILY PRN 02/03/19 13:00 02/06/19 11:36 DC 02/05/19 07:39 1 EACH Vancomycin HCl (Vancomycin Trough Level) 1 each 1X ONCE 02/06/19 15:30 02/06/19 11:36 DC Vancomycin HCl 1.5 gm/Sodium Chloride 500 ml @ 250 mls/hr Q8H 02/05/19 12:00 02/05/19 07:31 DC Vancomycin HCl 2 gm/Sodium Chloride 500 ml @ 250 mls/hr Q12H 02/05/19 16:00 02/06/19 11:36 DC 02/06/19 04:19 250 MLS/HR Labs: Lab Laboratory Tests Test 02/09/19 05:55 White Blood Count 6.7 x10^3/uL (4.0-11.0) Red Blood Count 4.35 x10^6/uL (4.30-5.70) Hemoglobin 13.1 g/dL (13.0-17.5) Hematocrit 39.3 % (39.0-53.0) Mean Corpuscular Volume 90 fL (79-100) Mean Corpuscular Hemoglobin 30 pg (25-35) Mean Corpuscular Hemoglobin Concent 33 g/dL (31-37) Red Cell Distribution Width 13.9 % (11.5-14.5) Platelet Count 153 x10^3/uL (140-400) Neutrophils (%) (Auto) 71 % (31-73) Lymphocytes (%) (Auto) 16 % (24-48) Monocytes (%) (Auto) 10 % (0-9) Eosinophils (%) (Auto) 3 % (0-3) Basophils (%) (Auto) 1 % (0-3) Neutrophils # (Auto) 4.8 x10^3/uL (1.8-7.7) Lymphocytes # (Auto) 1.0 x10^3/uL (1.0-4.8) Monocytes # (Auto) 0.6 x10^3/uL (0.0-1.1) Eosinophils # (Auto) 0.2 x10^3/uL (0.0-0.7) Basophils # (Auto) 0.1 x10^3/uL (0.0-0.2) Sodium Level 140 mmol/L (136-145) Potassium Level 4.1 mmol/L (3.5-5.1) Chloride Level 105 mmol/L (98-107) Carbon Dioxide Level 27 mmol/L (21-32) Anion Gap 8 (6-14) Blood Urea Nitrogen 13 mg/dL (8-26) Creatinine 1.1 mg/dL (0.7-1.3) Estimated GFR (Cockcroft-Gault) 68.3 BUN/Creatinine Ratio 12 (6-20) Glucose Level 98 mg/dL (70-99) Calcium Level 8.6 mg/dL (8.5-10.1) Total Bilirubin 0.3 mg/dL (0.2-1.0) Aspartate Amino Transf (AST/SGOT) 17 U/L (15-37) Alanine Aminotransferase (ALT/SGPT) 26 U/L (16-63) Alkaline Phosphatase 85 U/L (46-116) Total Protein 7.5 g/dL (6.4-8.2) Albumin 2.9 g/dL (3.4-5.0) Albumin/Globulin Ratio 0.6 (1.0-1.7) Thyroid Stimulating Hormone (TSH) 1.357 uIU/mL (0.358-3.74) Micro ----- ------- RUN DATE: 02/07/19 [facility] LAB *LIVE* PAGE 1 RUN TIME: 1610 Specimen Inquiry PATIENT: KRISTINGRAHAM Esposito ACCT: [id number] LOC: [address] [place] [address] U: [id number] AGE/SX: 58/M ROOM: [facility] RE01/30/[address]: FRANK KNIGHT III DO : 1960 BED: 1 DIS: STATUS: ADM IN TLOC: SPEC #: [id number] JOEL: 02/03/19 STATUS: COMP REQ #: [id number] RECD: 02/03/19 [facility] DR: JENNIFER CAVANAUGH MD SOURCE: SACRUM ENTR: 02/03/[address] [facility] [address]: FRANK KNIGHT III, DO [facility]: LYDIA PROCTOR STEPHEN J MD ORDERED: DIANN/AEROB/TRISTAN COMMENTS: SACRAL BONE TISSUE ---- -------- Procedure Result ANAEROBIC-AEROBIC CULTURE Final Final report ANAEROBIC RES 1 Final Comment No anaerobic growth in 72 hours. AEROBIC CULT Final Preliminary report Final report AEROBIC RES 1 Final Comment No growth in 36 - 48 hours. No growth in 56 - 72 hours. GRAM STAIN Final Final report GRAM STAIN RES 1 Final Comment No white blood cells seen. GRAM STAIN RES 2 Final No organisms seen Performed at: - [address], [place], [place] [id number] Podiatry Doctor: EBEN Foster MD, Phone: [phone] RUN DATE: 02/03/19 [facility] *LIVE* PAGE 1 RUN TIME: 1409 Specimen Inquiry PATIENT: GRAHAM FOSTER Vaibhav ACCT: [id number] LOC: [address] [place] [address] U: [id number] AGE/SX: 58/M ROOM: 562 RE01/30/[address]: FRANK KNIGHT III, DO : 1960 BED: 1 DIS : STATUS: ADM IN TLOC: SPEC #: [id number] JOEL: 01/30/19-1029 STATUS: COMP REQ #: [id number] RECD: 01/30/19-[address]: FRANK KNIGHT III, DO SOURCE: [facility] ENTR: 01/30/19-[address]: LYDIA BONILLA DO [facility]: WOUND ORDERED: ANAER/AEROB/GS COMMENTS: SACRAL WOUND Procedure Result ------ ------ ANAEROBIC-AEROBIC CULTURE Final Final report ANAEROBIC RES 1 Final Comment No anaerobic growth in 72 hours. AEROBIC CULT Final Preliminary report Final report AEROBIC RES 1 Final Mixed site se. 2+ GRAM STAIN Final Final report GRAM STAIN RES 1 Final Comment No white blood cells seen. GRAM STAIN RES 2 Final No organisms seen Performed at: - [facility], [place], [place] [id number] Podiatry Doctor: EBEN Foster MD, Phone: [phone] END OF REPORT Objective: Assessment: 1. Acute and chronic OM changes on CT abdomen and pelvis ,Pt has been treated with previous OM at [facility] in the past . Chronic OM could be from the same ESR 35 S/P IR biopsy 02/03 Cult negative 2. Crohn's disease with history of ostomy and multiple fistula repairs. 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 Wound Cults negative from 12/2018 4. Gastroesophageal reflux disease. 4. Obesity. 5. Kidney stone on CT Abdomen Plan: Plan of Care Cont trial with empiric zosyn/ daptomycin script in chart social service to assist with discharge antibiotics Ideally would need I and D of acute om, antibiotics alone will not be optimal Recommended transfer to [facility] Plastics for I and D, ostectomy and possible flap if eligible Per staff [facility] did not accept pt for transfer PICC line weekly labs CBCD/BUN/CREAT/CPK/ESR/LFT d/w pt about rationale with antibiotic treatment, adverse events and risk of failure Probiotics Off load WOUND CARE per wound team D/W JENNIFER CALDERON MD Feb 09, 2019 10:28
--- NOTE | 2019-02-09 10:30 | NUR ---
late entry: Pt has 100% coverage for IV abx. [facility] can't see pt until Wednesday. Passed this info to Aye that pt might need a different HH agency.
[2019-02-09 11:00] VITALS: BP 113/73
[2019-02-09] MEDS: DAPTOmycin (GENERIC) IVPB 530 MG in IV NORMAL SALINE 50ML 50 ML IV SCH (11:41)
[2019-02-09] MEDS: oxyCODONE/APAP 5/325 1 TAB TABLET PO PRN ×2 (14:46→22:39)
[2019-02-09 15:00] VITALS: BP 107/66
[2019-02-09 19:00] VITALS: BP 108/57
[2019-02-09] MEDS: FAMOTIDINE 20 MG TABLET. PO SCH (20:42)
[2019-02-09 23:00] VITALS: BP 114/62
[2019-02-10] MEDS: PIPERACILLIN/TAZOBACTAM 3.375 GM in IV NORMAL SALINE 50ML 50 ML IV SCH ×5 (00:10→23:57)
[2019-02-10 03:00] VITALS: BP 113/68
[2019-02-10 06:19] LABS: CALCIUM 8.8 mg/dL (8.5-10.1); CREATININE 1.1 mg/dL (0.7-1.3); GFR 68.3
[2019-02-10 07:00] VITALS: BP 112/61
--- NOTE | 2019-02-10 09:01 | NUR ---
Late entry: SW following pt. Spoke with pt on 02/09/18 who requested if he can IV abx outpatient at [facility] in [place]. After speaking with OP team at [facility], they are not able to do the Zosyn as it is continuos infusion. Discussed with pt's staff at [facility] and they would like to get a teaching too and reported pt is not able to return on 02/09/18. REMY spoke with pt again and discussed his option will be to do it at [facility] and his staff has agreed to assist. [facility] has provided teaching for pt yesterday and was awaiting to hear back from [facility] regarding arranging a teach. REMY faxed orders to [facility] as pt is currently on service with them.
[2019-02-10] MEDS: LACTOBACILLUS RHAMNOSUS GG 1 CAPSULE. PO SCH ×2 (10:51→21:42)
[2019-02-10] MEDS: MESALAMINE 400 MG CAP.DRTAB. PO SCH ×3 (10:51→21:43)
[2019-02-10] MEDS: ASCORBIC ACID 500 MG TABLET PO SCH ×2 (10:51→21:43)
[2019-02-10 11:00] VITALS: BP 104/58
--- NOTE | 2019-02-10 11:52 | PDOC ---
PROGRESS NOTES Chief Complaint Chief Complaint IMPRESSION Non-surgical perianal wound - with bleeding Severe Crohn's with multiple surgeries s/p ostomy (multiple fissures and abdominal wounds) Multiple deep ulcers along the distal sacrum and buttocks extend into the right ischiorectal fat and to the former site of the coccyx. The coccyx and distal sacrum have been completely eroded. There is some debris within the tracts, but no drainable collection. 2. 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 Chronic pain Hyperlipidemia Hypertension GERD Incidental 5 mm rt kidney stone Hiatal hernia with small bowel loops Cont trial with empiric zosyn/ daptomycin CT-guided biopsy of the sacrum PLAN transfer to [facility]/// Plastics for I and D, ostectomy and possible flap if eligible [facility] did not accept pt for transfer will need home health PICC line social service to assist with discharge antibiotics 29 MIN PT EXAM, CHART REVIEW, > 50% OF TIME SPENT WITH EXAM, CHART REVIEW, PT CARE COORDINATION History of Present Illness History of Present Illness 02/08/19 Pt seen and examined pleasant Pt ambulated w/out difficulty DW pt about their care DW RN Reviewed pt's chart 02/07/19 Patient seen and examined Chart reviewed Discussed with RN Vitals Vitals Vital Signs Date Time Temp Pulse Resp B/P (MAP) Pulse Ox O2 Delivery O2 Flow Rate FiO2 02/10/19 07:00 97.8 68 14 112/61 (78) 95 Room Air 97.8 02/09/19 22:39 2.0 Physical Exam Physical Exam GENERAL: Propped up in bed, alert, in no apparent distress. HEENT: Pupils equally round. Oropharynx pink and moist. NECK: Supple, no lymphadenopathy. LUNGS: Clear to auscultation. HEART: S1, S2. ABDOMEN: Obese, soft, nontender, bowel sounds present. Multiple scars and right-sided ostomy. EXTREMITIES: No gross edema or cyanosis. SKIN: Warm to touch without signs of rash. Several sacrococcygeal fistulas . NEUROLOGIC: Alert and answering questions appropriately. PIV General: Alert, Oriented X3, Cooperative, No acute distress Heart: Regular rate, Normal S1, Normal S2 Lungs: Clear Abdomen: Normal bowel sounds, Soft, Other (Multiple scars and right-sided ostomy.) Extremities: No clubbing, No cyanosis Skin: No rashes, Other ( Several sacrococcygeal fistula, 3 packed. + drainage, no surrounding redness ) Labs LABS Laboratory Tests Test 02/10/19 05:30 Sodium Level 142 mmol/L (136-145) Potassium Level 4.0 mmol/L (3.5-5.1) Chloride Level 105 mmol/L (98-107) Carbon Dioxide Level 27 mmol/L (21-32) Anion Gap 10 (6-14) Blood Urea Nitrogen 16 mg/dL (8-26) Creatinine 1.1 mg/dL (0.7-1.3) Estimated GFR (Cockcroft-Gault) 68.3 Glucose Level 100 mg/dL (70-99) Calcium Level 8.8 mg/dL (8.5-10.1) Comment Review of Relevant I have reviewed the following items hermes (where applicable) has been applied. Labs Laboratory Tests Test 02/09/19 05:55 02/10/19 05:30 White Blood Count 6.7 x10^3/uL (4.0-11.0) Red Blood Count 4.35 x10^6/uL (4.30-5.70) Hemoglobin 13.1 g/dL (13.0-17.5) Hematocrit 39.3 % (39.0-53.0) Mean Corpuscular Volume 90 fL (79-100) Mean Corpuscular Hemoglobin 30 pg (25-35) Mean Corpuscular Hemoglobin Concent 33 g/dL (31-37) Red Cell Distribution Width 13.9 % (11.5-14.5) Platelet Count 153 x10^3/uL (140-400) Neutrophils (%) (Auto) 71 % (31-73) Lymphocytes (%) (Auto) 16 % (24-48) Monocytes (%) (Auto) 10 % (0-9) Eosinophils (%) (Auto) 3 % (0-3) Basophils (%) (Auto) 1 % (0-3) Neutrophils # (Auto) 4.8 x10^3/uL (1.8-7.7) Lymphocytes # (Auto) 1.0 x10^3/uL (1.0-4.8) Monocytes # (Auto) 0.6 x10^3/uL (0.0-1.1) Eosinophils # (Auto) 0.2 x10^3/uL (0.0-0.7) Basophils # (Auto) 0.1 x10^3/uL (0.0-0.2) Sodium Level 140 mmol/L (136-145) 142 mmol/L (136-145) Potassium Level 4.1 mmol/L (3.5-5.1) 4.0 mmol/L (3.5-5.1) Chloride Level 105 mmol/L (98-107) 105 mmol/L (98-107) Carbon Dioxide Level 27 mmol/L (21-32) 27 mmol/L (21-32) Anion Gap 8 (6-14) 10 (6-14) Blood Urea Nitrogen 13 mg/dL (8-26) 16 mg/dL (8-26) Creatinine 1.1 mg/dL (0.7-1.3) 1.1 mg/dL (0.7-1.3) Estimated GFR (Cockcroft-Gault) 68.3 68.3 BUN/Creatinine Ratio 12 (6-20) Glucose Level 98 mg/dL (70-99) 100 mg/dL (70-99) Calcium Level 8.6 mg/dL (8.5-10.1) 8.8 mg/dL (8.5-10.1) Total Bilirubin 0.3 mg/dL (0.2-1.0) Aspartate Amino Transf (AST/SGOT) 17 U/L (15-37) Alanine Aminotransferase (ALT/SGPT) 26 U/L (16-63) Alkaline Phosphatase 85 U/L (46-116) Total Protein 7.5 g/dL (6.4-8.2) Albumin 2.9 g/dL (3.4-5.0) Albumin/Globulin Ratio 0.6 (1.0-1.7) Thyroid Stimulating Hormone (TSH) 1.357 uIU/mL (0.358-3.74) Laboratory Tests Test 02/10/19 05:30 Sodium Level 142 mmol/L (136-145) Potassium Level 4.0 mmol/L (3.5-5.1) Chloride Level 105 mmol/L (98-107) Carbon Dioxide Level 27 mmol/L (21-32) Anion Gap 10 (6-14) Blood Urea Nitrogen 16 mg/dL (8-26) Creatinine 1.1 mg/dL (0.7-1.3) Estimated GFR (Cockcroft-Gault) 68.3 Glucose Level 100 mg/dL (70-99) Calcium Level 8.8 mg/dL (8.5-10.1) Microbiology 02/03/19 Anaerobic/Aerobic Culture - Final, Complete 02/03/19 Anaerobic Culture Result 1 (BERKLEY) - Final, Complete 02/03/19 Aerobic Culture - Final, Complete 02/03/19 Aerobic Culture Result 1 (BERKLEY) - Final, Complete 02/03/19 Gram Stain - Final, Complete 02/03/19 Gram Stain Result 1 (BERKLEY) - Final, Complete 02/03/19 Gram Stain Result 2 (BERKLEY) - Final, Complete Medications Current Medications Acetaminophen (Tylenol) 650 mg PRN Q4HRS PRN PO PAIN; Start 01/30/19 at 14:00; Stop 02/01/19 at 08:20; Status DC Ergocalciferol (Vitamin D2) 50,000 unit QMONTH PO ; Start 03/01/19 at 09:00 Famotidine (Pepcid) 20 mg HS PO Last administered on 02/09/19at 20:42; Start 01/30/19 at 21:00 Guaifenesin (Robitussin Dm) 5 ml PRN QID PRN PO COUGH; Start 01/30/19 at 14:00 Ascorbic Acid (Vitamin C) 500 mg BID PO Last administered on 02/10/19at 10:51; Start 01/30/19 at 21:00 Clindamycin HCl (Cleocin) 300 mg TID PO Last administered on 01/31/19at 08:39; Start 01/30/19 at 14:00; Stop 01/31/19 at 09:30; Status DC Magnesium Hydroxide (Milk Of Magnesia) 2,400 mg PRN DAILY PRN PO CONSTIPATION; Start 01/30/19 at 14:00 Mesalamine (Delzicol) 800 mg TID PO Last administered on 02/10/19at 10:51; Start 01/30/19 at 15:00 Non-Formulary Medication (Protein Supplement (Nutritional Drink Mix)) 420 gm QUYNH LY PO ; Start 01/31/19 at 09:00; Status UNV Iohexol (Omnipaque 300 Mg/ml) 75 ml 1X ONCE IV Last administered on 01/31/19at 08:29; Start 01/31/19 at 08:00; Stop 01/31/19 at 08:01; Status DC Acetaminophen (Tylenol) 500 mg PRN Q6HRS PRN PO MILD PAIN / TEMP; Start 02/01/19 at 08:30 Acetaminophen/ Codeine Phosphate (Tylenol #3) 1 tab PRN Q6HRS PRN PO MODERATE PAIN Last administered on 02/03/19at 20:57; Start 02/01/19 at 08:30 Oxycodone/ Acetaminophen (Percocet 5/325) 1 tab PRN Q4HRS PRN PO SEVERE PAIN Last administered on 02/09/19at 22:39; Start 02/01/19 at 08:30 Morphine Sulfate (Morphine Sulfate) 2 mg PRN Q2HR PRN IV PAIN Last administered on 02/06/19at 16:07; Start 02/01/19 at 08:30 Ondansetron HCl (Zofran) 4 mg PRN Q6HRS PRN IVP NAUSEA/VOMITING; Start 02/03/19 at 09:30 Diphenhydramine HCl (Benadryl) 25 mg PRN QHS PRN PO INSOMNIA; Start 02/03/19 at 09:30 Lidocaine HCl (Buffered Lidocaine 1%) 3 ml STK-MED ONCE .ROUTE ; Start 02/03/19 at 10:01; Stop 02/03/19 at 10:02; Status DC Midazolam HCl (Versed) 2 mg STK-MED ONCE .ROUTE ; Start 02/03/19 at 10:20; Stop 02/03/19 at 10:21; Status DC Fentanyl Citrate (Fentanyl 2ml Vial) 100 mcg STK-MED ONCE .ROUTE ; Start 02/03/19 at 10:20; Stop 02/03/19 at 10:21; Status DC Lidocaine HCl (Buffered Lidocaine 1%) 3 ml 1X ONCE IJ Last administered on 02/03/19at 10:58; Start 02/03/19 at 11:00; Stop 02/03/19 at 11:01; Status DC Midazolam HCl (Versed) 2 mg 1X ONCE IV Last administered on 02/03/19at 10:57; Start 02/03/19 at 11:00; Stop 02/03/19 at 11:01; Status DC Fentanyl Citrate (Fentanyl 2ml Vial) 100 mcg 1X ONCE IV Last administered on 02/03/19at 10:57; Start 02/03/19 at 11:00; Stop 02/03/19 at 11:01; Status DC Vancomycin HCl (Vanco Per Pharmacy) 1 each PRN DAILY PRN MC SEE COMMENTS Last administered on 02/05/19at 07:39; Start 02/03/19 at 13:00; Stop 02/06/19 at 11:36; Status DC Piperacillin Sod/ Tazobactam Sod (Zosyn Per Pharmacy) 1 each PRN DAILY PRN MC SEE COMMENTS; Start 02/03/19 at 13:00 Vancomycin HCl 2 gm/Sodium Chloride 500 ml @ 250 mls/hr 1X ONCE IV Last administered on 02/03/19at 15:01; Start 02/03/19 at 14:00; Stop 02/03/19 at 15:59; Status DC Piperacillin Sod/ Tazobactam Sod 3.375 gm/Sodium Chloride 50 ml @ 100 mls/hr Q6HRS IV Last administered on 02/10/19at 05:43; Start 02/03/19 at 13:15 Vancomycin HCl 1.5 gm/Sodium Chloride 500 ml @ 250 mls/hr Q12H IV Last administered on 02/05/19at 04:08; Start 02/04/19 at 03:00; Stop 02/05/19 at 06:00; Status DC Vancomycin HCl (Vancomycin Trough Level) 1 each 1X ONCE MC Last administered on 02/05/19at 03:00; Start 02/05/19 at 02:30; Stop 02/05/19 at 02:31; Status DC Lactobacillus Rhamnosus (Culturelle) 1 cap BID PO Last administered on 02/10/19at 10:51; Start 02/04/19 at 21:00 Vancomycin HCl 1.5 gm/Sodium Chloride 500 ml @ 250 mls/hr Q8H IV ; Start 02/05/19 at 12:00; Stop 02/05/19 at 07:31; Status DC Vancomycin HCl (Vancomycin Trough Level) 1 each 1X ONCE MC ; Start 02/06/19 at 11:30; Stop 02/05/19 at 07:31; Status DC Vancomycin HCl 2 gm/Sodium Chloride 500 ml @ 250 mls/hr Q12H IV Last administered on 02/06/19at 04:19; Start 02/05/19 at 16:00; Stop 02/06/19 at 11:36; Status DC Vancomycin HCl (Vancomycin Trough Level) 1 each 1X ONCE MC ; Start 02/06/19 at 15:30; Stop 02/06/19 at 11:36; Status DC Daptomycin 530 mg/ Sodium Chloride 50 ml @ 100 mls/hr Q24H IV Last administered on 02/09/19at 11:41; Start 02/06/19 at 12:30 Lidocaine HCl (Buffered Lidocaine 1%) 3 ml STK-MED ONCE .ROUTE ; Start 02/07/19 at 14:11; Stop 02/07/19 at 14:11; Status DC Lidocaine HCl (Buffered Lidocaine 1%) 6 ml 1X ONCE INJ ; Start 02/07/19 at 14:30; Stop 02/07/19 at 14:31; Status DC Active Scripts Active Reported Hydrocodone-Apap 5-325 (Hydrocodone Bit/Acetaminophen) 1 Tab Tablet 1-2 Tab PO PRN Q4HRS PRN Tussin Dm Cough & Chest Syrup (Guaifenesin/Dextromethorphan) 118 Ml Syrup 5 Ml PO PRN QID PRN 12 Days Milk Of Magnesia (Magnesium Hydroxide) 2,400 Mg/10 Ml Oral.susp 2,400 Mg PO PRN DAILY PRN Tylenol (Acetaminophen) 325 Mg Tablet 650 Mg PO PRN Q4HRS PRN Clindamycin Hcl 300 Mg Capsule 300 Mg PO TID Vitamin D2 (Ergocalciferol (Vitamin D2)) 50,000 Unit Capsule 1 Cap PO QMONTH Vitamin C (Ascorbate Calcium) 500 Mg Tablet 500 Mg PO BID Nutritional Drink Mix (Protein Supplement) 420 Gm Powder 420 Gm PO DAILY Multi-Vitamin Daily (Multivitamin) 1 Each Tablet 1 Each PO Famotidine 20 Mg Tablet 20 Mg PO HS Asacol Hd (Mesalamine) 800 Mg Tablet.dr 1,600 Mg PO TID Vitals/I & O Vital Sign - Last 24 Hours 02/09/19 02/09/19 02/09/19 02/09/19 14:46 15:00 15:46 19:00 Temp 98.0 98.0 Pulse 62 66 Resp 16 17 16 18 B/P (MAP) 107/66 (80) 108/57 (74) Pulse Ox 96 96 O2 Delivery Room Air Room Air Room Air Room Air 02/09/19 02/09/19 02/09/1920 22:39 23:00 23:39 03:00 Temp 98.1 98.1 Pulse 66 57 Resp 20 20 20 18 B/P (MAP) 114/62 (79) 113/68 (83) Pulse Ox 96 96 97 97 O2 Delivery Room Air Room Air Room Air Room Air O2 Flow Rate 2.0 02/10/19 07:00 Temp 97.8 97.8 Pulse 68 Resp 14 B/P (MAP) 112/61 (78) Pulse Ox 95 O2 Delivery Room Air Intake and Output 02/09/19 02/09/19 02/10/19 15:00 23:00 07:00 Intake Total 50 ml Output Total 0 ml Balance 50 ml DIANNA RHOADES MD Feb 10, 2019 11:52
[2019-02-10] MEDS: DAPTOmycin (GENERIC) IVPB 530 MG in IV NORMAL SALINE 50ML 50 ML IV SCH (13:43)
[2019-02-10 15:00] VITALS: BP 150/78
--- NOTE | 2019-02-10 16:29 | NUR ---
Pt was provided a teaching but [facility] still would like a teach and pt is not able to return to [facility] until staff is tranied. There is no nursing staff until Wednesday- discussed pt needs IV abx 7 days of week but will need more assistance than as he might not be able to administer IV abx by himself. Discussed with nurse Rolanda, phone: [phone] at [facility] and [facility]. [facility] notified about this.
[2019-02-10 19:00] VITALS: BP 109/56
[2019-02-10] MEDS: oxyCODONE/APAP 5/325 1 TAB TABLET PO PRN (21:43)
[2019-02-10] MEDS: FAMOTIDINE 20 MG TABLET. PO SCH (21:43)
[2019-02-10 23:00] VITALS: BP 117/68
[2019-02-11 03:00] VITALS: BP 111/60
[2019-02-11] MEDS: PIPERACILLIN/TAZOBACTAM 3.375 GM in IV NORMAL SALINE 50ML 50 ML IV SCH ×3 (05:14→17:40)
[2019-02-11 05:40] LABS: CALCIUM 8.6 mg/dL (8.5-10.1); CREATININE 1.1 mg/dL (0.7-1.3); GFR 68.3
[2019-02-11 07:59] VITALS: BP 91/54
[2019-02-11] MEDS: ASCORBIC ACID 500 MG TABLET PO SCH ×2 (09:22→20:32)
[2019-02-11] MEDS: LACTOBACILLUS RHAMNOSUS GG 1 CAPSULE. PO SCH ×2 (09:22→20:32)
[2019-02-11] MEDS: MESALAMINE 400 MG CAP.DRTAB. PO SCH ×3 (09:22→20:32)
[2019-02-11 11:59] VITALS: BP 126/42
--- NOTE | 2019-02-11 12:38 | PDOC ---
[employer] PROGRESS NOTE Chief Complaint Chief Complaint IMPRESSION Non-surgical perianal wound - with bleeding Severe Crohn's with multiple surgeries s/p ostomy (multiple fissures and abdominal wounds) Multiple deep ulcers along the distal sacrum and buttocks extend into the right ischiorectal fat and to the former site of the coccyx. The coccyx and distal sacrum have been completely eroded. There is some debris within the tracts, but no drainable collection. 2. 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 Chronic pain Hyperlipidemia Hypertension GERD Incidental 5 mm rt kidney stone Hiatal hernia with small bowel loops Cont trial with empiric zosyn/ daptomycin CT-guided biopsy of the sacrum PLAN transfer to [facility]/// Plastics for I and D, ostectomy and possible flap if eligible [facility] did not accept pt for transfer will need home health PICC line social service to assist with discharge antibiotics 29 MIN PT EXAM, CHART REVIEW, > 50% OF TIME SPENT WITH EXAM, CHART REVIEW, PT CARE COORDINATION History of Present Illness History of Present Illness [id number] Patient seen and examined Discussed with RN Chart reviewed His is present Still having a lot of pain 02/08/19 Pt seen and examined pleasant Pt ambulated w/out difficulty DW pt about their care DW RN Reviewed pt's chart 02/07/19 Patient seen and examined Chart reviewed Discussed with RN Vitals/I&O Vitals/I&O: Vital Signs Date Time Temp Pulse Resp B/P (MAP) Pulse Ox O2 Delivery O2 Flow Rate FiO2 02/11/19 07:59 97.8 69 18 91/54 (66) 95 Room Air 97.8 I & O 02/10/19 02/10/19 02/11/19 15:00 23:00 07:00 Intake Total 420 ml 850 ml Balance 420 ml 850 ml Physical Exam Physical Exam: GENERAL: Propped up in bed, alert, in no apparent distress. HEENT: Pupils equally round. Oropharynx pink and moist. NECK: Supple, no lymphadenopathy. LUNGS: Clear to auscultation. HEART: S1, S2. ABDOMEN: Obese, soft, nontender, bowel sounds present. Multiple scars and right-sided ostomy. EXTREMITIES: No gross edema or cyanosis. SKIN: Warm to touch without signs of rash. Several sacrococcygeal fistulas . NEUROLOGIC: Alert and answering questions appropriately. PIV General: Alert, Oriented X3, Cooperative, No acute distress Heart: Regular rate, Normal S1, Normal S2 Lungs: Clear Abdomen: Normal bowel sounds, Soft, Other (Multiple scars and right-sided ostomy.) Extremities: No clubbing, No cyanosis Skin: No rashes, Other ( Several sacrococcygeal fistula, 3 packed. + drainage, no surrounding redness ) Labs Labs: Laboratory Tests Test 02/11/19 05:15 Sodium Level 141 mmol/L (136-145) Potassium Level 4.0 mmol/L (3.5-5.1) Chloride Level 106 mmol/L (98-107) Carbon Dioxide Level 29 mmol/L (21-32) Anion Gap 6 (6-14) Blood Urea Nitrogen 15 mg/dL (8-26) Creatinine 1.1 mg/dL (0.7-1.3) Estimated GFR (Cockcroft-Gault) 68.3 Glucose Level 94 mg/dL (70-99) Calcium Level 8.6 mg/dL (8.5-10.1) Assessment and Plan Assessmemt and Plan Non-surgical perianal wound - with bleeding Severe Crohn's with multiple surgeries s/p ostomy (multiple fissures and abdominal wounds) Chronic pain Hyperlipidemia Hypertension GERD Incidental 5 mm rt kidney stone Hiatal hernia with small bowel loops Plan IV antibiotics Wound halfway meds PT OT DVT prophylaxis Discharge when okay with subspecialist Comment Review of Relevant I have reviewed the following items hermes (where applicable) has been applied. FRANK KNIGHT III DO Feb 11, 2019 12:37
[2019-02-11] MEDS: DAPTOmycin (GENERIC) IVPB 530 MG in IV NORMAL SALINE 50ML 50 ML IV SCH (13:53)
[2019-02-11 15:59] VITALS: BP 100/56
[2019-02-11 19:00] VITALS: BP 98/53
[2019-02-11] MEDS: FAMOTIDINE 20 MG TABLET. PO SCH (20:32)
[2019-02-11] MEDS: oxyCODONE/APAP 5/325 1 TAB TABLET PO PRN (20:36)
[2019-02-11 23:00] VITALS: BP 113/59
[2019-02-12] MEDS: PIPERACILLIN/TAZOBACTAM 3.375 GM in IV NORMAL SALINE 50ML 50 ML IV SCH ×4 (00:25→18:08)
[2019-02-12 03:00] VITALS: BP 107/63
[2019-02-12 04:47] LABS: CREATININE 1.2 mg/dL (0.7-1.3); GFR 61.8; POTASSIUM 3.9 mmol/L (3.5-5.1)
[2019-02-12 07:59] VITALS: BP 100/53
[2019-02-12] MEDS: LACTOBACILLUS RHAMNOSUS GG 1 CAPSULE. PO SCH ×2 (10:30→20:43)
[2019-02-12] MEDS: ASCORBIC ACID 500 MG TABLET PO SCH ×2 (10:30→20:43)
[2019-02-12] MEDS: MESALAMINE 400 MG CAP.DRTAB. PO SCH ×3 (10:30→20:43)
[2019-02-12 11:59] VITALS: BP 104/47
--- NOTE | 2019-02-12 13:17 | PDOC ---
Infectious Disease Note Subjective Subjective Comfortable, but tired No c/o F/C/N/V/aches ROS ROS per HPI Vital Sign Vital Signs Vital Signs Date Time Temp Pulse Resp B/P (MAP) Pulse Ox O2 Delivery O2 Flow Rate FiO2 02/12/19 07:59 97.8 64 18 100/53 (69) 96 Room Air 97.8 Physical Exam PHYSICAL EXAM GENERAL: Propped up in bed, resting quietly, arouses to name HEENT: Pupils equally round. Oropharynx pink and moist. NECK: Supple, no lymphadenopathy. LUNGS: Clear to auscultation. HEART: S1, S2. ABDOMEN: Obese, soft, nontender, bowel sounds present. Multiple scars and right-sided ostomy. EXTREMITIES: No gross edema or cyanosis. SKIN: Warm to touch without signs of rash. Several sacrococcygeal fistulas NEUROLOGIC: Answering questions appropriately. [facility] (02/07) clean Labs Lab Laboratory Tests Test 02/12/19 03:05 Sodium Level 141 mmol/L (136-145) Potassium Level 3.9 mmol/L (3.5-5.1) Chloride Level 107 mmol/L (98-107) Carbon Dioxide Level 24 mmol/L (21-32) Anion Gap 10 (6-14) Blood Urea Nitrogen 17 mg/dL (8-26) Creatinine 1.2 mg/dL (0.7-1.3) Estimated GFR (Cockcroft-Gault) 61.8 Glucose Level 97 mg/dL (70-99) Calcium Level 9.0 mg/dL (8.5-10.1) Micro Microbiology 01/30/19 Anaerobic/Aerobic Culture - Final, Complete 01/30/19 Anaerobic Culture Result 1 (BERKLEY) - Final, Complete 01/30/19 Aerobic Culture - Final, Complete 01/30/19 Aerobic Culture Result 1 (BERKLEY) - Final, Complete 01/30/19 Gram Stain - Final, Complete 01/30/19 Gram Stain Result 1 (BERKLEY) - Final, Complete 01/30/19 Gram Stain Result 2 (BERKLEY) - Final, Complete Objective Assessment Multiple sacrococcygeal fistulas without overt signs of infection. culture neg so far Crohn's disease with history of ostomy and multiple fistula repairs. Acute and chronic OM changes on CT abdomen and pelvis ,Pt has been treated with previous OM at [facility] in the past . Chronic OM could be from the same - ESR 35 - s/p IR biopsy 02/03 Gastroesophageal reflux disease. Obesity. Kidney stone on CT Abdomen Plan Plan of Care Cont trial with empiric dapto and zosyn script in chart Probiotics PICC care Social service to assist with discharge antibiotics Ideally would need I and D of acute om, antibiotics alone will not be optimal d/w pt about rationale with antibiotic treatment, adverse events and risk of failure Recommended transfer to [facility] Plastics for I and D, ostectomy and possible flap if eligible Per staff [facility] did not accept pt for transfer weekly labs CBCD/BUN/CREAT/CPK/ESR/LFT. faxed to [phone] WOUND CARE per wound team Offloading Attending Co-Sign The patient was seen and interviewed as well as examined at the bedside. The chart was reviewed. The case was discussed. Agree with the plan of care. MELISSA RODRIGUEZ APRN Feb 12, 2019 13:17 DIANA CAVANAUGH MD Feb 12, 2019 14:13
--- NOTE | 2019-02-12 13:23 | PDOC ---
[employer] PROGRESS NOTE Chief Complaint Chief Complaint IMPRESSION Non-surgical perianal wound - with bleeding Severe Crohn's with multiple surgeries s/p ostomy (multiple fissures and abdominal wounds) Multiple deep ulcers along the distal sacrum and buttocks extend into the right ischiorectal fat and to the former site of the coccyx. The coccyx and distal sacrum have been completely eroded. There is some debris within the tracts, but no drainable collection. 2. 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 Chronic pain Hyperlipidemia Hypertension GERD Incidental 5 mm rt kidney stone Hiatal hernia with small bowel loops Cont trial with empiric zosyn/ daptomycin CT-guided biopsy of the sacrum PLAN transfer to [facility]/// Plastics for I and D, ostectomy and possible flap if eligible [facility] did not accept pt for transfer will need home health PICC line social service to assist with discharge antibiotics 29 MIN PT EXAM, CHART REVIEW, > 50% OF TIME SPENT WITH EXAM, CHART REVIEW, PT CARE COORDINATION History of Present Illness History of Present Illness [id number] Patient seen and examined Discussed with RN Chart reviewed His is present Still having a lot of pain 02/08/19 Pt seen and examined pleasant Pt ambulated w/out difficulty DW pt about their care DW RN Reviewed pt's chart 02/07/19 Patient seen and examined Chart reviewed Discussed with RN Vitals/I&O Vitals/I&O: Vital Signs Date Time Temp Pulse Resp B/P (MAP) Pulse Ox O2 Delivery O2 Flow Rate FiO2 02/12/19 11:59 98.1 68 18 104/47 (66) 100 Room Air 98.1 I & O 02/11/19 02/11/19 02/12/19 15:00 23:00 07:00 Intake Total 220 ml 50 ml 300 ml Balance 220 ml 50 ml 300 ml Physical Exam Physical Exam: GENERAL: Propped up in bed, resting quietly, arouses to name HEENT: Pupils equally round. Oropharynx pink and moist. NECK: Supple, no lymphadenopathy. LUNGS: Clear to auscultation. HEART: S1, S2. ABDOMEN: Obese, soft, nontender, bowel sounds present. Multiple scars and right-sided ostomy. EXTREMITIES: No gross edema or cyanosis. SKIN: Warm to touch without signs of rash. Several sacrococcygeal fistulas NEUROLOGIC: Answering questions appropriately. [facility]-PICC (02/07) clean General: Alert, Oriented X3, Cooperative, No acute distress Heart: Regular rate, Normal S1, Normal S2 Lungs: Clear Abdomen: Normal bowel sounds, Soft, Other (Multiple scars and right-sided ostomy.) Extremities: No clubbing, No cyanosis Skin: No rashes, Other ( Several sacrococcygeal fistula, 3 packed. + drainage, no surrounding redness ) Labs Labs: Laboratory Tests Test 02/12/19 03:05 Sodium Level 141 mmol/L (136-145) Potassium Level 3.9 mmol/L (3.5-5.1) Chloride Level 107 mmol/L (98-107) Carbon Dioxide Level 24 mmol/L (21-32) Anion Gap 10 (6-14) Blood Urea Nitrogen 17 mg/dL (8-26) Creatinine 1.2 mg/dL (0.7-1.3) Estimated GFR (Cockcroft-Gault) 61.8 Glucose Level 97 mg/dL (70-99) Calcium Level 9.0 mg/dL (8.5-10.1) Assessment and Plan Assessmemt and Plan Non-surgical perianal wound - with bleeding Severe Crohn's with multiple surgeries s/p ostomy (multiple fissures and abdominal wounds) Chronic pain Hyperlipidemia Hypertension GERD Incidental 5 mm rt kidney stone Hiatal hernia with small bowel loops Plan IV antibiotics Wound half-way meds PT OT DVT prophylaxis Discharge when okay with subspecialist Comment Review of Relevant I have reviewed the following items hermes (where applicable) has been applied. FRANK KNIGHT III DO Feb 12, 2019 13:23
[2019-02-12] MEDS: DAPTOmycin (GENERIC) IVPB 530 MG in IV NORMAL SALINE 50ML 50 ML IV SCH (14:27)
[2019-02-12] MEDS: oxyCODONE/APAP 5/325 1 TAB TABLET PO PRN (15:38)
[2019-02-12 15:59] VITALS: BP 108/51
[2019-02-12 19:00] VITALS: BP 105/53
[2019-02-12] MEDS: FAMOTIDINE 20 MG TABLET. PO SCH (20:43)
[2019-02-12 23:00] VITALS: BP 116/64
[2019-02-13] MEDS: PIPERACILLIN/TAZOBACTAM 3.375 GM in IV NORMAL SALINE 50ML 50 ML IV SCH ×3 (00:30→11:24)
[2019-02-13 03:00] VITALS: BP_SYST 99
[2019-02-13 04:42] LABS: BASO % 1 % (0-3); EOS # 0.2 x10^3/uL (0.0-0.7); EOS % 3 % (0-3); HEMATOCRIT 37.9 % (39.0-53.0); HEMOGLOBIN 12.6 g/dL (13.0-17.5); LYMPH # 1.1 x10^3/uL (1.0-4.8); LYMPH % 20 % (24-48); MEAN CORPUSCULAR HEMOGLOBIN 30 pg (25-35); MEAN CORPUSCULAR HGB CONC 33 g/dL (31-37); MEAN CORPUSCULAR VOLUME 90 fL (79-100); MONO # 0.6 x10^3/uL (0.0-1.1); MONO % 10 % (0-9); NEUT # 3.9 x10^3/uL (1.8-7.7); NEUT % 67 % (31-73); PLATELET COUNT 161 x10^3/uL (140-400); RED CELL DISTRIBUTION WIDTH 14.1 % (11.5-14.5); WHITE BLOOD COUNT 5.8 x10^3/uL (4.0-11.0)
[2019-02-13 05:17] LABS: CALCIUM 8.8 mg/dL (8.5-10.1); CREATININE 1.1 mg/dL (0.7-1.3); GFR 68.3
[2019-02-13 07:00] VITALS: BP 107/64
--- NOTE | 2019-02-13 08:11 | PDOC ---
PROGRESS NOTES Chief Complaint Chief Complaint A/P: Non-surgical perianal wound - with bleeding Severe Crohn's with multiple surgeries s/p ostomy (multiple fissures and abdominal wounds) Multiple deep ulcers along the distal sacrum and buttocks extend into the right ischiorectal fat and to the former site of the coccyx. The coccyx and distal sacrum have been completely eroded. There is some debris within the tracts, but no drainable collection. 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 faxed to [phone] WOUND CARE per wound team Offloading 29 MIN PT EXAM, CHART REVIEW, > 50% OF TIME SPENT WITH EXAM, CHART REVIEW, PT CARE COORDINATION History of Present Illness History of Present Illness Mr Lilly is a 58 yo w/ PMHx severe Crohn's disease, status post ostomy and multiple fistula repairs. [facility] bleeding from a coccyx wound. He was evaluated by General Surgery with no surgical plans at this time and placed on antibiotic trial per ID. Acute and chronic OM changes on CT abdomen and pelvis ,Pt has been treated with previous OM at [facility] in the past. ESR 35. Anaerobic-aerobic culture with Gram stain was obtained with NGTD. S/P IR biopsy 02/03 - Bone biopsy confirmed chronic osteomyelitis, no evidence of acute osteomyelitis. The patient says he has had wounds off and on for years. Over the last 6 months or so, he has had several rounds of antibiotics for odor. A previous culture in December grew mixed site se. The patient denies fevers, chills, sweats or body aches. Denies nausea, vomiting or increased ostomy output. Denies rash or itching. 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 He is ambulating well. Feels overall improved. Wishes for home with outpatient wound care and home infusions, 13.5g zosyn continous for 28 days and daptomycin with CBC, BUN, Cr, CPK, ESR, and LFTs weekly. Plan per ID: Cont trial with empiric dapto and zosyn script in chart Probiotics PICC placed, will continue PICC care [id number] Patient seen and examined Discussed with RN Chart reviewed His is present Still having a lot of pain 02/08/19 Pt seen and examined pleasant Pt ambulated w/out difficulty DW pt about their care DW RN Reviewed pt's chart 02/07/19 Patient seen and examined Chart reviewed Discussed with RN Vitals Vitals Vital Signs Date Time Temp Pulse Resp B/P (MAP) Pulse Ox O2 Delivery O2 Flow Rate FiO2 02/13/19 03:00 97.5 54 20 99/ 98 Room Air 97.5 Physical Exam Physical Exam GENERAL: Propped up in bed, resting quietly, arouses to name HEENT: Pupils equally round. Oropharynx pink and moist. NECK: Supple, no lymphadenopathy. LUNGS: Clear to auscultation. HEART: S1, S2. ABDOMEN: Obese, soft, nontender, bowel sounds present. Multiple scars and right-sided ostomy. EXTREMITIES: No gross edema or cyanosis. SKIN: Warm to touch without signs of rash. Several sacrococcygeal fistulas NEUROLOGIC: Answering questions appropriately. RUE-PICC (02/07) clean General: Alert, Oriented X3, Cooperative, No acute distress Heart: Regular rate, Normal S1, Normal S2 Lungs: Clear Abdomen: Normal bowel sounds, Soft, Other (Multiple scars and right-sided ostomy.) Extremities: No clubbing, No cyanosis Skin: No rashes, Other ( Several sacrococcygeal fistula, 3 packed. + drainage, no surrounding redness ) Labs LABS Laboratory Tests Test 02/13/19 04:10 White Blood Count 5.8 x10^3/uL (4.0-11.0) Red Blood Count 4.20 x10^6/uL (4.30-5.70) Hemoglobin 12.6 g/dL (13.0-17.5) Hematocrit 37.9 % (39.0-53.0) Mean Corpuscular Volume 90 fL (79-100) Mean Corpuscular Hemoglobin 30 pg (25-35) Mean Corpuscular Hemoglobin Concent 33 g/dL (31-37) Red Cell Distribution Width 14.1 % (11.5-14.5) Platelet Count 161 x10^3/uL (140-400) Neutrophils (%) (Auto) 67 % (31-73) Lymphocytes (%) (Auto) 20 % (24-48) Monocytes (%) (Auto) 10 % (0-9) Eosinophils (%) (Auto) 3 % (0-3) Basophils (%) (Auto) 1 % (0-3) Neutrophils # (Auto) 3.9 x10^3/uL (1.8-7.7) Lymphocytes # (Auto) 1.1 x10^3/uL (1.0-4.8) Monocytes # (Auto) 0.6 x10^3/uL (0.0-1.1) Eosinophils # (Auto) 0.2 x10^3/uL (0.0-0.7) Basophils # (Auto) 0.0 x10^3/uL (0.0-0.2) Erythrocyte Sedimentation Rate 31 (0-15) Sodium Level 142 mmol/L (136-145) Potassium Level 4.0 mmol/L (3.5-5.1) Chloride Level 107 mmol/L (98-107) Carbon Dioxide Level 26 mmol/L (21-32) Anion Gap 9 (6-14) Blood Urea Nitrogen 14 mg/dL (8-26) Creatinine 1.1 mg/dL (0.7-1.3) Estimated GFR (Cockcroft-Gault) 68.3 Glucose Level 100 mg/dL (70-99) Calcium Level 8.8 mg/dL (8.5-10.1) Creatine Kinase 61 U/L (39-308) Comment Review of Relevant I have reviewed the following items hermes (where applicable) has been applied. Labs Laboratory Tests Test 02/12/19 03:05 02/13/19 04:10 Sodium Level 141 mmol/L (136-145) 142 mmol/L (136-145) Potassium Level 3.9 mmol/L (3.5-5.1) 4.0 mmol/L (3.5-5.1) Chloride Level 107 mmol/L (98-107) 107 mmol/L (98-107) Carbon Dioxide Level 24 mmol/L (21-32) 26 mmol/L (21-32) Anion Gap 10 (6-14) 9 (6-14) Blood Urea Nitrogen 17 mg/dL (8-26) 14 mg/dL (8-26) Creatinine 1.2 mg/dL (0.7-1.3) 1.1 mg/dL (0.7-1.3) Estimated GFR (Cockcroft-Gault) 61.8 68.3 Glucose Level 97 mg/dL (70-99) 100 mg/dL (70-99) Calcium Level 9.0 mg/dL (8.5-10.1) 8.8 mg/dL (8.5-10.1) White Blood Count 5.8 x10^3/uL (4.0-11.0) Red Blood Count 4.20 x10^6/uL (4.30-5.70) Hemoglobin 12.6 g/dL (13.0-17.5) Hematocrit 37.9 % (39.0-53.0) Mean Corpuscular Volume 90 fL (79-100) Mean Corpuscular Hemoglobin 30 pg (25-35) Mean Corpuscular Hemoglobin Concent 33 g/dL (31-37) Red Cell Distribution Width 14.1 % (11.5-14.5) Platelet Count 161 x10^3/uL (140-400) Neutrophils (%) (Auto) 67 % (31-73) Lymphocytes (%) (Auto) 20 % (24-48) Monocytes (%) (Auto) 10 % (0-9) Eosinophils (%) (Auto) 3 % (0-3) Basophils (%) (Auto) 1 % (0-3) Neutrophils # (Auto) 3.9 x10^3/uL (1.8-7.7) Lymphocytes # (Auto) 1.1 x10^3/uL (1.0-4.8) Monocytes # (Auto) 0.6 x10^3/uL (0.0-1.1) Eosinophils # (Auto) 0.2 x10^3/uL (0.0-0.7) Basophils # (Auto) 0.0 x10^3/uL (0.0-0.2) Erythrocyte Sedimentation Rate 31 (0-15) Creatine Kinase 61 U/L (39-308) Laboratory Tests Test 02/13/19 04:10 White Blood Count 5.8 x10^3/uL (4.0-11.0) Red Blood Count 4.20 x10^6/uL (4.30-5.70) Hemoglobin 12.6 g/dL (13.0-17.5) Hematocrit 37.9 % (39.0-53.0) Mean Corpuscular Volume 90 fL (79-100) Mean Corpuscular Hemoglobin 30 pg (25-35) Mean Corpuscular Hemoglobin Concent 33 g/dL (31-37) Red Cell Distribution Width 14.1 % (11.5-14.5) Platelet Count 161 x10^3/uL (140-400) Neutrophils (%) (Auto) 67 % (31-73) Lymphocytes (%) (Auto) 20 % (24-48) Monocytes (%) (Auto) 10 % (0-9) Eosinophils (%) (Auto) 3 % (0-3) Basophils (%) (Auto) 1 % (0-3) Neutrophils # (Auto) 3.9 x10^3/uL (1.8-7.7) Lymphocytes # (Auto) 1.1 x10^3/uL (1.0-4.8) Monocytes # (Auto) 0.6 x10^3/uL (0.0-1.1) Eosinophils # (Auto) 0.2 x10^3/uL (0.0-0.7) Basophils # (Auto) 0.0 x10^3/uL (0.0-0.2) Erythrocyte Sedimentation Rate 31 (0-15) Sodium Level 142 mmol/L (136-145) Potassium Level 4.0 mmol/L (3.5-5.1) Chloride Level 107 mmol/L (98-107) Carbon Dioxide Level 26 mmol/L (21-32) Anion Gap 9 (6-14) Blood Urea Nitrogen 14 mg/dL (8-26) Creatinine 1.1 mg/dL (0.7-1.3) Estimated GFR (Cockcroft-Gault) 68.3 Glucose Level 100 mg/dL (70-99) Calcium Level 8.8 mg/dL (8.5-10.1) Creatine Kinase 61 U/L (39-308) Microbiology 02/03/19 Anaerobic/Aerobic Culture - Final, Complete 02/03/19 Anaerobic Culture Result 1 (BERKLEY) - Final, Complete 02/03/19 Aerobic Culture - Final, Complete 02/03/19 Aerobic Culture Result 1 (BERKLEY) - Final, Complete 02/03/19 Gram Stain - Final, Complete 02/03/19 Gram Stain Result 1 (BERKLEY) - Final, Complete 02/03/19 Gram Stain Result 2 (BERKLEY) - Final, Complete Medications Current Medications Acetaminophen (Tylenol) 650 mg PRN Q4HRS PRN PO PAIN; Start 01/30/19 at 14:00; Stop 02/01/19 at 08:20; Status DC Ergocalciferol (Vitamin D2) 50,000 unit QMONTH PO ; Start 03/01/19 at 09:00 Famotidine (Pepcid) 20 mg HS PO Last administered on 02/12/19at 20:43; Start 01/30/19 at 21:00 Guaifenesin (Robitussin Dm) 5 ml PRN QID PRN PO COUGH; Start 01/30/19 at 14:00 Ascorbic Acid (Vitamin C) 500 mg BID PO Last administered on 02/12/19at 20:43; Start 01/30/19 at 21:00 Clindamycin HCl (Cleocin) 300 mg TID PO Last administered on 01/31/19at 08:39; Start 01/30/19 at 14:00; Stop 01/31/19 at 09:30; Status DC Magnesium Hydroxide (Milk Of Magnesia) 2,400 mg PRN DAILY PRN PO CONSTIPATION; Start 01/30/19 at 14:00 Mesalamine (Delzicol) 800 mg TID PO Last administered on 02/12/19at 20:43; Start 01/30/19 at 15:00 Non-Formulary Medication (Protein Supplement (Nutritional Drink Mix)) 420 gm DAILY PO ; Start 01/31/19 at 09:00; Status UNV Iohexol (Omnipaque 300 Mg/ml) 75 ml 1X ONCE IV Last administered on 01/31/19at 08:29; Start 01/31/19 at 08:00; Stop 01/31/19 at 08:01; Status DC Acetaminophen (Tylenol) 500 mg PRN Q6HRS PRN PO MILD PAIN / TEMP; Start 02/01/19 at 08:30 Acetaminophen/ Codeine Phosphate (Tylenol #3) 1 tab PRN Q6HRS PRN PO MODERATE PAIN Last administered on 02/03/19at 20:57; Start 02/01/19 at 08:30 Oxycodone/ Acetaminophen (Percocet 5/325) 1 tab PRN Q4HRS PRN PO SEVERE PAIN Last administered on 02/12/19at 15:38; Start 02/01/19 at 08:30 Morphine Sulfate (Morphine Sulfate) 2 mg PRN Q2HR PRN IV PAIN Last administered on 02/06/19at 16:07; Start 02/01/19 at 08:30 Ondansetron HCl (Zofran) 4 mg PRN Q6HRS PRN IVP NAUSEA/VOMITING; Start 02/03/19 at 09:30 Diphenhydramine HCl (Benadryl) 25 mg PRN QHS PRN PO INSOMNIA; Start 02/03/19 at 09:30 Lidocaine HCl (Buffered Lidocaine 1%) 3 ml STK-MED ONCE .ROUTE ; Start 02/03/19 at 10:01; Stop 02/03/19 at 10:02; Status DC Midazolam HCl (Versed) 2 mg STK-MED ONCE .ROUTE ; Start 02/03/19 at 10:20; Stop 02/03/19 at 10:21; Status DC Fentanyl Citrate (Fentanyl 2ml Vial) 100 mcg STK-MED ONCE .ROUTE ; Start 02/03/19 at 10:20; Stop 02/03/19 at 10:21; Status DC Lidocaine HCl (Buffered Lidocaine 1%) 3 ml 1X ONCE IJ Last administered on 02/03/19at 10:58; Start 02/03/19 at 11:00; Stop 02/03/19 at 11:01; Status DC Midazolam HCl (Versed) 2 mg 1X ONCE IV Last administered on 02/03/19at 10:57; Start 02/03/19 at 11:00; Stop 02/03/19 at 11:01; Status DC Fentanyl Citrate (Fentanyl 2ml Vial) 100 mcg 1X ONCE IV Last administered on 02/03/19at 10:57; Start 02/03/19 at 11:00; Stop 02/03/19 at 11:01; Status DC Vancomycin HCl (Vanco Per Pharmacy) 1 each PRN DAILY PRN MC SEE COMMENTS Last administered on 02/05/19at 07:39; Start 02/03/19 at 13:00; Stop 02/06/19 at 11:36; Status DC Piperacillin Sod/ Tazobactam Sod (Zosyn Per Pharmacy) 1 each PRN DAILY PRN MC SEE COMMENTS; Start 02/03/19 at 13:00 Vancomycin HCl 2 gm/Sodium Chloride 500 ml @ 250 mls/hr 1X ONCE IV Last administered on 02/03/19at 15:01; Start 02/03/19 at 14:00; Stop 02/03/19 at 15:59; Status DC Piperacillin Sod/ Tazobactam Sod 3.375 gm/Sodium Chloride 50 ml @ 100 mls/hr Q6HRS IV Last administered on 02/13/19at 06:10; Start 02/03/19 at 13:15 Vancomycin HCl 1.5 gm/Sodium Chloride 500 ml @ 250 mls/hr Q12H IV Last administered on 02/05/19at 04:08; Start 02/04/19 at 03:00; Stop 02/05/19 at 06:00; Status DC Vancomycin HCl (Vancomycin Trough Level) 1 each 1X ONCE MC Last administered on 02/05/19at 03:00; Start 02/05/19 at 02:30; Stop 02/05/19 at 02:31; Status DC Lactobacillus Rhamnosus (Culturelle) 1 cap BID PO Last administered on 02/12/19at 20:43; Start 02/04/19 at 21:00 Vancomycin HCl 1.5 gm/Sodium Chloride 500 ml @ 250 mls/hr Q8H IV ; Start 02/05/19 at 12:00; Stop 02/05/19 at 07:31; Status DC Vancomycin HCl (Vancomycin Trough Level) 1 each 1X ONCE MC ; Start 02/06/19 at 11:30; Stop 02/05/19 at 07:31; Status DC Vancomycin HCl 2 gm/Sodium Chloride 500 ml @ 250 mls/hr Q12H IV Last administered on 02/06/19at 04:19; Start 02/05/19 at 16:00; Stop 02/06/19 at 11:36; Status DC Vancomycin HCl (Vancomycin Trough Level) 1 each 1X ONCE MC ; Start 02/06/19 at 15:30; Stop 02/06/19 at 11:36; Status DC Daptomycin 530 mg/ Sodium Chloride 50 ml @ 100 mls/hr Q24H IV Last administered on 02/12/19at 14:27; Start 02/06/19 at 12:30 Lidocaine HCl (Buffered Lidocaine 1%) 3 ml STK-MED ONCE .ROUTE ; Start 02/07/19 at 14:11; Stop 02/07/19 at 14:11; Status DC Lidocaine HCl (Buffered Lidocaine 1%) 6 ml 1X ONCE INJ ; Start 02/07/19 at 14:30; Stop 02/07/19 at 14:31; Status DC Active Scripts Active Reported Hydrocodone-Apap 5-325 (Hydrocodone Bit/Acetaminophen) 1 Tab Tablet 1-2 Tab PO PRN Q4HRS PRN Tussin Dm Cough & Chest Syrup (Guaifenesin/Dextromethorphan) 118 Ml Syrup 5 Ml PO PRN QID PRN 12 Days Milk Of Magnesia (Magnesium Hydroxide) 2,400 Mg/10 Ml Oral.susp 2,400 Mg PO PRN DAILY PRN Tylenol (Acetaminophen) 325 Mg Tablet 650 Mg PO PRN Q4HRS PRN Clindamycin Hcl 300 Mg Capsule 300 Mg PO TID Vitamin D2 (Ergocalciferol (Vitamin D2)) 50,000 Unit Capsule 1 Cap PO QMONTH Vitamin C (Ascorbate Calcium) 500 Mg Tablet 500 Mg PO BID Nutritional Drink Mix (Protein Supplement) 420 Gm Powder 420 Gm PO DAILY Multi-Vitamin Daily (Multivitamin) 1 Each Tablet 1 Each PO Famotidine 20 Mg Tablet 20 Mg PO HS Asacol Hd (Mesalamine) 800 Mg Tablet.dr 1,600 Mg PO TID Vitals/I & O Vital Sign - Last 24 Hours 02/12/19 02/12/19 02/12/19 02/12/19 11:59 15:38 15:59 16:38 Temp 98.1 97.7 98.1 97.7 Pulse 68 61 Resp 18 18 B/P (MAP) 104/47 (66) 108/51 (70) Pulse Ox 100 96 O2 Delivery Room Air Room Air Room Air Room Air 02/12/19 02/12/19 02/12/19 02/13/19 19:00 20:00 23:00 03:00 Temp 98.7 97.9 97.5 98.7 97.9 97.5 Pulse 67 60 54 Resp 20 20 20 B/P (MAP) 105/53 (70) 116/64 (81) 99/ Pulse Ox 95 95 98 O2 Delivery Room Air Room Air Room Air Room Air Intake and Output 02/12/19 02/12/19 02/13/19 15:00 23:00 07:00 Intake Total 440 ml 200 ml 500 ml Output Total 300 ml Balance 440 ml -100 ml 500 ml PARIS LALA MD Feb 13, 2019 08:10
[2019-02-13] MEDS: MESALAMINE 400 MG CAP.DRTAB. PO SCH ×2 (08:59→12:57)
[2019-02-13] MEDS: ASCORBIC ACID 500 MG TABLET PO SCH (08:59)
[2019-02-13] MEDS: LACTOBACILLUS RHAMNOSUS GG 1 CAPSULE. PO SCH (08:59)
[2019-02-13 11:00] VITALS: BP 125/74
[2019-02-13] MEDS ORDERED: DAPT350V IV (11:21)
[2019-02-13] MEDS ORDERED: PIPE13.5 IV (11:21)
--- NOTE | 2019-02-13 11:24 | SNU/HH DC ---
DISCHARGE WITH HOME HEALTH DISCHARGE INFORMATION: Discharge Date: Feb 13, 2019 Final Diagnosis: Chronic sacral osteomyelitis Condition on Discharge: Stable CODE STATUS: Code Status: Full HOME HEALTH: Face to Face: I certify this patient is under my care and that I, or a nurse practitioner or physician's creative assistant working with me, had a face to face encounter that meets the physician face to face encounter requirements with this patient on 02/13/2019. Medical Complications: Other (Crohns with fistulas) [facility] For: Admin/Educate Injections, IV Infusion Therapy RN For Eval/Treatment: Yes Pt Meets Homebound Status: Limited distance walking POST DISCHARGE ORDERS: Activity Instructions for Disc: Activity as tolerated Bathing Instructions: Shower-keep dressing dry DIET AFTER DISCHARGE: Regular Wound/Incision Care: Other, see below CHECKS AFTER DISCHARGE: Checks after discharge: Check blood press - daily FOLLOW-UP: Follow up with: GINA Stringer - fax DC TO SNF LABS: CBC, BUN, Cr, CPK, ESR, LFT Q Mon, [id number] TREATMENT/EQUIPMENT ORDERS: Infusion Equipment, home use: PICC Line CERTIFICATION STATEMENT: Certification Statement: Certification Statement: Based on the above finding, I certify that this patient is confined to the home and needs intermittent fci care, physical therapy and/or speech therapy, or continues to need occupational therapy.~ This patient is under my care, and I have initiated the establishment of the plan of care.~ This patient will be followed by myself or a community physician who will periodically review the plan of care. Home Meds Active Scripts Piperacillin Sodium/Tazobactam (Piperacil-Tazobact 13.5 gm Vl) 13.5 Gm Vial, 13.5 GM IV DAILY for Cellulitis for 28 Days, #28 EACH Prov:PARIS LALA MD 02/13/19 Daptomycin (Daptomycin) 350 Mg Vial, 530 MG IV DAILY for cellulitis for 28 Days, #43 EACH Prov:PARIS LALA MD 02/13/19 Reported Medications Hydrocodone Bit/Acetaminophen (HYDROCODONE-APAP 5-325 ) 1 Tab Tablet, 1-2 TAB PO PRN Q4HRS PRN for PAIN, TAB 0 Refills 01/30/19 Guaifenesin/Dextromethorphan (TUSSIN DM COUGH & CHEST SYRUP) 118 Ml Syrup, 5 ML PO PRN QID PRN for COUGH for 12 Days, #240 ML 0 Refills 01/30/19 Magnesium Hydroxide (MILK OF MAGNESIA) 2,400 Mg/10 Ml Oral.susp, 2400 MG PO PRN DAILY PRN for CONSTIPATION, MISC 01/30/19 Acetaminophen (TYLENOL) 325 Mg Tablet, 650 MG PO PRN Q4HRS PRN for PAIN, TAB 01/30/19 Ergocalciferol (Vitamin D2) (VITAMIN D2) 50,000 Unit Capsule, 1 CAP PO QMONTH, #4 CAP 5 Refills 10/18/17 Ascorbate Calcium (VITAMIN C) 500 Mg Tablet, 500 MG PO BID, TAB 10/18/17 Protein Supplement (Nutritional Drink Mix) 420 Gm Powder, 420 GM PO DAILY 01/09/16 Multivitamin (MULTI-VITAMIN DAILY) 1 Each Tablet, 1 EACH PO 01/09/16 Famotidine (FAMOTIDINE) 20 Mg Tablet, 20 MG PO HS, TAB 01/09/16 Mesalamine (ASACOL HD) 800 Mg Tablet.dr, 1600 MG PO TID 01/08/16 Discontinued Reported Medications Clindamycin Hcl (CLINDAMYCIN HCL) 300 Mg Capsule, 300 MG PO TID for antibiotic, CAP 01/30/19 PARIS LALA MD Feb 13, 2019 11:24
--- NOTE | 2019-02-13 11:28 | PDOC3 ---
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 Brief Hospital Course Allergies Allergies Coded Allergies Type Severity Reaction Last Updated Verified No Known Drug Allergies 10/19/17 No Vital Signs Vital Signs Date Time Temp Pulse Resp B/P (MAP) Pulse Ox O2 Delivery O2 Flow Rate FiO2 02/13/19 08:20 Room Air 02/13/19 07:00 97.7 57 107/64 (78) 98 97.7 02/13/19 03:00 20 Lab Results Laboratory Tests Test 02/12/19 03:05 02/13/19 04:10 Sodium Level 141 mmol/L (136-145) 142 mmol/L (136-145) Potassium Level 3.9 mmol/L (3.5-5.1) 4.0 mmol/L (3.5-5.1) Chloride Level 107 mmol/L (98-107) 107 mmol/L (98-107) Carbon Dioxide Level 24 mmol/L (21-32) 26 mmol/L (21-32) Anion Gap 10 (6-14) 9 (6-14) Blood Urea Nitrogen 17 mg/dL (8-26) 14 mg/dL (8-26) Creatinine 1.2 mg/dL (0.7-1.3) 1.1 mg/dL (0.7-1.3) Estimated GFR (Cockcroft-Gault) 61.8 68.3 Glucose Level 97 mg/dL (70-99) 100 mg/dL (70-99) Calcium Level 9.0 mg/dL (8.5-10.1) 8.8 mg/dL (8.5-10.1) White Blood Count 5.8 x10^3/uL (4.0-11.0) Red Blood Count 4.20 x10^6/uL (4.30-5.70) Hemoglobin 12.6 g/dL (13.0-17.5) Hematocrit 37.9 % (39.0-53.0) Mean Corpuscular Volume 90 fL (79-100) Mean Corpuscular Hemoglobin 30 pg (25-35) Mean Corpuscular Hemoglobin Concent 33 g/dL (31-37) Red Cell Distribution Width 14.1 % (11.5-14.5) Platelet Count 161 x10^3/uL (140-400) Neutrophils (%) (Auto) 67 % (31-73) Lymphocytes (%) (Auto) 20 % (24-48) Monocytes (%) (Auto) 10 % (0-9) Eosinophils (%) (Auto) 3 % (0-3) Basophils (%) (Auto) 1 % (0-3) Neutrophils # (Auto) 3.9 x10^3/uL (1.8-7.7) Lymphocytes # (Auto) 1.1 x10^3/uL (1.0-4.8) Monocytes # (Auto) 0.6 x10^3/uL (0.0-1.1) Eosinophils # (Auto) 0.2 x10^3/uL (0.0-0.7) Basophils # (Auto) 0.0 x10^3/uL (0.0-0.2) Erythrocyte Sedimentation Rate 31 (0-15) Creatine Kinase 61 U/L (39-308) Laboratory Tests Test 02/13/19 04:10 White Blood Count 5.8 x10^3/uL (4.0-11.0) Red Blood Count 4.20 x10^6/uL (4.30-5.70) Hemoglobin 12.6 g/dL (13.0-17.5) Hematocrit 37.9 % (39.0-53.0) Mean Corpuscular Volume 90 fL (79-100) Mean Corpuscular Hemoglobin 30 pg (25-35) Mean Corpuscular Hemoglobin Concent 33 g/dL (31-37) Red Cell Distribution Width 14.1 % (11.5-14.5) Platelet Count 161 x10^3/uL (140-400) Neutrophils (%) (Auto) 67 % (31-73) Lymphocytes (%) (Auto) 20 % (24-48) Monocytes (%) (Auto) 10 % (0-9) Eosinophils (%) (Auto) 3 % (0-3) Basophils (%) (Auto) 1 % (0-3) Neutrophils # (Auto) 3.9 x10^3/uL (1.8-7.7) Lymphocytes # (Auto) 1.1 x10^3/uL (1.0-4.8) Monocytes # (Auto) 0.6 x10^3/uL (0.0-1.1) Eosinophils # (Auto) 0.2 x10^3/uL (0.0-0.7) Basophils # (Auto) 0.0 x10^3/uL (0.0-0.2) Erythrocyte Sedimentation Rate 31 (0-15) Sodium Level 142 mmol/L (136-145) Potassium Level 4.0 mmol/L (3.5-5.1) Chloride Level 107 mmol/L (98-107) Carbon Dioxide Level 26 mmol/L (21-32) Anion Gap 9 (6-14) Blood Urea Nitrogen 14 mg/dL (8-26) Creatinine 1.1 mg/dL (0.7-1.3) Estimated GFR (Cockcroft-Gault) 68.3 Glucose Level 100 mg/dL (70-99) Calcium Level 8.8 mg/dL (8.5-10.1) Creatine Kinase 61 U/L (39-308) Brief Hospital Course Mr Lilly is a 58 yo w/ PMHx severe Crohn's disease, status post ostomy and mu ltiple fistula repairs. [facility] from a coccyx wound. He was evaluated by General Surgery with no surgical plans at this time and placed on antibiotic trial per ID. Acute and chronic OM changes on CT abdomen and pelvis ,Pt has been treated with previous OM at [facility] in the past. ESR 35. Anaerobic-aerobic culture with Gram stain was obtained with NGTD. S/P IR biopsy 02/03 - Bone biopsy confirmed chronic osteomyelitis, no evidence of acute osteomyelitis. The patient says he has had wounds off and on for years. Over the last 6 months or so, he has had several rounds of antibiotics for odor. A previous culture in December grew mixed site se. The patient denies fevers, chills, sweats or body aches. Denies nausea, vomiting or increased ostomy output. Denies rash or itching. 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 He is ambulating well. Feels overall improved. Wishes for home with outpatient wound care and home infusions, 13.5g zosyn continous for 28 days and daptomycin with CBC, BUN, Cr, CPK, ESR, and LFTs weekly. Problems: Non-surgical perianal wound - with bleeding Severe Crohn's with multiple surgeries s/p ostomy (multiple fissures and abdominal wounds) Multiple deep ulcers along the distal sacrum and buttocks extend into the right ischiorectal fat and to the former site of the coccyx. The coccyx and distal sacrum have been completely eroded. There is some debris within the tracts, but no drainable collection. 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 Chronic pain Hyperlipidemia Hypertension GERD Incidental 5 mm rt kidney stone Hiatal hernia with small bowel loops Cont trial with empiric zosyn/ daptomycin CT-guided biopsy of the sacrum - chronic osteomyelitis Plan per ID: Cont trial with empiric dapto and zosyn script in chart Probiotics PICC placed, will continue PICC care Social service to assist with discharge antibiotics Recommended transfer to [facility] Plastics for I and D, ostectomy and possible flap if eligible Per staff [facility] did not accept pt for transfer Weekly labs CBCD/BUN/CREAT/CPK/ESR/LFT. faxed to [phone] WOUND CARE per wound team Offloading Greater than 30 minutes spent on d/c Discharge Information Condition at Discharge: Improved Follow Up: Weeks (2) Disposition/Orders: D/C to Home w/ HH Scheduled Ascorbate Calcium (Vitamin C) 500 Mg Tablet, 500 MG PO BID, (Reported) Entered as Reported by: DASIA MA on 10/18/17 1440 Last Action: Converted on 01/30/19 1350 by FRANK KNIGHT Daptomycin (Daptomycin) 350 Mg Vial, 530 MG IV DAILY for cellulitis for 28 Days, #43 Prescribed by: PARIS LALA MD on 02/13/19 1121 Ergocalciferol (Vitamin D2) (Vitamin D2) 50,000 Unit Capsule, 1 CAP PO QMONTH, #4 Ref 5 (Reported) Entered as Reported by: DASIA MA on 10/18/17 1442 Last Action: Continued on 01/30/19 1350 by FRANK KNIGHT Famotidine (Famotidine) 20 Mg Tablet, 20 MG PO HS, (Reported) Entered as Reported by: GRZEGORZ PICKETT on 01/09/16 0936 Last Action: Continued on 01/30/19 1350 by FRANK KNIGHT Mesalamine (Asacol Hd) 800 Mg Tablet.dr, 1,600 MG PO TID, (Reported) Entered as Reported by: GRZEGORZ PICKETT on 01/08/16 1604 Last Action: Converted on 01/30/191349 by FRANK KNIGHT Piperacillin Sodium/Tazobactam (Piperacil-Tazobact 13.5 gm Vl) 13.5 Gm Vial, 13.5 GM IV DAILY for Cellulitis for 28 Days, #28 Prescribed by: PARIS LALA MD on 02/13/19 1121 Protein Supplement (Nutritional Drink Mix) 420 Gm Powder, 420 GM PO DAILY, (Reported) Entered as Reported by: GRZEGORZ PICKETT on 01/09/16 0936 Last Action: Converted on 01/30/191349 by FRANK KNIGHT Scheduled PRN Acetaminophen (Tylenol) 325 Mg Tablet, 650 MG PO PRN Q4HRS PRN for PAIN, (Reported) Entered as Reported by: MENDY GORDON on 01/30/191154 Last Action: Continued on 01/30/191349 by FRANK KNIGHT Guaifenesin/Dextromethorphan (Tussin Dm Cough & Chest Syrup) 118 Ml Syrup, 5 ML PO PRN QID PRN for COUGH for 12 Days, #240 Ref 0 (Reported) Entered as Reported by: MENDY GORDON on 01/30/191154 Last Action: Continued on 01/30/191349 by FRANK KNIGHT Hydrocodone Bit/Acetaminophen (Hydrocodone-Apap 5-325 ) 1 Tab Tablet, 1-2 TAB PO PRN Q4HRS PRN for PAIN, Ref 0 (Reported) Entered as Reported by: MENDY GORDON on 01/30/191154 Last Action: Reviewed on 02/01/19 0818 by DEMARCO POWELL Magnesium Hydroxide (Milk Of Magnesia) 2,400 Mg/10 Ml Oral.susp, 2,400 MG PO PRN DAILY PRN for CONSTIPATION, (Reported) Entered as Reported by: MENDY GORDON on 01/30/191154 Last Action: Converted on 01/30/191349 by FRANK KNIGHT Miscellaneous Medications Multivitamin (Multi-Vitamin Daily) 1 Each Tablet, 1 EACH PO, (Reported) Entered as Reported by: GRZEGORZ PICKETT on 01/09/16 0936 Last Action: Reviewed on 01/30/191154 by MENDY GORDON Discontinued Medications Clindamycin Hcl (Clindamycin Hcl) 300 Mg Capsule, 300 MG PO TID for antibiotic, (Reported) Entered as Reported by: MENDY GORDON on 01/30/191154 Last Action: Converted on 01/30/19 1350 by PARIS HERBERT MD Feb 13, 2019 11:28
--- NOTE | 2019-02-13 11:57 | NUR ---
Spoke to the wound care clinic in regards to patient leaving today. They stated the patient does not need a dressing change at this time and to only reinforce. Pictures and dressing change done yesterday by clinic. He is to follow up with the wound care clinic till he can get into [facility]. Patient aware.
--- NOTE | 2019-02-13 12:02 | PDOC ---
Infectious Disease Note Subjective Subjective Comfortable, No c/o F/C/N/V/aches Vital Sign Vital Signs Vital Signs Date Time Temp Pulse Resp B/P (MAP) Pulse Ox O2 Delivery O2 Flow Rate FiO2 02/13/19 08:20 Room Air 02/13/19 07:00 97.7 57 107/64 (78) 98 97.7 02/13/19 03:00 20 Physical Exam PHYSICAL EXAM GENERAL: Propped up in bed, resting quietly, arouses to name HEENT: Pupils equally round. Oropharynx pink and moist. NECK: Supple, no lymphadenopathy. LUNGS: Clear to auscultation. HEART: S1, S2. ABDOMEN: Obese, soft, nontender, bowel sounds present. Multiple scars and right-sided ostomy. EXTREMITIES: No gross edema or cyanosis. SKIN: Warm to touch without signs of rash. Several sacrococcygeal fistulas NEUROLOGIC: Answering questions appropriately. RUE-PICC (02/07) clean Labs Lab Laboratory Tests Test 02/13/19 04:10 White Blood Count 5.8 x10^3/uL (4.0-11.0) Red Blood Count 4.20 x10^6/uL (4.30-5.70) Hemoglobin 12.6 g/dL (13.0-17.5) Hematocrit 37.9 % (39.0-53.0) Mean Corpuscular Volume 90 fL (79-100) Mean Corpuscular Hemoglobin 30 pg (25-35) Mean Corpuscular Hemoglobin Concent 33 g/dL (31-37) Red Cell Distribution Width 14.1 % (11.5-14.5) Platelet Count 161 x10^3/uL (140-400) Neutrophils (%) (Auto) 67 % (31-73) Lymphocytes (%) (Auto) 20 % (24-48) Monocytes (%) (Auto) 10 % (0-9) Eosinophils (%) (Auto) 3 % (0-3) Basophils (%) (Auto) 1 % (0-3) Neutrophils # (Auto) 3.9 x10^3/uL (1.8-7.7) Lymphocytes # (Auto) 1.1 x10^3/uL (1.0-4.8) Monocytes # (Auto) 0.6 x10^3/uL (0.0-1.1) Eosinophils # (Auto) 0.2 x10^3/uL (0.0-0.7) Basophils # (Auto) 0.0 x10^3/uL (0.0-0.2) Erythrocyte Sedimentation Rate 31 (0-15) Sodium Level 142 mmol/L (136-145) Potassium Level 4.0 mmol/L (3.5-5.1) Chloride Level 107 mmol/L (98-107) Carbon Dioxide Level 26 mmol/L (21-32) Anion Gap 9 (6-14) Blood Urea Nitrogen 14 mg/dL (8-26) Creatinine 1.1 mg/dL (0.7-1.3) Estimated GFR (Cockcroft-Gault) 68.3 Glucose Level 100 mg/dL (70-99) Calcium Level 8.8 mg/dL (8.5-10.1) Creatine Kinase 61 U/L (39-308) Micro Microbiology 02/03/19 Anaerobic/Aerobic Culture - Final, Complete 02/03/19 Anaerobic Culture Result 1 (BERKLEY) - Final, Complete 02/03/19 Aerobic Culture - Final, Complete 02/03/19 Aerobic Culture Result 1 (BERKLEY) - Final, Complete 02/03/19 Gram Stain - Final, Complete 02/03/19 Gram Stain Result 1 (BERKLEY) - Final, Complete 02/03/19 Gram Stain Result 2 (BERKLEY) - Final, Complete Objective Assessment Multiple sacrococcygeal fistulas without overt signs of infection. culture neg so far Crohn's disease with history of ostomy and multiple fistula repairs. Acute and chronic OM changes on CT abdomen and pelvis ,Pt has been treated with previous OM at [facility] in the past . Chronic OM could be from the same - ESR 35 - s/p IR biopsy 02/03 Gastroesophageal reflux disease. Obesity. Kidney stone on CT Abdomen Plan Plan of Care [facility] rejected, this is chronic osteo, will not get better with iv antibiotics, need infected bone resection and flap need to go to [facility] wound care and then see dr Sosa for plastic CAVANAUGH,DIANA Stallings MD Feb 13, 2019 12:02
[2019-02-13] MEDS ORDERED: AMOX1TAB61 PO (12:38)
[2019-02-13] MEDS ORDERED: DOXY100C2 PO (12:39)
[2019-02-13 15:00] VITALS: BP 145/70
--- NOTE | 2019-02-13 16:01 | NUR ---
Patient just left by wheelchair around 1600. No concerns noted upon discharge. [employer] notified. Packet given to transportation and papers given to patient as well. He left with all his belongings.
[2019-02-13] MEDS ORDERED: DOXYCYCLINE HYCLATE 100 MG TABLET PO SCH (21:00)
[2019-02-13] MEDS ORDERED: AMOXICILLIN/K CLAV 875/125MG TABLET. PO SCH (21:00)
[2019-03-01] MEDS ORDERED: ERGOCALCIFEROL (VITAMIN D2) 50,000 UNIT CAPSULE. PO SCH (09:00)
== END 2019-02-13 16:00 | disposition home or self-care (01) | DRG 478 ==
LOC: 5 SOUTH 11:17
PROVIDERS: ADMIT Internal Medicine; ATTEND Internal Medicine
PROC: 0QB13ZX Excision of Sacrum, Percutaneous Approach, Diagnostic (ICD-10-PCS; principal; 2019-02-03)
PROC: 02HV33Z Insertion of Infusion Device into Superior Vena Cava, Percutaneous Approach (ICD-10-PCS; 2019-02-09)
PROC: B5181ZA Fluoroscopy of Superior Vena Cava using Low Osmolar Contrast, Guidance (ICD-10-PCS; 2019-02-09)
PROC: B548ZZA Ultrasonography of Superior Vena Cava, Guidance (ICD-10-PCS; 2019-02-09)
DX: M46.28 Osteomyelitis of vertebra, sacral and sacrococcygeal region (principal); K50.913 Crohn's disease, unspecified, with fistula; E66.9 Obesity, unspecified; E78.5 Hyperlipidemia, unspecified; F17.290 Nicotine dependence, other tobacco product, uncomplicated; G89.29 Other chronic pain; I10 Essential (primary) hypertension; K21.9 Gastro-esophageal reflux disease without esophagitis; K43.5 Parastomal hernia without obstruction or gangrene; K44.9 Diaphragmatic hernia without obstruction or gangrene; F32.9 Major depressive disorder, single episode, unspecified; L89.159 Pressure ulcer of sacral region, unspecified stage; L98.499 Non-pressure chronic ulcer of skin of other sites with unspecified severity; N20.0 Calculus of kidney; Z82.49 Family history of ischemic heart disease and other diseases of the circulatory system; Z68.28 Body mass index [BMI] 28.0-28.9, adult
CPT/HCPCS: 20225; 36415; 36573; 74177; 77001; 77012; 80048; 80053; 80202; 82550; 84145; 84443; 85025; 85610; 85651; 86140; 86304; 87071; 87075; 88307; 99152; C1751; C1892; J0878; J2250; J2270; J2543; J3010; J3370; J7040; Q9967; G0378